=== PATIENT | female | born 1935 | race Caucasian/White ===

== ENCOUNTER 2019-05-23 21:56 | Emergency (ER) | payer MEDICARE ==
--- NOTE | 2019-05-23 22:16 | ERPHSYRPT ---
- History of Present Illness Time Seen by Provider: 05/23/19 22:07 Source: patient Exam Limitations: no limitations Patient Subjective Stated Complaint: pt is alert and oriented. pt brought in via ambulance but ambulates to the bed with assist of 1. pt comes in with c/o fall on to her wooden porch. pt denies neck or back pain. pt states she has right rib pain, left knee pain. pt breathing easily. pt takes pradaxa. pt no bruising noted. pt has raised area to the right posterior side of her head. pt PERRLA. Triage Nursing Assessment: see above Physician History: Pt states, she fell at home, on her porch, hit the back of her head, and left knee. She denies LOC, severe headaches, nausea, vomiting, other injury or complaints, except she mentioned that, she fell one week ago at home and hit her right ribs. She denies cough, SOB, abdominal pain, vomiting, other complaints. She states, she takes Pradaxa daily. Occurred: just prior to arrival Reason for Fall: tripped Injuries/Pain Location: head, lower (left extremity) Loss of Consciousness: no loss of consciousness Quality: sharpness Severity of Pain-Max: mild Severity of Pain-Current: mild Modifying Factors: Improves With: immobilization, movement Associated Symptoms (Fall): denies symptoms Allergies/Adverse Reactions: cortisone [Cortisone] Allergy (Verified 11/21/14 12:06) "affected breathing and heart" latex Allergy (Verified 11/21/14 12:06) polyethylene glycol [From Golytely] Allergy (Verified 11/21/14 12:06) vomiting and nasuea polyethylene glycol 3350 [From Golytely] Allergy (Verified 11/21/14 12:06) vomiting and nasuea potassium chloride* [From Golytely] Allergy (Verified 11/21/14 12:06) vomiting and nasuea sodium [From Golytely] Allergy (Verified 11/21/14 12:06) vomiting and nasuea sodium bicarbonate [From Golytely] Allergy (Verified 11/21/14 12:06) vomiting and nasuea sodium chloride [From Golytely] Allergy (Verified 11/21/14 12:06) vomiting and nasuea sodium sulfate [From Golytely] Allergy (Verified 11/21/14 12:06) vomiting and nasuea sodium sulfate anhydrous [From Golytely] Allergy (Verified 11/21/14 12:06) vomiting and nasuea acetaminophen [From Vicodin] Adverse Reaction (Verified 11/21/14 12:06) hydrocodone bitartrate [From Vicodin] Adverse Reaction (Verified 11/21/14 12:06) Home Medications: Alprazolam [Xanax] 0.25 mg PO BID 09/24/12 [History] Atorvastatin Calcium [Lipitor] 10 mg PO DAILY 09/24/12 [History] Beta-Carotene(A) W-C & E/Min [Ocuvite Tablet] 1 each PO BID 09/24/12 [History] Calcium Carbonate [Calcium] 600 mg PO DAILY 09/24/12 [History] Dabigatran Etexilate Mesylate [Pradaxa] 150 mg PO BID 09/24/12 [History] Famotidine [Pepcid] 20 mg PO BID 09/24/12 [History] Ferrous Sulfate 325 mg PO BID 09/24/12 [History] Levothyroxine Sodium 75 Mcg [Synthroid 75 Mcg] 75 mcg PO DAILY 09/24/12 [ History] Loratadine [Claritin] 10 mg PO DAILY 09/24/12 [History] Magnesium Oxide [Magox 400] 400 mg PO TID 09/24/12 [History] Mu-Vits-Min Th/Lycopene/Lutein [Centrum Silver Tablet] 1 each PO DAILY 09/24/12 [History] [place]-3 Fatty Acids/Fish Oil [Fish Oil 1,000 mg Capsule] 1 each PO TID 09/24/12 [History] Potassium Chloride 10 Meq Tab* [Klor Con 10MEQ] 20 meq PO TID 09/24/12 [History] Sildenafil Citrate [Revatio] 20 mg PO TID 09/24/12 [History] Spironolactone 25 mg [Aldactone 25 MG] 25 mg PO BID 09/24/12 [History] Hx Tetanus, Diphtheria Vaccination/Date Given: No Hx Influenza Vaccination/Date Given: No Hx Pneumococcal Vaccination/Date Given: No Immunizations Up to Date: Yes - Review of Systems Constitutional: No Symptoms Eyes: No Symptoms Ears, Nose, & Throat: No Symptoms Respiratory: No Symptoms Cardiac: No Symptoms Abdominal/Gastrointestinal: No Symptoms Genitourinary Symptoms: No Symptoms Musculoskeletal: Other (left knee pain) Skin: No Symptoms Neurological: No Symptoms All Other Systems: Reviewed and Negative - Past Medical History Pertinent Past Medical History: Yes Neurological History: Migraines ENT History: Cataracts Cardiac History: Coronary Artery Disease, Deep Vein Thrombosis, High Cholesterol Respiratory History: Asthma, COPD, Pulmonary Embolism, Sleep Apnea, Other Endocrine Medical History: Hypothyroidism Musculoskeletal History: Arthritis GI Medical History: GERD History: Renal Disease, Other Psycho-Social History: Depression Female Reproductive Disorders: No Pertinent History Other Medical History: 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 - Past Surgical History Past Surgical History: Yes Neuro Surgical History: No Pertinent History Cardiac: CABG Respiratory: No Pertinent History Gastrointestinal: Cholecystectomy Genitourinary: No Pertinent History Musculoskeletal: Orthopedic Surgery Female Surgical History: Hysterectomy Other Surgical History: HAND AND WRIST - Social History Smoking Status: Never smoker Exposure to second hand smoke: Yes Drug Use: none Patient Lives Alone: Yes - Nursing Vital Signs Nursing Vital Signs: Initial Vital Signs Temperature 98.1 F 05/23/19 21:56 Pain Scale Pain Intensity 7 - Tamra Coma Score Best Eye Response (Tamra): (4) open spontaneously Best Verbal Response (Tamra): (5) oriented Best Motor Response (Tamra): (6) obeys commands Tamra Total: 15 - Physical Exam General Appearance: no apparent distress Head Injury: tenderness (soft tissue tenderness of the scalp on the right parieto-occipital area, no large hematoma, other injury.) Neck Exam: supple, trachea midline, full range of motion, normal alignment, normal inspection, No focal neuro deficit, No muscle spasm, No mid-line tenderness Respiratory/Chest Exam: chest tenderness (right upper anterior axillary ribs, no swleling, ecchymosis, no crepitations or subcutaneous emphysema.), normal breath sounds, No respiratory distress, No ecchymosis, No crepitus, No rhonchi, No wheezing, No accessory muscle use Cardiovascular Exam: murmur (2/6 systolic, left sternal border) Gastrointestinal Exam: soft, normal bowel sounds, No tenderness, No distention, No mass, No guarding, No ecchymosis, No rebound Back Exam: other (kyphotic), No CVA tenderness, No vertebral tenderness Extremity Exam: normal inspection, pelvis stable, other (left anterior knee: soft tissue tenderness, good ROM, with mild pain, no deformity, no effusion, or severe laxity, good distal pulses and sensation.) Peripheral Pulses: carotid (R): 3+, carotid (L): 3+, dorsalis-pedis (R): 2+, dorsalis-pedis (L): 2+ Neurologic Exam: alert, oriented x 3, cooperative, normal mood/affect, nml cerebellar function Skin Exam: normal color, warm, dry, No rash, No petechiae, No cyanosis, No diaphoresis SpO2 Interpretation: normal O2 Delivery: Room Air - Course Nursing assessment & vital signs reviewed: Yes - Radiology Exams Left Knee X-ray Interpretation: Interpreted by me, Negative Right Ribs X-ray Interpretation: Interpreted by me, Negative, Other (old fractures ( 10-11) ) Chest X-ray Interpretation: Interpreted by me, Negative - CT Exams Head CT Interpretation: Negative, Tele-radiologist Report Ordered Tests: Active Orders 24 hr Category Date Time Status CHEST 2 VIEWS (PA AND LAT) Stat Exams 05/23/19 22:07 Taken HEAD WITHOUT CONTRAST [CT] Stat Exams 05/23/19 22:07 Taken KNEE (3 VIEWS) Stat Exams 05/23/19 22:08 Taken RIBS UNILATERAL Stat Exams 05/23/19 22:08 Taken - Progress Progress: unchanged Progress Note: 05/23/19 23:44 Pt has been stable, not lethargic or confused, denies severe pain, not nauseated , explained our findings, she is being discharged home to rest x 2-3 days, apply ice r cold compresses to sore areas, and follow up with her physician next week. Counseled pt/family regarding: diagnosis, need for follow-up, rad results - Departure Departure Disposition: Home Clinical Impression: Knee contusion Qualifiers: Encounter type: initial encounter Laterality: left Qualified Code(s): S80.02XA - Contusion of left knee, initial encounter Head injury Qualifiers: Encounter type: initial encounter Qualified Code(s): S09.90XA - Unspecified injury of head, initial encounter Condition: Stable Critical Care Time: No Referrals: MOE PRINCE [Primary Care Provider] - Instructions: Contusion (DC), Concussion, Adult (DC) Additional Instructions: Rest x 2-3 days, apply ice or cold compresses to painful areas, and follow up with your physician in 2-3 days, return if severe headaches, vomiting, lethargy !
[2019-05-23 23:58] VITALS: BP 139/75; PULSE 60; O2SAT 94
--- NOTE | 2019-05-24 07:04 | XRAY ---
Indication: Pain following fall. Multiple contiguous axial images obtained through the head without contrast. Comparison: November 05, 2013 Again age-appropriate global atrophy and minimal periventricular degenerative micro-ischemia. No acute intracranial hemorrhage, abnormal extra-axial fluid collection, or mass effect. Fourth ventricle is midline without hydrocephalus. Joe-white matter differentiation preserved. Bony calvarium intact. Visualized paranasal sinuses and mastoid air cells are clear. Impression: Nonacute senile brain. Comment: Preliminary interpretation was made by [facility]. No discrepancy. CTDI 51.47
--- NOTE | 2019-05-24 07:08 | XRAY ---
Indication: Pain following fall. Comparison: None 2 views of the right demonstrates osteopenia, old anterior lateral 8-10 rib fractures, multilevel thoracolumbar kyphoplasty, partially visualized lower lumbar fusion hardware, left pacemaker, and tortuous descending aorta. No other bony, articular, or soft tissue abnormalities.
--- NOTE | 2019-05-24 07:10 | XRAY ---
Indication: Pain following fall. Comparison: March 09, 2013. PA/lateral chest remains clear. Heart is not enlarged with left pacemaker and cardiac valvular replacement surgery. Descending aorta remains tortuous. Bony thorax intact with osteopenia, mild degenerative changes, and old bilateral rib fractures. Interval multilevel thoracolumbar kyphoplasty. Impression: Nonacute chest with chronic features.
--- NOTE | 2019-05-24 07:12 | XRAY ---
Indication: Pain following fall. Comparison: None 3 views of the left knee demonstrates osteopenia, mild medial joint space narrowing, tiny proximal tibial bone island, mild vascular calcifications, and lower leg vascular clips. No other bony, articular, or soft tissue abnormalities.
== END 2019-05-24 00:30 | disposition home or self-care (01) ==
LOC: ED 21:56
DX: S80.02XA Contusion of left knee, initial encounter (principal); S09.90XA Unspecified injury of head, initial encounter; S20.211A Contusion of right front wall of thorax, initial encounter; W18.39XA Other fall on same level, initial encounter; Z79.899 Other long term (current) drug therapy; I25.10 Atherosclerotic heart disease of native coronary artery without angina pectoris; E78.00 Pure hypercholesterolemia, unspecified; J44.9 Chronic obstructive pulmonary disease, unspecified; E03.9 Hypothyroidism, unspecified; Z86.711 Personal history of pulmonary embolism; Z95.1 Presence of aortocoronary bypass graft
CPT/HCPCS: 70450; 71046; 71100; 73562; 99284

== ENCOUNTER 2020-01-28 19:36 | Emergency (ER) | payer MEDICARE ==
[2020-01-28] MEDS ORDERED: PERCOCET TABLET 5/325MG PO STA (19:54)
[2020-01-28] MEDS ORDERED: PERCOCET TABLET 5/325MG ONE (19:57)
[2020-01-28 19:59] VITALS: PULSE 60
--- NOTE | 2020-01-28 20:12 | ERPHSYRPT ---
- History of Present Illness Time Seen by Provider: 01/28/20 20:00 Source: patient Exam Limitations: no limitations Patient Subjective Stated Complaint: Left wrist pain Triage Nursing Assessment: pt to ED c/o L wrist pain onset 1900 today after fall at home. pt states she did not hit head, no LOC. reports is on blood thinners. rates 8/10 pain that radiates up towards elbow. pain increases with movement, tender to palp. cap refil <3 sec, pulses normal. pt states freq falls at home, waiting on scooter. back to room via WC, assist x1 to bed and into gown. pt A&Ox3, lung sounds clear and equal bilat, heart sounds clear. no other complaints at this time Physician History: 84 years old female with a history of coronary artery disease, pulmonary embolism/DVT on Pradaxa, issues with balance with frequent falls presented in the ER after she fell and tried to stop her with left outstretched hand and is complaining of moderate to severe sharp throbbing pain in the left wrist with some deformity. Excruciating pain with movements at the wrist and also painful to move fingers. Denies any numbness or tingling in the fingers. Did not hit her head. No loss of consciousness. No injury anywhere else. Occurred: just prior to arrival Method of Injury: fell Quality: sharpness, throbbing Severity of Pain-Max: moderate Severity of Pain-Current: moderate Extremities Pain Location: wrist: left Modifying Factors: Improves With: cold therapy, immobilization, movement Associated Symptoms: none Allergies/Adverse Reactions: cortisone [Cortisone] Allergy (Verified 01/28/20 20:03) "affected breathing and heart" latex Allergy (Verified 01/28/20 20:03) polyethylene glycol [From Golytely] Allergy (Verified 01/28/20 20:03) vomiting and nasuea polyethylene glycol 3350 [From Golytely] Allergy (Verified 01/28/20 20:03) vomiting and nasuea potassium chloride* [From Golytely] Allergy (Verified 01/28/20 20:03) vomiting and nasuea sodium [From Golytely] Allergy (Verified 01/28/20 20:03) vomiting and nasuea sodium bicarbonate [From Golytely] Allergy (Verified 01/28/20 20:03) vomiting and nasuea sodium chloride [From Golytely] Allergy (Verified 01/28/20 20:03) vomiting and nasuea sodium sulfate [From Golytely] Allergy (Verified 01/28/20 20:03) vomiting and nasuea sodium sulfate anhydrous [From Golytely] Allergy (Verified 01/28/20 20:03) vomiting and nasuea acetaminophen [From Vicodin] Adverse Reaction (Verified 11/21/14 12:06) hydrocodone bitartrate [From Vicodin] Adverse Reaction (Verified 11/21/14 12:06) Home Medications: Alprazolam [Xanax] 0.25 mg PO BID 09/24/12 [History] Atorvastatin Calcium [Lipitor] 10 mg PO DAILY 09/24/12 [History] Beta-Carotene(A) W-C & E/Min [Ocuvite Tablet] 1 each PO BID 09/24/12 [History] Calcium Carbonate [Calcium] 600 mg PO DAILY 09/24/12 [History] Dabigatran Etexilate Mesylate [Pradaxa] 150 mg PO BID 09/24/12 [History] Famotidine [Pepcid] 20 mg PO BID 09/24/12 [History] Ferrous Sulfate 325 mg PO BID 09/24/12 [History] Levothyroxine Sodium 75 Mcg [Synthroid 75 Mcg] 75 mcg PO DAILY 09/24/12 [ History] Loratadine [Claritin] 10 mg PO DAILY 09/24/12 [History] Magnesium Oxide [Magox 400] 400 mg PO TID 09/24/12 [History] Mu-Vits-Min Th/Lycopene/Lutein [Centrum Silver Tablet] 1 each PO DAILY 09/24/12 [History] [place]-3 Fatty Acids/Fish Oil [Fish Oil 1,000 mg Capsule] 1 each PO TID 09/24/12 [History] Potassium Chloride 10 Meq Tab* [Klor Con 10MEQ] 20 meq PO TID 09/24/12 [History] Sildenafil Citrate [Revatio] 20 mg PO TID 09/24/12 [History] Spironolactone 25 mg [Aldactone 25 MG] 25 mg PO BID 09/24/12 [History] Hx Tetanus, Diphtheria Vaccination/Date Given: No Hx Influenza Vaccination/Date Given: No Hx Pneumococcal Vaccination/Date Given: No Immunizations Up to Date: No - Past Medical History Pertinent Past Medical History: Yes Neurological History: Migraines ENT History: Cataracts Cardiac History: Coronary Artery Disease, Deep Vein Thrombosis, High Cholesterol Respiratory History: Asthma, COPD, Pulmonary Embolism, Sleep Apnea, Other Endocrine Medical History: Hypothyroidism Musculoskeletal History: Arthritis GI Medical History: GERD History: Renal Disease, Other Psycho-Social History: Depression Female Reproductive Disorders: No Pertinent History Other Medical History: 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 - Past Surgical History Past Surgical History: Yes Neuro Surgical History: No Pertinent History Cardiac: CABG Respiratory: No Pertinent History Gastrointestinal: Cholecystectomy Genitourinary: No Pertinent History Musculoskeletal: Orthopedic Surgery Female Surgical History: Hysterectomy Other Surgical History: HAND AND WRIST - Social History Smoking Status: Never smoker Exposure to second hand smoke: Yes Drug Use: none Patient Lives Alone: Yes - Female History Hx Now: No (post menopausal) - Nursing Vital Signs Nursing Vital Signs: Initial Vital Signs Temperature 97.8 F 01/28/20 19:46 Pulse Rate 60 01/28/20 19:46 Respiratory Rate 20 01/28/20 19:46 Blood Pressure 137/72 01/28/20 19:46 O2 Sat by Pulse Oximetry 98 01/28/20 19:46 Pain Scale Pain Intensity 7 - Physical Exam General Appearance: no apparent distress Eyes, Ears, Nose, Throat Exam: normal ENT inspection Neck Exam: normal inspection, non-tender, supple, full range of motion Cardiovascular/Respiratory Exam: chest non-tender, normal breath sounds, regular rate/rhythm Abdominal Exam: non-tender, soft, no organomegaly, no hernia Back Exam: normal inspection, normal range of motion Shoulder Exam: normal inspection, non-tender, no evidence of injury Elbow/Forearm Exam: normal inspection, non-tender, no evidence of injury Wrist Exam: bone tenderness, deformity, limited ROM, swelling (Swollen distal forearm radial aspect with dorsal angulation. Radial pulse well palpable. Distal neurovascular intact.) Neuro/Tendon Exam: normal sensation, normal motor functions Mental Status Exam: alert, oriented x 3, cooperative Skin Exam: normal color SpO2 Interpretation: normal SpO2: 98 O2 Delivery: Room Air - Course Nursing assessment & vital signs reviewed: Yes Ordered Tests: Active Orders 24 hr Category Date Time Status Cold Application STAT Care 01/28/20 19:49 Active Sling Application STAT Care 01/28/20 21:14 Active Splint STAT Care 01/28/20 21:13 Active HAND (MINIMUM 3 VIEWS) Stat Exams 01/28/20 20:32 Taken WRIST (MIN 3 VIEWS) Stat Exams 01/28/20 19:53 Taken Medication Summary Discontinued Medications Generic Name Dose Route Start Last Admin Trade Name Doroteo PRN Reason Stop Dose Admin Morphine Sulfate 4 mg 01/28/20 20:13 01/28/20 20:16 Morphine Sulfate 4 Mg Inj IM 01/28/20 20:14 4 mg STAT ONE Administration Morphine Sulfate Confirm 01/28/20 20:13 Morphine Sulfate 4 Mg Inj Administered 01/28/20 20:14 Dose 4 mg .ROUTE .STK-MED ONE Oxycodone/Acetaminophen 1 tab 01/28/20 19:54 01/28/20 19:59 Percocet Tablet 5/325mg PO 01/28/20 19:55 1 tab STAT STA Administration Oxycodone/Acetaminophen Confirm 01/28/20 19:57 Percocet Tablet 5/325mg Administered 01/28/20 19:58 Dose 1 tab .ROUTE .STK-MED ONE - Progress Progress: improved, re-examined Progress Note: 01/28/20 21:33 She has fracture distal radius with dorsal angulation but no obvious dislocation. Sugar tong splint is applied by RN. Distal neurovascular intact after that. Recommended outpatient follow-up with orthopedic clinic in [place] as patient needs surgical intervention. She is advised to stay with a responsible person to avoid another fall. I would give her a few pain pills only and strictly advised to take only as needed as she has a history of falls and is on Pradaxa. Patient reported that her granddaughter with stay with her. Counseled pt/family regarding: diagnosis, need for follow-up, rad results - Departure Departure Disposition: Home Clinical Impression: Wrist fracture, left Qualifiers: Encounter type: initial encounter Fracture type: closed Qualified Code(s): S62.102A - Fracture of unspecified carpal bone, left wrist, initial encounter for closed fracture Condition: Stable Critical Care Time: No Referrals: MOE PRINCE [Primary Care Provider] - Additional Instructions: Take pain medication only as needed. Keep it elevated, apply ice. Ambulate with assistance. Follow-up with orthopedic clinic in [place] tomorrow morning further evaluation and fracture fixation. Return to ED ER for any worsening.
[2020-01-28] MEDS ORDERED: MORPHINE SULFATE 4 MG INJ ONE (20:13)
[2020-01-28] MEDS ORDERED: MORPHINE SULFATE 4 MG INJ IM ONE (20:13)
[2020-01-28 20:48] VITALS: BP 146/63
[2020-01-28] MEDS ORDERED: NORCO 5/325 MG PO ONE (21:38)
[2020-01-28] MEDS ORDERED: NORCO 5/325 MG ONE (21:45)
[2020-01-28 21:49] VITALS: O2SAT 100
--- NOTE | 2020-01-29 21:57 | XRAY ---
Exam: 3 views left hand from 01/28/2020. Comparison: Left hand films from 09/23/2017. Indication: Patient fell last night. Findings: AP, oblique, and lateral radiographs of the left hand reveal bone demineralization. No acute fracture or dislocation of the left hand is seen. I note moderate to marked osteoarthritis affecting the carpal-first metacarpal joint space representing no significant change from 09/23/2017. I again see an impacted, comminuted fracture of the distal left radius which extends into the articular margin of the radiocarpal joint. Mild displacement of the comminuted radial fracture elements is seen. There is also a mildly displaced avulsion fracture injury of the distal left ulnar styloid process. Impression: 1. No additional acute fracture or dislocation of the left hand is seen. I again note an impacted Colles' fracture of the distal left radius and ulna which is new from 09/23/2017. 2. 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
--- NOTE | 2020-01-29 22:03 | XRAY ---
Exam: 3 views of the left wrist from 01/28/2020. Comparison: 3 views of the left wrist from 09/23/2017. Indication: Patient fell. Findings: AP, oblique, and lateral radiographs of the left wrist were obtained. There is marked soft tissue swelling and deformity about the posterior aspect of the left wrist. I note a new acute, impacted, comminuted fracture of the distal left radius. The fracture extends into the articular margin of the radiocarpal joint space. There is slight cortical offset. Mild dorsal angulation of the distal radial fracture elements is seen. I note some prominence of the joint space between the carpal scaphoid bone and lunate bone measuring 3.4 mm across. The carpal scaphoid bone appears intact. I also note a mildly displaced acute avulsion fracture injury of the distal left ulnar styloid process which is new. The bones are demineralized. Advanced osteoarthritis of the carpal-first metacarpal joint space is seen. Impression: 1. New acute Colles' fracture of the distal left radius and ulnar styloid process, as discussed above.
== END 2020-01-28 22:00 | disposition home or self-care (01) ==
LOC: ED 19:36
DX: S62.102A Fracture of unspecified carpal bone, left wrist, initial encounter for closed fracture (principal); R29.6 Repeated falls; J44.9 Chronic obstructive pulmonary disease, unspecified; I25.810 Atherosclerosis of coronary artery bypass graft(s) without angina pectoris; E03.9 Hypothyroidism, unspecified; E78.00 Pure hypercholesterolemia, unspecified; G47.30 Sleep apnea, unspecified; Z86.711 Personal history of pulmonary embolism; Z79.01 Long term (current) use of anticoagulants; Z79.899 Other long term (current) drug therapy; M25.532 Pain in left wrist; Z86.718 Personal history of other venous thrombosis and embolism
CPT/HCPCS: 29105; 73110; 73130; 96372; 99284; J2270; A9270-GY

== ENCOUNTER 2021-07-07 10:00 | Emergency (ER) | payer MEDICARE ==
[2021-07-07 10:20] VITALS: PULSE 60
[2021-07-07] MEDS ORDERED: Lasix 40 MG/4 ML ONE (10:41)
[2021-07-07] MEDS: Lasix 40 MG/4 ML IV ONE (10:52)
[2021-07-07 10:58] LABS: Absolute Neutrophil Ct (ANC) 3.21 (1.4-6.9); BASOPHIL % 0.2 % (0.0-0.4); Basophil (Absolute #) 0.01 (0-0.4); Eosinophil % 5.3 % (0.00-5.0); Eosinophil (Absolute #) 0.26 (0-0.5); Hematocrit 34.7 % (35-47); Hemoglobin 10.5 gm/dl (12.0-16.0); Lymphocyte (Absolute #) 0.55 (1.0-4.6); Lymphocytes % 11.2 % (24.0-44.0); Mean Cell Volume 95.1 fl (78-100); Mean Corpuscular Hemoglobin 28.8 pg (26-32); Mean Corpuscular Hgb Concent. 30.3 g/dl (32-36); Mean Platelet Volume 10.3 fl (7.5-11.0); Monocytes % 18.3 % (0.0-12.0); Platelet Count 186 K/mm3 (150-450); Red Blood Count 3.65 M/mm3 (4.1-5.4); Red Cell Distribution Width 15.8 % (11.5-14.0); White Blood Count 4.9 K/mm3 (4.0-10.5)
--- NOTE | 2021-07-07 11:07 | ERPHSYRPT ---
- History of Present Illness Time Seen by Provider: 07/07/21 10:15 Source: patient Exam Limitations: no limitations Patient Subjective Stated Complaint: Pt c/o of urinating all the time and having blisters down by her feet Triage Nursing Assessment: Pt c/o of constant urination and blisters down by right foot, malik LE edema, denies pain, vitals wnl, skin n/wd, reports that constipation is normal for her, doesn't appear to be in any distress Physician History: This is an 85-year-old white female who is a patient of Dr. Lola Prince materials scheduler Dr. Greer, who also has coronary artery disease, history of pulmonary embolism/DVT on anticoagulant therapy, hypothyroidism, elevated cholesterol, COPD and chronic renal disease who presents with a complaint of urinating frequently over the last month as well as increasing swelling in her bilateral lower extremities with associated blistering. Patient had an appointment this morning to see Dr. Greer her materials scheduler, however, she could not get transportation to the appointment. Patient denies chest pain. Patient denies shortness of breath. Patient denies abdominal pain. She has no nausea vomiting or diarrhea symptoms. She denies fevers Method of Injury: other (No specific injury) Occurred: days ago (Several days ago she noticed increasing swelling in her lower extremities), other (She has had increasing frequency of urination over the last month) Severity of Pain-Max: mild Severity of Pain-Current: mild Lower Extremities Pain: leg: bilateral, thigh: bilateral, foot: bilateral Modifying Factors: Improves With: nothing Associated Symptoms: other (Blistering of her bilateral lower extremities) Allergies/Adverse Reactions: cortisone [Cortisone] Allergy (Verified 07/07/21 10:20) "affected breathing and heart" latex Allergy (Verified 07/07/21 10:20) polyethylene glycol [From Golytely] Allergy (Verified 07/07/21 10:20) vomiting and nasuea polyethylene glycol 3350 [From Golytely] Allergy (Verified 07/07/21 10:20) vomiting and nasuea potassium chloride* [From Golytely] Allergy (Verified 07/07/21 10:20) vomiting and nasuea sodium [From Golytely] Allergy (Verified 07/07/21 10:20) vomiting and nasuea sodium bicarbonate [From Golytely] Allergy (Verified 07/07/21 10:20) vomiting and nasuea sodium chloride [From Golytely] Allergy (Verified 07/07/21 10:20) vomiting and nasuea sodium sulfate [From Golytely] Allergy (Verified 07/07/21 10:20) vomiting and nasuea sodium sulfate anhydrous [From Golytely] Allergy (Verified 07/07/21 10:20) vomiting and nasuea acetaminophen [From Vicodin] Adverse Reaction (Verified 07/07/21 10:20) hydrocodone bitartrate [From Vicodin] Adverse Reaction (Verified 07/07/21 10:20) Home Medications: Alprazolam [Xanax] 0.25 mg PO BID 09/24/12 [History] Atorvastatin Calcium [Lipitor] 10 mg PO DAILY 09/24/12 [History] Beta-Carotene(A) W-C & E/Min [Ocuvite Tablet] 1 each PO BID 09/24/12 [History] Calcium Carbonate [Calcium] 600 mg PO DAILY 09/24/12 [History] Dabigatran Etexilate Mesylate [Pradaxa] 150 mg PO BID 09/24/12 [History] Famotidine [Pepcid] 20 mg PO BID 09/24/12 [History] Ferrous Sulfate 325 mg PO BID 09/24/12 [History] Levothyroxine Sodium 75 Mcg [Synthroid 75 Mcg] 75 mcg PO DAILY 09/24/12 [History] Loratadine [Claritin] 10 mg PO DAILY 09/24/12 [History] Magnesium Oxide [Magox 400] 400 mg PO TID 09/24/12 [History] Mu-Vits-Min Th/Lycopene/Lutein [Centrum Silver Tablet] 1 each PO DAILY 09/24/12 [History] [place]-3 Fatty Acids/Fish Oil [Fish Oil 1,000 mg Capsule] 1 each PO TID 09/24/12 [History] Potassium Chloride 10 Meq Tab* [Klor Con 10MEQ] 20 meq PO TID 09/24/12 [History] Sildenafil Citrate [Revatio] 20 mg PO TID 09/24/12 [History] Spironolactone 25 mg [Aldactone 25 MG] 25 mg PO BID 09/24/12 [History] Hx Tetanus, Diphtheria Vaccination/Date Given: No Hx Influenza Vaccination/Date Given: No Hx Pneumococcal Vaccination/Date Given: No Travel Risk - International Travel Have you traveled outside of the country in past 3 weeks: No - Coronavirus Screening Are you exhibiting any of the following symptoms?: No Close contact with a COVID-19 positive Pt in past 14-21 Days: No - Vaccine Status Have you recieved a Covid-19 vaccination: No - Review of Systems Constitutional: No Symptoms Eyes: No Symptoms Ears, Nose, & Throat: No Symptoms Respiratory: No Symptoms Cardiac: No Symptoms Abdominal/Gastrointestinal: No Symptoms Genitourinary Symptoms: Frequency Musculoskeletal: No Symptoms Skin: Other (Blistering of her bilateral lower extremities over the last several days) Psychological: No Symptoms Endocrine: No Symptoms Hematologic/Lymphatic: No Symptoms Immunological/Allergic: No Symptoms All Other Systems: Reviewed and Negative - Past Medical History Pertinent Past Medical History: Yes Neurological History: Migraines ENT History: Cataracts Cardiac History: Coronary Artery Disease, Deep Vein Thrombosis, High Cholesterol Respiratory History: Asthma, COPD, Pulmonary Embolism, Sleep Apnea, Other Endocrine Medical History: Hypothyroidism Musculoskeletal History: Arthritis GI Medical History: GERD History: Renal Disease, Other Psycho-Social History: Depression Female Reproductive Disorders: No Pertinent History Other Medical History: 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 - Past Surgical History Past Surgical History: Yes Neuro Surgical History: No Pertinent History Cardiac: CABG Respiratory: No Pertinent History Gastrointestinal: Cholecystectomy Genitourinary: No Pertinent History Musculoskeletal: Orthopedic Surgery Female Surgical History: Hysterectomy Other Surgical History: HAND AND WRIST - Social History Smoking Status: Never smoker Exposure to second hand smoke: Yes Drug Use: none Patient Lives Alone: No - Female History Hx Now: No - Nursing Vital Signs Nursing Vital Signs: Initial Vital Signs Temperature 98.4 F 07/07/21 10:02 Pulse Rate 60 07/07/21 10:02 Blood Pressure 123/55 07/07/21 10:02 O2 Sat by Pulse Oximetry 97 07/07/21 10:02 Pain Scale Pain Intensity 0 - Physical Exam General Appearance: no apparent distress, alert, anxiety, thin Eyes, Ears, Nose, Throat Exam: normal ENT inspection, moist mucous membranes Neck Exam: normal inspection, non-tender, supple, full range of motion Cardiovascular/Respiratory Exam: chest non-tender, no respiratory distress Gastrointestinal/Abdominal Exam: non-tender Back Exam: normal inspection, normal range of motion, No CVA tenderness, No vertebral tenderness Hips Exam: bilateral: non-tender, normal inspection, normal range of motion, no evidence of injury Legs Exam: bilateral leg: non-tender, normal range of motion, no evidence of injury, swelling (Patient has bilateral below the knee edema without evidence of active blistering or cellulitis.), other (The skin is dry from below the knee down to her toes bilaterally) Knees Exam: bilateral knee: non-tender, normal inspection, normal range of motion, no evidence of injury Ankle Exam: bilateral ankle: non-tender, normal range of motion, no evidence of injury, swelling (Mild to moderate bilateral. No evidence of blisters. No evidence of cellulitis) Foot Exam: bilateral foot: non-tender, normal range of motion, no evidence of injury, swelling (Bilateral swelling without evidence of blistering. There is no cellulitis present patient has palpable pedal pulses) Neuro/Tendon Exam: normal sensation, normal motor functions, normal tendon functions Mental Status Exam: alert, oriented x 3, cooperative Skin Exam: other (No evidence of bilateral lower extremity cellulitis or blistering at this time) SpO2 Interpretation: normal SpO2: 97 O2 Delivery: Room Air - Course Nursing assessment & vital signs reviewed: Yes Ordered Tests: Active Orders 24 hr Category Date Time Status BMP Stat Lab 07/07/21 10:50 Completed CBC W DIFF Stat Lab 07/07/21 10:50 Completed MAGNESIUM Stat Lab 07/07/21 10:50 Completed NT PRO BNP Stat Lab 07/07/21 10:50 Completed Medication Summary Discontinued Medications Generic Name Dose Route Start Last Admin Trade Name Doroteo PRN Reason Stop Dose Admin Furosemide 40 mg 07/07/21 10:39 07/07/21 10:52 Lasix 40 Mg/4 Ml IV 07/07/21 10:40 40 mg STAT ONE Administration Furosemide Confirm 07/07/21 10:41 Lasix 40 Mg/4 Ml Administered 07/07/21 10:42 Dose 40 mg .ROUTE .STK-MED ONE Lab/Rad Data: Laboratory Result Diagrams 07/07/21 10:50 07/07/21 10:50 Laboratory Results 07/07/21 07/07/21 Range/Units 10:50 10:50 WBC 4.9 (4.0-10.5) K/mm3 RBC 3.65 L (4.1-5.4) M/mm3 Hgb 10.5 L (12.0-16.0) gm/dl Hct 34.7 L (35-47) % MCV 95.1 (78-100) fl MCH 28.8 (26-32) pg MCHC 30.3 L (32-36) g/dl RDW 15.8 H (11.5-14.0) % Plt Count 186 (150-450) K/mm3 MPV 10.3 (7.5-11.0) fl Gran % 65.0 (36.0-66.0) % Eos # (Auto) 0.26 (0-0.5) Absolute Lymphs (auto) 0.55 L (1.0-4.6) Absolute Monos (auto) 0.90 (0.0-1.3) Lymphocytes % 11.2 L (24.0-44.0) % Monocytes % 18.3 H (0.0-12.0) % Eosinophils % 5.3 H (0.00-5.0) % Basophils % 0.2 (0.0-0.4) % Absolute Granulocytes 3.21 (1.4-6.9) Basophils # 0.01 (0-0.4) Sodium 138 (137-145) mmol/L Potassium 3.7 (3.5-5.1) mmol/L Chloride 97 L (98-107) mmol/L Carbon Dioxide 34 H (22-30) mmol/L Anion Gap 11.1 (5-15) MEQ/L BUN 15 (7-17) mg/dL Creatinine 1.07 H (0.52-1.04) mg/dL Estimated GFR 51.6 ML/MIN Glucose 105 (74-106) mg/dL Calcium 9.6 (8.4-10.2) mg/dL Magnesium 2.0 (1.6-2.3) mg/dL NT-Pro-B Natriuret Pep 1070 (0-1800) pg/mL - Progress Progress: unchanged Progress Note: 07/07/21 11:33 Medical decision making: This patient has worsening bilateral lower extremity edema. She has no blistering or evidence of cellulitis today. We will wrap her legs with Marlon wraps from her toes to below the knee. She will call her primary care physician and materials scheduler. They can make prescriptions for her to receive pressurized stockings. Counseled pt/family regarding: lab results, diagnosis, need for follow-up - Departure Departure Disposition: Home Clinical Impression: Bilateral lower extremity edema, Dry skin Condition: Stable Critical Care Time: No Referrals: MOE PRINCE [Primary Care Provider] - Additional Instructions: Keep your legs elevated above the level of your heart as much as possible. Call your materials scheduler as well as your primary care physician today to make arrangements for follow-up appointment next week. Apply unscented lotion on the skin of your lower extremities twice a day to help avoid cracking of the dry skin. Wear the Marlon wrap's during the day until you are able to see your primary prescribing physician or materials scheduler to prescribe you pressurize stocking/hose.
[2021-07-07 11:17] LABS: ANION GAP 11.1 MEQ/L (5-15); Calcium 9.6 mg/dL (8.4-10.2); Creatinine 1 1.07 mg/dL (0.52-1.04); EST GLOMERULAR FILTRATION RATE 51.6 ML/MIN; Potassium 3.7 mmol/L (3.5-5.1)
[2021-07-07 11:36] VITALS: O2SAT 97
[2021-07-07 12:06] VITALS: BP 140/58
== END 2021-07-07 12:06 | disposition home or self-care (01) ==
LOC: ED 10:00
DX: R60.0 Localized edema (principal); L85.3 Xerosis cutis
CPT/HCPCS: 36000; 36415; 80048; 83735; 83880; 85025; 96374; 99284; J1940

== ENCOUNTER 2022-01-31 16:59 | Emergency (ER) | payer MEDICARE ==
--- NOTE | 2022-01-31 17:06 | ERPHSYRPT ---
- History of Present Illness Time Seen by Provider: 01/31/22 17:06 Source: patient Exam Limitations: no limitations Physician History: This is an 86-year-old white female patient of Dr. Lola Prince who is asymptomatic and was notified by her physicians to come to the emergency department because of a low potassium of 2.7. The patient was n.p.o. for her lab test that were drawn at 11 AM. Patient has not taken any potassium today. Patient usually takes 10 mEq of potassium 3 times a day. She used to take 20 mEq 3 times a day but that has since been changed. Patient arrives to the emergency department without any complaints. Patient does have a degree of renal insufficiency. Patient also is taking spironolactone. Timing/Duration: today Severity: mild Associated Symptoms: denies symptoms Allergies/Adverse Reactions: cortisone [Cortisone] Allergy (Verified 07/07/21 10:20) "affected breathing and heart" latex Allergy (Verified 07/07/21 10:20) polyethylene glycol [From Golytely] Allergy (Verified 07/07/21 10:20) vomiting and nasuea polyethylene glycol 3350 [From Golytely] Allergy (Verified 07/07/21 10:20) vomiting and nasuea potassium chloride* [From Golytely] Allergy (Verified 07/07/21 10:20) vomiting and nasuea sodium [From Golytely] Allergy (Verified 07/07/21 10:20) vomiting and nasuea sodium bicarbonate [From Golytely] Allergy (Verified 07/07/21 10:20) vomiting and nasuea sodium chloride [From Golytely] Allergy (Verified 07/07/21 10:20) vomiting and nasuea sodium sulfate [From Golytely] Allergy (Verified 07/07/21 10:20) vomiting and nasuea sodium sulfate anhydrous [From Golytely] Allergy (Verified 07/07/21 10:20) vomiting and nasuea acetaminophen [From Vicodin] Adverse Reaction (Verified 07/07/21 10:20) hydrocodone bitartrate [From Vicodin] Adverse Reaction (Verified 07/07/21 10:20) Home Medications: ALPRAZolam [Xanax] 0.25 mg PO BID 09/24/12 [History] Atorvastatin Calcium [Lipitor] 10 mg PO DAILY 09/24/12 [History] Beta-Carotene(A) W-C & E/Min [Ocuvite Tablet] 1 each PO BID 09/24/12 [History] Calcium Carbonate [Calcium] 600 mg PO DAILY 09/24/12 [History] Dabigatran Etexilate Mesylate [Pradaxa] 150 mg PO BID 09/24/12 [History] Famotidine [Pepcid] 20 mg PO BID 09/24/12 [History] Ferrous Sulfate 325 mg PO BID 09/24/12 [History] Levothyroxine Sodium 75 Mcg [Synthroid 75 Mcg] 75 mcg PO DAILY 09/24/12 [History] Loratadine [Claritin] 10 mg PO DAILY 09/24/12 [History] Magnesium Oxide [Magox 400] 400 mg PO TID 09/24/12 [History] Mu-Vits-Min Th/Lycopene/Lutein [Centrum Silver Tablet] 1 each PO DAILY 09/24/12 [History] [place]-3 Fatty Acids/Fish Oil [Fish Oil 1,000 mg Capsule] 1 each PO TID 09/24/12 [History] Potassium Chloride 10 Meq Tab* [Klor Con 10MEQ] 20 meq PO TID 09/24/12 [History] Sildenafil Citrate [Revatio] 20 mg PO TID 09/24/12 [History] Spironolactone 25 mg [Aldactone 25 MG] 25 mg PO BID 09/24/12 [History] Hx Tetanus, Diphtheria Vaccination/Date Given: No Hx Influenza Vaccination/Date Given: No Hx Pneumococcal Vaccination/Date Given: No Travel Risk - International Travel Have you traveled outside of the country in past 3 weeks: No - Coronavirus Screening Are you exhibiting any of the following symptoms?: No Close contact with a COVID-19 positive Pt in past 14-21 Days: No - Vaccine Status Have you recieved a Covid-19 vaccination: No - Review of Systems Constitutional: No Symptoms Eyes: No Symptoms Ears, Nose, & Throat: No Symptoms Respiratory: No Symptoms Cardiac: No Symptoms Abdominal/Gastrointestinal: No Symptoms Genitourinary Symptoms: No Symptoms Musculoskeletal: No Symptoms Skin: No Symptoms Neurological: No Symptoms Psychological: No Symptoms - Past Medical History Pertinent Past Medical History: Yes Neurological History: Migraines ENT History: Cataracts Cardiac History: Coronary Artery Disease, Deep Vein Thrombosis, High Cholesterol Respiratory History: Asthma, COPD, Pulmonary Embolism, Sleep Apnea, Other Endocrine Medical History: Hypothyroidism Musculoskeletal History: Arthritis GI Medical History: GERD History: Renal Disease, Other Psycho-Social History: Depression Female Reproductive Disorders: No Pertinent History Other Medical History: 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 - Past Surgical History Past Surgical History: Yes Neuro Surgical History: No Pertinent History Cardiac: CABG Respiratory: No Pertinent History Gastrointestinal: Cholecystectomy Genitourinary: No Pertinent History Musculoskeletal: Orthopedic Surgery Female Surgical History: Hysterectomy Other Surgical History: HAND AND WRIST - Social History Smoking Status: Never smoker Exposure to second hand smoke: Yes Drug Use: none Patient Lives Alone: No - Nursing Vital Signs Nursing Vital Signs: Initial Vital Signs Temperature 99.2 F 01/31/22 17:21 Pulse Rate 76 01/31/22 17:21 Respiratory Rate 16 01/31/22 17:21 Blood Pressure 168/61 01/31/22 17:21 O2 Sat by Pulse Oximetry 97 01/31/22 17:21 Pain Scale Pain Intensity 0 - Physical Exam General Appearance: no apparent distress, alert Eye Exam: PERRL/EOMI, eyes nml inspection Ears, Nose, Throat Exam: normal ENT inspection, moist mucous membranes Neck Exam: normal inspection, non-tender, supple, full range of motion Respiratory Exam: normal breath sounds, lungs clear, airway intact, No chest tenderness, No respiratory distress Cardiovascular Exam: regular rate/rhythm, normal heart sounds, normal peripheral pulses Gastrointestinal/Abdomen Exam: soft, normal bowel sounds, No tenderness Pelvic Exam: not done Rectal Exam: not done Back Exam: normal inspection, normal range of motion, No CVA tenderness, No vert ebral tenderness Extremity Exam: normal inspection, normal range of motion, pelvis stable Neurologic Exam: alert, oriented x 3, cooperative, portfolio specialist II-XII nml as tested, normal mood/affect, nml cerebellar function, nml station & gait, sensation nml Skin Exam: normal color, warm, dry Lymphatic Exam: No adenopathy SpO2 Interpretation: normal O2 Delivery: Room Air - Course Nursing assessment & vital signs reviewed: Yes EKG Interpreted by Me: RATE (76), Sinus Rhythm (Or ectopic atrial rhythm), NORMAL AXIS, NORMAL QRS, NORMAL ST-T, Other (Shortened NM interval. No acute ischemic changes.) Ordered Tests: Active Orders 24 hr Category Date Time Status EKG-ER Only STAT Care 01/31/22 17:11 Active IV Insertion STAT Care 01/31/22 17:11 Active BMP Stat Lab 01/31/22 17:16 Completed Medication Summary Discontinued Medications Generic Name Dose Route Start Last Admin Trade Name Doroteo PRN Reason Stop Dose Admin Potassium Chloride 20 meq in 100 mls @ 50 mls/hr 01/31/22 17:12 01/31/22 17:39 Potassium Chloride 20 Meq In Water 100ml IV 01/31/22 19:11 50 mls/hr STAT ONE Administration Potassium Chloride Confirm 01/31/22 17:36 Potassium Chloride 20 Meq In Water 100ml Administered 01/31/22 17:37 Dose 100 mls @ ud IV .STK-MED ONE Sodium Chloride Confirm 01/31/22 17:50 Sodium Chloride 0.9% 1000 Ml Administered 01/31/22 17:51 Dose 1,000 mls @ ud .ROUTE .STK-MED ONE Sodium Chloride 1,000 mls @ 999 mls/hr 01/31/22 17:50 01/31/22 19:15 Sodium Chloride 0.9% 1000 Ml IV 01/31/22 18:50 Infused .Q1H1M STA Infusion Potassium Chloride 20 meq 01/31/22 17:12 01/31/22 17:40 Potassium Chloride 10 Meq Tablet PO 01/31/22 17:13 20 meq STAT ONE Administration Potassium Chloride Confirm 01/31/22 17:35 Potassium Chloride 10 Meq Tablet Administered 01/31/22 17:36 Dose 20 meq PO .STK-MED ONE Potassium Chloride 10 meq 01/31/22 19:00 01/31/22 19:25 Potassium Chloride 10 Meq Tablet PO 01/31/22 19:01 10 meq STAT ONE Administration Potassium Chloride Confirm 01/31/22 19:24 Potassium Chloride 10 Meq Tablet Administered 01/31/22 19:25 Dose 10 meq PO .STK-MED ONE Lab/Rad Data: Laboratory Result Diagrams 01/31/22 17:16 Laboratory Results 01/31/22 Range/Units 17:16 Sodium 140 (137-145) mmol/L Potassium 2.7 L* (3.5-5.1) mmol/L Chloride 96 L (98-107) mmol/L Carbon Dioxide 33 H (22-30) mmol/L Anion Gap 13.8 (5-15) MEQ/L BUN 23 H (7-17) mg/dL Creatinine 1.28 H (0.52-1.04) mg/dL Estimated GFR 41.8 ML/MIN Glucose 125 H (74-106) mg/dL Calcium 9.2 (8.4-10.2) mg/dL - Progress Progress: improved Counseled pt/family regarding: lab results, diagnosis, need for follow-up - Departure Departure Disposition: Home Clinical Impression: Hypokalemia Condition: Stable Critical Care Time: No Referrals: MOE PRINCE [Primary Care Provider] - Follow up/PCP as directed Additional Instructions: Tomorrow morning, 02/01/2022, take 20 mEq of your potassium. At noon tomorrow, follow-up at the [facility] lab to have a repeat potassium level drawn. Call your primary care provider and the emergency department approximately 2 hours after the lab is drawn to obtain the results of your potassium. Either your primary care provider or emergency department will discuss further management of your potassium medication.
[2022-01-31] MEDS ORDERED: Klor Con 10 MEQ PO ONE ×4 (17:12→19:24)
[2022-01-31] MEDS ORDERED: POTASSIUM CHLORIDE 20 mEq IN WATER 100ML 20 MEQ/100 ML BAG IV ONE (17:12)
[2022-01-31] MEDS ORDERED: POTASSIUM CHLORIDE 20 mEq IN WATER 100ML 100 ML IV ONE (17:36)
[2022-01-31] MEDS ORDERED: Sodium Chloride 0.9% 1000 ML 1,000 ML IV STA (17:50)
[2022-01-31] MEDS ORDERED: Sodium Chloride 0.9% 1000 ML 1,000 ML ONE (17:50)
[2022-01-31 17:54] LABS: ANION GAP 13.8 MEQ/L (5-15); Calcium 9.2 mg/dL (8.4-10.2); Creatinine 1 1.28 mg/dL (0.52-1.04); EST GLOMERULAR FILTRATION RATE 41.8 ML/MIN
[2022-01-31 18:44] LABS: Potassium 2.7 mmol/L (3.5-5.1)
[2022-01-31 19:24] VITALS: PULSE 72; O2SAT 97
[2022-01-31 20:16] VITALS: BP 150/65
== END 2022-01-31 20:15 | disposition home or self-care (01) ==
LOC: ED 16:59
DX: E87.6 Hypokalemia (principal); N28.9 Disorder of kidney and ureter, unspecified; I25.10 Atherosclerotic heart disease of native coronary artery without angina pectoris; E78.5 Hyperlipidemia, unspecified; J44.9 Chronic obstructive pulmonary disease, unspecified; K21.9 Gastro-esophageal reflux disease without esophagitis; Z86.718 Personal history of other venous thrombosis and embolism; Z79.01 Long term (current) use of anticoagulants; Z86.711 Personal history of pulmonary embolism; Z79.899 Other long term (current) drug therapy
CPT/HCPCS: 36000; 36415; 80048; 80061; 83721; 93005; 99284; J3480; A9270-GY

== ENCOUNTER 2022-09-14 15:04 | Observation (INO) | payer MEDICARE ==
--- NOTE | 2022-09-14 15:35 | XRAY ---
Indication: Lethargy. Comparison: May 23, 2019 Portable chest demonstrates new borderline cardiomegaly, vascular congestion, pulmonary edema, and tiny right effusion concerning for cardiac decompensation/CHF. Superimposed pneumonia not completely excluded. Again prior cardiac valve replacement surgery, left pacemaker, osteopenia, degenerative changes, old right rib fractures, and multilevel thoracolumbar kyphoplasty.
[2022-09-14 15:50] LABS: Absolute Neutrophil Ct (ANC) 2.94 x10^3/uL (1.4-6.9); Basophil (Absolute #) 0.02 x10^3/uL (0-0.4); Eosinophil % 4.1 % (0.00-5.0); Eosinophil (Absolute #) 0.19 x10^3/uL (0-0.5); Hemoglobin 11.4 g/dL (12.0-16.0); Lymphocyte (Absolute #) 0.81 x10^3/uL (1.0-4.6); Lymphocytes % 17.4 % (24.0-44.0); Mean Cell Volume 98.2 fL (78-100); Mean Corpuscular Hemoglobin 29.5 pg (26-32); Mean Platelet Volume 9.9 fL (7.5-11.0); Monocyte (Absolute #) 0.69 x10^3/uL (0.0-1.3); Monocytes % 14.8 % (0.0-12.0); Neutrophil % 63.1 % (36.0-66.0); Platelet Count 155 x10^3/uL (150-450); Red Blood Count 3.87 x10^6/uL (4.1-5.4); White Blood Count 4.7 x10^3/uL (4.0-10.5)
[2022-09-14 16:11] LABS: INR 1.15 (0.8-3.0); PTT 28.3 SECONDS (25.1-36.5)
[2022-09-14 16:17] LABS: ALBUMIN 4.1 g/dL (3.5-5.0); ALKALINE PHOSPHATASE 167 U/L (38-126); ANION GAP 11.2 MEQ/L (5-15); BLOOD UREA NITROGEN 6 mg/dL (7-17); CHLORIDE 104 mmol/L (98-107); Calcium 9.2 mg/dL (8.4-10.2); Carbon Dioxide 29 mmol/L (22-30); Creatinine 1 0.63 mg/dL (0.52-1.04); EST GLOMERULAR FILTRATION RATE > 60.0 ML/MIN; Glucose 98 mg/dL (74-106); NT PRO BNP 2770 pg/mL (0-1800); SGOT/AST 28 U/L (14-36); SGPT/ALT 17 U/L (0-35); SODIUM 140 mmol/L (137-145); Total Protein 8.1 g/dL (6.3-8.2)
--- NOTE | 2022-09-14 16:20 | ERPHSYRPT ---
- History of Present Illness Source: patient, EMS Exam Limitations: other (Very poor historian) Patient Subjective Stated Complaint: Patient c/o weakness. Denies any falls since returning home from [facility] approx 10 days ago. Patient states that she was sent home from the rehab place because her insurance quit paying but she states she is still too weak to get around at home with her walker. Triage Nursing Assessment: Patient brought into ED by ambulance. No SOB. She is alert and oriented. SKin tone normal, warm, loose, dry. Patient with several small scabs just below bottom lip on chin. Lips are dry. Physician History: 86 yo WF w decreased po intake, weight loss, generalized weakness, and chronic R hip pain. Pt denies fever/cough/coryza/N/V/D/chest pain/dyspnea/melena/hematochezia/dysuria/hematuria/focal weakness. Timing/Duration: other (Chronic symptoms) Severity: moderate Modifying Factors: Improves With: nothing Associated Symptoms: denies symptoms Allergies/Adverse Reactions: cortisone [Cortisone] Allergy (Verified 09/14/22 15:06) "affected breathing and heart" latex Allergy (Verified 09/14/22 15:06) polyethylene glycol [From Golytely] Allergy (Verified 09/14/22 15:06) vomiting and nasuea polyethylene glycol 3350 [From Golytely] Allergy (Verified 09/14/22 15:06) vomiting and nasuea potassium chloride* [From Golytely] Allergy (Verified 09/14/22 15:06) vomiting and nasuea sodium [From Golytely] Allergy (Verified 09/14/22 15:06) vomiting and nasuea sodium bicarbonate [From Golytely] Allergy (Verified 09/14/22 15:06) vomiting and nasuea sodium chloride [From Golytely] Allergy (Verified 09/14/22 15:06) vomiting and nasuea sodium sulfate [From Golytely] Allergy (Verified 09/14/22 15:06) vomiting and nasuea sodium sulfate anhydrous [From Golytely] Allergy (Verified 09/14/22 15:06) vomiting and nasuea acetaminophen [From Vicodin] Adverse Reaction (Verified 09/14/22 15:06) hydrocodone bitartrate [From Vicodin] Adverse Reaction (Verified 09/14/22 15:06) Home Medications: ALPRAZolam [Xanax] 0.25 mg PO BID 09/24/12 [History] Atorvastatin Calcium [Lipitor] 10 mg PO DAILY 09/24/12 [History] Beta-Carotene(A) W-C & E/Min [Ocuvite Tablet] 1 each PO BID 09/24/12 [History] Calcium Carbonate [Calcium] 600 mg PO DAILY 09/24/12 [History] Dabigatran Etexilate Mesylate [Pradaxa] 150 mg PO BID 09/24/12 [History] Famotidine [Pepcid] 20 mg PO BID 09/24/12 [History] Ferrous Sulfate 325 mg PO BID 09/24/12 [History] Levothyroxine Sodium 75 Mcg [Synthroid 75 Mcg] 75 mcg PO DAILY 09/24/12 [History] Loratadine [Claritin] 10 mg PO DAILY 09/24/12 [History] Magnesium Oxide [Magox 400] 400 mg PO TID 09/24/12 [History] Mu-Vits-Min Th/Lycopene/Lutein [Centrum Silver Tablet] 1 each PO DAILY 09/24/12 [History] [place]-3 Fatty Acids/Fish Oil [Fish Oil 1,000 mg Capsule] 1 each PO TID 09/24/12 [History] Potassium Chloride Tab* [Klor Con 10MEQ] 20 meq PO TID 09/24/12 [History] Sildenafil Citrate [Revatio] 20 mg PO TID 09/24/12 [History] Spironolactone 25 mg [Aldactone 25 MG] 25 mg PO BID 09/24/12 [History] Hx Tetanus, Diphtheria Vaccination/Date Given: Yes Hx Influenza Vaccination/Date Given: No Hx Pneumococcal Vaccination/Date Given: No Immunizations Up to Date: Yes Travel Risk - International Travel Have you traveled outside of the country in past 3 weeks: No - Coronavirus Screening Are you exhibiting any of the following symptoms?: No Close contact with a COVID-19 positive Pt in past 14-21 Days: No - Vaccine Status Have you recieved a Covid-19 vaccination: No - Review of Systems Constitutional: No Symptoms, Malaise, Weakness Eyes: No Symptoms Ears, Nose, & Throat: No Symptoms Respiratory: No Symptoms Cardiac: No Symptoms Abdominal/Gastrointestinal: No Symptoms Genitourinary Symptoms: No Symptoms Musculoskeletal: No Symptoms, Arthralgias (Chronic R hip) Skin: No Symptoms Neurological: No Symptoms Psychological: No Symptoms Endocrine: No Symptoms Hematologic/Lymphatic: No Symptoms Immunological/Allergic: No Symptoms - Past Medical History Pertinent Past Medical History: Yes Neurological History: Migraines ENT History: Cataracts Cardiac History: Coronary Artery Disease, Deep Vein Thrombosis, High Cholesterol Respiratory History: Asthma, COPD, Pulmonary Embolism, Sleep Apnea, Other Endocrine Medical History: Hypothyroidism Musculoskeletal History: Arthritis GI Medical History: GERD History: Renal Disease, Other Psycho-Social History: Depression Female Reproductive Disorders: No Pertinent History Other Medical History: 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 - Past Surgical History Past Surgical History: Yes Neuro Surgical History: No Pertinent History Cardiac: CABG Respiratory: No Pertinent History Gastrointestinal: Cholecystectomy Genitourinary: No Pertinent History Musculoskeletal: Orthopedic Surgery Female Surgical History: Hysterectomy Other Surgical History: HAND AND WRIST - Social History Smoking Status: Never smoker Exposure to second hand smoke: Yes Drug Use: none Patient Lives Alone: No - Nursing Vital Signs Nursing Vital Signs: Initial Vital Signs Temperature 98.5 F 09/14/22 15:07 Pulse Rate 63 09/14/22 15:07 Respiratory Rate 17 09/14/22 15:07 Blood Pressure 170/80 09/14/22 15:07 O2 Sat by Pulse Oximetry 98 09/14/22 15:07 Pain Scale Pain Intensity 4 Hypertensive - Physical Exam General Appearance: no apparent distress Eye Exam: PERRL/EOMI, eyes nml inspection Ears, Nose, Throat Exam: normal ENT inspection, TMs normal, pharynx normal, moist mucous membranes Neck Exam: normal inspection, non-tender, supple, full range of motion, No meningismus, No mass, No Brudzinski, No Kernig's, No carotid bruit Respiratory Exam: crackles/rales (Rales bases L>R) Cardiovascular Exam: regular rate/rhythm, murmur (3/6 BINDU) Gastrointestinal/Abdomen Exam: soft, normal bowel sounds, No tenderness Back Exam: normal inspection, normal range of motion, No CVA tenderness, No vertebral tenderness Extremity Exam: pelvis stable (R inguinal area TTP) Neurologic Exam: alert, oriented x 3, cooperative, 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 II-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 nml as tested, normal mood/affect, sensation nml Skin Exam: normal color, warm, dry, No rash Lymphatic Exam: No adenopathy SpO2 Interpretation: normal SpO2: 98 O2 Delivery: Room Air - Course Nursing assessment & vital signs reviewed: Yes EKG Interpreted by Me: RATE (NSR/Normal QT-QTc/LVH w strain/Nonspecific T wave abnormality) - Radiology Exams Chest X-ray Interpretation: Discussed w/ radiologist (Cardiomegaly/vascular congestion/pacer/Tiny R effusion/Valve replacement/Old rib fractures) - CT Exams Chest CT Interpretation: Tele-radiologist Report (Bronchial wall thickening/Small B pleural effusions) Pelvis CT Interpretation: Tele-radiologist Report (Acute-subacute complex, intra- articular fractures/Subacute and chronic fractures of R inferior-superior pubic rami) Ordered Tests: Active Orders 24 hr Category Date Time Status Bedrest ROUTINE Activity 09/14/22 20:20 Active Code Status Order ROUTINE Care 09/14/22 20:18 Active EKG-ER Only STAT Care 09/14/22 16:03 Active IV Care Q6H Care 09/14/22 20:18 Active IV Insertion STAT Care 09/14/22 15:21 Active Oxygen-ED Only Nasal Cannula 2 lpm Care 09/14/22 19:[address] in Observation ROUTINE Care 09/14/22 20:19 Active Vital Signs Q4H Care 09/14/22 20:18 Active cath [Cath for Specimen-Straight] STAT Care 09/14/22 17:41 Active House Regular Diet Diet 09/15/22 Breakfast Active CHEST 1 VIEW (PORTABLE) Stat Exams 09/14/22 15:09 Completed CHEST WITHOUT CONTRAST [CT] Stat Exams 09/14/22 17:04 Taken PELVIS WITHOUT CONTRAST [CT] Stat Exams 09/14/22 17:05 Taken CBC W DIFF AM.LAB Lab 09/15/22 04:00 Ordered CBC W DIFF Stat Lab 09/14/22 15:45 Completed CMP AM.LAB Lab 09/15/22 04:00 Ordered CMP Stat Lab 09/14/22 15:45 Completed CULTURE,URINE Stat Lab 09/14/22 17:41 Received Lactic Acid Stat Lab 09/14/22 15:58 Completed NT PRO BNP Stat Lab 09/14/22 15:45 Completed PROTIME WITH INR Stat Lab 09/14/22 15:45 Completed PTT Stat Lab 09/14/22 15:45 Completed TROPONIN Q4H Lab 09/14/22 15:45 Completed TROPONIN Q4H Lab 09/14/22 19:40 Completed TROPONIN Q4H Lab 09/14/22 23:15 Ordered UA W/RFX CULTURE Stat Lab 09/14/22 17:41 Completed Transfer Order Routine Transfer 09/14/22 Ordered Medication Summary Generic Name Dose Route Start Last Admin Trade Name Doroteo PRN Reason Stop Dose Admin Fentanyl Citrate 25 mcg 09/14/22 20:21 Fentanyl Citrate 100 Mcg/2 Ml* Vial IV 09/19/22 20:20 Q4H PRN PRN SEVERE PAIN Sodium Chloride 1,000 mls @ 100 mls/hr 09/14/22 20:30 09/14/22 20:25 Sodium Chloride 0.9% 1000 Ml IV 10/14/22 20:29 100 mls/hr .Q10H JOYCE Administration Ceftriaxone Sodium/Dextrose 1 g in 50 mls @ 100 mls/hr 09/15/22 10:00 Rocephin 1 Gm-D5w 50 Ml Bag IV 09/18/22 09:59 Q24H10 JOYCE Ondansetron HCl 4 mg 09/14/22 20:18 Ondansetron Hcl 4 Mg/2 Ml Vial IV 10/14/22 20:17 Q6H PRN PRN NAUSEA/VOMITING Pantoprazole Sodium 40 mg 09/15/22 10:00 Pantoprazole 40 Mg Vial IV 10/15/22 09:59 Q24H10 JOYCE Discontinued Medications Generic Name Dose Route Start Last Admin Trade Name Doroteo PRN Reason Stop Dose Admin Fentanyl Citrate 25 mcg 09/14/22 19:32 09/14/22 19:36 Fentanyl Citrate 100 Mcg/2 Ml* Vial IV 09/14/22 19:33 25 mcg STAT ONE Administration Fentanyl Citrate Confirm 09/14/22 19:33 Fentanyl Citrate 100 Mcg/2 Ml* Vial Administered 09/14/22 19:34 Dose 100 mcg .ROUTE .STK-MED ONE Ceftriaxone Sodium/Dextrose 1 g in 50 mls @ 100 mls/hr 09/14/22 19:31 09/14/22 20:07 Rocephin 1 Gm-D5w 50 Ml Bag IV 09/14/22 20:00 Infused STAT STA Infusion Ceftriaxone Sodium/Dextrose Confirm 09/14/22 19:34 Rocephin 1 Gm-D5w 50 Ml Bag Administered 09/14/22 19:35 Dose 1 g in 50 mls @ ud IV .STK-MED ONE Ondansetron HCl 4 mg 09/14/22 19:32 09/14/22 19:36 Ondansetron Hcl 4 Mg/2 Ml Vial IV 09/14/22 19:33 4 mg STAT ONE Administration Ondansetron HCl Confirm 09/14/22 19:33 Ondansetron Hcl 4 Mg/2 Ml Vial Administered 09/14/22 19:34 Dose 4 mg .ROUTE .STK-MED ONE Potassium Chloride 40 meq 09/14/22 17:33 09/14/22 17:43 Potassium Chloride Tab 10 Meq Tab PO 09/14/22 17:34 40 meq STAT ONE Administration Potassium Chloride Confirm 09/14/22 17:43 Potassium Chloride Tab 10 Meq Tab Administered 09/14/22 17:44 Dose 40 meq PO .STK-MED ONE Lab/Rad Data: Laboratory Result Diagrams 09/14/22 15:45 09/14/22 15:45 Laboratory Results 09/14/22 09/14/22 09/14/22 Range/Units 19:40 17:41 15:58 WBC (4.0-10.5) x10^3/uL RBC (4.1-5.4) x10^6/uL Hgb (12.0-16.0) g/dL Hct (35-47) % MCV (78-100) fL MCH (26-32) pg MCHC (32-36) g/dL RDW (11.5-14.0) % Plt Count (150-450) x10^3/uL MPV (7.5-11.0) fL Gran % (36.0-66.0) % Immature Gran % (Auto) (0.00-0.4) % Nucleat RBC Rel Count (0.00-0.1) % Eos # (Auto) (0-0.5) x10^3/uL Immature Gran # (Auto) (0.00-0.03) x10^3u/L Absolute Lymphs (auto) (1.0-4.6) x10^3/uL Absolute Monos (auto) (0.0-1.3) x10^3/uL Absolute Nucleated RBC (0.00-0.01) x10^3u/L Lymphocytes % (24.0-44.0) % Monocytes % (0.0-12.0) % Eosinophils % (0.00-5.0) % Basophils % (0.0-0.4) % Absolute Granulocytes (1.4-6.9) x10^3/uL Basophils # (0-0.4) x10^3/uL PT (9.4-12.5) SECONDS INR (0.8-3.0) APTT (25.1-36.5) SECONDS Sodium (137-145) mmol/L Potassium (3.5-5.1) mmol/L Chloride (98-107) mmol/L Carbon Dioxide (22-30) mmol/L Anion Gap (5-15) MEQ/L BUN (7-17) mg/dL Creatinine (0.52-1.04) mg/dL Estimated GFR ML/MIN Glucose (74-106) mg/dL Lactic Acid 1.1 (0.4-2.0) Calcium (8.4-10.2) mg/dL Total Bilirubin (0.2-1.3) mg/dL AST (14-36) U/L ALT (0-35) U/L Alkaline Phosphatase (38-126) U/L Troponin I 0.020 (0.000-0.034) ng/mL NT-Pro-B Natriuret Pep (0-1800) pg/mL Serum Total Protein (6.3-8.2) g/dL Albumin (3.5-5.0) g/dL Urinalys Dipstick Clnc MAIN LAB Urine Color YELLOW (YELLOW) Urine Appearance SLIGHTLY CLOUDY (CLEAR) Urine pH 7.0 (5-6) Ur Specific C[place] 1.020 (1.005-1.025) POC Urine Protein Conf 30 (Negative) Urine Ketones NEGATIVE (NEGATIVE) Urine Nitrite POSITIVE (NEGATIVE) Urine Bilirubin NEGATIVE (NEGATIVE) Urine Urobilinogen 1 (0-1) mg/dL Urine Leukocytes SMALL (NEGATIVE) Urine WBC (Auto) 16-25 (0-5) /HPF Urine RBC (Auto) 3-5 (0-2) /HPF U Epithel Cells (Auto) RARE (FEW) /HPF Urine Bacteria (Auto) MODERATE (NEGATIVE) /HPF Urine RBC TRACE-INTACT (0-5) Tank/ul Urine Mucus (Auto) SLIGHT (NEGATIVE) /HPF Ur Culture Indicated? YES Urine Glucose NEGATIVE (NEGATIVE) mg/dL Influenza Type A Ag (NEGATIVE) Influenza Type B Ag (NEGATIVE) RSV (PCR) (Negative) SARS-CoV-2 (PCR) (NEGATIVE) 09/14/22 09/14/22 09/14/22 Range/Units 15:45 15:45 15:45 WBC (4.0-10.5) x10^3/uL RBC (4.1-5.4) x10^6/uL Hgb (12.0-16.0) g/dL Hct (35-47) % MCV (78-100) fL MCH (26-32) pg MCHC (32-36) g/dL RDW (11.5-14.0) % Plt Count (150-450) x10^3/uL MPV (7.5-11.0) fL Gran % (36.0-66.0) % Immature Gran % (Auto) (0.00-0.4) % Nucleat RBC Rel Count (0.00-0.1) % Eos # (Auto) (0-0.5) x10^3/uL Immature Gran # (Auto) (0.00-0.03) x10^3u/L Absolute Lymphs (auto) (1.0-4.6) x10^3/uL Absolute Monos (auto) (0.0-1.3) x10^3/uL Absolute Nucleated RBC (0.00-0.01) x10^3u/L Lymphocytes % (24.0-44.0) % Monocytes % (0.0-12.0) % Eosinophils % (0.00-5.0) % Basophils % (0.0-0.4) % Absolute Granulocytes (1.4-6.9) x10^3/uL Basophils # (0-0.4) x10^3/uL PT 12.0 (9.4-12.5) SECONDS INR 1.15 (0.8-3.0) APTT 28.3 (25.1-36.5) SECONDS Sodium (137-145) mmol/L Potassium (3.5-5.1) mmol/L Chloride (98-107) mmol/L Carbon Dioxide (22-30) mmol/L Anion Gap (5-15) MEQ/L BUN (7-17) mg/dL Creatinine (0.52-1.04) mg/dL Estimated GFR ML/MIN Glucose (74-106) mg/dL Lactic Acid (0.4-2.0) Calcium (8.4-10.2) mg/dL Total Bilirubin (0.2-1.3) mg/dL AST (14-36) U/L ALT (0-35) U/L Alkaline Phosphatase (38-126) U/L Troponin I 0.025 (0.000-0.034) ng/mL NT-Pro-B Natriuret Pep (0-1800) pg/mL Serum Total Protein (6.3-8.2) g/dL Albumin (3.5-5.0) g/dL Urinalys Dipstick Clnc Urine Color (YELLOW) Urine Appearance (CLEAR) Urine pH (5-6) Ur Specific C[place] (1.005-1.025) POC Urine Protein Conf (Negative) Urine Ketones (NEGATIVE) Urine Nitrite (NEGATIVE) Urine Bilirubin (NEGATIVE) Urine Urobilinogen (0-1) mg/dL Urine Leukocytes (NEGATIVE) Urine WBC (Auto) (0-5) /HPF Urine RBC (Auto) (0-2) /HPF U Epithel Cells (Auto) (FEW) /HPF Urine Bacteria (Auto) (NEGATIVE) /HPF Urine RBC (0-5) Tank/ul Urine Mucus (Auto) (NEGATIVE) /HPF Ur Culture Indicated? Urine Glucose (NEGATIVE) mg/dL Influenza Type A Ag NEGATIVE (NEGATIVE) Influenza Type B Ag NEGATIVE (NEGATIVE) RSV (PCR) NEGATIVE (Negative) SARS-CoV-2 (PCR) NEGATIVE (NEGATIVE) 09/14/22 09/14/22 Range/Units 15:45 15:45 WBC 4.7 (4.0-10.5) x10^3/uL RBC 3.87 L (4.1-5.4) x10^6/uL Hgb 11.4 L (12.0-16.0) g/dL Hct 38.0 (35-47) % MCV 98.2 (78-100) fL MCH 29.5 (26-32) pg MCHC 30.0 L (32-36) g/dL RDW 15.0 H (11.5-14.0) % Plt Count 155 (150-450) x10^3/uL MPV 9.9 (7.5-11.0) fL Gran % 63.1 (36.0-66.0) % Immature Gran % (Auto) 0.2 (0.00-0.4) % Nucleat RBC Rel Count 0.0 (0.00-0.1) % Eos # (Auto) 0.19 (0-0.5) x10^3/uL Immature Gran # (Auto) 0.01 (0.00-0.03) x10^3u/L Absolute Lymphs (auto) 0.81 L (1.0-4.6) x10^3/uL Absolute Monos (auto) 0.69 (0.0-1.3) x10^3/uL Absolute Nucleated RBC 0.00 (0.00-0.01) x10^3u/L Lymphocytes % 17.4 L (24.0-44.0) % Monocytes % 14.8 H (0.0-12.0) % Eosinophils % 4.1 (0.00-5.0) % Basophils % 0.4 (0.0-0.4) % Absolute Granulocytes 2.94 (1.4-6.9) x10^3/uL Basophils # 0.02 (0-0.4) x10^3/uL PT (9.4-12.5) SECONDS INR (0.8-3.0) APTT (25.1-36.5) SECONDS Sodium 140 (137-145) mmol/L Potassium 3.0 L* (3.5-5.1) mmol/L Chloride 104 (98-107) mmol/L Carbon Dioxide 29 (22-30) mmol/L Anion Gap 11.2 (5-15) MEQ/L BUN 6 L (7-17) mg/dL Creatinine 0.63 (0.52-1.04) mg/dL Estimated GFR > 60.0 ML/MIN Glucose 98 (74-106) mg/dL Lactic Acid (0.4-2.0) Calcium 9.2 (8.4-10.2) mg/dL Total Bilirubin 1.20 (0.2-1.3) mg/dL AST 28 (14-36) U/L ALT 17 (0-35) U/L Alkaline Phosphatase 167 H (38-126) U/L Troponin I (0.000-0.034) ng/mL NT-Pro-B Natriuret Pep 2770 H (0-1800) pg/mL Serum Total Protein 8.1 (6.3-8.2) g/dL Albumin 4.1 (3.5-5.0) g/dL Urinalys Dipstick Clnc Urine Color (YELLOW) Urine Appearance (CLEAR) Urine pH (5-6) Ur Specific Cooter (1.005-1.025) POC Urine Protein Conf (Negative) Urine Ketones (NEGATIVE) Urine Nitrite (NEGATIVE) Urine Bilirubin (NEGATIVE) Urine Urobilinogen (0-1) mg/dL Urine Leukocytes (NEGATIVE) Urine WBC (Auto) (0-5) /HPF Urine RBC (Auto) (0-2) /HPF U Epithel Cells (Auto) (FEW) /HPF Urine Bacteria (Auto) (NEGATIVE) /HPF Urine RBC (0-5) Tank/ul Urine Mucus (Auto) (NEGATIVE) /HPF Ur Culture Indicated? Urine Glucose (NEGATIVE) mg/dL Influenza Type A Ag (NEGATIVE) Influenza Type B Ag (NEGATIVE) RSV (PCR) (Negative) SARS-CoV-2 (PCR) (NEGATIVE) - Progress Progress: improved Progress Note: 09/14/22 20:[address] Paul 25mcg IV Fentanyl/4mg IV Zofran 1gm IV Rocephin 09/14/22 20:40 Spoke w pt's adopted daughter, Haylee, who is paralyzed below the waist. She sta sajan that pt broke her R hip in July and was admitted at [facility]. Hip was treated conservatively w rehab x1wk wo improvement. Pt sent to [facility] for further rehab and was subsequently discharged on 09/08/22. Adopted daughter, who is not POA, states that pt is bed ridden with decreased po intake and lethargy. She has a wheel chair which she does not use. Obtained CT of Ab-pelvis from [facility] after pt was admitted from 07/18/22-R acetabular fx appears to be old Discussed with : Joie Counseled pt/family regarding: lab results, diagnosis, need for follow-up, rad results - Departure Departure Disposition: Observation Clinical Impression: UTI (urinary tract infection), Acetabular fracture Condition: Stable Critical Care Time: No
[2022-09-14 17:22] LABS: INFLUENZA A NEGATIVE (NEGATIVE); INFLUENZA B NEGATIVE (NEGATIVE); RESPIRATORY SYNCTIAL VIRUS NEGATIVE (Negative); SARS-CoV-2 Xpert Express NEGATIVE (NEGATIVE)
[2022-09-14] MEDS ORDERED: Klor Con PO ONE ×2 (17:33→17:43)
[2022-09-14 17:56] LABS: Appearance SLIGHTLY CLOUDY (CLEAR); Bilirubin NEGATIVE (NEGATIVE); Glucose NEGATIVE (NEGATIVE); Ketones NEGATIVE (NEGATIVE)
[2022-09-14 17:57] LABS: Dipstick done @ ? MAIN LAB; Nitrite POSITIVE (NEGATIVE); Protein,Urine Dip 30 (Negative); RBC TRACE-INTACT Ery/ul (0-5); Urobilinogen 1 mg/dL (0-1)
[2022-09-14 18:01] LABS: Bacteria MODERATE /HPF (NEGATIVE); Epithelial Cells RARE /HPF (FEW); Mucus SLIGHT /HPF (NEGATIVE)
[2022-09-14 18:02] LABS: Urine Cultured Indicated? YES
[2022-09-14] MEDS ORDERED: ROCEPHIN 1 Gm-D5w 50 ml Bag** 1 G/50 ML IVPB IV STA (19:31)
[2022-09-14] MEDS ORDERED: Zofran 4 MG/2 ML VIAL IV ONE (19:32)
[2022-09-14] MEDS ORDERED: SUBLIMAZE 100 MCG/2 ML IV ONE (19:32)
[2022-09-14] MEDS ORDERED: SUBLIMAZE 100 MCG/2 ML ONE (19:33)
[2022-09-14] MEDS ORDERED: Zofran 4 MG/2 ML VIAL ONE (19:33)
[2022-09-14] MEDS ORDERED: ROCEPHIN 1 Gm-D5w 50 ml Bag** 1 G/50 ML IVPB IV ONE (19:34)
[2022-09-14] MEDS ORDERED: Zofran 4 MG/2 ML VIAL IV PRN (20:18)
[2022-09-14] MEDS ORDERED: SUBLIMAZE 100 MCG/2 ML IV PRN (20:21)
[2022-09-14] MEDS: Sodium Chloride 0.9% 1000 ML 1,000 ML IV SCH (20:25)
--- NOTE | 2022-09-14 23:21 | XRAY ---
Indication: Lethargy. Abnormal chest radiograph. Multiple contiguous axial images obtained through the chest without contrast. Comparison: None Study is degraded by respiration artifact. Heart is enlarged with left dual-lead pacemaker and previous aortic valve replacement surgery. Aorta mildly arteriosclerotic without aneurysm. Small right hilar calcified nodes. Small fluid in mid to distal esophagus presumed from GERD. Lungs demonstrates demonstrates interstitial edema and tiny bilateral effusions right greater than left. Mild bilateral mid to lower lung subsegmental atelectasis/scarring and tiny right upper lobe calcified granuloma. Bony thorax demonstrates osteopenia, multilevel thoracolumbar vertebroplasty, and sternotomy wires. Limited upper abdomen demonstrates gastric intraluminal radiopacities other ingested medication, bismuth, or barium. Incidental tiny splenic calcification granulomas, 2.8 cm left renal cyst, and cholecystectomy clips. Impression: 1. Respiration artifact. 2. Cardiomegaly, interstitial edema, and tiny bilateral effusions favoring cardiac decompensation/CHF. 3. Incidental GERD, left renal cyst, chronic bony findings, and old granulomatous disease. Comment: Preliminary interpretation made by [facility]. No critical discrepancy.
[2022-09-15 06:03] LABS: Absolute Neutrophil Ct (ANC) 3.43 x10^3/uL (1.4-6.9); Basophil (Absolute #) 0.02 x10^3/uL (0-0.4); Eosinophil (Absolute #) 0.32 x10^3/uL (0-0.5); Hematocrit 28.7 % (35-47); Hemoglobin 8.7 g/dL (12.0-16.0); Lymphocyte (Absolute #) 0.71 x10^3/uL (1.0-4.6); Lymphocytes % 13.2 % (24.0-44.0); Mean Cell Volume 97.6 fL (78-100); Mean Corpuscular Hemoglobin 29.6 pg (26-32); Mean Corpuscular Hgb Concent. 30.3 g/dL (32-36); Monocyte (Absolute #) 0.86 x10^3/uL (0.0-1.3); Platelet Count 119 x10^3/uL (150-450); Red Blood Count 2.94 x10^6/uL (4.1-5.4); White Blood Count 5.4 x10^3/uL (4.0-10.5)
[2022-09-15] MEDS: Sodium Chloride 0.9% 1000 ML 1,000 ML IV SCH ×2 (06:07→15:36)
[2022-09-15 06:41] LABS: ALBUMIN 2.8 g/dL (3.5-5.0); ALKALINE PHOSPHATASE 110 U/L (38-126); ANION GAP 6.8 MEQ/L (5-15); BLOOD UREA NITROGEN 5 mg/dL (7-17); CHLORIDE 109 mmol/L (98-107); Calcium 7.9 mg/dL (8.4-10.2); Carbon Dioxide 28 mmol/L (22-30); Creatinine 1 0.62 mg/dL (0.52-1.04); EST GLOMERULAR FILTRATION RATE > 60.0 ML/MIN; Glucose 92 mg/dL (74-106); PREALBUMIN 8.57 mg/dL (17.6-36.0); Potassium 3.7 mmol/L (3.5-5.1); SGOT/AST 29 U/L (14-36); SGPT/ALT 14 U/L (0-35); SODIUM 140 mmol/L (137-145); Total Protein 6.1 g/dL (6.3-8.2)
--- NOTE | 2022-09-15 07:01 | XRAY ---
Indication: Right hip pain. Multiple contiguous axial images obtained through the pelvis with special attention to the osseous structures. Sagittal and coronal reformatted images obtained. Comparison: None Osseous structures demineralized. Right acetabulum demonstrates diffuse comminuted fracture appearing partially sclerotic favoring acute to subacute fracture. Roof of the acetabular fracture is slightly displaced. Elsewhere old right superior/inferior pubic ramus fractures, partially visualized old proximal left femur fracture with intact orthopedic hardware, L5-S1 spinous process fusion hardware, L3/L4 kyphoplasty, and L5-S1 degenerative vacuum disc phenomena. Visualized noncontrasted soft tissues demonstrates sigmoid diverticulosis and mild scattered vascular calcifications. Impression: 1. Acute to subacute appearing comminuted right acetabulum fracture as detailed. 2. Chronic findings including osteopenia, old right pubic bone fractures, old proximal left femur fracture, lower lumbar kyphoplasty/fusion, sigmoid diverticulosis, and arteriosclerotic disease. Comment: Preliminary interpretation made by [facility]. No critical discrepancy.
[2022-09-15] MEDS: PROTONIX 40 MG IV IV SCH (09:27)
[2022-09-15] MEDS ORDERED: PERCOCET TABLET 5/325MG PO PRN (11:54)
--- NOTE | 2022-09-15 12:11 | PCM.HP ---
History of Present Illness - Chief Complaint Chief Complaint: weakness, UTI History of Present Illness: is a 86 year old female patient of Dr Lola Serna who presented to ER by ambulance c/o weakness and chronic right hip pain. Patient has a Hx of recurrent falls with remote pelvic fracture and was discharged from [facility] 10 days ago. ER eval shows UTI, anemia and right acetabular roof fracture ,subacute. Patient lives with her daughter who is disabled and in a wheelchair from spina bifida. - Review of Systems Constitutional: Weakness Eyes: No Symptoms Respiratory: No Symptoms Cardiac: No Symptoms Abdominal/Gastrointestinal: No Symptoms Genitourinary Symptoms: Incontinence Musculoskeletal: Fall Skin: No Symptoms Neurological: Other (no focal weakness but generalized weakness affecting gait,uses ) Endocrine: Cold Intolerance Hematologic/Lymphatic: Anemia Medications & Allergies Home Medications: Home Medication List Acetaminophen 325 mg [Tylenol 325 mg] 650 mg PO Q6H PRN PRN 09/15/22 [History Confirmed 09/15/22] Albuterol 2.5 mg/3 ml Neb [Proventil 2.5 mg/3 ml Neb] 2.5 mg IH Q6H PRN PRN 09/15/22 [History Confirmed 09/15/22] Dabigatran Etexilate Mesylate [Pradaxa] 75 mg PO BID 09/15/22 [History Confirmed 09/15/22] Docusate Sodium 100 mg [Docusate Sodium 100 MG] 100 mg PO BID PRN PRN 09/15/22 [History Confirmed 09/15/22] Ferrous Sulfate 325 mg PO BID 09/15/22 [History Confirmed 09/15/22] Guaifenesin [Mucinex] 600 mg PO BID PRN PRN 09/15/22 [History Confirmed 09/15/22] Levothyroxine Sodium 75 Mcg [Synthroid 75 Mcg] 75 mcg PO DAILY 09/15/22 [History Confirmed 09/15/22] Linaclotide [Linzess] 145 mcg PO DAILY 09/15/22 [History Confirmed 09/15/22] Magnesium Oxide 250 mg PO DAILY 09/15/22 [History Confirmed 09/15/22] Multivitamin/Iron/Folic Acid [Centrum Complete Multivit Tab] 1 each PO DAILY 09/15/22 [History Confirmed 09/15/22] Oxybutynin Chloride 10 mg Xl [Ditropan Xl 10 MG] 10 mg PO DAILY 09/15/22 [History Confirmed 09/15/22] Pramipexole Di-HCl [Pramipexole Dihydrochloride] 0.125 mg PO HS 09/15/22 [History Confirmed 09/15/22] Pregabalin [Lyrica 100Mg] 100 mg PO DAILY 09/15/22 [History Confirmed 09/15/22] Sertraline HCl 50 mg [Zoloft 50 mg Tablet] 50 mg PO DAILY 09/15/22 [History Confirmed 09/15/22] Simvastatin 10 mg [Zocor 10MG] 10 mg PO HS 09/15/22 [History Confirmed 1 ] Allergies/Adverse Reactions: Allergies Allergy/AdvReac Type Severity Reaction Status Date / Time cortisone [Cortisone] Allergy "affected Verified 09/14/22 15:06 breathing and heart" latex Allergy Verified 09/14/22 15:06 polyethylene glycol Allergy vomiting Verified 09/14/22 15:06 [From Golytely] and nasuea polyethylene glycol 3350 Allergy vomiting Verified 09/14/22 15:06 [From Golytely] and nasuea potassium chloride* Allergy vomiting Verified 09/14/22 15:06 [From Golytely] and nasuea sodium [From Golytely] Allergy vomiting Verified 09/14/22 15:06 and nasuea sodium bicarbonate Allergy vomiting Verified 09/14/22 15:06 [From Golytely] and nasuea sodium chloride Allergy vomiting Verified 09/14/22 15:06 [From Golytely] and nasuea sodium sulfate Allergy vomiting Verified 09/14/22 15:06 [From Golytely] and nasuea sodium sulfate anhydrous Allergy vomiting Verified 09/14/22 15:06 [From Golytely] and nasuea acetaminophen [From Vicodin] AdvReac Verified 09/14/22 15:06 hydrocodone bitartrate AdvReac Verified 09/14/22 15:06 [From Vicodin] - Past Medical History Past Medical History: Yes Neurological History: Migraines ENT History: Cataracts Cardiac History: Coronary Artery Disease, Deep Vein Thrombosis, High Cholesterol Respiratory History: Asthma, COPD, Pulmonary Embolism, Sleep Apnea, Other Endocrine Medical History: Hypothyroidism Musculoskelatal History: Arthritis GI Medical History: GERD History: Renal Disease, Other Pyscho-Social History: Depression Reproductive Disorders: No Pertinent History Comment: 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 broke rt hip jul 2022 - Female History Are you now?: No - Past Surgical History Past Surgical History: Yes Neuro Surgical History: No Pertinent History Cardiac History: CABG Respiratory Surgery: No Pertinent History GI Surgical History: Cholecystectomy Genitourinary Surgical Hx: No Pertinent History Musculskeletal Surgical Hx: Orthopedic Surgery Female Surgical History: Hysterectomy Other Surgical History: HAND AND WRIST - Social History Smoking Status: Never smoker Exposure to second hand smoke: Yes Alcohol: None Drug Use: none - Physical Exam Vital Signs: Vital Signs - 24 hr Temp Pulse Resp BP Pulse Ox 09/15/22 11:53 98.9 F 60 18 147/65 93 L 09/15/22 07:58 97.7 F 60 18 153/67 98 09/15/22 04:00 98.2 F 60 17 146/67 96 09/14/22 23:42 153/67 09/14/22 21:32 97.8 F 62 17 182/74 99 09/14/22 20:48 98 09/14/22 20:14 61 16 148/85 100 09/14/22 19:00 64 16 184/63 96 09/14/22 18:00 60 16 175/87 96 09/14/22 17:00 60 16 185/79 98 09/14/22 16:00 60 16 206/78 97 09/14/22 15:07 98.5 F 63 17 170/80 98 General Appearance: no apparent distress, other (anxiety over wanting to go home but teary and fretting about the weakness and falls) Neurologic Exam: alert Eye Exam: eyes nml inspection Ears, Nose, Throat Exam: normal ENT inspection Neck Exam: normal inspection Results - Labs Lab/Micro Results: Lab Results-Last 24 Hours 09/14/22 09/14/22 09/14/22 Range/Units 15:45 15:45 15:45 WBC 4.7 (4.0-10.5) x10^3/uL RBC 3.87 L (4.1-5.4) x10^6/uL Hgb 11.4 L (12.0-16.0) g/dL Hct 38.0 (35-47) % MCV 98.2 (78-100) fL MCH 29.5 (26-32) pg MCHC 30.0 L (32-36) g/dL RDW 15.0 H (11.5-14.0) % Plt Count 155 (150-450) x10^3/uL MPV 9.9 (7.5-11.0) fL Gran % 63.1 (36.0-66.0) % Immature Gran % (Auto) 0.2 (0.00-0.4) % Nucleat RBC Rel Count 0.0 (0.00-0.1) % Eos # (Auto) 0.19 (0-0.5) x10^3/uL Immature Gran # (Auto) 0.01 (0.00-0.03) x10^3u/L Absolute Lymphs (auto) 0.81 L (1.0-4.6) x10^3/uL Absolute Monos (auto) 0.69 (0.0-1.3) x10^3/uL Absolute Nucleated RBC 0.00 (0.00-0.01) x10^3u/L Lymphocytes % 17.4 L (24.0-44.0) % Monocytes % 14.8 H (0.0-12.0) % Eosinophils % 4.1 (0.00-5.0) % Basophils % 0.4 (0.0-0.4) % Absolute Granulocytes 2.94 (1.4-6.9) x10^3/uL Basophils # 0.02 (0-0.4) x10^3/uL PT 12.0 (9.4-12.5) SECONDS INR 1.15 (0.8-3.0) APTT 28.3 (25.1-36.5) SECONDS Sodium 140 (137-145) mmol/L Potassium 3.0 L* (3.5-5.1) mmol/L Chloride 104 (98-107) mmol/L Carbon Dioxide 29 (22-30) mmol/L Anion Gap 11.2 (5-15) MEQ/L BUN 6 L (7-17) mg/dL Creatinine 0.63 (0.52-1.04) mg/dL Estimated GFR > 60.0 ML/MIN Glucose 98 (74-106) mg/dL Lactic Acid (0.4-2.0) Calcium 9.2 (8.4-10.2) mg/dL Total Bilirubin 1.20 (0.2-1.3) mg/dL AST 28 (14-36) U/L ALT 17 (0-35) U/L Alkaline Phosphatase 167 H (38-126) U/L Troponin I (0.000-0.034) ng/mL NT-Pro-B Natriuret Pep 2770 H (0-1800) pg/mL Serum Total Protein 8.1 (6.3-8.2) g/dL Albumin 4.1 (3.5-5.0) g/dL Prealbumin (17.6-36.0) mg/dL Urinalys Dipstick Clnc Urine Color (YELLOW) Urine Appearance (CLEAR) Urine pH (5-6) Ur Specific [place] (1.005-1.025) POC Urine Protein Conf (Negative) Urine Ketones (NEGATIVE) Urine Nitrite (NEGATIVE) Urine Bilirubin (NEGATIVE) Urine Urobilinogen (0-1) mg/dL Urine Leukocytes (NEGATIVE) Urine WBC (Auto) (0-5) /HPF Urine RBC (Auto) (0-2) /HPF U Epithel Cells (Auto) (FEW) /HPF Urine Bacteria (Auto) (NEGATIVE) /HPF Urine RBC (0-5) Tank/ul Urine Mucus (Auto) (NEGATIVE) /HPF Ur Culture Indicated? Urine Glucose (NEGATIVE) mg/dL Influenza Type A Ag (NEGATIVE) Influenza Type B Ag (NEGATIVE) RSV (PCR) (Negative) SARS-CoV-2 (PCR) (NEGATIVE) 09/14/22 09/14/22 09/14/22 Range/Units 15:45 15:45 15:58 WBC (4.0-10.5) x10^3/uL RBC (4.1-5.4) x10^6/uL Hgb (12.0-16.0) g/dL Hct (35-47) % MCV (78-100) fL MCH (26-32) pg MCHC (32-36) g/dL RDW (11.5-14.0) % Plt Count (150-450) x10^3/uL MPV (7.5-11.0) fL Gran % (36.0-66.0) % Immature Gran % (Auto) (0.00-0.4) % Nucleat RBC Rel Count (0.00-0.1) % Eos # (Auto) (0-0.5) x10^3/uL Immature Gran # (Auto) (0.00-0.03) x10^3u/L Absolute Lymphs (auto) (1.0-4.6) x10^3/uL Absolute Monos (auto) (0.0-1.3) x10^3/uL Absolute Nucleated RBC (0.00-0.01) x10^3u/L Lymphocytes % (24.0-44.0) % Monocytes % (0.0-12.0) % Eosinophils % (0.00-5.0) % Basophils % (0.0-0.4) % Absolute Granulocytes (1.4-6.9) x10^3/uL Basophils # (0-0.4) x10^3/uL PT (9.4-12.5) SECONDS INR (0.8-3.0) APTT (25.1-36.5) SECONDS Sodium (137-145) mmol/L Potassium (3.5-5.1) mmol/L Chloride (98-107) mmol/L Carbon Dioxide (22-30) mmol/L Anion Gap (5-15) MEQ/L BUN (7-17) mg/dL Creatinine (0.52-1.04) mg/dL Estimated GFR ML/MIN Glucose (74-106) mg/dL Lactic Acid 1.1 (0.4-2.0) Calcium (8.4-10.2) mg/dL Total Bilirubin (0.2-1.3) mg/dL AST (14-36) U/L ALT (0-35) U/L Alkaline Phosphatase (38-126) U/L Troponin I 0.025 (0.000-0.034) ng/mL NT-Pro-B Natriuret Pep (0-1800) pg/mL Serum Total Protein (6.3-8.2) g/dL Albumin (3.5-5.0) g/dL Prealbumin (17.6-36.0) mg/dL Urinalys Dipstick Clnc Urine Color (YELLOW) Urine Appearance (CLEAR) Urine pH (5-6) Ur Specific [place] (1.005-1.025) POC Urine Protein Conf (Negative) Urine Ketones (NEGATIVE) Urine Nitrite (NEGATIVE) Urine Bilirubin (NEGATIVE) Urine Urobilinogen (0-1) mg/dL Urine Leukocytes (NEGATIVE) Urine WBC (Auto) (0-5) /HPF Urine RBC (Auto) (0-2) /HPF U Epithel Cells (Auto) (FEW) /HPF Urine Bacteria (Auto) (NEGATIVE) /HPF Urine RBC (0-5) Tank/ul Urine Mucus (Auto) (NEGATIVE) /HPF Ur Culture Indicated? Urine Glucose (NEGATIVE) mg/dL Influenza Type A Ag NEGATIVE (NEGATIVE) Influenza Type B Ag NEGATIVE (NEGATIVE) RSV (PCR) NEGATIVE (Negative) SARS-CoV-2 (PCR) NEGATIVE (NEGATIVE) 09/14/22 09/14/22 09/14/22 Range/Units 17:41 19:40 23:32 WBC (4.0-10.5) x10^3/uL RBC (4.1-5.4) x10^6/uL Hgb (12.0-16.0) g/dL Hct (35-47) % MCV (78-100) fL MCH (26-32) pg MCHC (32-36) g/dL RDW (11.5-14.0) % Plt Count (150-450) x10^3/uL MPV (7.5-11.0) fL Gran % (36.0-66.0) % Immature Gran % (Auto) (0.00-0.4) % Nucleat RBC Rel Count (0.00-0.1) % Eos # (Auto) (0-0.5) x10^3/uL Immature Gran # (Auto) (0.00-0.03) x10^3u/L Absolute Lymphs (auto) (1.0-4.6) x10^3/uL Absolute Monos (auto) (0.0-1.3) x10^3/uL Absolute Nucleated RBC (0.00-0.01) x10^3u/L Lymphocytes % (24.0-44.0) % Monocytes % (0.0-12.0) % Eosinophils % (0.00-5.0) % Basophils % (0.0-0.4) % Absolute Granulocytes (1.4-6.9) x10^3/uL Basophils # (0-0.4) x10^3/uL PT (9.4-12.5) SECONDS INR (0.8-3.0) APTT (25.1-36.5) SECONDS Sodium (137-145) mmol/L Potassium (3.5-5.1) mmol/L Chloride (98-107) mmol/L Carbon Dioxide (22-30) mmol/L Anion Gap (5-15) MEQ/L BUN (7-17) mg/dL Creatinine (0.52-1.04) mg/dL Estimated GFR ML/MIN Glucose (74-106) mg/dL Lactic Acid (0.4-2.0) Calcium (8.4-10.2) mg/dL Total Bilirubin (0.2-1.3) mg/dL AST (14-36) U/L ALT (0-35) U/L Alkaline Phosphatase (38-126) U/L Troponin I 0.020 0.018 (0.000-0.034) ng/mL NT-Pro-B Natriuret Pep (0-1800) pg/mL Serum Total Protein (6.3-8.2) g/dL Albumin (3.5-5.0) g/dL Prealbumin (17.6-36.0) mg/dL Urinalys Dipstick Clnc MAIN LAB Urine Color YELLOW (YELLOW) Urine Appearance SLIGHTLY CLOUDY (CLEAR) Urine pH 7.0 (5-6) Ur Specific [place] 1.020 (1.005-1.025) POC Urine Protein Conf 30 (Negative) Urine Ketones NEGATIVE (NEGATIVE) Urine Nitrite POSITIVE (NEGATIVE) Urine Bilirubin NEGATIVE (NEGATIVE) Urine Urobilinogen 1 (0-1) mg/dL Urine Leukocytes SMALL (NEGATIVE) Urine WBC (Auto) 16-25 (0-5) /HPF Urine RBC (Auto) 3-5 (0-2) /HPF U Epithel Cells (Auto) RARE (FEW) /HPF Urine Bacteria (Auto) MODERATE (NEGATIVE) /HPF Urine RBC TRACE-INTACT (0-5) Tank/ul Urine Mucus (Auto) SLIGHT (NEGATIVE) /HPF Ur Culture Indicated? YES Urine Glucose NEGATIVE (NEGATIVE) mg/dL Influenza Type A Ag (NEGATIVE) Influenza Type B Ag (NEGATIVE) RSV (PCR) (Negative) SARS-CoV-2 (PCR) (NEGATIVE) 09/15/22 09/15/22 Range/Units 05:30 05:30 WBC 5.4 (4.0-10.5) x10^3/uL RBC 2.94 L (4.1-5.4) x10^6/uL Hgb 8.7 L D (12.0-16.0) g/dL Hct 28.7 L (35-47) % MCV 97.6 (78-100) fL MCH 29.6 (26-32) pg MCHC 30.3 L (32-36) g/dL RDW 15.0 H (11.5-14.0) % Plt Count 119 L (150-450) x10^3/uL MPV 10.0 (7.5-11.0) fL Gran % 64.0 (36.0-66.0) % Immature Gran % (Auto) 0.4 (0.00-0.4) % Nucleat RBC Rel Count 0.0 (0.00-0.1) % Eos # (Auto) 0.32 (0-0.5) x10^3/uL Immature Gran # (Auto) 0.02 (0.00-0.03) x10^3u/L Absolute Lymphs (auto) 0.71 L (1.0-4.6) x10^3/uL Absolute Monos (auto) 0.86 (0.0-1.3) x10^3/uL Absolute Nucleated RBC 0.00 (0.00-0.01) x10^3u/L Lymphocytes % 13.2 L (24.0-44.0) % Monocytes % 16.0 H (0.0-12.0) % Eosinophils % 6.0 H (0.00-5.0) % Basophils % 0.4 (0.0-0.4) % Absolute Granulocytes 3.43 (1.4-6.9) x10^3/uL Basophils # 0.02 (0-0.4) x10^3/uL PT (9.4-12.5) SECONDS INR (0.8-3.0) APTT (25.1-36.5) SECONDS Sodium 140 (137-145) mmol/L Potassium 3.7 D (3.5-5.1) mmol/L Chloride 109 H (98-107) mmol/L Carbon Dioxide 28 (22-30) mmol/L Anion Gap 6.8 (5-15) MEQ/L BUN 5 L (7-17) mg/dL Creatinine 0.62 (0.52-1.04) mg/dL Estimated GFR > 60.0 ML/MIN Glucose 92 (74-106) mg/dL Lactic Acid (0.4-2.0) Calcium 7.9 L (8.4-10.2) mg/dL Total Bilirubin 0.70 (0.2-1.3) mg/dL AST 29 (14-36) U/L ALT 14 (0-35) U/L Alkaline Phosphatase 110 (38-126) U/L Troponin I (0.000-0.034) ng/mL NT-Pro-B Natriuret Pep (0-1800) pg/mL Serum Total Protein 6.1 L (6.3-8.2) g/dL Albumin 2.8 L (3.5-5.0) g/dL Prealbumin 8.57 L (17.6-36.0) mg/dL Urinalys Dipstick Clnc Urine Color (YELLOW) Urine Appearance (CLEAR) Urine pH (5-6) Ur Specific [place] (1.005-1.025) POC Urine Protein Conf (Negative) Urine Ketones (NEGATIVE) Urine Nitrite (NEGATIVE) Urine Bilirubin (NEGATIVE) Urine Urobilinogen (0-1) mg/dL Urine Leukocytes (NEGATIVE) Urine WBC (Auto) (0-5) /HPF Urine RBC (Auto) (0-2) /HPF U Epithel Cells (Auto) (FEW) /HPF Urine Bacteria (Auto) (NEGATIVE) /HPF Urine RBC (0-5) Tank/ul Urine Mucus (Auto) (NEGATIVE) /HPF Ur Culture Indicated? Urine Glucose (NEGATIVE) mg/dL Influenza Type A Ag (NEGATIVE) Influenza Type B Ag (NEGATIVE) RSV (PCR) (Negative) SARS-CoV-2 (PCR) (NEGATIVE) - Radiology Impressions Radiology Exams & Impressions: Radiology Procedures Category Date Time Status CHEST 1 VIEW (PORTABLE) Stat Exams 09/14/22 15:09 Completed CHEST WITHOUT CONTRAST [CT] Stat Exams 09/14/22 17:04 Completed PELVIS WITHOUT CONTRAST [CT] Stat Exams 09/14/22 17:05 Completed Assessment/Plan (1) Acetabular fracture Current Visit: Yes Status: Acute Qualifiers: Encounter type: initial encounter Sublocation of acetabulum: dome Fracture type: closed Laterality: right Assessment & Plan: read as acute/subacute. Spoke to Ortho Dr Srinivasancovering Dr Arias who will eval as outptn since ptn not havig pain with weight bearing Code(s): S32.409A - UNSP FRACTURE OF UNSP ACETABULUM, INIT FOR CLOS FX (2) UTI (urinary tract infection) Current Visit: Yes Status: Acute Assessment & Plan: culture pending Code(s): N39.0 - URINARY TRACT INFECTION, SITE NOT SPECIFIED (3) Anemia Current Visit: Yes Status: Chronic Assessment & Plan: Hgb 11.4 on admission after IV fluids overnight is 8.7 . Will hemetest stool and recheck CBC in AM Code(s): D64.9 - ANEMIA, UNSPECIFIED (4) [facility]FP (current) use of anticoagulants Current Visit: Yes Status: Chronic Code(s): Z79.01 - ALMOND BLANCHER HAND (CURRENT) USE OF ANTICOAGULANTS (5) Hx pulmonary embolism Current Visit: Yes Status: Chronic Code(s): Z86.711 - PERSONAL HISTORY OF PULMONARY EMBOLISM
[2022-09-15] MEDS ORDERED: PROZAC 10 MG PO SCH (12:30)
[2022-09-15] MEDS ORDERED: Mucinex 600MG ER Tabs PO PRN (14:46)
[2022-09-15] MEDS ORDERED: Docusate Sodium 100 MG PO PRN (14:46)
[2022-09-15] MEDS ORDERED: TYLENOL 325 MG PO PRN (14:46)
[2022-09-15] MEDS ORDERED: PROVENTIL 2.5 MG/3 ML NEB IH PRN (14:58)
[2022-09-15] MEDS: ZOLOFT 50 MG TABLET PO SCH (15:36)
[2022-09-15] MEDS: SYNTHROID 75 MCG PO SCH (15:37)
[2022-09-15] MEDS: THERAGRAN MULTIVITAMIN PO SCH (15:37)
[2022-09-15] MEDS: Ditropan XL 5 MG PO SCH (15:37)
[2022-09-15] MEDS ORDERED: K-LYTE PO ONE (17:55)
[2022-09-15] MEDS ORDERED: Lasix 20 MG/2 ML IV ONE (17:55)
[2022-09-15] MEDS ORDERED: Mirapex 0.5 MG Tablet PO SCH (22:00)
[2022-09-15] MEDS ORDERED: NON-FORMULARY ITEM (Pramipexole Di-Hcl [Pramipexole Dihydrochloride] 0.125 MG Tablet) PO SCH (22:00)
[2022-09-15] MEDS ORDERED: ROCEPHIN 1 Gm-D5w 50 ml Bag** 1 G/50 ML IVPB IV SCH (22:00)
[2022-09-15] MEDS ORDERED: Zocor 10MG PO SCH (22:00)
[2022-09-15] MEDS: PRADAXA 75 MG PO SCH (22:01)
[2022-09-15] MEDS: FEOSOL 325 MG PO SCH (22:01)
[2022-09-16 07:05] LABS: Hematocrit 31.4 % (35-47); Hemoglobin 9.4 g/dL (12.0-16.0); Mean Cell Volume 98.4 fL (78-100); Mean Corpuscular Hemoglobin 29.5 pg (26-32); Mean Corpuscular Hgb Concent. 29.9 g/dL (32-36); Mean Platelet Volume 11.2 fL (7.5-11.0); Platelet Count 147 x10^3/uL (150-450); Red Blood Count 3.19 x10^6/uL (4.1-5.4); White Blood Count 6.2 x10^3/uL (4.0-10.5)
[2022-09-16] MEDS: SYNTHROID 75 MCG PO SCH (09:12)
[2022-09-16] MEDS: THERAGRAN MULTIVITAMIN PO SCH (09:12)
[2022-09-16] MEDS: PRADAXA 75 MG PO SCH (09:13)
[2022-09-16] MEDS: Ditropan XL 5 MG PO SCH (09:13)
[2022-09-16] MEDS: ZOLOFT 50 MG TABLET PO SCH (09:13)
[2022-09-16] MEDS: FEOSOL 325 MG PO SCH (09:13)
[2022-09-16] MEDS: PROTONIX 40 MG IV IV SCH (09:14)
[2022-09-16] MEDS ORDERED: LASIX 20 MG PO SCH (10:00)
[2022-09-16] MEDS ORDERED: [UNRECOGNIZED DRUG - OTHER] PO SCH (10:00)
[2022-09-16] MEDS ORDERED: K-LYTE PO SCH (10:00)
[2022-09-16] MEDS ORDERED: NON-FORMULARY ITEM (Oxybutynin Chloride 10 Mg Xl [Ditropan Xl 10 Mg] 10 MG Tab) PO SCH (10:00)
[2022-09-16] MEDS ORDERED: IRON PO SCH (10:00)
[2022-09-16] MEDS ORDERED: MAG-OX 400 PO SCH (10:00)
[2022-09-16] MEDS ORDERED: NON-FORMULARY ITEM (Magnesium Oxide [Magnesium Oxide] 400 MG Tablet) PO SCH (10:00)
[2022-09-16] MEDS ORDERED: FOLIC ACID PO SCH (10:00)
[2022-09-16] MEDS ORDERED: MULTIVITAMIN PO SCH (10:00)
[2022-09-16 12:07] VITALS: BP 132/61; PULSE 62; O2SAT 92
--- NOTE | 2022-09-16 13:38 | PCM.DCORD ---
- Discharge Disposition: HOME HEALTH SERVICE Condition: Stable Prescriptions: New Cefuroxime Axetil 500 mg [Ceftin 500 mg] 0 mg PO BID #6 tablet Continue Dabigatran Etexilate Mesylate [Pradaxa] 75 mg PO BID Pramipexole Di-HCl [Pramipexole Dihydrochloride] 0.125 mg PO HS Docusate Sodium 100 mg [Docusate Sodium 100 MG] 100 mg PO BID PRN PRN PRN Reason: Constipation Magnesium Oxide 250 mg PO DAILY Pregabalin [Lyrica 100Mg] 100 mg PO DAILY Linaclotide [Linzess] 145 mcg PO DAILY Guaifenesin [Mucinex] 600 mg PO BID PRN PRN PRN Reason: Cough Ferrous Sulfate 325 mg PO BID Oxybutynin Chloride 10 mg Xl [Ditropan Xl 10 MG] 10 mg PO DAILY Multivitamin/Iron/Folic Acid [Centrum Complete Multivit Tab] 1 each PO DAILY Albuterol 2.5 mg/3 ml Neb [Proventil 2.5 mg/3 ml Neb] 2.5 mg IH Q6H PRN PRN PRN Reason: Shortness Of Breath Acetaminophen 325 mg [Tylenol 325 mg] 650 mg PO Q6H PRN PRN PRN Reason: Pain Simvastatin 10 mg [Zocor 10MG] 10 mg PO HS Sertraline HCl 50 mg [Zoloft 50 mg Tablet] 50 mg PO DAILY Levothyroxine Sodium 75 Mcg [Synthroid 75 Mcg] 75 mcg PO DAILY Additional Instructions: Will need hemocult stool test after holding iron tabs for 3 days or per PCP instruction. Follow up with: MOE PRINCE [Primary Care Provider] -
--- NOTE | 2022-09-16 13:45 | PCM.NOTE ---
Date and Time: 09/16/22 2362 Subjective Assessment: Patient had heme positive stool yesterday but no abdominal pain or tenderness Patient is asking to go home. Hgb 8.7 yesterday and is 9.4 this AM chacorta refuses scope for now. Patient has been up to the bathroom without assistance and denies any hip pain with ambulation. Patient has been on IV fluids and had fluid overload yesterday and is not having any shortness of breath. Received lasix and potassium yesterday and today. Patient will follow either her PCP Dr Lola Serna or return to ER if any set backs. Objective Exam General Appearance: no apparent distress, other (just finished and fri.) Neurologic Exam: alert, oriented x 3, cooperative Skin Exam: normal color, warm, dry Respiratory Exam: normal breath sounds Cardiovascular Exam: regular rate/rhythm Gastrointestinal/Abdomen Exam: soft (nontender) OBJECTIVE DATA Vital Signs: Vital Signs - 24 hr Temp Pulse Resp BP Pulse Ox 09/16/22 12:00 98.9 F 62 16 132/61 92 L 09/16/22 08:00 98.9 F 69 18 149/65 94 L 09/16/22 07:13 94 L 09/16/22 04:00 99.1 F 68 19 142/65 94 L 09/15/22 23:51 98.9 F 60 18 174/72 98 09/15/22 19:28 98.6 F 74 18 165/65 95 09/15/22 16:00 98.7 F 59 L 16 166/72 93 L Pain Assessment - Last Documented Pain Intensity 0 Pain Scale Used 0-10 Pain Scale Intake and Output: Intake & Output 09/14/22 09/15/22 09/16/22 09/17/22 11:59 11:59 11:59 11:59 Intake Total 1531 3446 550 Output Total 350 400 Balance 1181 3046 550 Weight 53.5 kg Lab Results: Lab Results-Last 24 Hours 09/15/22 09/15/22 09/15/22 Range/Units 05:00 05:00 05:30 WBC (4.0-10.5) x10^3/uL RBC (4.1-5.4) x10^6/uL Hgb (12.0-16.0) g/dL Hct (35-47) % MCV (78-100) fL MCH (26-32) pg MCHC (32-36) g/dL RDW (11.5-14.0) % Plt Count (150-450) x10^3/uL MPV (7.5-11.0) fL Magnesium 1.8 (1.6-2.3) mg/dL Iron (37-170) ug/dL NT-Pro-B Natriuret Pep (0-1800) pg/mL Vitamin B12 650 (239-931) pg/mL TSH 3rd Generation 1.550 (0.47-4.68) mIU/L Stool Occult Blood (NEGATIVE) 09/15/22 09/15/22 09/16/22 Range/Units 05:30 21:04 05:30 WBC 6.2 (4.0-10.5) x10^3/uL RBC 3.19 L (4.1-5.4) x10^6/uL Hgb 9.4 L (12.0-16.0) g/dL Hct 31.4 L (35-47) % MCV 98.4 (78-100) fL MCH 29.5 (26-32) pg MCHC 29.9 L (32-36) g/dL RDW 15.0 H (11.5-14.0) % Plt Count 147 L (150-450) x10^3/uL MPV 11.2 H (7.5-11.0) fL Magnesium (1.6-2.3) mg/dL Iron 41 (37-170) ug/dL NT-Pro-B Natriuret Pep (0-1800) pg/mL Vitamin B12 (239-931) pg/mL TSH 3rd Generation (0.47-4.68) mIU/L Stool Occult Blood POSITIVE A (NEGATIVE) 09/16/22 Range/Units 06:05 WBC (4.0-10.5) x10^3/uL RBC (4.1-5.4) x10^6/uL Hgb (12.0-16.0) g/dL Hct (35-47) % MCV (78-100) fL MCH (26-32) pg MCHC (32-36) g/dL RDW (11.5-14.0) % Plt Count (150-450) x10^3/uL MPV (7.5-11.0) fL Magnesium (1.6-2.3) mg/dL Iron (37-170) ug/dL NT-Pro-B Natriuret Pep 3940 H (0-1800) pg/mL Vitamin B12 (239-931) pg/mL TSH 3rd Generation (0.47-4.68) mIU/L Stool Occult Blood (NEGATIVE) Radiology Exams: Radiology Procedures Category Date Time Status CHEST 1 VIEW (PORTABLE) Stat Exams 09/14/22 15:09 Completed CHEST WITHOUT CONTRAST [CT] Stat Exams 09/14/22 17:04 Completed PELVIS WITHOUT CONTRAST [CT] Stat Exams 09/14/22 17:05 Completed Multi-Disciplinary Progress Notes: Multi-Disciplinary Progress Notes 09/16/22 07:29 Respiratory Note by Bri Vergara This RT called to check pt sats. RECEIVING ASSOCIATE reports sats 82-88% awake sitting in the chair. Sats 87-89% non room air while sitting in chair. Pt reports she wears oxygen at home as needed. Mostly when she is up moving around. Pt reports she wears 3L. Place pt on 2L NC sats up to 94%. Initialized on 09/16/22 07:29 - END OF NOTE Assessment/Plan (1) Acetabular fracture Current Visit: Yes Status: Chronic Qualifiers: Encounter type: initial encounter Sublocation of acetabulum: dome Fracture type: closed Laterality: right Assessment & Plan: subacute or chronic(no pain with ambulation Code(s): S32.409A - UNSP FRACTURE OF UNSP ACETABULUM, INIT FOR CLOS FX (2) UTI (urinary tract infection) Current Visit: Yes Status: Acute Assessment & Plan: culture is pending will discharge of Ceftin Code(s): N39.0 - URINARY TRACT INFECTION, SITE NOT SPECIFIED (3) Anemia Current Visit: Yes Status: Chronic Code(s): D64.9 - ANEMIA, UNSPECIFIED (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 (7) CHF (congestive heart failure) Current Visit: Yes Status: Chronic Code(s): I50.9 - HEART FAILURE, UNSPECIFIED
== END 2022-09-16 14:47 | disposition home health service (06) ==
LOC: ED 15:04 → MED SURG 20:29
PROVIDERS: ADMIT Family Medicine; ATTEND Family Medicine
DX: S32.401D Unspecified fracture of right acetabulum, subsequent encounter for fracture with routine healing (principal); N39.0 Urinary tract infection, site not specified; D64.9 Anemia, unspecified; I50.9 Heart failure, unspecified; M25.551 Pain in right hip; I25.10 Atherosclerotic heart disease of native coronary artery without angina pectoris; Z79.01 Long term (current) use of anticoagulants; Z86.711 Personal history of pulmonary embolism; Z79.899 Other long term (current) drug therapy
CPT/HCPCS: 0241U; 36000; 36415; 71045; 71250; 72192; 80053; 81015; 82607; 83540; 83605; 83735; 83880; 84134; 84443; 84484; 85025; 85027; 85610; 85730; 87077; 87086; 87186; 93005; 94760; 96365; 96374; 96375; 99285; G0328; G0378; P9612; 82274; J0696; J1940; J2405; J3010; A9270-GY

== ENCOUNTER 2022-10-23 21:57 | Observation (INO) | payer MEDICARE ==
--- NOTE | 2022-10-23 22:42 | ERPHSYRPT ---
- History of Present Illness Time Seen by Provider: 10/23/22 22:15 Source: patient, EMS Exam Limitations: no limitations Patient Subjective Stated Complaint: per ems patient fell earlier today in the afternoon on her right hip and the pain just started 4 hrs ago Triage Nursing Assessment: Pt presents to ED via medic 1, pt c/o L hip pain d/t fall earlier today, pt has hx of bilateral hip replacements, pt is on blood thinner for a fib, alert and oriented x3, skin pwd, pedal pulses +2 bilaterally, no shortening or rotation noted in L hip Physician History: This is an 86-year-old white female who has chronic hip pain. Primarily the pain is in the left hip. Earlier today, the patient states that she fell because she lost her footing and she fell onto her left hip. Patient was moving around her home like she normally does and it did not feel too bad. However approximately 4 to 5 hours later she noticed pain in the left hip. She was concerned because she has had fractured hips in the past. Patient denies any hip replacement surgery. Patient does have a history of atrial fibrillation and is on anticoagulation therapy. Patient denies shortness of breath. She denies chest pain. Patient called the ambulance service and EMS brought her into the emergency department for further evaluation management. There was no external rotation or shortening of the left lower extremity. I asked the patient what IV pain medicine can she use. She has had morphine in the past. Patient also states that she can use Percocet for pain control. Method of Injury: fell Occurred: this afternoon Quality: aching Severity of Pain-Max: mild (To moderate) Severity of Pain-Current: moderate Lower Extremities Pain: hip: left Modifying Factors: Improves With: movement (Hurts in her left groin to move) Associated Symptoms: other Allergies/Adverse Reactions: cortisone [Cortisone] Allergy (Verified 10/23/22 22:00) "affected breathing and heart" latex Allergy (Verified 10/23/22 22:00) polyethylene glycol [From Golytely] Allergy (Verified 10/23/22 22:00) vomiting and nasuea polyethylene glycol 3350 [From Golytely] Allergy (Verified 10/23/22 22:00) vomiting and nasuea potassium chloride* [From Golytely] Allergy (Verified 10/23/22 22:00) vomiting and nasuea sodium [From Golytely] Allergy (Verified 10/23/22 22:00) vomiting and nasuea sodium bicarbonate [From Golytely] Allergy (Verified 10/23/22 22:00) vomiting and nasuea sodium chloride [From Golytely] Allergy (Verified 10/23/22 22:00) vomiting and nasuea sodium sulfate [From Golytely] Allergy (Verified 10/23/22 22:00) vomiting and nasuea sodium sulfate anhydrous [From Golytely] Allergy (Verified 10/23/22 22:00) vomiting and nasuea acetaminophen [From Vicodin] Adverse Reaction (Verified 10/23/22 22:00) hydrocodone bitartrate [From Vicodin] Adverse Reaction (Verified 10/23/22 22:00) Home Medications: Acetaminophen 325 mg [Tylenol 325 mg] 650 mg PO Q6H PRN PRN 09/15/22 [History] Albuterol 2.5 mg/3 ml Neb [Proventil 2.5 mg/3 ml Neb] 2.5 mg IH Q6H PRN PRN 09/15/22 [History] Dabigatran Etexilate Mesylate [Pradaxa] 75 mg PO BID 09/15/22 [History] Docusate Sodium 100 mg [Docusate Sodium 100 MG] 100 mg PO BID PRN PRN 09/15/22 [History] Ferrous Sulfate 325 mg PO BID 09/15/22 [History] Guaifenesin [Mucinex] 600 mg PO BID PRN PRN 09/15/22 [History] Levothyroxine Sodium 75 Mcg [Synthroid 75 Mcg] 75 mcg PO DAILY 09/15/22 [History] Linaclotide [Linzess] 145 mcg PO DAILY 09/15/22 [History] Magnesium Oxide 250 mg PO DAILY 09/15/22 [History] Multivitamin/Iron/Folic Acid [Centrum Complete Multivit Tab] 1 each PO DAILY 09/15/22 [History] Oxybutynin Chloride 10 mg Xl [Ditropan Xl 10 MG] 10 mg PO DAILY 09/15/22 [History] Pramipexole Di-HCl [Pramipexole Dihydrochloride] 0.125 mg PO HS 09/15/22 [History] Pregabalin [Lyrica 100Mg] 100 mg PO DAILY 09/15/22 [History] Sertraline HCl 50 mg [Zoloft 50 mg Tablet] 50 mg PO DAILY 09/15/22 [History] Simvastatin 10 mg [Zocor 10MG] 10 mg PO HS 09/15/22 [History] Hx Tetanus, Diphtheria Vaccination/Date Given: Yes Hx Influenza Vaccination/Date Given: No Hx Pneumococcal Vaccination/Date Given: No Travel Risk - International Travel Have you traveled outside of the country in past 3 weeks: No - Coronavirus Screening Are you exhibiting any of the following symptoms?: No Close contact with a COVID-19 positive Pt in past 14-21 Days: No - Vaccine Status Have you recieved a Covid-19 vaccination: No - Review of Systems Constitutional: No Symptoms Eyes: No Symptoms Ears, Nose, & Throat: No Symptoms Respiratory: No Symptoms Cardiac: No Symptoms Abdominal/Gastrointestinal: No Symptoms Genitourinary Symptoms: No Symptoms Musculoskeletal: Fall, Injury (Left hip), No Deformity Skin: No Symptoms Neurological: No Symptoms Psychological: No Symptoms Endocrine: No Symptoms Hematologic/Lymphatic: No Symptoms Immunological/Allergic: No Symptoms All Other Systems: Reviewed and Negative - Past Medical History Pertinent Past Medical History: Yes Neurological History: Migraines ENT History: Cataracts Cardiac History: Arrhythmia, Coronary Artery Disease, Deep Vein Thrombosis, High Cholesterol Respiratory History: Asthma, COPD, Pulmonary Embolism, Sleep Apnea, Other Endocrine Medical History: Hypothyroidism Musculoskeletal History: Arthritis GI Medical History: GERD History: Renal Disease, Other Psycho-Social History: Depression Female Reproductive Disorders: No Pertinent History Other Medical History: 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 broke rt hip jul 2022 - Past Surgical History Past Surgical History: Yes Neuro Surgical History: No Pertinent History Cardiac: CABG Respiratory: No Pertinent History Gastrointestinal: Cholecystectomy Genitourinary: No Pertinent History Musculoskeletal: Orthopedic Surgery Female Surgical History: Hysterectomy Other Surgical History: HAND AND WRIST, bilateral hip replacements - Social History Smoking Status: Never smoker Exposure to second hand smoke: Yes Drug Use: none Patient Lives Alone: No - Nursing Vital Signs Nursing Vital Signs: Initial Vital Signs Temperature 97.8 F 10/23/22 22:01 Pulse Rate 61 10/23/22 22:01 Respiratory Rate 18 11/22/22 22:01 Blood Pressure 115/53 10/23/22 22:01 O2 Sat by Pulse Oximetry 95 10/23/22 22:01 Pain Scale Pain Intensity 2 - Physical Exam General Appearance: no apparent distress, alert, anxiety Eyes, Ears, Nose, Throat Exam: normal ENT inspection, moist mucous membranes Neck Exam: normal inspection, non-tender, supple, full range of motion Cardiovascular/Respiratory Exam: chest non-tender, no respiratory distress Gastrointestinal/Abdominal Exam: non-tender, No tenderness Back Exam: normal inspection, normal range of motion, No CVA tenderness, No vertebral tenderness Hips Exam: right: non-tender, normal range of motion, left: limited range of motion, pain (With movement), bilateral: normal inspection, no evidence of injury Legs Exam: bilateral leg: non-tender, normal inspection, normal range of motion, no evidence of injury Knees Exam: bilateral knee: non-tender, normal inspection, normal range of motion, no evidence of injury Ankle Exam: bilateral ankle: non-tender, normal inspection, normal range of motion, no evidence of injury Foot Exam: bilateral foot: non-tender, normal inspection, normal range of motion, no evidence of injury Neuro/Tendon Exam: normal sensation, normal motor functions, normal tendon functions, responds to pain, no evidence tendon injury Mental Status Exam: alert, oriented x 3, cooperative Skin Exam: normal color, warm, dry SpO2 Interpretation: normal SpO2: 95 O2 Delivery: Room Air - Course Nursing assessment & vital signs reviewed: Yes Ordered Tests: Active Orders 24 hr Category Date Time Status Pricing Coordinator STAT Care 10/23/22 23:03 Active Catheter-Tatums Henry STAT Care 10/23/22 23:22 Ordered IV Insertion STAT Care 10/23/22 23:03 Active Oxygen-ED Only Nasal Cannula 4 lpm Care 10/23/22 23:03 Active HIP UNI (2V) INCL PEL IF DONE Stat Exams 10/23/22 22:11 Taken CBC W DIFF Stat Lab 10/23/22 23:22 Ordered CMP Stat Lab 10/23/22 23:22 Ordered UA W/RFX CULTURE Stat Lab 10/23/22 Ordered Medication Summary Generic Name Dose Route Start Last Admin Trade Name Freq PRN Reason Stop Dose Admin Sodium Chloride 1,000 mls @ 50 mls/hr 10/23/22 23:30 Sodium Chloride 0.9% 1000 Ml IV 11/22/22 23:29 .Q20H JOYCE Discontinued Medications Generic Name Dose Route Start Last Admin Trade Name Doroteo PRN Reason Stop Dose Admin Fentanyl Citrate 25 mcg 10/23/22 22:47 10/23/22 22:53 Fentanyl Citrate 100 Mcg/2 Ml* Vial IV 10/23/22 22:48 25 mcg STAT ONE Administration Fentanyl Citrate Confirm 10/23/22 22:52 Fentanyl Citrate 100 Mcg/2 Ml* Vial Administered 10/23/22 22:53 Dose 100 mcg .ROUTE .STK-MED ONE Morphine Sulfate 2 mg 10/23/22 22:43 10/23/22 22:50 Morphine Sulfate 2 Mg/Ml Inj IV 10/23/22 22:44 Not Given STAT ONE Ondansetron HCl 4 mg 10/23/22 22:43 10/23/22 22:53 Ondansetron Hcl 4 Mg/2 Ml Vial IV 10/23/22 22:44 4 mg STAT ONE Administration Ondansetron HCl Confirm 10/23/22 22:51 Ondansetron Hcl 4 Mg/2 Ml Vial Administered 10/23/22 22:52 Dose 4 mg .ROUTE .STK-MED ONE - Progress Progress: improved, pain not gone completely Progress Note: 10/23/22 23:24 X-ray of pelvis and left hip reveals new mildly displaced superior and inferior pubic rami fractures. The left hip surgical hardware is in place. Chronic right superior and inferior pubic rami fractures present. These are persistent when compared to CT scan of the pelvis in the past. Medical decision making: This finding of fractures of the superior and inferior pubic rami will not require surgery. Patient will require pain control and physical therapy. I spoke with Dr. Singh Dent. We will place the patient in observation and provide her with intravenous pain medication. We will place a Henry catheter and check UA for infection. We will order physical therapy consultation for tomorrow morning. Discussed with : Krishna Counseled pt/family regarding: lab results, diagnosis, rad results - Departure Departure Disposition: Observation Clinical Impression: Fracture of left inferior pubic ramus, Fracture of left superior pubic ramus Condition: Stable Critical Care Time: No Referrals: MOE PRINCE [Primary Care Provider] - Follow up/PCP as directed
[2022-10-23] MEDS ORDERED: Zofran 4 MG/2 ML VIAL IV ONE (22:43)
[2022-10-23] MEDS ORDERED: MORPHINE SULFATE 2 MG INJ IV ONE (22:43)
[2022-10-23] MEDS ORDERED: SUBLIMAZE 100 MCG/2 ML IV ONE (22:47)
[2022-10-23] MEDS ORDERED: Zofran 4 MG/2 ML VIAL ONE (22:51)
[2022-10-23] MEDS ORDERED: SUBLIMAZE 100 MCG/2 ML ONE (22:52)
[2022-10-23] MEDS ORDERED: Sodium Chloride 0.9% 1000 ML 1,000 ML ONE (23:25)
[2022-10-23] MEDS ORDERED: Sodium Chloride 0.9% 1000 ML 1,000 ML IV SCH (23:30)
[2022-10-23 23:52] LABS: Absolute Neutrophil Ct (ANC) 5.19 x10^3/uL (1.4-6.9); Basophil (Absolute #) 0.01 x10^3/uL (0-0.4); Eosinophil (Absolute #) 0 x10^3/uL (0-0.5); Hematocrit 34.8 % (35-47); Hemoglobin 10.7 g/dL (12.0-16.0); Lymphocyte (Absolute #) 0.43 x10^3/uL (1.0-4.6); Lymphocytes % 6.7 % (24.0-44.0); Mean Cell Volume 94.6 fL (78-100); Mean Corpuscular Hemoglobin 29.1 pg (26-32); Mean Corpuscular Hgb Concent. 30.7 g/dL (32-36); Mean Platelet Volume 9.9 fL (7.5-11.0); Monocyte (Absolute #) 0.77 x10^3/uL (0.0-1.3); Neutrophil % 80.8 % (36.0-66.0); Platelet Count 154 x10^3/uL (150-450); Red Blood Count 3.68 x10^6/uL (4.1-5.4); Red Cell Distribution Width 15.7 % (11.5-14.0); White Blood Count 6.4 x10^3/uL (4.0-10.5)
[2022-10-24 00:12] LABS: ALBUMIN 3.8 g/dL (3.5-5.0); ANION GAP 10.3 MEQ/L (5-15); BILIRUBIN,TOTAL 1.2 mg/dL (0.2-1.3); Calcium 8.8 mg/dL (8.4-10.2); Creatinine 1 1.17 mg/dL (0.52-1.04); EST GLOMERULAR FILTRATION RATE 46.4 ML/MIN; Potassium 3.8 mmol/L (3.5-5.1); Total Protein 7.5 g/dL (6.3-8.2)
[2022-10-24 00:28] LABS: INFLUENZA A NEGATIVE (NEGATIVE); INFLUENZA B NEGATIVE (NEGATIVE); RESPIRATORY SYNCTIAL VIRUS NEGATIVE (Negative); SARS-CoV-2 Xpert Express NEGATIVE (NEGATIVE)
[2022-10-24 00:43] LABS: Bacteria RARE /HPF (NEGATIVE); RBC 0-2 /HPF (0-2)
[2022-10-24 00:47] LABS: Appearance CLEAR (CLEAR); Bilirubin NEGATIVE (NEGATIVE); Dipstick done @ ? MAIN LAB; Glucose NEGATIVE (NEGATIVE); Ketones NEGATIVE (NEGATIVE); Nitrite NEGATIVE (NEGATIVE); Protein,Urine Dip NEGATIVE (Negative); RBC NEGATIVE Ery/ul (0-5); Specific Gravity 1.015 (1.005-1.025); Urobilinogen 0.2 mg/dL (0-1)
[2022-10-24 00:51] LABS: Urine Cultured Indicated? YES
[2022-10-24 01:42] LABS: Slide Review 1 YES
[2022-10-24] MEDS ORDERED: SUBLIMAZE 100 MCG/2 ML IV PRN ×2 (02:13→10:37)
[2022-10-24] MEDS ORDERED: TYLENOL 325 MG PO PRN (02:13)
[2022-10-24] MEDS ORDERED: Zofran 4 MG/2 ML VIAL IV PRN (02:13)
[2022-10-24] MEDS ORDERED: PROVENTIL 2.5 MG/3 ML NEB IH PRN ×2 (02:24→16:46)
[2022-10-24 07:51] LABS: Absolute Neutrophil Ct (ANC) 4.02 x10^3/uL (1.4-6.9); Basophil (Absolute #) 0.01 x10^3/uL (0-0.4); Eosinophil % 0.8 % (0.00-5.0); Eosinophil (Absolute #) 0.04 x10^3/uL (0-0.5); Hematocrit 32.9 % (35-47); Lymphocyte (Absolute #) 0.58 x10^3/uL (1.0-4.6); Lymphocytes % 10.9 % (24.0-44.0); Mean Cell Volume 96.2 fL (78-100); Mean Corpuscular Hemoglobin 29.2 pg (26-32); Mean Corpuscular Hgb Concent. 30.4 g/dL (32-36); Mean Platelet Volume 10.2 fL (7.5-11.0); Monocyte (Absolute #) 0.66 x10^3/uL (0.0-1.3); Monocytes % 12.4 % (0.0-12.0); Neutrophil % 75.3 % (36.0-66.0); Platelet Count 137 x10^3/uL (150-450); Red Blood Count 3.42 x10^6/uL (4.1-5.4); Red Cell Distribution Width 15.9 % (11.5-14.0); White Blood Count 5.3 x10^3/uL (4.0-10.5)
[2022-10-24 08:04] LABS: ANION GAP 10.9 MEQ/L (5-15); Calcium 8.3 mg/dL (8.4-10.2); Creatinine 1 1.1 mg/dL (0.52-1.04); EST GLOMERULAR FILTRATION RATE 49.8 ML/MIN; Potassium 3.9 mmol/L (3.5-5.1)
--- NOTE | 2022-10-24 09:19 | XRAY ---
Indication: Pain following fall. CT proven right acetabulum fracture on September 14, 2022. Comparison: June 22, [address] pelvis September 14, 2022. AP pelvis and 2 view left hip demonstrates new mildly displaced left superior/inferior pubic bone fractures. Stable osteopenia, old left proximal femur fracture with intact hardware, old right inferior pubic ramus fracture, lower lumbar spinous process fusion hardware, and incompletely visualized lower lumbar kyphoplasty. Interval healing right acetabulum fracture with new acetabulum protrusio. There remains scattered vascular calcifications. Comment: Preliminary interpretation made by [facility]. No critical discrepancy.
[2022-10-24 09:41] LABS: Slide Review 1 YES
--- NOTE | 2022-10-24 12:25 | PCM.HP ---
History of Present Illness - Chief Complaint Chief Complaint: Left superior and inferior pubic rami fractures History of Present Illness: is a 86 year old female pt of Dr. Lola Serna with afib, chronic renal insufficiency, hypothyroidism, CAD, DVT, hyperlipidemia, OA, GERD, depress ion, asthma, and allergies who was admitted through ER with pelvic fx after a fall. She said she has episodes where she seems perfectly normal then she's just down, like her balance is completely gone. No LOC. XR in ER showed new mildly displaced superior and inferior pubic rami fxs (with chronic R superior and inferior pubic rami fx persistent compared to CT scan in past). UA with WBC 16-25. Pain was 8/10 this morning, down to 6/10 with fentanyl. With moving the pt, her pain was 10/10. - Review of Systems Constitutional: Fever (to 101 one week ago with sinus conges, and cough prod white/yellow sputum) Ears, Nose, & Throat: Sinus Drainage Respiratory: Cough, Short Of Breath (chronic) Cardiac: Edema (chronic, LE) Abdominal/Gastrointestinal: Vomiting (occasionally vomits, then is ok to eat immediately after), Constipation (chronic) Genitourinary Symptoms: Dysuria (had UTI over 1 mo ago) Skin: Pruritis, Rash (chronic itchy rash) All Other Systems: Reviewed and Negative Medications & Allergies Home Medications: Home Medication List Albuterol 2.5 mg/3 ml Neb [Proventil 2.5 mg/3 ml Neb] 2.5 mg IH Q6H PRN PRN 09/15/22 [History Confirmed 10/24/22] Dabigatran Etexilate Mesylate [Pradaxa] 75 mg PO BID 09/15/22 [History Confirmed 10/24/22] Docusate Sodium 100 mg [Docusate Sodium 100 MG] 100 mg PO BID PRN PRN 09/15/22 [History Confirmed 10/24/22] Ferrous Sulfate 325 mg PO BID 09/15/22 [History Confirmed 10/24/22] Levothyroxine Sodium 75 Mcg [Synthroid 75 Mcg] 75 mcg PO DAILY 09/15/22 [History Confirmed 10/24/22] Linaclotide [Linzess] 145 mcg PO DAILY 09/15/22 [History Confirmed 10/24/22] Magnesium Oxide 400 mg PO DAILY 09/15/22 [History Confirmed 10/24/22] Multivitamin/Iron/Folic Acid [Centrum Complete Multivit Tab] 1 each PO DAILY 09/15/22 [History Confirmed 10/24/22] Pramipexole Di-HCl [Pramipexole Dihydrochloride] 0.5 mg PO HS 09/15/22 [History Confirmed 10/24/22] Pregabalin [Lyrica 100Mg] 100 mg PO DAILY 09/15/22 [History Confirmed 10/24/22] Sertraline HCl 50 mg [Zoloft 50 mg Tablet] 50 mg PO DAILY 09/15/22 [History Confirmed 10/24/22] Simvastatin 10 mg [Zocor 10MG] 10 mg PO HS 09/15/22 [History Confirmed 10/24/22] Alendronate Sodium 70 mg PO DAILY 10/24/22 [History Confirmed 10/24/22] Metoprolol Succinate 25 mg PO DAILY 10/24/22 [History Confirmed 10/24/22] Mirabegron [Myrbetriq] 50 mg PO DAILY 10/24/22 [History Confirmed 10/24/22] Potassium Chloride 20 meq PO DAILY 10/24/22 [History Confirmed 10/24/22] Sildenafil Citrate 20 mg PO TID 10/24/22 [History Confirmed 10/24/22] Solifenacin Succinate 5 mg PO DAILY 10/24/22 [History Confirmed 10/24/22] Spironolactone 25 mg [Aldactone 25 MG] 25 mg PO BID 10/24/22 [History Confirmed 10/24/22] Torsemide [Soaanz] 20 mg PO BID 10/24/22 [History Confirmed 10/24/22] Allergies/Adverse Reactions: Allergies Allergy/AdvReac Type Severity Reaction Status Date / Time cortisone [Cortisone] Allergy "affected Verified 10/23/22 22:00 breathing and heart" latex Allergy Verified 10/23/22 22:00 polyethylene glycol Allergy vomiting Verified 10/23/22 22:00 [From Golytely] and nasuea polyethylene glycol 3350 Allergy vomiting Verified 10/23/22 22:00 [From Golytely] and nasuea potassium chloride* Allergy vomiting Verified 10/23/22 22:00 [From Golytely] and nasuea sodium [From Golytely] Allergy vomiting Verified 10/23/22 22:00 and nasuea sodium bicarbonate Allergy vomiting Verified 10/23/22 22:00 [From Golytely] and nasuea sodium chloride Allergy vomiting Verified 10/23/22 22:00 [From Golytely] and nasuea sodium sulfate Allergy vomiting Verified 10/23/22 22:00 [From Golytely] and nasuea sodium sulfate anhydrous Allergy vomiting Verified 10/23/22 22:00 [From Golytely] and nasuea acetaminophen [From Vicodin] AdvReac Verified 10/23/22 22:00 hydrocodone bitartrate AdvReac Verified 10/23/22 22:00 [From Vicodin] - Past Medical History Past Medical History: Yes Neurological History: Migraines ENT History: Cataracts Cardiac History: Arrhythmia, Coronary Artery Disease, Deep Vein Thrombosis, High Cholesterol Respiratory History: Asthma, COPD, Pulmonary Embolism, Sleep Apnea, Other Endocrine Medical History: Hypothyroidism Musculoskelatal History: Arthritis GI Medical History: GERD History: Renal Disease, Other Pyscho-Social History: Depression Reproductive Disorders: No Pertinent History Comment: 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 broke rt hip jul 2022 - Past Surgical History Past Surgical History: Yes Neuro Surgical History: No Pertinent History Cardiac History: CABG Respiratory Surgery: No Pertinent History GI Surgical History: Cholecystectomy Genitourinary Surgical Hx: No Pertinent History Musculskeletal Surgical Hx: Orthopedic Surgery Female Surgical History: Hysterectomy Other Surgical History: HAND AND WRIST, bilateral hip replacements - Social History Smoking Status: Never smoker Exposure to second hand smoke: No Alcohol: None Drug Use: none - Physical Exam Vital Signs: Vital Signs - 24 hr Temp Pulse Resp BP Pulse Ox 10/24/22 12:00 97.7 F 60 16 111/51 95 10/24/22 08:04 60 18 98 10/24/22 08:00 96.8 F 60 16 128/59 97 10/24/22 04:00 97.3 F 60 18 110/52 97 10/24/22 02:16 97.4 F 60 20 151/65 97 10/24/22 02:13 97 10/24/22 02:07 61 16 97 10/24/22 01:00 60 24 117/55 97 10/24/22 00:02 60 24 125/56 97 10/23/22 23:28 95 10/23/22 23:00 60 14 116/57 97 10/23/22 22:01 97.8 F 61 18 115/53 95 General Appearance: no apparent distress, thin Neurologic Exam: alert, oriented x 3, cooperative Eye Exam: eyes nml inspection Ears, Nose, Throat Exam: moist mucous membranes Neck Exam: normal inspection Respiratory Exam: normal breath sounds, lungs clear, No crackles/rales, No rhonchi, No wheezing Cardiovascular Exam: regular rate/rhythm, normal heart sounds, No murmur Gastrointestinal/Abdomen Exam: soft, normal bowel sounds, No tenderness, No distention, No mass, No guarding, No rebound Extremity Exam: normal inspection, No pedal edema, No swelling Skin Exam: normal color, warm, dry, No rash Results - Labs Lab/Micro Results: Lab Results-Last 24 Hours 10/23/22 10/23/22 10/23/22 Range/Units 23:38 23:38 23:49 WBC 6.4 (4.0-10.5) x10^3/uL RBC 3.68 L (4.1-5.4) x10^6/uL Hgb 10.7 L (12.0-16.0) g/dL Hct 34.8 L (35-47) % MCV 94.6 (78-100) fL MCH 29.1 (26-32) pg MCHC 30.7 L (32-36) g/dL RDW 15.7 H (11.5-14.0) % Plt Count 154 (150-450) x10^3/uL MPV 9.9 (7.5-11.0) fL Gran % 80.8 H (36.0-66.0) % Immature Gran % (Auto) 0.3 (0.00-0.4) % Nucleat RBC Rel Count 0.0 (0.00-0.1) % Eos # (Auto) 0 (0-0.5) x10^3/uL Immature Gran # (Auto) 0.02 (0.00-0.03) x10^3u/L Absolute Lymphs (auto) 0.43 L (1.0-4.6) x10^3/uL Absolute Monos (auto) 0.77 (0.0-1.3) x10^3/uL Absolute Nucleated RBC 0.00 (0.00-0.01) x10^3u/L Lymphocytes % 6.7 L (24.0-44.0) % Monocytes % 12.0 (0.0-12.0) % Eosinophils % 0.0 (0.00-5.0) % Basophils % 0.2 (0.0-0.4) % Absolute Granulocytes 5.19 (1.4-6.9) x10^3/uL Basophils # 0.01 (0-0.4) x10^3/uL Sodium (137-145) mmol/L Potassium (3.5-5.1) mmol/L Chloride (98-107) mmol/L Carbon Dioxide (22-30) mmol/L Anion Gap (5-15) MEQ/L BUN (7-17) mg/dL Creatinine (0.52-1.04) mg/dL Estimated GFR ML/MIN Glucose (74-106) mg/dL Calcium (8.4-10.2) mg/dL Total Bilirubin (0.2-1.3) mg/dL AST (14-36) U/L ALT (0-35) U/L Alkaline Phosphatase (38-126) U/L Serum Total Protein (6.3-8.2) g/dL Albumin (3.5-5.0) g/dL Urinalys Dipstick Clnc MAIN LAB Urine Color YELLOW (YELLOW) Urine Appearance CLEAR (CLEAR) Urine pH 7.0 (5-6) Ur Specific Gilbert 1.015 (1.005-1.025) POC Urine Protein Conf NEGATIVE (Negative) Urine Ketones NEGATIVE (NEGATIVE) Urine Nitrite NEGATIVE (NEGATIVE) Urine Bilirubin NEGATIVE (NEGATIVE) Urine Urobilinogen 0.2 (0-1) mg/dL Urine Leukocytes TRACE A (NEGATIVE) Urine WBC (Auto) 16-25 A (0-5) /HPF Urine RBC (Auto) 0-2 (0-2) /HPF U Epithel Cells (Auto) NONE (FEW) /HPF Urine Bacteria (Auto) RARE (NEGATIVE) /HPF Urine RBC NEGATIVE (0-5) Tank/ul Ur Culture Indicated? YES Urine Glucose NEGATIVE (NEGATIVE) mg/dL Influenza Type A Ag NEGATIVE (NEGATIVE) Influenza Type B Ag NEGATIVE (NEGATIVE) RSV (PCR) NEGATIVE (Negative) SARS-CoV-2 (PCR) NEGATIVE (NEGATIVE) Slides for Path Review YES 10/23/22 10/24/22 10/24/22 Range/Units 23:49 07:39 07:39 WBC 5.3 (4.0-10.5) x10^3/uL RBC 3.42 L (4.1-5.4) x10^6/uL Hgb 10.0 L (12.0-16.0) g/dL Hct 32.9 L (35-47) % MCV 96.2 (78-100) fL MCH 29.2 (26-32) pg MCHC 30.4 L (32-36) g/dL RDW 15.9 H (11.5-14.0) % Plt Count 137 L (150-450) x10^3/uL MPV 10.2 (7.5-11.0) fL Gran % 75.3 H (36.0-66.0) % Immature Gran % (Auto) 0.4 (0.00-0.4) % Nucleat RBC Rel Count 0.0 (0.00-0.1) % Eos # (Auto) 0.04 (0-0.5) x10^3/uL Immature Gran # (Auto) 0.02 (0.00-0.03) x10^3u/L Absolute Lymphs (auto) 0.58 L (1.0-4.6) x10^3/uL Absolute Monos (auto) 0.66 (0.0-1.3) x10^3/uL Absolute Nucleated RBC 0.00 (0.00-0.01) x10^3u/L Lymphocytes % 10.9 L (24.0-44.0) % Monocytes % 12.4 H (0.0-12.0) % Eosinophils % 0.8 (0.00-5.0) % Basophils % 0.2 (0.0-0.4) % Absolute Granulocytes 4.02 (1.4-6.9) x10^3/uL Basophils # 0.01 (0-0.4) x10^3/uL Sodium 135 L 135 L (137-145) mmol/L Potassium 3.8 3.9 (3.5-5.1) mmol/L Chloride 97 L 97 L (98-107) mmol/L Carbon Dioxide 31 H 31 H (22-30) mmol/L Anion Gap 10.3 10.9 (5-15) MEQ/L BUN 21 H 20 H (7-17) mg/dL Creatinine 1.17 H 1.10 H (0.52-1.04) mg/dL Estimated GFR 46.4 49.8 ML/MIN Glucose 110 H 98 (74-106) mg/dL Calcium 8.8 8.3 L (8.4-10.2) mg/dL Total Bilirubin 1.20 (0.2-1.3) mg/dL AST 28 (14-36) U/L ALT 17 (0-35) U/L Alkaline Phosphatase 122 (38-126) U/L Serum Total Protein 7.5 (6.3-8.2) g/dL Albumin 3.8 (3.5-5.0) g/dL Urinalys Dipstick Clnc Urine Color (YELLOW) Urine Appearance (CLEAR) Urine pH (5-6) Ur Specific Gilbert (1.005-1.025) POC Urine Protein Conf (Negative) Urine Ketones (NEGATIVE) Urine Nitrite (NEGATIVE) Urine Bilirubin (NEGATIVE) Urine Urobilinogen (0-1) mg/dL Urine Leukocytes (NEGATIVE) Urine WBC (Auto) (0-5) /HPF Urine RBC (Auto) (0-2) /HPF U Epithel Cells (Auto) (FEW) /HPF Urine Bacteria (Auto) (NEGATIVE) /HPF Urine RBC (0-5) Tank/ul Ur Culture Indicated? Urine Glucose (NEGATIVE) mg/dL Influenza Type A Ag (NEGATIVE) Influenza Type B Ag (NEGATIVE) RSV (PCR) (Negative) SARS-CoV-2 (PCR) (NEGATIVE) Slides for Path Review YES - Radiology Impressions Radiology Exams & Impressions: Radiology Procedures Category Date Time Status HIP UNI (2V) INCL PEL IF DONE Stat Exams 10/23/22 22:11 Completed - Other Procedures and Tests Respiratory Therapy 10/24/22 02:23 Respiratory Therapy Assessment DAILY 10/24/22 02:24 Oxygen Nasal Cannula 2 lpm Assessment/Plan (1) Fracture of left inferior pubic ramus Current Visit: Yes Status: Acute Qualifiers: Encounter type: initial encounter Fracture type: closed Qualified Code(s): S32.592A - Other specified fracture of left pubis, initial encounter for closed fracture Assessment & Plan: Stable. She is not interested in any rehab. Would be agreeable to going home with hospice. She just wants to get back to her daughter, who is in a wheelchair with spina bifida. Pt says she can work a small wheel chair and has one on order. Discharge plannign is working with the patient. Increased the frequency of fentanyl and added percocet in hopes of finding a better pain control regimen. Code(s): S32.592A - OTH FRACTURE OF LEFT PUBIS, INIT ENCNTR FOR CLOSED FRACTURE (2) Fracture of left superior pubic ramus Current Visit: Yes Status: Acute Qualifiers: Encounter type: initial encounter Fracture type: closed Qualified Code(s): S32.512A - Fracture of superior rim of left pubis, initial encounter for closed fracture Code(s): S32.512A - FRACTURE OF SUPERIOR RIM OF LEFT PUBIS, INIT FOR CLOS FX (3) UTI (urinary tract infection) Current Visit: No Status: Suspected Qualifiers: Urinary tract infection type: acute cystitis Hematuria presence: without hematuria Qualified Code(s): N30.00 - Acute cystitis without hematuria Assessment & Plan: 16-25 WBC on UA - will check procalcitonin. No tx as yet. Cx pending. Pt did have fever last week, but afebrile here (could have been URI or sinus infection). Code(s): N39.0 - URINARY TRACT INFECTION, SITE NOT SPECIFIED (4) DVT prophylaxis Current Visit: Yes Status: Acute Assessment & Plan: Her pelvic fx seems stable, but will wait until she's been in hospital 24h befo re starting blood thinner. Her chart says she has a hx of afib, but it's not apparent on exam. Not on blood thinner. EKG ordered. Code(s): Z29.9 - ENCOUNTER FOR PROPHYLACTIC MEASURES, UNSPECIFIED
[2022-10-24] MEDS: SENOKOT 8.6 MG PO SCH (13:05)
[2022-10-24] MEDS: OXYCODONE-ACETAMINOPHEN 10-325 PO PRN ×2 (13:10→18:01)
[2022-10-24] MEDS ORDERED: Toprol-Xl 25MG Tablets PO SCH (16:00)
[2022-10-24] MEDS ORDERED: Docusate Sodium 100 MG PO PRN (16:46)
[2022-10-24] MEDS ORDERED: MEDICATION INTERVENTION MC SCH ×3 (17:30)
[2022-10-24] MEDS: MYRBETRIQ PO SCH (18:00)
[2022-10-24] MEDS: Toprol-Xl 25MG Tablets PO SCH (18:00)
[2022-10-24] MEDS: LYRICA 100MG PO SCH (18:00)
[2022-10-24] MEDS: Klor Con PO SCH (18:00)
[2022-10-24] MEDS: THERAGRAN MULTIVITAMIN PO SCH (18:00)
[2022-10-24] MEDS: MAG-OX 400 PO SCH (18:00)
[2022-10-24] MEDS: SYNTHROID 75 MCG PO SCH (18:01)
[2022-10-24] MEDS: ZOLOFT 50 MG TABLET PO SCH (18:01)
[2022-10-24] MEDS: Sodium Chloride 0.9% 1000 ML 1,000 ML IV SCH (18:18)
[2022-10-24] MEDS: Zocor 10MG PO SCH (21:08)
[2022-10-24] MEDS: FEOSOL 325 MG PO SCH (21:08)
[2022-10-24] MEDS: Mirapex 0.5 MG Tablet PO SCH (21:08)
[2022-10-24] MEDS: Aldactone 25 MG PO SCH (21:08)
[2022-10-24] MEDS: DEMADEX 20 MG PO SCH (21:08)
[2022-10-24] MEDS: PRADAXA 75 MG PO SCH (21:08)
[2022-10-24] MEDS ORDERED: NON-FORMULARY ITEM (Sildenafil Citrate [Sildenafil Citrate] 20 MG Tablet) PO SCH (22:00)
[2022-10-24] MEDS ORDERED: NON-FORMULARY ITEM (Pramipexole Di-Hcl [Pramipexole Dihydrochloride] 0.125 MG Tablet) PO SCH (22:00)
--- NOTE | 2022-10-25 09:25 | PCM.NOTE ---
Date and Time: 10/25/22923 Subjective Assessment: pain is controlled, she is taking po well. she is pleasant Objective Exam General Appearance: no apparent distress Neurologic Exam: alert, oriented x 3, cooperative Respiratory Exam: crackles/rales (minimal in bases), No respiratory distress, No accessory muscle use Gastrointestinal/Abdomen Exam: soft, No tenderness, No mass Extremity Exam: normal inspection, normal range of motion OBJECTIVE DATA Vital Signs: Vital Signs - 24 hr Temp Pulse Resp BP Pulse Ox 10/25/22 07:14 97.7 F 60 17 122/59 94 L 10/25/22 06:41 60 18 96 10/25/22 04:00 97.5 F 61 16 118/55 93 L 10/24/22 23:46 97.8 F 60 20 109/58 92 L 10/24/22 20:00 98.6 F 60 18 130/63 93 L 10/24/22 18:02 60 16 93 L 10/24/22 16:00 98.0 F 61 18 121/60 96 10/24/22 12:00 97.7 F 60 16 111/51 95 Pain Assessment - Last Documented Pain Intensity 0 Pain Scale Used 0-10 Pain Scale Intake and Output: Intake & Output 10/22/22 10/23/22 10/24/22 10/25/22 11:59 11:59 11:59 11:59 Intake Total 845 2500 Output Total 350 850 Balance 495 1650 Weight 49.5 kg 49.5 kg Lab Results: Lab Results-Last 24 Hours 10/24/22 10/24/22 Range/Units 07:39 07:39 Procalcitonin 0.417 H (0.030-0.080) ng/mL Slides for Path Review YES Radiology Exams: Radiology Procedures Category Date Time Status HIP UNI (2V) INCL PEL IF DONE Stat Exams 10/23/22 22:11 Completed Multi-Disciplinary Progress Notes: Multi-Disciplinary Progress Notes 10/24/22 13:57 Case Management Note by Barbra Mahmood [facility] AND MET WITH PATIENT AND S/W HER ABOUT SERVICES. PATIENT WOULD LIKE TO CONTINUE WITH THEIR SERVICES AT TIME OF DC. THEY REPORT THEY NEED A 4 HR ADVANCE NOTICE OF DC SO THEY CAN GET EQUIPMENT ALL DELIVERED. WHEN DC ORDER RECEIVED CALL [facility] AT [phone] OR [phone] TO NOTIFY THEM SO THEY CAN START PROCESS AND ARRANGE A DC TIME/PLAN . PATIENT WILL THEN DC HOME BY AMBULANCE. [employer] FAX NUMBER- [phone] Initialized on 10/24/22 13:57 - END OF NOTE 10/24/22 10:53 Case Management Note by Barbra Mahmood [facility] AND REFERRAL FAXED TO THEIR OFFICE. Initialized on 10/24/22 10:53 - END OF NOTE 10/24/22 10:00 (created 10/24/22 11:04) Case Management Note by Barbra Mahmood S/W PATIENT THIS AM AFTER PT EVAL. PATIENT NEEDS REHAB IN ORDER TO SAFELY CARE FOR HERSELF AT HOME. HOWEVER, PATIENT A&O AND IS REFUSING NH PLACEMENT AT THIS TIME. PATIENT STATED " I DON'T HAVE MUCH TIME LEFT AND WHAT I DO HAVE LEFT I WANT TO SPEND AT HOME WITH MY DAUGHTER". PATIENT STATES SHE WILL NOT GO TO REHAB AND NO MATTER WHAT SHE WILL BE RETURNING TO HOME AT TIME OF DC. PATIENT VOICED SHE HAS TROUBLE GETTING GROCERIES AND TRANSPORTATION. WITH PATIENT WANTING TO BE KEPT COMFORTABLE AND SPEND TIME WITH HER DAUGHTER AT HOME COMPOUNDED WITH SOCIAL ISSUES/NEEDS- HOSPICE SERVICES WOULD BE ABLE TO PROVIDE PATIENT WITH THE MAXIMUM SUPPORT AVAILABLE. THIS WAS EXPLAINED TO PATIENT. SHE IS INTERESTED IN TALKING TO A HOSPICE REP TO SEE IF THIS WOULD BE A GOOD FIT FOR HER. PATIENT NOTIFIED SHE CAN CHOOSE ANY COMPANY BUT WOULD LIKE TO GO TO WITH [facility] DR. SALAZAR WHO IS SEEING HER HERE WOULD SEE HER WITH THEM WELL. Initialized on 10/24/22 11:04 - END OF NOTE Assessment/Plan (1) Fracture of left inferior pubic ramus Current Visit: Yes Status: Acute Qualifiers: Encounter type: initial encounter Fracture type: closed Qualified Code(s): S32.592A - Other specified fracture of left pubis, initial encounter for closed fracture Assessment & Plan: dispo pending discharge planning and possible hospice eval. pain is controlled, her safety is a concern, she lives with a physically disabled daughter in a wheelchair Code(s): S32.592A - OTH FRACTURE OF LEFT PUBIS, INIT ENCNTR FOR CLOSED FRACTURE (2) Fracture of left superior pubic ramus Current Visit: Yes Status: Acute Qualifiers: Encounter type: initial encounter Fracture type: closed Qualified Code(s): S32.512A - Fracture of superior rim of left pubis, initial encounter for closed fracture Code(s): S32.512A - FRACTURE OF SUPERIOR RIM OF LEFT PUBIS, INIT FOR CLOS FX (3) UTI (urinary tract infection) Current Visit: No Status: Suspected Qualifiers: Urinary tract infection type: acute cystitis Hematuria presence: without h ematuria Qualified Code(s): N30.00 - Acute cystitis without hematuria Assessment & Plan: gram + ID pending, add rocephin Code(s): N39.0 - URINARY TRACT INFECTION, SITE NOT SPECIFIED
[2022-10-25] MEDS ORDERED: IRON PO SCH (10:00)
[2022-10-25] MEDS ORDERED: NON-FORMULARY ITEM (Magnesium Oxide [Magnesium Oxide] 400 MG Tablet) PO SCH (10:00)
[2022-10-25] MEDS ORDERED: NON-FORMULARY ITEM (Solifenacin Succinate [Solifenacin Succinate] 5 MG Tablet) PO SCH (10:00)
[2022-10-25] MEDS ORDERED: NON-FORMULARY ITEM (Potassium Chloride [Potassium Chloride] 20 MEQ Tab.Er.Prt) PO SCH (10:00)
[2022-10-25] MEDS ORDERED: NON-FORMULARY ITEM (Linaclotide [Linzess] 72 MCG Capsule) PO SCH (10:00)
[2022-10-25] MEDS ORDERED: [UNRECOGNIZED DRUG - OTHER] PO SCH (10:00)
[2022-10-25] MEDS ORDERED: MULTIVITAMIN PO SCH (10:00)
[2022-10-25] MEDS ORDERED: FOLIC ACID PO SCH (10:00)
[2022-10-25] MEDS ORDERED: NON-FORMULARY ITEM (Mirabegron [Myrbetriq] 50 MG Tab.Er.24h) PO SCH (10:00)
[2022-10-25] MEDS ORDERED: NON-FORMULARY ITEM (Metoprolol Succinate 25 MG Tab.Er.24h) PO SCH (10:00)
[2022-10-25] MEDS ORDERED: ROCEPHIN 1 Gm-D5w 50 ml Bag** 1 G/50 ML IVPB IV SCH (11:00)
[2022-10-25] MEDS: Aldactone 25 MG PO SCH ×2 (15:20→22:44)
[2022-10-25] MEDS: DEMADEX 20 MG PO SCH ×2 (15:20→22:44)
[2022-10-25] MEDS: FEOSOL 325 MG PO SCH ×2 (15:20→22:44)
[2022-10-25] MEDS: PRADAXA 75 MG PO SCH ×2 (15:21→22:43)
[2022-10-25] MEDS: OXYCODONE-ACETAMINOPHEN 10-325 PO PRN ×2 (16:05→22:44)
[2022-10-25] MEDS: SYNTHROID 75 MCG PO SCH (16:06)
[2022-10-25] MEDS: Klor Con PO SCH (16:06)
[2022-10-25] MEDS: THERAGRAN MULTIVITAMIN PO SCH (16:06)
[2022-10-25] MEDS: MAG-OX 400 PO SCH (16:06)
[2022-10-25] MEDS: ZOLOFT 50 MG TABLET PO SCH (16:06)
[2022-10-25] MEDS: LYRICA 100MG PO SCH (16:07)
[2022-10-25] MEDS: SENOKOT 8.6 MG PO SCH (16:07)
[2022-10-25] MEDS: MYRBETRIQ PO SCH (16:20)
[2022-10-25] MEDS: Toprol-Xl 25MG Tablets PO SCH (16:24)
[2022-10-25] MEDS: Zocor 10MG PO SCH (22:43)
[2022-10-25] MEDS: Mirapex 0.5 MG Tablet PO SCH (22:43)
[2022-10-26 05:05] LABS: ANION GAP 8.5 MEQ/L (5-15); Calcium 8.3 mg/dL (8.4-10.2); Creatinine 1 1.08 mg/dL (0.52-1.04); EST GLOMERULAR FILTRATION RATE 50.9 ML/MIN; Potassium 3.8 mmol/L (3.5-5.1)
[2022-10-26 05:08] LABS: Absolute Neutrophil Ct (ANC) 3.53 x10^3/uL (1.4-6.9); Basophil (Absolute #) 0.02 x10^3/uL (0-0.4); Eosinophil % 6.3 % (0.00-5.0); Eosinophil (Absolute #) 0.32 x10^3/uL (0-0.5); Hematocrit 31.6 % (35-47); Hemoglobin 9.3 g/dL (12.0-16.0); Lymphocytes % 9.8 % (24.0-44.0); Mean Cell Volume 98.8 fL (78-100); Mean Corpuscular Hemoglobin 29.1 pg (26-32); Mean Corpuscular Hgb Concent. 29.4 g/dL (32-36); Mean Platelet Volume 10.7 fL (7.5-11.0); Monocyte (Absolute #) 0.73 x10^3/uL (0.0-1.3); Monocytes % 14.3 % (0.0-12.0); Platelet Count 126 x10^3/uL (150-450); Red Cell Distribution Width 15.4 % (11.5-14.0); White Blood Count 5.1 x10^3/uL (4.0-10.5)
[2022-10-26] MEDS: Sodium Chloride 0.9% 1000 ML 1,000 ML IV SCH (07:29)
[2022-10-26] MEDS ORDERED: HYDROCODONE-ACETAMIN 10-325 MG PO PRN (08:36)
--- NOTE | 2022-10-26 08:40 | PCM.NOTE ---
Date and Time: 10/26/22 0838 Subjective Assessment: patient has no new complaints, she is eating algerian toast and her pain seems controlled. she has been very confused and having visual hallucinations thinks she is eating turkey this morning. she is pleasant and in no distress Objective Exam General Appearance: no apparent distress Neurologic Exam: alert, cooperative Respiratory Exam: normal breath sounds, lungs clear, No respiratory distress Cardiovascular Exam: regular rate/rhythm, normal heart sounds OBJECTIVE DATA Vital Signs: Vital Signs - 24 hr Temp Pulse Resp BP Pulse Ox 10/26/22 08:01 60 18 95 10/26/22 07:15 97.1 F 60 17 129/61 90 L 10/26/22 04:00 97.4 F 61 18 119/56 95 10/25/22 23:53 98.3 F 60 20 105/59 95 10/25/22 19:46 97.9 F 68 20 112/56 95 10/25/22 17:51 63 16 96 10/25/22 16:00 97.7 F 60 17 127/60 97 10/25/22 12:00 97.3 F 60 18 132/63 96 Pain Assessment - Last Documented Pain Intensity 0 Pain Scale Used [facility] Intake and Output: Intake & Output 10/23/22 10/24/22 10/25/22 10/26/22 11:59 11:59 11:59 11:59 Intake Total 845 2750 1350 Output Total 785 653 3558 Balance 495 1900 350 Weight 49.5 kg 49.5 kg Lab Results: Lab Results-Last 24 Hours 10/26/22 10/26/22 Range/Units 04:30 04:30 WBC 5.1 (4.0-10.5) x10^3/uL RBC 3.20 L (4.1-5.4) x10^6/uL Hgb 9.3 L (12.0-16.0) g/dL Hct 31.6 L (35-47) % MCV 98.8 (78-100) fL MCH 29.1 (26-32) pg MCHC 29.4 L (32-36) g/dL RDW 15.4 H (11.5-14.0) % Plt Count 126 L (150-450) x10^3/uL MPV 10.7 (7.5-11.0) fL Gran % 69.0 H (36.0-66.0) % Immature Gran % (Auto) 0.2 (0.00-0.4) % Nucleat RBC Rel Count 0.0 (0.00-0.1) % Eos # (Auto) 0.32 (0-0.5) x10^3/uL Immature Gran # (Auto) 0.01 (0.00-0.03) x10^3u/L Absolute Lymphs (auto) 0.50 L (1.0-4.6) x10^3/uL Absolute Monos (auto) 0.73 (0.0-1.3) x10^3/uL Absolute Nucleated RBC 0.00 (0.00-0.01) x10^3u/L Lymphocytes % 9.8 L (24.0-44.0) % Monocytes % 14.3 H (0.0-12.0) % Eosinophils % 6.3 H (0.00-5.0) % Basophils % 0.4 (0.0-0.4) % Absolute Granulocytes 3.53 (1.4-6.9) x10^3/uL Basophils # 0.02 (0-0.4) x10^3/uL Sodium 133 L (137-145) mmol/L Potassium 3.8 (3.5-5.1) mmol/L Chloride 97 L (98-107) mmol/L Carbon Dioxide 31 H (22-30) mmol/L Anion Gap 8.5 (5-15) MEQ/L BUN 19 H (7-17) mg/dL Creatinine 1.08 H (0.52-1.04) mg/dL Estimated GFR 50.9 ML/MIN Glucose 110 H (74-106) mg/dL Calcium 8.3 L (8.4-10.2) mg/dL Assessment/Plan (1) Fracture of left inferior pubic ramus Current Visit: Yes Status: Acute Qualifiers: Encounter type: initial encounter Fracture type: closed Qualified Code(s): S32.592A - Other specified fracture of left pubis, initial encounter for closed fracture Code(s): S32.592A - OTH FRACTURE OF LEFT PUBIS, INIT ENCNTR FOR CLOSED FRACTURE (2) Fracture of left superior pubic ramus Current Visit: Yes Status: Acute Qualifiers: Encounter type: initial encounter Fracture type: closed Qualified Code(s): S32.512A - Fracture of superior rim of left pubis, initial encounter for closed fracture Code(s): S32.512A - FRACTURE OF SUPERIOR RIM OF LEFT PUBIS, INIT FOR CLOS FX (3) UTI (urinary tract infection) Current Visit: No Status: Suspected Qualifiers: Urinary tract infection type: acute cystitis Hematuria presence: without hematuria Qualified Code(s): N30.00 - Acute cystitis without hematuria Assessment & Plan: VRE in urine culture, add po linezolid to cover Code(s): N39.0 - URINARY TRACT INFECTION, SITE NOT SPECIFIED (4) Delirium Current Visit: Yes Status: Acute Assessment & Plan: likely due to pain meds and UTI, added zyvox. will decrease from percocet to hydrocodone in hopes to clear her thought process some. her labs are reviewed and reassuring. Code(s): R41.0 - DISORIENTATION, UNSPECIFIED
[2022-10-26 09:09] LABS: Slide Review 1 YES
[2022-10-26] MEDS: PRADAXA 75 MG PO SCH ×2 (09:22→22:45)
[2022-10-26] MEDS: MAG-OX 400 PO SCH (09:22)
[2022-10-26] MEDS: MYRBETRIQ PO SCH (09:22)
[2022-10-26] MEDS: FEOSOL 325 MG PO SCH ×2 (09:22→22:45)
[2022-10-26] MEDS: Aldactone 25 MG PO SCH ×2 (09:22→22:45)
[2022-10-26] MEDS: ZOLOFT 50 MG TABLET PO SCH (09:22)
[2022-10-26] MEDS: SYNTHROID 75 MCG PO SCH (09:23)
[2022-10-26] MEDS: Toprol-Xl 25MG Tablets PO SCH (09:23)
[2022-10-26] MEDS: DEMADEX 20 MG PO SCH ×2 (09:23→22:45)
[2022-10-26] MEDS: SENOKOT 8.6 MG PO SCH (09:23)
[2022-10-26] MEDS: Klor Con PO SCH (09:23)
[2022-10-26] MEDS: THERAGRAN MULTIVITAMIN PO SCH (09:23)
[2022-10-26] MEDS: LYRICA 100MG PO SCH (09:23)
[2022-10-26] MEDS: ZYVOX PO SCH ×2 (09:36→22:46)
[2022-10-26] MEDS: Zocor 10MG PO SCH (22:45)
[2022-10-26] MEDS: Mirapex 0.5 MG Tablet PO SCH (22:45)
[2022-10-27 06:23] LABS: Absolute Neutrophil Ct (ANC) 3.56 x10^3/uL (1.4-6.9); Basophil (Absolute #) 0.02 x10^3/uL (0-0.4); Eosinophil % 4.9 % (0.00-5.0); Eosinophil (Absolute #) 0.25 x10^3/uL (0-0.5); Hematocrit 29.4 % (35-47); Lymphocyte (Absolute #) 0.58 x10^3/uL (1.0-4.6); Lymphocytes % 11.4 % (24.0-44.0); Mean Cell Volume 96.4 fL (78-100); Mean Corpuscular Hemoglobin 29.5 pg (26-32); Mean Corpuscular Hgb Concent. 30.6 g/dL (32-36); Mean Platelet Volume 10.3 fL (7.5-11.0); Monocyte (Absolute #) 0.68 x10^3/uL (0.0-1.3); Monocytes % 13.3 % (0.0-12.0); Neutrophil % 69.6 % (36.0-66.0); Platelet Count 133 x10^3/uL (150-450); Red Blood Count 3.05 x10^6/uL (4.1-5.4); Red Cell Distribution Width 15.1 % (11.5-14.0); White Blood Count 5.1 x10^3/uL (4.0-10.5)
[2022-10-27 06:41] LABS: ANION GAP 6.5 MEQ/L (5-15); BLOOD UREA NITROGEN 17 mg/dL (7-17); CHLORIDE 95 mmol/L (98-107); Carbon Dioxide 34 mmol/L (22-30); Creatinine 1 0.91 mg/dL (0.52-1.04); EST GLOMERULAR FILTRATION RATE > 60.0 ML/MIN; Glucose 109 mg/dL (74-106); Potassium 3.1 mmol/L (3.5-5.1); SODIUM 132 mmol/L (137-145)
[2022-10-27] MEDS ORDERED: Klor Con PO ONE (09:30)
[2022-10-27] MEDS: Klor Con PO SCH (10:03)
[2022-10-27] MEDS: PRADAXA 75 MG PO SCH (10:03)
[2022-10-27] MEDS: MYRBETRIQ PO SCH (10:03)
[2022-10-27] MEDS: Aldactone 25 MG PO SCH (10:04)
[2022-10-27] MEDS: THERAGRAN MULTIVITAMIN PO SCH (10:04)
[2022-10-27] MEDS: FEOSOL 325 MG PO SCH (10:04)
[2022-10-27] MEDS: SYNTHROID 75 MCG PO SCH (10:05)
[2022-10-27] MEDS: MAG-OX 400 PO SCH (10:05)
[2022-10-27] MEDS: LYRICA 100MG PO SCH (10:05)
[2022-10-27] MEDS: Toprol-Xl 25MG Tablets PO SCH (10:05)
[2022-10-27] MEDS: SENOKOT 8.6 MG PO SCH (10:06)
[2022-10-27] MEDS: DEMADEX 20 MG PO SCH (10:06)
[2022-10-27] MEDS: ZOLOFT 50 MG TABLET PO SCH (10:06)
[2022-10-27] MEDS: ZYVOX PO SCH (10:07)
[2022-10-27 10:21] LABS: Slide Review 1 YES
[2022-10-27 16:06] VITALS: BP 127/60; PULSE 62; O2SAT 95
== END 2022-10-27 17:27 | disposition hospice, home (50) ==
LOC: ED 21:57 → MED SURG 10-24 01:40 → ED 10-24 01:46 → MED SURG 10-26 17:21
PROVIDERS: ADMIT Family Medicine; ATTEND Family Medicine
DX: S32.592A Other specified fracture of left pubis, initial encounter for closed fracture (principal); S32.512A Fracture of superior rim of left pubis, initial encounter for closed fracture; N39.0 Urinary tract infection, site not specified; I12.9 Hypertensive chronic kidney disease with stage 1 through stage 4 chronic kidney disease, or unspecified chronic kidney disease; N18.9 Chronic kidney disease, unspecified; I48.91 Unspecified atrial fibrillation; E03.9 Hypothyroidism, unspecified; I25.10 Atherosclerotic heart disease of native coronary artery without angina pectoris; E78.5 Hyperlipidemia, unspecified; R41.0 Disorientation, unspecified; Z29.9 Encounter for prophylactic measures, unspecified; Z79.01 Long term (current) use of anticoagulants; Z79.899 Other long term (current) drug therapy; Z20.828 Contact with and (suspected) exposure to other viral communicable diseases
CPT/HCPCS: 0241U; 36000; 36415; 51702; 73502; 80048; 80053; 81015; 84145; 85025; 87077; 87086; 87186; 93005; 93041; 94760; 96374; 96375; 97161; 99285; G0378; J0696; J2405; J3010; A9270-GY

== ENCOUNTER 2023-09-11 12:02 | Observation (INO) | payer MEDICARE ==
[2023-09-11] MEDS ORDERED: Zofran 4 MG/2 ML VIAL IV ONE (12:09)
[2023-09-11] MEDS ORDERED: Sodium Chloride 0.9% 1000 ML 1,000 ML IV SCH ×2 (12:15→15:39)
[2023-09-11] MEDS ORDERED: Sodium Chloride 0.9% 1000 ML 1,000 ML ONE (12:20)
[2023-09-11] MEDS ORDERED: PROTONIX 40 MG IV IV ONE ×2 (12:23→12:33)
--- NOTE | 2023-09-11 12:23 | ERPHSYRPT ---
- History of Present Illness Time Seen by Provider: 09/11/23 12:15 Historian: patient, EMS, old records Exam Limitations: no limitations Physician History: This is an 87-year-old white female patient of Dr. 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 She has been unable to hold liquids down. She has been unable to take her medication. Patient has multiple medical issues including hyperlipidemia, hypothyroidism, coronary artery disease/CABG, asthma, COPD, gastroesophageal reflux disease, and renal disease. She is not on dialysis. Patient denies abdominal pain. Patient denies chest pain. She has no shortness of breath. She has not had any fevers per her report. Timing/Duration: day(s) (2), worse Activities at Onset: none (No abdominal pain) Abdominal Pain Onset Location: other Pain Radiation: no radiation Severity of Pain-Max: none Severity of Pain-Current: none Modifying Factors: Improves With: vomiting Associated Symptoms: nausea, vomiting, weakness Previous symptoms: no prior history, no recent treatment Allergies/Adverse Reactions: cortisone [Cortisone] Allergy (Verified 09/11/23 12:20) "affected breathing and heart" latex Allergy (Verified 09/11/23 12:20) polyethylene glycol [From Golytely] Allergy (Verified 09/11/23 12:20) vomiting and nasuea polyethylene glycol 3350 [From Golytely] Allergy (Verified 09/11/23 12:20) vomiting and nasuea potassium chloride* [From Golytely] Allergy (Verified 09/11/23 12:20) vomiting and nasuea sodium [From Golytely] Allergy (Verified 09/11/23 12:20) vomiting and nasuea sodium bicarbonate [From Golytely] Allergy (Verified 09/11/23 12:20) vomiting and nasuea sodium chloride [From Golytely] Allergy (Verified 09/11/23 12:20) vomiting and nasuea sodium sulfate [From Golytely] Allergy (Verified 09/11/23 12:20) vomiting and nasuea sodium sulfate anhydrous [From Golytely] Allergy (Verified 09/11/23 12:20) vomiting and nasuea acetaminophen [From Vicodin] Adverse Reaction (Verified 09/11/23 12:20) hydrocodone bitartrate [From Vicodin] Adverse Reaction (Verified 09/11/23 12:20) Home Medications: Albuterol 2.5 mg/3 ml Neb [Proventil 2.5 mg/3 ml Neb] 2.5 mg IH Q6H PRN PRN 09/15/22 [History] Dabigatran Etexilate Mesylate [Pradaxa] 75 mg PO BID 09/15/22 [History] Docusate Sodium 100 mg [Docusate Sodium 100 MG] 100 mg PO BID PRN PRN 09/15/22 [History] Ferrous Sulfate 325 mg PO BID 09/15/22 [History] Levothyroxine Sodium 75 Mcg [Synthroid 75 Mcg] 75 mcg PO DAILY 09/15/22 [History] Linaclotide [Linzess] 145 mcg PO DAILY 09/15/22 [History] Magnesium Oxide 400 mg PO DAILY 09/15/22 [History] Multivitamin/Iron/Folic Acid [Centrum Complete Multivit Tab] 1 each PO DAILY 09/15/22 [History] Pramipexole Di-HCl [Pramipexole Dihydrochloride] 0.5 mg PO HS 09/15/22 [History] Pregabalin [Lyrica 100Mg] 100 mg PO DAILY 09/15/22 [History] Sertraline HCl 50 mg [Zoloft 50 mg Tablet] 50 mg PO DAILY 09/15/22 [History] Simvastatin 10 mg [Zocor 10MG] 10 mg PO HS 09/15/22 [History] Alendronate Sodium 70 mg PO DAILY 10/24/22 [History] Metoprolol Succinate 25 mg PO DAILY 10/24/22 [History] Mirabegron [Myrbetriq] 50 mg PO DAILY 10/24/22 [History] Potassium Chloride 20 meq PO DAILY 10/24/22 [History] Sildenafil Citrate 20 mg PO TID 10/24/22 [History] Solifenacin Succinate 5 mg PO DAILY 10/24/22 [History] Spironolactone 25 mg [Aldactone 25 MG] 25 mg PO BID 10/24/22 [History] Torsemide [Soaanz] 20 mg PO BID 10/24/22 [History] Hx Tetanus, Diphtheria Vaccination/Date Given: Yes Hx Influenza Vaccination/Date Given: No Hx Pneumococcal Vaccination/Date Given: No Travel Risk - International Travel Have you traveled outside of the country in past 3 weeks: No - Coronavirus Screening Are you exhibiting any of the following symptoms?: Yes Symptoms: Vomiting/Diarrhea Close contact with a COVID-19 positive Pt in past 14-21 Days: No - Vaccine Status Have you recieved a Covid-19 vaccination: No - Review of Systems Constitutional: Weakness Eyes: No Symptoms Ears, Nose, & Throat: No Symptoms Respiratory: No Symptoms Cardiac: No Symptoms Abdominal/Gastrointestinal: Nausea, Vomiting, Appetite Changes, No Abdominal Pain, No Diarrhea, No Constipation Genitourinary Symptoms: No Symptoms Musculoskeletal: No Symptoms Skin: No Symptoms Neurological: No Symptoms Psychological: No Symptoms Endocrine: No Symptoms Hematologic/Lymphatic: No Symptoms Immunological/Allergic: No Symptoms All Other Systems: Reviewed and Negative - Past Medical History Pertinent Past Medical History: Yes Neurological History: Migraines ENT History: Cataracts Cardiac History: Arrhythmia, Coronary Artery Disease, Deep Vein Thrombosis, High Cholesterol Respiratory History: Asthma, COPD, Pulmonary Embolism, Sleep Apnea, Other Endocrine Medical History: Hypothyroidism Musculoskeletal History: Arthritis GI Medical History: GERD History: Renal Disease, Other Psycho-Social History: Depression Female Reproductive Disorders: No Pertinent History Other Medical History: 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 broke rt hip jul 2022 - Past Surgical History Past Surgical History: Yes Neuro Surgical History: No Pertinent History Cardiac: CABG Respiratory: No Pertinent History Gastrointestinal: Cholecystectomy Genitourinary: No Pertinent History Musculoskeletal: Orthopedic Surgery Female Surgical History: Hysterectomy Other Surgical History: HAND AND WRIST, bilateral hip replacements - Social History Smoking Status: Never smoker Exposure to second hand smoke: No Drug Use: none Patient Lives Alone: No - Nursing Vital Signs Nursing Vital Signs: Initial Vital Signs Temperature 97.5 F 09/11/23 12:05 Pulse Rate 69 09/11/23 12:05 Blood Pressure 150/74 09/11/23 12:05 O2 Sat by Pulse Oximetry 98 09/11/23 12:05 Pain Scale Pain Intensity 0 - Physical Exam General Appearance: no apparent distress, alert, anxiety, thin Eye Exam: PERRL/EOMI, eyes nml inspection Ears, Nose, Throat Exam: normal ENT inspection, moist mucous membranes Neck Exam: normal inspection, non-tender, supple, full range of motion Respiratory Exam: normal breath sounds, lungs clear, No chest tenderness, No respiratory distress Cardiovascular Exam: regular rate/rhythm, normal heart sounds, normal peripheral pulses Gastrointestinal/Abdomen Exam: soft, normal bowel sounds, No tenderness Pelvic Exam: not done Rectal Exam: not done Back Exam: normal inspection, normal range of motion, No CVA tenderness, No vertebral tenderness Extremity Exam: normal inspection, normal range of motion, pelvis stable Neurologic Exam: alert, oriented x 3, cooperative, steward/stewardess lounge II-XII nml as tested, normal mood/affect Skin Exam: normal color, warm, dry Lymphatic Exam: No adenopathy SpO2 Interpretation: normal O2 Delivery: Room Air - Course Nursing assessment & vital signs reviewed: Yes EKG Interpreted by Me: RATE (69), NORMAL AXIS, prolonged QT interval, Left Bundle Branch Block, NORMAL ST-T, Other (There are no acute ischemic changes on today's twelve-lead EKG. The computer-generated report of the rhythm says ventricular paced complexes.) Ordered Tests: Active Orders 24 hr Category Date Time Status EKG-ER Only STAT Care 09/11/23 12:09 Active IV Insertion STAT Care 09/11/23 12:09 Active Telemetry q4h Care 09/11/23 13:06 Active AMYLASE Stat Lab 09/11/23 12:09 Completed CBC W DIFF Stat Lab 09/11/23 12:09 Completed CMP Stat Lab 09/11/23 12:09 Completed CULTURE,URINE Stat Lab 09/11/23 12:20 Received LIPASE Stat Lab 09/11/23 12:09 Completed MAGNESIUM Stat Lab 09/11/23 12:09 Completed MONO SCREEN Stat Lab 09/11/23 Completed TROPONIN Q4H Lab 09/11/23 12:15 Completed TROPONIN Q4H Lab 09/11/23 16:15 Ordered TROPONIN Q4H Lab 09/11/23 20:15 Ordered UA W/RFX UR CULTURE Stat Lab 09/11/23 12:20 Completed Transfer Order Routine Transfer 09/11/23 Ordered Medication Summary Generic Name Dose Route Start Last Admin Trade Name Freq PRN Reason Stop Dose Admin Sodium Chloride 1,000 mls @ 100 mls/hr 09/11/23 12:15 09/11/23 12:22 Sodium Chloride 0.9% 1000 Ml IV 10/11/23 12:14 100 mls/hr .Q10H JOYCE Administration Potassium Chloride 20 meq in 100 mls @ 50 mls/hr 09/11/23 13:15 09/11/23 13:19 Potassium Chloride 20 Meq In Water 100ml IV 09/11/23 17:14 50 mls/hr Q2H JOYCE Administration Discontinued Medications Generic Name Dose Route Start Last Admin Trade Name Freq PRN Reason Stop Dose Admin Ceftriaxone Sodium/Dextrose 1 g in 50 mls @ 100 mls/hr 09/11/23 13:59 Rocephin 1 Gm-D5w 50 Ml Bag IV 09/11/23 14:28 STAT STA Ondansetron HCl 4 mg 09/11/23 12:09 09/11/23 13:26 Ondansetron Hcl 4 Mg/2 Ml Vial IV 09/11/23 12:10 Not Given STAT ONE Pantoprazole Sodium 40 mg 09/11/23 12:23 09/11/23 12:34 Pantoprazole 40 Mg Vial IV 09/11/23 12:24 40 mg STAT ONE Administration Pantoprazole Sodium Confirm 09/11/23 12:33 Pantoprazole 40 Mg Vial Administered 09/11/23 12:34 Dose 40 mg IV .[facility] Lab/Rad Data: Laboratory Result Diagrams 09/11/23 12:09 09/11/23 12:09 Laboratory Results 09/11/23 09/11/23 09/11/23 Range/Units Unknown Unknown 12:20 WBC (4.0-10.5) x10^3/uL RBC (4.1-5.4) x10^6/uL Hgb (12.0-16.0) g/dL Hct (35-47) % MCV (78-100) fL MCH (26-32) pg MCHC (32-36) g/dL RDW (11.5-14.0) % Plt Count (150-450) x10^3/uL MPV (7.5-11.0) fL Gran % (36.0-66.0) % Immature Gran % (Auto) (0.00-0.4) % Nucleat RBC Rel Count (0.00-0.1) % Eos # (Auto) (0-0.5) x10^3/uL Immature Gran # (Auto) (0.00-0.03) x10^3u/L Absolute Lymphs (auto) (1.0-4.6) x10^3/uL Absolute Monos (auto) (0.0-1.3) x10^3/uL Absolute Nucleated RBC (0.00-0.01) x10^3u/L Lymphocytes % (24.0-44.0) % Monocytes % (0.0-12.0) % Eosinophils % (0.00-5.0) % Basophils % (0.0-0.4) % Absolute Granulocytes (1.4-6.9) x10^3/uL Basophils # (0-0.4) x10^3/uL Sodium (137-145) mmol/L Potassium (3.5-5.1) mmol/L Chloride (98-107) mmol/L Carbon Dioxide (22-30) mmol/L Anion Gap (5-15) MEQ/L BUN (7-17) mg/dL Creatinine (0.52-1.04) mg/dL Estimated GFR ML/MIN Glucose (74-106) mg/dL Calcium (8.4-10.2) mg/dL Magnesium (1.6-2.3) mg/dL Total Bilirubin (0.2-1.3) mg/dL AST (14-36) U/L ALT (0-35) U/L Alkaline Phosphatase (38-126) U/L Troponin I (0.000-0.034) ng/mL Serum Total Protein (6.3-8.2) g/dL Albumin (3.5-5.0) g/dL Amylase (30-110) U/L Lipase (23-300) U/L Urine Color Yellow (Yellow) Urine Appearance Cloudy A (Clear) Urine pH 7.0 (4.6-8.0) Ur Specific [place] 1.010 (1.005-1.030) Urine Protein Negative (Negative) Urine Glucose (UA) Negative (Negative) mg/dL Urine Ketones Negative (Negative) Urine Blood Trace (Negative) Urine Nitrite Positive A (Negative) Urine Bilirubin Negative (Negative) Urine Urobilinogen 0.2 (0.2) mg/dL Ur Leukocyte Esterase Large A (Negative) U Hyaline Cast (Auto) 3-5 A (0-2) /LPF Urine Microscopic RBC 0-2 (0-5) /HPF Urine Microscopic WBC >100 A (0-5) /HPF Ur Epithelial Cells None Seen (None Seen) /HPF Urine Bacteria Many A (None Seen) /HPF Urine Culture Reflexed YES (NO) Monoscreen POSITIVE A (NEGATIVE) Influenza Type A Ag NEGATIVE (NEGATIVE) Influenza Type B Ag NEGATIVE (NEGATIVE) RSV (PCR) NEGATIVE (NEGATIVE) SARS-CoV-2 (PCR) NEGATIVE (NEGATIVE) 09/11/23 09/11/23 09/11/23 Range/Units 12:15 12:09 12:09 WBC 8.6 (4.0-10.5) x10^3/uL RBC 5.32 (4.1-5.4) x10^6/uL Hgb 15.9 (12.0-16.0) g/dL Hct 46.2 (35-47) % MCV 86.8 (78-100) fL MCH 29.9 (26-32) pg MCHC 34.4 (32-36) g/dL RDW 13.5 (11.5-14.0) % Plt Count 207 (150-450) x10^3/uL MPV 10.2 (7.5-11.0) fL Gran % 80.8 H (36.0-66.0) % Immature Gran % (Auto) 1.0 H (0.00-0.4) % Nucleat RBC Rel Count 0.0 (0.00-0.1) % Eos # (Auto) 0.07 (0-0.5) x10^3/uL Immature Gran # (Auto) 0.09 H (0.00-0.03) x10^3u/L Absolute Lymphs (auto) 0.64 L (1.0-4.6) x10^3/uL Absolute Monos (auto) 0.85 (0.0-1.3) x10^3/uL Absolute Nucleated RBC 0.00 (0.00-0.01) x10^3u/L Lymphocytes % 7.4 L (24.0-44.0) % Monocytes % 9.8 (0.0-12.0) % Eosinophils % 0.8 (0.00-5.0) % Basophils % 0.2 (0.0-0.4) % Absolute Granulocytes 6.97 H (1.4-6.9) x10^3/uL Basophils # 0.02 (0-0.4) x10^3/uL Sodium 130 L (137-145) mmol/L Potassium 2.0 L* (3.5-5.1) mmol/L Chloride 77 L (98-107) mmol/L Carbon Dioxide 37 H (22-30) mmol/L Anion Gap 18.0 H (5-15) MEQ/L BUN 75 H (7-17) mg/dL Creatinine 1.14 H (0.52-1.04) mg/dL Estimated GFR 47.7 ML/MIN Glucose 131 H (74-106) mg/dL Calcium 9.5 (8.4-10.2) mg/dL Magnesium 2.6 H (1.6-2.3) mg/dL Total Bilirubin 1.10 (0.2-1.3) mg/dL AST 37 H (14-36) U/L ALT 22 (0-35) U/L Alkaline Phosphatase 132 H (38-126) U/L Troponin I 0.024 (0.000-0.034) ng/mL Serum Total Protein 9.0 H (6.3-8.2) g/dL Albumin 4.7 (3.5-5.0) g/dL Amylase 112 H (30-110) U/L Lipase 324 H (23-300) U/L Urine Color (Yellow) Urine Appearance (Clear) Urine pH (4.6-8.0) Ur Specific [place] (1.005-1.030) Urine Protein (Negative) Urine Glucose (UA) (Negative) mg/dL Urine Ketones (Negative) Urine Blood (Negative) Urine Nitrite (Negative) Urine Bilirubin (Negative) Urine Urobilinogen (0.2) mg/dL Ur Leukocyte Esterase (Negative) U Hyaline Cast (Auto) (0-2) /LPF Urine Microscopic RBC (0-5) /HPF Urine Microscopic WBC (0-5) /HPF Ur Epithelial Cells (None Seen) /HPF Urine Bacteria (None Seen) /HPF Urine Culture Reflexed (NO) Monoscreen (NEGATIVE) Influenza Type A Ag (NEGATIVE) Influenza Type B Ag (NEGATIVE) RSV (PCR) (NEGATIVE) SARS-CoV-2 (PCR) (NEGATIVE) - Progress Progress: improved, re-examined Progress Note: 09/11/23 12:22 This patient's medical history is 1 of moderate complexity the level of complexity in the work-up performed is based on review of the patient's past medical history, review of the patient's medication list, review the patient drug allergy list, history present illness and physical findings on examination. The work-up in this patient includes placement of intravenous line, infusion of normal saline solution, infusion of 4 mg of intravenous Zofran. Infusion of Protonix 40 mg intravenously, CBC, CMP, amylase, lipase, urinalysis, twelve-lead EKG, troponin level and magnesium level. We also performed viral studies and Monospot test. 09/11/23 12:24 09/11/23 14:26 I reviewed and interpreted the patient's laboratory data results. Patient has UTI, and hypokalemia. Her pancreas enzymes are very mildly elevated and she has no abdominal pain. She is afebrile. I held off on the CAT scan of the abdomen pelvis but I will order follow-up amylase and lipase on her inpatient labs. I spoke with Dr. Talley the telehospitalist on today and I reviewed the patient history, presenting complaint, and results of the work-up. Patient will be placed on a monitored bed and inpatient with potassium protocol and IV hydration as well as intravenous antibiotics of Rocephin. We will repeat the CBC, CMP, magnesium, amylase and lipase in the morning. Discussed with DrSusan: Other (Dr. Talley) Counseled pt/family regarding: lab results, diagnosis, need for follow-up Medical Desision Making - Independent Historian Additional History obtained from: [employer] Specialist/EMT - Discussion of managment Care discussed with:: hospitalist Reviewed:: Test results, Need for additional workup Agreed on:: Treatment plan, decision to admit Will see patient: in hospital - Diagnostic Testing Diagnostic test were ordered, analyzed, and reviewed by me: Yes - Risk of complications The pt has a high risk of morbidity or mortality based on: Decision regarding hospitilization or escalation of hosp level of care - Departure Clinical Impression: Pancreatitis, Hypokalemia, UTI (urinary tract infection) Condition: Stable Critical Care Time: Yes Critical Care Time(excluding separately billable procedures): Critical 30-74 mins (25 minutes) Referrals: MOE PRINCE [Primary Care Provider] - Follow up/PCP as directed
[2023-09-11 12:34] LABS: Absolute Neutrophil Ct (ANC) 6.97 x10^3/uL (1.4-6.9); BASOPHIL % 0.2 % (0.0-0.4); Basophil (Absolute #) 0.02 x10^3/uL (0-0.4); Eosinophil % 0.8 % (0.00-5.0); Eosinophil (Absolute #) 0.07 x10^3/uL (0-0.5); Hematocrit 46.2 % (35-47); Hemoglobin 15.9 g/dL (12.0-16.0); IMMATURE GRAN # 0.09 x10^3u/L (0.00-0.03); Lymphocyte (Absolute #) 0.64 x10^3/uL (1.0-4.6); Lymphocytes % 7.4 % (24.0-44.0); Mean Cell Volume 86.8 fL (78-100); Mean Corpuscular Hemoglobin 29.9 pg (26-32); Mean Corpuscular Hgb Concent. 34.4 g/dL (32-36); Mean Platelet Volume 10.2 fL (7.5-11.0); Monocyte (Absolute #) 0.85 x10^3/uL (0.0-1.3); Monocytes % 9.8 % (0.0-12.0); Neutrophil % 80.8 % (36.0-66.0); Platelet Count 207 x10^3/uL (150-450); Red Blood Count 5.32 x10^6/uL (4.1-5.4); Red Cell Distribution Width 13.5 % (11.5-14.0); White Blood Count 8.6 x10^3/uL (4.0-10.5)
[2023-09-11 12:43] LABS: Appearance Cloudy (Clear); Bacteria Many /HPF (None Seen); Bilirubin Negative (Negative); Blood Trace (Negative); Epithelial Cells None Seen /HPF (None Seen); Glucose, Urine Negative (Negative); Ketones Negative (Negative); Leukocyte Esterase Large (Negative); Nitrite Positive (Negative); Protein,Urine Dip Negative (Negative); RBC 0-2 /HPF (0-5); Urobilinogen 0.2 mg/dL (0.2); WBC >100 /HPF (0-5)
[2023-09-11 12:46] LABS: ADD URINE CULTURE? YES (NO)
[2023-09-11 12:52] LABS: ALBUMIN 4.7 g/dL (3.5-5.0); BILIRUBIN,TOTAL 1.1 mg/dL (0.2-1.3); Calcium 9.5 mg/dL (8.4-10.2); Creatinine 1 1.14 mg/dL (0.52-1.04); EST GLOMERULAR FILTRATION RATE 47.7 ML/MIN; MAGNESIUM 2.6 mg/dL (1.6-2.3)
[2023-09-11 13:16] LABS: INFLUENZA A NEGATIVE (NEGATIVE); INFLUENZA B NEGATIVE (NEGATIVE); RESPIRATORY SYNCTIAL VIRUS NEGATIVE (NEGATIVE); SARS-CoV-2 Xpert Express NEGATIVE (NEGATIVE)
[2023-09-11] MEDS: POTASSIUM CHLORIDE 20 mEq IN WATER 100ML 20 MEQ/100 ML BAG IV SCH ×2 (13:19→18:10)
[2023-09-11] MEDS ORDERED: ROCEPHIN 1 Gm-D5w 50 ml Bag** 1 G/50 ML IVPB IV STA (13:59)
[2023-09-11] MEDS ORDERED: ROCEPHIN 1 Gm-D5w 50 ml Bag** 1 G/50 ML IVPB IV ONE (14:53)
--- NOTE | 2023-09-11 15:25 | PCM.HP ---
History of Present Illness - Chief Complaint Chief Complaint: n/v Date: 09/11/23 History of Present Illness: is a 87 year old female with PMHX of Patient hyperlipidemia, hypothyroidism, coronary artery disease/CABG, asthma, COPD, gastroesophageal reflux disease, and renal disease. She is not on dialysis. She is a pt of Dr. Lola Sue and brand marketing coordinator Dr. Greer. She presented to the emergency department by ambulance with Nausea, vomiting, and weakness over the last 2 days. She has been unable to hold liquids down. She has been unable to take her medication. Patient denies abdominal pain. She denies CP, SOB, or diarrhea. - Review of Systems Constitutional: No Fever, No Chills Eyes: No Symptoms Ears, Nose, & Throat: No Symptoms Respiratory: No Cough, No Short Of Breath Cardiac: No Chest Pain, No Edema, No Syncope Abdominal/Gastrointestinal: Nausea, Vomiting, No Abdominal Pain, No Diarrhea Genitourinary Symptoms: No Dysuria Musculoskeletal: No Back Pain, No Neck Pain Skin: No Rash Neurological: No Dizziness, No Focal Weakness, No Sensory Changes Psychological: No Symptoms Endocrine: No Symptoms Hematologic/Lymphatic: No Symptoms Immunological/Allergic: No Symptoms Medications & Allergies Home Medications: Home Medication List Dabigatran Etexilate Mesylate [Pradaxa] 75 mg PO BID 09/15/22 [History Confirmed 09/11/23] Ferrous Sulfate 325 mg PO BID 09/15/22 [History Confirmed 09/11/23] Levothyroxine Sodium 75 Mcg [Synthroid 75 Mcg] 75 mcg PO DAILY 09/15/22 [History Confirmed 09/11/23] Magnesium Oxide 400 mg PO DAILY 09/15/22 [History Confirmed 09/11/23] Multivitamin/Iron/Folic Acid [Centrum Complete Multivit Tab] 1 each PO DAILY 09/15/22 [History Confirmed 09/11/23] Pramipexole Di-HCl [Pramipexole Dihydrochloride] 0.25 mg PO HS 09/15/22 [History Confirmed 09/11/23] Sertraline HCl 50 mg [Zoloft 50 mg Tablet] 50 mg PO DAILY 09/15/22 [History Confirmed 09/11/23] Simvastatin 10 mg [Zocor 10MG] 10 mg PO HS 09/15/22 [History Confirmed 09/11/23] Alendronate Sodium 70 mg PO DAILY 10/24/22 [History Confirmed 09/11/23] Metoprolol Succinate 25 mg PO DAILY 10/24/22 [History Confirmed 09/11/23] Mirabegron [Myrbetriq] 50 mg PO DAILY 10/24/22 [History Confirmed 09/11/23] Potassium Chloride 20 meq PO DAILY 10/24/22 [History Confirmed 09/11/23] Sildenafil Citrate 20 mg PO TID 10/24/22 [History Confirmed 09/11/23] Spironolactone 25 mg [Aldactone 25 MG] 25 mg PO BID 10/24/22 [History Confirmed 09/11/23] Torsemide [Soaanz] 20 mg PO BID 10/24/22 [History Confirmed 09/11/23] Allergies/Adverse Reactions: Allergies Allergy/AdvReac Type Severity Reaction Status Date / Time cortisone [Cortisone] Allergy "affected Verified 09/11/23 12:20 breathing and heart" latex Allergy Verified 09/11/23 12:20 polyethylene glycol Allergy vomiting Verified 09/11/23 12:20 [From Golytely] and nasuea polyethylene glycol 3350 Allergy vomiting Verified 09/11/23 12:20 [From Golytely] and nasuea potassium chloride* Allergy vomiting Verified 09/11/23 12:20 [From Golytely] and nasuea sodium [From Golytely] Allergy vomiting Verified 09/11/23 12:20 and nasuea sodium bicarbonate Allergy vomiting Verified 09/11/23 12:20 [From Golytely] and nasuea sodium chloride Allergy vomiting Verified 09/11/23 12:20 [From Golytely] and nasuea sodium sulfate Allergy vomiting Verified 09/11/23 12:20 [From Golytely] and nasuea sodium sulfate anhydrous Allergy vomiting Verified 09/11/23 12:20 [From Golytely] and nasuea acetaminophen [From Vicodin] AdvReac Verified 09/11/23 12:20 hydrocodone bitartrate AdvReac Verified 09/11/23 12:20 [From Vicodin] - Past Medical History Past Medical History: Yes Neurological History: Migraines ENT History: Cataracts Cardiac History: Arrhythmia, Coronary Artery Disease, Deep Vein Thrombosis, High Cholesterol Respiratory History: Asthma, COPD, Pulmonary Embolism, Sleep Apnea, Other Endocrine Medical History: Hypothyroidism Musculoskelatal History: Arthritis GI Medical History: GERD History: Renal Disease, Other Pyscho-Social History: Depression Reproductive Disorders: No Pertinent History Comment: 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 broke rt hip jul 2022 - Past Surgical History Past Surgical History: Yes Neuro Surgical History: No Pertinent History Cardiac History: CABG Respiratory Surgery: No Pertinent History GI Surgical History: Cholecystectomy Genitourinary Surgical Hx: No Pertinent History Musculskeletal Surgical Hx: Orthopedic Surgery Female Surgical History: Hysterectomy Other Surgical History: HAND AND WRIST, bilateral hip replacements - Social History Smoking Status: Never smoker Exposure to second hand smoke: No Alcohol: None Drug Use: none - Physical Exam Vital Signs: Vital Signs - 24 hr Temp Pulse Resp BP BP Pulse Ox 09/11/23 14:30 66 23 129/67 93 L 09/11/23 14:00 69 22 133/67 94 L 09/11/23 13:30 63 7 L 137/76 97 09/11/23 13:00 67 16 141/59 137/76 09/11/23 12:05 97.5 F 69 150/74 98 General Appearance: no apparent distress, alert Neurologic Exam: alert, oriented x 3, cooperative, normal mood/affect, nml cerebellar function, nml station & gait, sensation nml, No motor deficits Eye Exam: PERRL/EOMI, eyes nml inspection Ears, Nose, Throat Exam: normal ENT inspection, TMs normal, pharynx normal, moist mucous membranes Neck Exam: normal inspection, non-tender, supple, full range of motion Respiratory Exam: normal breath sounds, lungs clear, No respiratory distress Cardiovascular Exam: regular rate/rhythm, normal heart sounds, normal peripheral pulses Gastrointestinal/Abdomen Exam: soft, normal bowel sounds, No tenderness, No mass Back Exam: normal inspection, normal range of motion, No CVA tenderness, No vertebral tenderness Extremity Exam: normal inspection, normal range of motion, pelvis stable Skin Exam: normal color, warm, dry, No rash Lymphatic Exam: No adenopathy Results - Labs Lab/Micro Results: Lab Results-Last 24 Hours 09/11/23 09/11/23 09/11/23 Range/Units 12:09 12:09 12:15 WBC 8.6 (4.0-10.5) x10^3/uL RBC 5.32 (4.1-5.4) x10^6/uL Hgb 15.9 (12.0-16.0) g/dL Hct 46.2 (35-47) % MCV 86.8 (78-100) fL MCH 29.9 (26-32) pg MCHC 34.4 (32-36) g/dL RDW 13.5 (11.5-14.0) % Plt Count 207 (150-450) x10^3/uL MPV 10.2 (7.5-11.0) fL Gran % 80.8 H (36.0-66.0) % Immature Gran % (Auto) 1.0 H (0.00-0.4) % Nucleat RBC Rel Count 0.0 (0.00-0.1) % Eos # (Auto) 0.07 (0-0.5) x10^3/uL Immature Gran # (Auto) 0.09 H (0.00-0.03) x10^3u/L Absolute Lymphs (auto) 0.64 L (1.0-4.6) x10^3/uL Absolute Monos (auto) 0.85 (0.0-1.3) x10^3/uL Absolute Nucleated RBC 0.00 (0.00-0.01) x10^3u/L Lymphocytes % 7.4 L (24.0-44.0) % Monocytes % 9.8 (0.0-12.0) % Eosinophils % 0.8 (0.00-5.0) % Basophils % 0.2 (0.0-0.4) % Absolute Granulocytes 6.97 H (1.4-6.9) x10^3/uL Basophils # 0.02 (0-0.4) x10^3/uL Sodium 130 L (137-145) mmol/L Potassium 2.0 L* (3.5-5.1) mmol/L Chloride 77 L (98-107) mmol/L Carbon Dioxide 37 H (22-30) mmol/L Anion Gap 18.0 H (5-15) MEQ/L BUN 75 H (7-17) mg/dL Creatinine 1.14 H (0.52-1.04) mg/dL Estimated GFR 47.7 ML/MIN Glucose 131 H (74-106) mg/dL Calcium 9.5 (8.4-10.2) mg/dL Magnesium 2.6 H (1.6-2.3) mg/dL Total Bilirubin 1.10 (0.2-1.3) mg/dL AST 37 H (14-36) U/L ALT 22 (0-35) U/L Alkaline Phosphatase 132 H (38-126) U/L Troponin I 0.024 (0.000-0.034) ng/mL Serum Total Protein 9.0 H (6.3-8.2) g/dL Albumin 4.7 (3.5-5.0) g/dL Amylase 112 H (30-110) U/L Lipase 324 H (23-300) U/L Urine Color (Yellow) Urine Appearance (Clear) Urine pH (4.6-8.0) Ur Specific [facility] (1.005-1.030) Urine Protein (Negative) Urine Glucose (UA) (Negative) mg/dL Urine Ketones (Negative) Urine Blood (Negative) Urine Nitrite (Negative) Urine Bilirubin (Negative) Urine Urobilinogen (0.2) mg/dL Ur Leukocyte Esterase (Negative) U Hyaline Cast (Auto) (0-2) /LPF Urine Microscopic RBC (0-5) /HPF Urine Microscopic WBC (0-5) /HPF Ur Epithelial Cells (None Seen) /HPF Urine Bacteria (None Seen) /HPF Urine Culture Reflexed (NO) Monoscreen (NEGATIVE) Influenza Type A Ag (NEGATIVE) Influenza Type B Ag (NEGATIVE) RSV (PCR) (NEGATIVE) SARS-CoV-2 (PCR) (NEGATIVE) 09/11/23 09/11/23 09/11/23 Range/Units 12:20 Unknown Unknown WBC (4.0-10.5) x10^3/uL RBC (4.1-5.4) x10^6/uL Hgb (12.0-16.0) g/dL Hct (35-47) % MCV (78-100) fL MCH (26-32) pg MCHC (32-36) g/dL RDW (11.5-14.0) % Plt Count (150-450) x10^3/uL MPV (7.5-11.0) fL Gran % (36.0-66.0) % Immature Gran % (Auto) (0.00-0.4) % Nucleat RBC Rel Count (0.00-0.1) % Eos # (Auto) (0-0.5) x10^3/uL Immature Gran # (Auto) (0.00-0.03) x10^3u/L Absolute Lymphs (auto) (1.0-4.6) x10^3/uL Absolute Monos (auto) (0.0-1.3) x10^3/uL Absolute Nucleated RBC (0.00-0.01) x10^3u/L Lymphocytes % (24.0-44.0) % Monocytes % (0.0-12.0) % Eosinophils % (0.00-5.0) % Basophils % (0.0-0.4) % Absolute Granulocytes (1.4-6.9) x10^3/uL Basophils # (0-0.4) x10^3/uL Sodium (137-145) mmol/L Potassium (3.5-5.1) mmol/L Chloride (98-107) mmol/L Carbon Dioxide (22-30) mmol/L Anion Gap (5-15) MEQ/L BUN (7-17) mg/dL Creatinine (0.52-1.04) mg/dL Estimated GFR ML/MIN Glucose (74-106) mg/dL Calcium (8.4-10.2) mg/dL Magnesium (1.6-2.3) mg/dL Total Bilirubin (0.2-1.3) mg/dL AST (14-36) U/L ALT (0-35) U/L Alkaline Phosphatase (38-126) U/L Troponin I (0.000-0.034) ng/mL Serum Total Protein (6.3-8.2) g/dL Albumin (3.5-5.0) g/dL Amylase (30-110) U/L Lipase (23-300) U/L Urine Color Yellow (Yellow) Urine Appearance Cloudy A (Clear) Urine pH 7.0 (4.6-8.0) Ur Specific [facility] 1.010 (1.005-1.030) Urine Protein Negative (Negative) Urine Glucose (UA) Negative (Negative) mg/dL Urine Ketones Negative (Negative) Urine Blood Trace (Negative) Urine Nitrite Positive A (Negative) Urine Bilirubin Negative (Negative) Urine Urobilinogen 0.2 (0.2) mg/dL Ur Leukocyte Esterase Large A (Negative) U Hyaline Cast (Auto) 3-5 A (0-2) /LPF Urine Microscopic RBC 0-2 (0-5) /HPF Urine Microscopic WBC >100 A (0-5) /HPF Ur Epithelial Cells None Seen (None Seen) /HPF Urine Bacteria Many A (None Seen) /HPF Urine Culture Reflexed YES (NO) Monoscreen POSITIVE A (NEGATIVE) Influenza Type A Ag NEGATIVE (NEGATIVE) Influenza Type B Ag NEGATIVE (NEGATIVE) RSV (PCR) NEGATIVE (NEGATIVE) SARS-CoV-2 (PCR) NEGATIVE (NEGATIVE) Assessment/Plan (1) Nausea and vomiting Current Visit: Yes Status: Acute Assessment & Plan: - Zofran or compazine PRN - IV fluids -Pantoprazole Code(s): R11.2 - NAUSEA WITH VOMITING, UNSPECIFIED (2) Dehydration Current Visit: Yes Status: Acute Assessment & Plan: - 2:2 N/V, mono sxs - IV fluids - trend labs - anion gap 18 Code(s): E86.0 - DEHYDRATION (3) Acute on chronic renal failure Current Visit: Yes Status: Acute Assessment & Plan: - 2:2 Vomiting/ dehydration - IV fluids - trend labs - Creat 1.14, baseline 0.91 - BUN 75, GRF 47.7 - Follows Dr. Greer- nephrology - hold torsemide and spironlactone tonight- if labs improve continue in AM Code(s): N17.9 - ACUTE KIDNEY FAILURE, UNSPECIFIED; N18.9 - CHRONIC KIDNEY DISEASE, UNSPECIFIED (4) Hyponatremia Current Visit: Yes Status: Acute Assessment & Plan: - Mild - Na+ 130 - Start D5 NS @ 130 ml/hr - repeat sodium Q6 Code(s): E87.1 - HYPO-OSMOLALITY AND HYPONATREMIA (5) Mononucleosis Current Visit: Yes Status: Acute Assessment & Plan: + lab test in ER - supportive care Code(s): B27.90 - INFECTIOUS MONONUCLEOSIS, UNSPECIFIED WITHOUT COMPLICATION (6) Hypokalemia Current Visit: Yes Status: Acute Assessment & Plan: - K+ 2.0 on admission - Replaced in ER - recheck Q 4 hours - 2:2 dehydration - Tele Code(s): E87.6 - HYPOKALEMIA (7) UTI (urinary tract infection) Current Visit: No Status: Suspected Qualifiers: Assessment & Plan: - Rocephin started in ER- continue - UC pending Code(s): N39.0 - URINARY TRACT INFECTION, SITE NOT SPECIFIED (8) Weakness Current Visit: Yes Status: Acute Assessment & Plan: - r/t sxs - new onset - PT eval Code(s): R53.1 - WEAKNESS (9) Hypermagnesemia Current Visit: Yes Status: Acute Assessment & Plan: - Mg+ 2.6 - hold home magnesium Code status: DNR PPI: pantoprazole VTE:Pradaxa Next of kin: Mara Gagnon [phone] Code(s): E83.41 - HYPERMAGNESEMIA Telemedicine Encounter - Telemedicine Encounter Telemedicine Encounter: The entirety of this encounter was performed via Telemedicine"
[2023-09-11] MEDS ORDERED: POTASSIUM CHLORIDE 20 mEq IN WATER 100ML 100 ML IV SCH (15:39)
[2023-09-11] MEDS ORDERED: TYLENOL 325 MG PO PRN (15:39)
[2023-09-11] MEDS ORDERED: Dextrose 5%-NS IV Solution 1000 ML 1,000 ML IV SCH (16:00)
[2023-09-11] MEDS ORDERED: Compazine 10 MG/2 ML IV PRN (16:24)
[2023-09-11] MEDS: Klor Con PO SCH ×4 (17:25→23:23)
[2023-09-11] MEDS ORDERED: MEDICATION INTERVENTION MC SCH (17:30)
[2023-09-11] MEDS: Dextrose 5%-NS IV Solution 1000 ML 1,000 ML IV SCH (18:09)
[2023-09-11] MEDS ORDERED: Xylocaine-Mpf 2% 5 Ml Vial ONE (18:57)
[2023-09-11 20:26] LABS: BILIRUBIN,TOTAL 0.7 mg/dL (0.2-1.3); Calcium 8.4 mg/dL (8.4-10.2); EST GLOMERULAR FILTRATION RATE 55.5 ML/MIN; Total Protein 7.5 g/dL (6.3-8.2)
[2023-09-11] MEDS: PRADAXA 75 MG PO SCH (21:26)
[2023-09-11] MEDS: Zocor 10MG PO SCH (21:26)
[2023-09-11] MEDS: FEOSOL 325 MG PO SCH (21:26)
[2023-09-11] MEDS: Mirapex 0.5 MG Tablet PO SCH (21:26)
[2023-09-11] MEDS ORDERED: NON-FORMULARY ITEM (Pramipexole Di-Hcl [Pramipexole Dihydrochloride] 0.125 MG Tablet) PO SCH (22:00)
[2023-09-11] MEDS ORDERED: NON-FORMULARY ITEM (Sildenafil Citrate [Sildenafil Citrate] 20 MG Tablet) PO SCH (22:00)
[2023-09-12 02:07] LABS: Hematocrit 39.9 % (35-47); Hemoglobin 13.3 g/dL (12.0-16.0); Mean Cell Volume 88.3 fL (78-100); Mean Corpuscular Hemoglobin 29.4 pg (26-32); Mean Corpuscular Hgb Concent. 33.3 g/dL (32-36); Mean Platelet Volume 10.2 fL (7.5-11.0); Platelet Count 175 x10^3/uL (150-450); Red Blood Count 4.52 x10^6/uL (4.1-5.4); Red Cell Distribution Width 13.6 % (11.5-14.0); White Blood Count 7.1 x10^3/uL (4.0-10.5)
[2023-09-12 02:28] LABS: ALBUMIN 3.8 g/dL (3.5-5.0); ANION GAP 10.6 MEQ/L (5-15); BILIRUBIN,TOTAL 0.7 mg/dL (0.2-1.3); Calcium 8.1 mg/dL (8.4-10.2); Creatinine 1 1.01 mg/dL (0.52-1.04); EST GLOMERULAR FILTRATION RATE 54.9 ML/MIN; MAGNESIUM 2.1 mg/dL (1.6-2.3); Total Protein 7.1 g/dL (6.3-8.2)
[2023-09-12 02:41] LABS: Potassium 2.6 mmol/L (3.5-5.1)
[2023-09-12] MEDS: Dextrose 5%-NS IV Solution 1000 ML 1,000 ML IV SCH ×2 (02:54→15:11)
[2023-09-12] MEDS: POTASSIUM CHLORIDE 20 mEq IN WATER 100ML 20 MEQ/100 ML BAG IV SCH ×2 (03:25→05:56)
[2023-09-12] MEDS: Klor Con PO SCH ×8 (08:20→20:38)
--- NOTE | 2023-09-12 08:34 | XRAY ---
Indication: Vomiting and weakness. Comparison: September 19, 2010 KUB nonacute and nonobstructed with now mild diffuse fecal stasis. Worsening aortoiliac calcifications. Solid organs unremarkable. New T10-L4 vertebroplasty, L4-L5 fusion, old left proximal femur fracture with incompletely visualized orthopedic hardware, old left pubic bone fractures, advanced right hip degenerative changes and old bilateral rib fractures.
[2023-09-12] MEDS ORDERED: IRON PO SCH (10:00)
[2023-09-12] MEDS ORDERED: NON-FORMULARY ITEM (Metoprolol Succinate 25 MG Tab.Er.24h) PO SCH (10:00)
[2023-09-12] MEDS ORDERED: [UNRECOGNIZED DRUG - OTHER] PO SCH (10:00)
[2023-09-12] MEDS ORDERED: NON-FORMULARY ITEM (Potassium Chloride [Potassium Chloride] 20 MEQ Tab.Er.Prt) PO SCH (10:00)
[2023-09-12] MEDS ORDERED: FOLIC ACID PO SCH (10:00)
[2023-09-12] MEDS ORDERED: NON-FORMULARY ITEM (Mirabegron [Myrbetriq] 50 MG Tab.Er.24h) PO SCH (10:00)
[2023-09-12] MEDS ORDERED: MULTIVITAMIN PO SCH (10:00)
[2023-09-12] MEDS ORDERED: Klor Con PO SCH (10:00)
[2023-09-12] MEDS: Toprol-Xl 25MG Tablets PO SCH (10:15)
[2023-09-12] MEDS: THERAGRAN MULTIVITAMIN PO SCH (10:15)
[2023-09-12] MEDS: ROCEPHIN 1 Gm-D5w 50 ml Bag** 1 G/50 ML IVPB IV SCH (10:15)
[2023-09-12] MEDS: PRADAXA 75 MG PO SCH ×2 (10:15→21:36)
[2023-09-12] MEDS: SYNTHROID 75 MCG PO SCH (10:16)
[2023-09-12] MEDS: MYRBETRIQ PO SCH (10:16)
[2023-09-12] MEDS: FEOSOL 325 MG PO SCH ×2 (10:16→21:36)
[2023-09-12] MEDS: ZOLOFT 50 MG TABLET PO SCH (10:16)
[2023-09-12] MEDS: Docusate Sodium 100 MG PO SCH ×2 (10:17→21:36)
--- NOTE | 2023-09-12 12:28 | XRAY ---
Indication: long-term placement. Comparison: September 14, 2022 Portable chest again hyperinflated with minimal left midlung subsegmental atelectasis/scarring. No focal infiltrate, consolidation, or large effusion. Heart not enlarged again with cardiac valve replacement and left pacemaker. Bony thorax intact again with osteopenia, mild degenerative changes, old right rib fractures, and multilevel thoracolumbar kyphoplasty. Impression: Nonacute chest with chronic features.
--- NOTE | 2023-09-12 14:33 | PCM.NOTE ---
Date and Time: 09/12/231426 Subjective Assessment: 09/11/23 is a 87 year old female with PMHX of Patient hyperlipidemia, hypothyroidism, coronary artery disease/CABG, asthma, COPD, gastroesophageal reflux disease, and renal disease. She is not on dialysis. She is a pt of Dr. 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 Greer. She presented to the emergency department by ambulance with Nausea, vomiting, and weakness over the last 2 days. She has been unable to hold liquids down. She has been unable to take her medication. Patient denies abdominal pain. She denies CP, SOB, or diarrhea. 09/12/23 Pt resting in bed. She explains she is feeling much better. No overnight N/V. She continues to be weak. She is agreeable to rehab stay OP at [place]. KUB shows constipation. Stool softener started. KHUSHBOO improving. Continue Rocephin for UTI. She has advanced her diet and eating and drinking well. She continues to have hypokalemia and potassium replaced. She denies any related sxs. Denies CP, SOB, abd. pain, N/V/D today. - Review of Systems Constitutional: Weakness, No Fever, No Chills Eyes: No Symptoms Ears, Nose, & Throat: No Symptoms Respiratory: No Cough, No Short Of Breath Cardiac: No Chest Pain, No Edema, No Syncope Abdominal/Gastrointestinal: No Abdominal Pain, No Nausea, No Vomiting, No Diarrhea Genitourinary Symptoms: No Dysuria Musculoskeletal: No Back Pain, No Neck Pain Skin: No Rash Neurological: No Dizziness, No Focal Weakness, No Sensory Changes Psychological: No Symptoms Endocrine: No Symptoms Hematologic/Lymphatic: No Symptoms Immunological/Allergic: No Symptoms Objective Exam General Appearance: no apparent distress, alert Neurologic Exam: alert, oriented x 3, cooperative, normal mood/affect, nml cerebellar function, sensation nml, No motor deficits Skin Exam: normal color, warm, dry Eye Exam: PERRL, EOMI, eyes nml inspection Ears, Nose, Throat Exam: normal ENT inspection, pharynx normal, moist mucous membranes Neck Exam: normal inspection, non-tender, supple, full range of motion Respiratory Exam: normal breath sounds, lungs clear, No respiratory distress Cardiovascular Exam: regular rate/rhythm, normal heart sounds Gastrointestinal/Abdomen Exam: soft, No tenderness, No mass Extremity Exam: normal inspection, normal range of motion Back Exam: normal inspection, normal range of motion, No CVA tenderness, No vertebral tenderness Pelvic Exam: deferred Rectal Exam: deferred OBJECTIVE DATA Vital Signs: Vital Signs - 24 hr Temp Pulse Resp BP BP Pulse Ox 09/12/23 12:00 96.3 F 60 16 160/64 98 09/12/23 06:38 96.8 F 60 16 118/56 92 L 09/12/23 04:00 98.2 F 60 16 120/59 92 L 09/12/23 03:51 18 09/11/23 23:32 17 09/11/23 23:31 98.4 F 63 17 118/57 93 L 09/11/23 20:00 97.8 F 92 H 18 120/57 96 09/11/23 15:52 97.8 F 62 16 132/69 92 L 09/11/23 14:30 66 23 129/67 93 L Pain Assessment - Last Documented Pain Intensity 0 Intake and Output: Intake & Output 09/10/23 09/11/23 09/12/23 09/13/23 11:59 11:59 11:59 11:59 Intake Total 300 240 Output Total 2650 Balance -2350 240 Weight 48.5 kg 48.5 kg Lab Results: Lab Results-Last 24 Hours 09/11/23 09/11/23 09/11/23 Range/Units 15:50 15:50 16:26 WBC (4.0-10.5) x10^3/uL RBC (4.1-5.4) x10^6/uL Hgb (12.0-16.0) g/dL Hct (35-47) % MCV (78-100) fL MCH (26-32) pg MCHC (32-36) g/dL RDW (11.5-14.0) % Plt Count (150-450) x10^3/uL MPV (7.5-11.0) fL Sodium (137-145) mmol/L Potassium 2.5 L* D (3.5-5.1) mmol/L Chloride (98-107) mmol/L Carbon Dioxide (22-30) mmol/L Anion Gap (5-15) MEQ/L BUN (7-17) mg/dL Creatinine (0.52-1.04) mg/dL Estimated GFR ML/MIN Glucose (74-106) mg/dL Calcium (8.4-10.2) mg/dL Magnesium 2.5 H (1.6-2.3) mg/dL Total Bilirubin (0.2-1.3) mg/dL AST (14-36) U/L ALT (0-35) U/L Alkaline Phosphatase (38-126) U/L Troponin I 0.022 (0.000-0.034) ng/mL NT-Pro-B Natriuret Pep (<300) pg/mL Serum Total Protein (6.3-8.2) g/dL Albumin (3.5-5.0) g/dL Amylase (30-110) U/L Lipase (23-300) U/L 09/11/23 09/11/23 09/12/23 Range/Units 19:40 20:15 02:00 WBC 7.1 (4.0-10.5) x10^3/uL RBC 4.52 (4.1-5.4) x10^6/uL Hgb 13.3 (12.0-16.0) g/dL Hct 39.9 (35-47) % MCV 88.3 (78-100) fL MCH 29.4 (26-32) pg MCHC 33.3 (32-36) g/dL RDW 13.6 (11.5-14.0) % Plt Count 175 (150-450) x10^3/uL MPV 10.2 (7.5-11.0) fL Sodium 129 L (137-145) mmol/L Potassium 3.0 L* (3.5-5.1) mmol/L Chloride 80 L (98-107) mmol/L Carbon Dioxide 35 H (22-30) mmol/L Anion Gap 17.0 H (5-15) MEQ/L BUN 63 H (7-17) mg/dL Creatinine 1.00 (0.52-1.04) mg/dL Estimated GFR 55.5 ML/MIN Glucose 151 H (74-106) mg/dL Calcium 8.4 (8.4-10.2) mg/dL Magnesium (1.6-2.3) mg/dL Total Bilirubin 0.70 (0.2-1.3) mg/dL AST 32 (14-36) U/L ALT 20 (0-35) U/L Alkaline Phosphatase 100 (38-126) U/L Troponin I 0.021 (0.000-0.034) ng/mL NT-Pro-B Natriuret Pep (<300) pg/mL Serum Total Protein 7.5 (6.3-8.2) g/dL Albumin 4.0 (3.5-5.0) g/dL Amylase (30-110) U/L Lipase (23-300) U/L 09/12/23 09/12/23 Range/Units 02:00 10:10 WBC (4.0-10.5) x10^3/uL RBC (4.1-5.4) x10^6/uL Hgb (12.0-16.0) g/dL Hct (35-47) % MCV (78-100) fL MCH (26-32) pg MCHC (32-36) g/dL RDW (11.5-14.0) % Plt Count (150-450) x10^3/uL MPV (7.5-11.0) fL Sodium 134 L (137-145) mmol/L Potassium 2.6 L* 2.8 L* (3.5-5.1) mmol/L Chloride 87 L (98-107) mmol/L Carbon Dioxide 39 H (22-30) mmol/L Anion Gap 10.6 (5-15) MEQ/L BUN 57 H (7-17) mg/dL Creatinine 1.01 (0.52-1.04) mg/dL Estimated GFR 54.9 ML/MIN Glucose 136 H (74-106) mg/dL Calcium 8.1 L (8.4-10.2) mg/dL Magnesium 2.1 (1.6-2.3) mg/dL Total Bilirubin 0.70 (0.2-1.3) mg/dL AST 31 (14-36) U/L ALT 19 (0-35) U/L Alkaline Phosphatase 92 (38-126) U/L Troponin I (0.000-0.034) ng/mL NT-Pro-B Natriuret Pep 927 (<300) pg/mL Serum Total Protein 7.1 (6.3-8.2) g/dL Albumin 3.8 (3.5-5.0) g/dL Amylase 90 (30-110) U/L Lipase 251 (23-300) U/L Radiology Exams: Radiology Procedures Category Date Time Status CHEST 1 VIEW (PORTABLE) Urgent Exams 09/12/23 11:57 Completed KUB Stat Exams 09/11/23 17:30 Completed Multi-Disciplinary Progress Notes: Multi-Disciplinary Progress Notes 09/12/23 13:45 Case Management Note by Barbra Mahmood PAPERWORK DONE AT THIS TIME- NO LEVEL II REQUIRED. COPIES PLACED ON CHART. CHEST XRAY AND PASRR PAPERWORK FAXED TO [facility]. S/W ANEESH AT [facility]- THEY ARE REVIEWING REFERRAL AND WILL GET BACK WITH US Initialized on 09/12/23 13:45 - END OF NOTE 09/12/23 12:06 Case Management Note by Barbra Mahmood REFERRAL FAXED TO [facility] PER PATIENT REQUEST Initialized on 09/12/23 12:06 - END OF NOTE Assessment/Plan (1) Nausea and vomiting Current Visit: Yes Status: Acute Assessment & Plan: - Zofran or compazine PRN - IV fluids -Pantoprazole 09/12 - resolved - advanced diet and now eating regular diet. Code(s): R11.2 - NAUSEA WITH VOMITING, UNSPECIFIED (2) Dehydration Current Visit: Yes Status: Acute Assessment & Plan: - 2:2 N/V, mono sxs - IV fluids - trend labs - anion gap 18 09/12 - gap WNL - stop IV fluids Code(s): E86.0 - DEHYDRATION (3) Acute on chronic renal failure Current Visit: Yes Status: Acute Assessment & Plan: - 2:2 Vomiting/ dehydration - IV fluids - trend labs - Creat 1.14, baseline 0.91 - BUN 75, GRF 47.7 - Follows Dr. Greer- nephrology - hold torsemide and spironlactone tonight- if labs improve continue in AM 09/12 - restart spironlactone - Cont to hold torsemide due to hypokalemia Code(s): N17.9 - ACUTE KIDNEY FAILURE, UNSPECIFIED; N18.9 - CHRONIC KIDNEY DISEASE, UNSPECIFIED (4) Hyponatremia Current Visit: Yes Status: Acute Assessment & Plan: - Mild - Na+ 130 - Start D5 NS @ 130 ml/hr - repeat sodium Q6 09/12 - Na+ improved 134 Code(s): E87.1 - HYPO-OSMOLALITY AND HYPONATREMIA (5) Mononucleosis Current Visit: Yes Status: Acute Assessment & Plan: + lab test in ER - supportive care Code(s): B27.90 - INFECTIOUS MONONUCLEOSIS, UNSPECIFIED WITHOUT COMPLICATION (6) Hypokalemia Current Visit: Yes Status: Acute Assessment & Plan: - K+ 2.0 on admission - Replaced in ER - recheck Q 4 hours - 2:2 dehydration - Tele 09/12 - Continued - Potassium replacement protocol Code(s): E87.6 - HYPOKALEMIA (7) UTI (urinary tract infection) Current Visit: No Status: Suspected Qualifiers: Assessment & Plan: - Rocephin started in ER- continue - UC pending 09/12 - 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 Code status: DNR PPI: pantoprazole VTE:Pradaxa Next of kin: Mara Gagnon [phone] Code(s): E83.41 - HYPERMAGNESEMIA
[2023-09-12] MEDS: Aldactone 25 MG PO SCH (21:36)
[2023-09-12] MEDS: Zocor 10MG PO SCH (21:36)
[2023-09-12] MEDS: Mirapex 0.5 MG Tablet PO SCH (21:37)
[2023-09-13 04:45] LABS: Hematocrit 37.9 % (35-47); Hemoglobin 12.3 g/dL (12.0-16.0); Mean Cell Volume 90.2 fL (78-100); Mean Corpuscular Hemoglobin 29.3 pg (26-32); Mean Corpuscular Hgb Concent. 32.5 g/dL (32-36); Mean Platelet Volume 9.8 fL (7.5-11.0); Platelet Count 155 x10^3/uL (150-450); Red Cell Distribution Width 14.3 % (11.5-14.0); White Blood Count 7.7 x10^3/uL (4.0-10.5)
[2023-09-13 05:24] LABS: ALBUMIN 3.4 g/dL (3.5-5.0); ALKALINE PHOSPHATASE 97 U/L (38-126); ANION GAP 9.6 MEQ/L (5-15); BLOOD UREA NITROGEN 31 mg/dL (7-17); CHLORIDE 95 mmol/L (98-107); Calcium 8.3 mg/dL (8.4-10.2); Carbon Dioxide 32 mmol/L (22-30); Creatinine 1 0.86 mg/dL (0.52-1.04); EST GLOMERULAR FILTRATION RATE > 60.0 ML/MIN; Glucose 128 mg/dL (74-106); Potassium 3.4 mmol/L (3.5-5.1); SGOT/AST 31 U/L (14-36); SGPT/ALT 20 U/L (0-35); SODIUM 133 mmol/L (137-145); Total Protein 6.5 g/dL (6.3-8.2)
[2023-09-13] MEDS ORDERED: Klor Con PO ONE ×2 (08:11→17:33)
[2023-09-13] MEDS: DEMADEX 20 MG PO SCH ×2 (10:54→17:14)
[2023-09-13] MEDS: MYRBETRIQ PO SCH (10:54)
[2023-09-13] MEDS: Toprol-Xl 25MG Tablets PO SCH (10:54)
[2023-09-13] MEDS: PRADAXA 75 MG PO SCH ×2 (10:54→21:23)
[2023-09-13] MEDS: Aldactone 25 MG PO SCH ×2 (10:55→21:23)
[2023-09-13] MEDS: ROCEPHIN 1 Gm-D5w 50 ml Bag** 1 G/50 ML IVPB IV SCH (10:55)
[2023-09-13] MEDS: ZOLOFT 50 MG TABLET PO SCH (10:55)
[2023-09-13] MEDS: FEOSOL 325 MG PO SCH ×2 (10:55→21:23)
[2023-09-13] MEDS: THERAGRAN MULTIVITAMIN PO SCH (10:55)
[2023-09-13] MEDS: SYNTHROID 75 MCG PO SCH (10:55)
[2023-09-13] MEDS: MAG-OX 400 PO SCH (10:55)
[2023-09-13] MEDS: Docusate Sodium 100 MG PO SCH ×2 (10:55→21:23)
[2023-09-13] MEDS ORDERED: MILK OF MAGNESIA 30 ML PO ONE (10:56)
--- NOTE | 2023-09-13 12:46 | PCM.NOTE ---
Date and Time: 09/13/23 1239 Subjective Assessment: 09/11/23 is a 87 year old female with PMHX of Patient hyperlipidemia, hypothyroidism, coronary artery disease/CABG, asthma, COPD, gastroesophageal reflux disease, and renal disease. She is not on dialysis. She is a pt of Dr. Lola Sue and cosmetics demonstrator Dr. Greer. She presented to the emergency department by ambulance with Nausea, vomiting, and weakness over the last 2 days. She has been unable to hold liquids down. She has been unable to take her medication. Patient denies abdominal pain. She denies CP, SOB, or diarrhea. 09/12/23 Pt resting in bed. She explains she is feeling much better. No overnight N/V. She continues to be weak. She is agreeable to rehab stay OP at [facility]. KUB shows constipation. Stool softener started. KHUSHBOO improving. Continue Rocephin for UTI. She has advanced her diet and eating and drinking well. She continues to have hypokalemia and potassium replaced. She denies any related sxs. Denies CP, SOB, abd. pain, N/V/D today. 09/13/13 Pt is resting in bed. She is awaiting a bed at [facility] for rehab. She continues to have weakness. She is c/o some constipation today. Medication ordered. Will have PT evaluate pt today. KHUSHBOO has resolved. Liver function is normal. Continue Rocehin for UTI. She denies CP, SOB, abd. pain, N/V/D. - Review of Systems Constitutional: Weakness, No Fever, No Chills Eyes: No Symptoms Ears, Nose, & Throat: No Symptoms Respiratory: No Cough, No Short Of Breath Cardiac: No Chest Pain, No Edema, No Syncope Abdominal/Gastrointestinal: Constipation, No Abdominal Pain, No Nausea, No Vomiting, No Diarrhea Genitourinary Symptoms: No Dysuria Musculoskeletal: No Back Pain, No Neck Pain Skin: No Rash Neurological: No Dizziness, No Focal Weakness, No Sensory Changes Psychological: No Symptoms Endocrine: No Symptoms Hematologic/Lymphatic: No Symptoms Immunological/Allergic: No Symptoms Objective Exam General Appearance: no apparent distress, alert, thin Neurologic Exam: alert, oriented x 3, cooperative, normal mood/affect, nml cerebellar function, sensation nml, No motor deficits Skin Exam: normal color, warm, dry Eye Exam: PERRL, EOMI, eyes nml inspection Ears, Nose, Throat Exam: normal ENT inspection, pharynx normal, moist mucous membranes Neck Exam: normal inspection, non-tender, supple, full range of motion Respiratory Exam: normal breath sounds, lungs clear, No respiratory distress Cardiovascular Exam: regular rate/rhythm, normal heart sounds Gastrointestinal/Abdomen Exam: soft, No tenderness, No mass Extremity Exam: normal inspection, normal range of motion Back Exam: normal inspection, normal range of motion, No CVA tenderness, No vertebral tenderness Pelvic Exam: deferred Rectal Exam: deferred OBJECTIVE DATA Vital Signs: Vital Signs - 24 hr Temp Pulse Resp BP Pulse Ox 09/13/23 11:37 98.3 F 62 16 141/60 94 L 09/13/23 08:00 16 09/13/23 07:03 98.0 F 60 16 112/60 96 09/13/23 04:00 98.0 F 60 17 115/62 96 09/12/23 23:47 16 09/12/23 23:42 98.5 F 59 L 18 133/72 95 09/12/23 20:00 98.6 F 60 18 134/61 95 09/12/23 16:00 96.6 F 60 16 157/71 96 Pain Assessment - Last Documented Pain Intensity 0 Intake and Output: Intake & Output 09/11/23 09/12/23 09/13/23 09/14/23 11:59 11:59 11:59 11:59 Intake Total 300 2175 Output Total 2650 1200 Balance -2350 975 Weight 48.5 kg 48.5 kg Lab Results: Lab Results-Last 24 Hours 09/12/23 09/12/23 09/13/23 Range/Units 14:15 18:35 04:40 WBC (4.0-10.5) x10^3/uL RBC (4.1-5.4) x10^6/uL Hgb (12.0-16.0) g/dL Hct (35-47) % MCV (78-100) fL MCH (26-32) pg MCHC (32-36) g/dL RDW (11.5-14.0) % Plt Count (150-450) x10^3/uL MPV (7.5-11.0) fL Sodium (137-145) mmol/L Potassium 2.9 L* 3.5 D (3.5-5.1) mmol/L Chloride (98-107) mmol/L Carbon Dioxide (22-30) mmol/L Anion Gap (5-15) MEQ/L BUN (7-17) mg/dL Creatinine (0.52-1.04) mg/dL Estimated GFR ML/MIN Glucose (74-106) mg/dL Calcium (8.4-10.2) mg/dL Magnesium 1.9 (1.6-2.3) mg/dL Total Bilirubin (0.2-1.3) mg/dL AST (14-36) U/L ALT (0-35) U/L Alkaline Phosphatase (38-126) U/L Serum Total Protein (6.3-8.2) g/dL Albumin (3.5-5.0) g/dL 09/13/23 09/13/23 Range/Units 04:40 04:40 WBC 7.7 (4.0-10.5) x10^3/uL RBC 4.20 (4.1-5.4) x10^6/uL Hgb 12.3 (12.0-16.0) g/dL Hct 37.9 (35-47) % MCV 90.2 (78-100) fL MCH 29.3 (26-32) pg MCHC 32.5 (32-36) g/dL RDW 14.3 H (11.5-14.0) % Plt Count 155 (150-450) x10^3/uL MPV 9.8 (7.5-11.0) fL Sodium 133 L (137-145) mmol/L Potassium 3.4 L (3.5-5.1) mmol/L Chloride 95 L (98-107) mmol/L Carbon Dioxide 32 H (22-30) mmol/L Anion Gap 9.6 (5-15) MEQ/L BUN 31 H (7-17) mg/dL Creatinine 0.86 (0.52-1.04) mg/dL Estimated GFR > 60.0 ML/MIN Glucose 128 H (74-106) mg/dL Calcium 8.3 L (8.4-10.2) mg/dL Magnesium (1.6-2.3) mg/dL Total Bilirubin 0.40 (0.2-1.3) mg/dL AST 31 (14-36) U/L ALT 20 (0-35) U/L Alkaline Phosphatase 97 (38-126) U/L Serum Total Protein 6.5 (6.3-8.2) g/dL Albumin 3.4 L (3.5-5.0) g/dL Radiology Exams: Radiology Procedures Category Date Time Status CHEST 1 VIEW (PORTABLE) Urgent Exams 09/12/23 11:57 Completed KUB Stat Exams 09/11/23 17:30 Completed Multi-Disciplinary Progress Notes: Multi-Disciplinary Progress Notes 09/13/23 10:54 Physical Therapy Note by Leticia(L#[id number])Fabiola PT. WAS SEEN BY P.T. THIS A.M. REPORTS SHE IS FEELING MUCH BETTER. REPORTS SLIGHT FATIGUES SHE DID NOT SLEEP WELL. ENJOYED HER BREAKFAST. PT. AGREEABLE TO P.T. IN BED UPON P.T. ARRIVAL TO ROOM. PT. PERFORMED LE EX'S IN SUPINE OF ANKLE PUMPS, QUAD SETS, SLRS, AND HEEL SLIDES. PERFORMED SUPINE TO SIT W/ MIN ASSIST W/ HOB ELEVATED. NOTED DIZZINESS W/ POSITION CHANGE THAT SUBSIDED QUICKLY. PT. PERFORMED SIT TO STAND W/ CGA-MIN. AMBULATED ~ 25' W/ RW AND CGA. CONT. W/ VERY SLOW PACE. ABLE TO NEGOTIATE TURN W/ CGA-MIN ASSIST. O2 SATS 95% ON RA. PT. TRANSFERRED TO BEDSIDE RECLINER W/ CHAIR ALARM AND CALL LIGHT IN REACH. WILL CONT. P.T. 5X/WK TO ADDRESS WEAKNESS AND FUNCTIONAL DEFICITS UNTIL D/C TO PREP FOR REHAB STAY. AWAITING PA FOR SNF STAY. Initialized on 09/13/23 10:54 - END OF NOTE 09/13/23 10:13 Case Management Note by Barbra Mahmood S/W RADHA AT [facility]- THEY HAVE A VAN THAT CAN BE ARRANGED TO COME GET THE PATIENT AT [place]. IF THEY GET AUTH OVER THE WEEKEND RADHA WILL ARRANGE THE VAN AND CALL NIKOLAY (CM INTERNAL COMMUNICATIONS WRITER) WITH THE INFORMATION. FAMILY FRIEND DEANGELO MOREL UPDATED. SHE WOULD BE A BACKUP IF THE [facility] VAN ABSOLUTELY DOES NOT WORK OUT. HE PHONE NUMBER AGAIN IS [phone] Initialized on 09/13/23 10:13 - END OF NOTE 09/13/23 09:28 Case Management Note by Barbra Mahmood S/W FAMILY FRIEND KWAN MOREL- ([phone]) SHE REPORTS IF [facility] UNABLE TO PROVIDE TRANSPORT SHE CAN TAKE PATIENT TO [place] AT TIME OF DC BUT SHE WOULD HAVE TO WORK IT AROUND HER SCHEDULE. Initialized on 09/13/23 09:28 - END OF NOTE 09/13/23 08:51 Case Management Note by Barbra Mahmood [facility] HAS ACCEPTED AND HAS STARTED PRECERT- THIS WILL NEED TO BE APPROVED BEFORE PATIENT CAN TRANSFER TO FACILITY. THEY ARE ALSO CHECKING TO SEE IF THEY CAN PROVIDE TRANSPORT TO FACILITY AT TIME OF DC Initialized on 09/13/23 08:51 - END OF NOTE 09/12/23 13:45 Case Management Note by Barbra Mahmood PAPERWORK DONE AT THIS TIME- NO LEVEL II REQUIRED. COPIES PLACED ON CHART. CHEST XRAY AND PASRR PAPERWORK FAXED TO [facility]. S/W ANEESH AT [facility]- THEY ARE REVIEWING REFERRAL AND WILL GET BACK WITH US Initialized on 09/12/23 13:45 - END OF NOTE Assessment/Plan (1) Nausea and vomiting Current Visit: Yes Status: Acute Assessment & Plan: - Zofran or compazine PRN - IV fluids -Pantoprazole 09/12 - resolved - advanced diet and now eating regular diet. Code(s): R11.2 - NAUSEA WITH VOMITING, UNSPECIFIED (2) Dehydration Current Visit: Yes Status: Acute Assessment & Plan: - 2:2 N/V, mono sxs - IV fluids - trend labs - anion gap 18 09/12 - gap WNL - stop IV fluids - resolved Code(s): E86.0 - DEHYDRATION (3) Acute on chronic renal failure Current Visit: Yes Status: Acute Assessment & Plan: - 2:2 Vomiting/ dehydration - IV fluids - trend labs - Creat 1.14, baseline 0.91 - BUN 75, GRF 47.7 - Follows Dr. Greer- nephrology - hold torsemide and spironlactone tonight- if labs improve continue in AM 09/12 - restart spironlactone - Cont to hold torsemide due to hypokalemia 09/13 - at baseline - continue to hold torsemide Code(s): N17.9 - ACUTE KIDNEY FAILURE, UNSPECIFIED; N18.9 - CHRONIC KIDNEY DISEASE, UNSPECIFIED (4) Hyponatremia Current Visit: Yes Status: Acute Assessment & Plan: Assessment & Plan: - Mild - Na+ 130 - Start D5 NS @ 130 ml/hr - repeat sodium Q6 09/12 - Na+ improved 134 09/13 - Na+ 133 Code(s): E87.1 - HYPO-OSMOLALITY AND HYPONATREMIA (5) Mononucleosis Current Visit: Yes Status: Acute Assessment & Plan: + lab test in ER - supportive care Code(s): B27.90 - INFECTIOUS MONONUCLEOSIS, UNSPECIFIED WITHOUT COMPLICATION (6) Hypokalemia Current Visit: Yes Status: Acute Assessment & Plan: - K+ 2.0 on admission - Replaced in ER - recheck Q 4 hours - 2:2 dehydration - Tele 09/12 - Continued - Potassium replacement protocol 09/13 - K+3.4- replaced Code(s): E87.6 - HYPOKALEMIA (7) UTI (urinary tract infection) Current Visit: No Status: Suspected Qualifiers: Assessment & Plan: - Rocephin started in ER- continue - UC pending 09/12 - 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 09/13 - restarted home Mg+ Code status: DNR PPI: pantoprazole VTE:Pradaxa Next of kin: Mara Aquinoalex [phone] D/C plan: tomorrow Code(s): E83.41 - HYPERMAGNESEMIA Code(s): E83.41 - HYPERMAGNESEMIA
[2023-09-13] MEDS: Mirapex 0.5 MG Tablet PO SCH (21:23)
[2023-09-13] MEDS: Zocor 10MG PO SCH (21:23)
[2023-09-14 08:20] LABS: Hemoglobin 13.5 g/dL (12.0-16.0); Mean Cell Volume 90.5 fL (78-100); Mean Corpuscular Hemoglobin 29.8 pg (26-32); Mean Corpuscular Hgb Concent. 32.9 g/dL (32-36); Mean Platelet Volume 9.6 fL (7.5-11.0); Platelet Count 165 x10^3/uL (150-450); Red Blood Count 4.53 x10^6/uL (4.1-5.4); Red Cell Distribution Width 13.7 % (11.5-14.0)
[2023-09-14 09:16] LABS: ALBUMIN 3.8 g/dL (3.5-5.0); ALKALINE PHOSPHATASE 113 U/L (38-126); ANION GAP 7.1 MEQ/L (5-15); BLOOD UREA NITROGEN 30 mg/dL (7-17); CHLORIDE 85 mmol/L (98-107); Calcium 8.7 mg/dL (8.4-10.2); Carbon Dioxide 40 mmol/L (22-30); EST GLOMERULAR FILTRATION RATE > 60.0 ML/MIN; Glucose 99 mg/dL (74-106); SGOT/AST 31 U/L (14-36); SGPT/ALT 19 U/L (0-35); SODIUM 129 mmol/L (137-145); Total Protein 7.1 g/dL (6.3-8.2)
[2023-09-14 09:48] LABS: Potassium 2.7 mmol/L (3.5-5.1)
[2023-09-14] MEDS: Toprol-Xl 25MG Tablets PO SCH (09:54)
[2023-09-14] MEDS: THERAGRAN MULTIVITAMIN PO SCH (09:54)
[2023-09-14] MEDS: MYRBETRIQ PO SCH (09:54)
[2023-09-14] MEDS: DEMADEX 20 MG PO SCH ×2 (09:56→16:01)
[2023-09-14] MEDS: FEOSOL 325 MG PO SCH ×2 (09:56→21:42)
[2023-09-14] MEDS: Aldactone 25 MG PO SCH ×2 (09:57→21:42)
[2023-09-14] MEDS: ZOLOFT 50 MG TABLET PO SCH (09:57)
[2023-09-14] MEDS: Docusate Sodium 100 MG PO SCH ×2 (09:57→21:42)
[2023-09-14] MEDS: SYNTHROID 75 MCG PO SCH (09:57)
[2023-09-14] MEDS: PRADAXA 75 MG PO SCH ×2 (09:57→21:42)
[2023-09-14] MEDS: MAG-OX 400 PO SCH (09:57)
[2023-09-14] MEDS: ROCEPHIN 1 Gm-D5w 50 ml Bag** 1 G/50 ML IVPB IV SCH (09:57)
--- NOTE | 2023-09-14 10:03 | PCM.NOTE ---
Date and Time: 09/14/23 0955 Subjective Assessment: 09/11/23 is a 87 year old female with PMHX of Patient hyperlipidemia, hypothyroidism, coronary artery disease/CABG, asthma, COPD, gastroesophageal reflux disease, and renal disease. She is not on dialysis. She is a pt of Dr. Lola Sue and automatic spinning lathe setter Dr. Greer. She presented to the emergency department by ambulance with Nausea, vomiting, and weakness over the last 2 days. She has been unable to hold liquids down. She has been unable to take her medication. Patient denies abdominal pain. She denies CP, SOB, or diarrhea. 09/12/23 Pt resting in bed. She explains she is feeling much better. No overnight N/V. She continues to be weak. She is agreeable to rehab stay OP at [place]. KUB shows constipation. Stool softener started. KHUSHBOO improving. Continue Rocephin for UTI. She has advanced her diet and eating and drinking well. She continues to have hypokalemia and potassium replaced. She denies any related sxs. Denies CP, SOB, abd. pain, N/V/D today. 09/13/23 Pt is resting in bed. She is awaiting a bed at [facility] for rehab. She continues to have weakness. She is c/o some constipation today. Medication ordered. Will have PT evaluate pt today. KHUSHBOO has resolved. Liver function is normal. Continue Rocehin for UTI. She denies CP, SOB, abd. pain, N/V/D. 09/14/23 Pt sitting up in bed. She reports she has not had a BM yet with Colace and MOM that has been given. She explained Miralax does not work for her and she does not want any rectal medications. Will try warm appple and prune juice mix. She is eating and drinking well. She denies any stomach pain. She is still awaiting placement today for rehab. She denies any further concerns at [facility] time. - Review of Systems Constitutional: No Fever, No Chills Eyes: No Symptoms Ears, Nose, & Throat: No Symptoms Respiratory: No Cough, No Short Of Breath Cardiac: No Chest Pain, No Edema, No Syncope Abdominal/Gastrointestinal: Constipation, No Abdominal Pain, No Nausea, No Vomiting, No Diarrhea Genitourinary Symptoms: No Dysuria Musculoskeletal: No Back Pain, No Neck Pain Skin: No Rash Neurological: No Dizziness, No Focal Weakness, No Sensory Changes Psychological: No Symptoms Endocrine: No Symptoms Hematologic/Lymphatic: No Symptoms Immunological/Allergic: No Symptoms Objective Exam General Appearance: no apparent distress, alert, thin Neurologic Exam: alert, oriented x 3, cooperative, normal mood/affect, nml cerebellar function, sensation nml, No motor deficits Skin Exam: normal color, warm, dry Eye Exam: PERRL, EOMI, eyes nml inspection Ears, Nose, Throat Exam: normal ENT inspection, pharynx normal, moist mucous membranes Neck Exam: normal inspection, non-tender, supple, full range of motion Respiratory Exam: normal breath sounds, lungs clear, No respiratory distress Cardiovascular Exam: regular rate/rhythm, normal heart sounds Gastrointestinal/Abdomen Exam: soft, No tenderness, No mass Extremity Exam: normal inspection, normal range of motion Back Exam: normal inspection, normal range of motion, No CVA tenderness, No vertebral tenderness Pelvic Exam: deferred Rectal Exam: deferred OBJECTIVE DATA Vital Signs: Vital Signs - 24 hr Temp Pulse Resp BP Pulse Ox 09/14/23 07:52 18 09/14/23 07:06 98.0 F 66 18 142/80 95 09/14/23 04:00 15 09/14/23 03:39 97.9 F 63 17 117/63 95 09/14/23 00:00 98.1 F 59 L 14 135/74 09/13/23 20:00 98.1 F 59 L 16 135/74 96 09/13/23 19:59 14 09/13/23 16:00 15 09/13/23 15:43 98.3 F 62 15 140/60 95 09/13/23 12:00 16 09/13/23 11:37 98.3 F 62 16 141/60 94 L Pain Assessment - Last Documented Pain Intensity 0 Intake and Output: Intake & Output 09/11/23 09/12/23 09/13/23 09/14/23 11:59 11:59 11:59 11:59 Intake Total 300 2175 980 Output Total 2650 1200 Balance -2350 975 980 Weight 48.5 kg 48.5 kg 47.9 kg Lab Results: Lab Results-Last 24 Hours 09/13/23 09/14/23 09/14/23 Range/Units 12:25 08:12 08:12 WBC 9.0 (4.0-10.5) x10^3/uL RBC 4.53 (4.1-5.4) x10^6/uL Hgb 13.5 (12.0-16.0) g/dL Hct 41.0 (35-47) % MCV 90.5 (78-100) fL MCH 29.8 (26-32) pg MCHC 32.9 (32-36) g/dL RDW 13.7 (11.5-14.0) % Plt Count 165 (150-450) x10^3/uL MPV 9.6 (7.5-11.0) fL Sodium 129 L (137-145) mmol/L Potassium 3.1 L 2.7 L* (3.5-5.1) mmol/L Chloride 85 L (98-107) mmol/L Carbon Dioxide 40 H (22-30) mmol/L Anion Gap 7.1 (5-15) MEQ/L BUN 30 H (7-17) mg/dL Creatinine 0.70 (0.52-1.04) mg/dL Estimated GFR > 60.0 ML/MIN Glucose 99 (74-106) mg/dL Calcium 8.7 (8.4-10.2) mg/dL Magnesium (1.6-2.3) mg/dL Total Bilirubin 0.80 (0.2-1.3) mg/dL AST 31 (14-36) U/L ALT 19 (0-35) U/L Alkaline Phosphatase 113 (38-126) U/L Serum Total Protein 7.1 (6.3-8.2) g/dL Albumin 3.8 (3.5-5.0) g/dL 09/14/23 Range/Units 08:12 WBC (4.0-10.5) x10^3/uL RBC (4.1-5.4) x10^6/uL Hgb (12.0-16.0) g/dL Hct (35-47) % MCV (78-100) fL MCH (26-32) pg MCHC (32-36) g/dL RDW (11.5-14.0) % Plt Count (150-450) x10^3/uL MPV (7.5-11.0) fL Sodium (137-145) mmol/L Potassium (3.5-5.1) mmol/L Chloride (98-107) mmol/L Carbon Dioxide (22-30) mmol/L Anion Gap (5-15) MEQ/L BUN (7-17) mg/dL Creatinine (0.52-1.04) mg/dL Estimated GFR ML/MIN Glucose (74-106) mg/dL Calcium (8.4-10.2) mg/dL Magnesium 1.7 (1.6-2.3) mg/dL Total Bilirubin (0.2-1.3) mg/dL AST (14-36) U/L ALT (0-35) U/L Alkaline Phosphatase (38-126) U/L Serum Total Protein (6.3-8.2) g/dL Albumin (3.5-5.0) g/dL Radiology Exams: Radiology Procedures Category Date Time Status CHEST 1 VIEW (PORTABLE) Urgent Exams 09/12/23 11:57 Completed Multi-Disciplinary Progress Notes: Multi-Disciplinary Progress Notes 09/13/23 10:54 Physical Therapy Note by Leticia(Barak#[id number])Fabiola PT. WAS SEEN BY P.T. THIS A.M. REPORTS SHE IS FEELING MUCH BETTER. REPORTS SLIGHT FATIGUES SHE DID NOT SLEEP WELL. ENJOYED HER BREAKFAST. PT. AGREEABLE TO P.T. IN BED UPON P.T. ARRIVAL TO ROOM. PT. PERFORMED LE EX'S IN SUPINE OF ANKLE PUMPS, QUAD SETS, SLRS, AND HEEL SLIDES. PERFORMED SUPINE TO SIT W/ MIN ASSIST W/ HOB ELEVATED. NOTED DIZZINESS W/ POSITION CHANGE THAT SUBSIDED QUICKL Y. PT. PERFORMED SIT TO STAND W/ CGA-MIN. AMBULATED ~ 25' W/ RW AND CGA. CONT. W/ VERY SLOW PACE. ABLE TO NEGOTIATE TURN W/ CGA-MIN ASSIST. O2 SATS 95% ON RA. PT. TRANSFERRED TO BEDSIDE RECLINER W/ CHAIR ALARM AND CALL LIGHT IN REACH. WILL CONT. P.T. 5X/WK TO ADDRESS WEAKNESS AND FUNCTIONAL DEFICITS UNTIL D/C TO PREP FOR REHAB STAY. AWAITING PA FOR SNF STAY. Initialized on 09/13/23 10:54 - END OF NOTE 09/13/23 10:13 Case Management Note by Barbra Mahmood S/W RADHA AT [facility]- THEY HAVE A VAN THAT CAN BE ARRANGED TO [place]E GET THE [place]IENT [place]. IF THEY GET AUTH OVER THE WEEKEND RADHA WILL ARRANGE THE VAN AND CALL NIKOLAY (SWAPNA FLIGHT KITCHEN MANAGER) WITH THE INFORMATION. FAMILY FRIEND DEANGELO MOREL UPDATED. SHE WOULD BE A BACKUP IF THE [place] VAN ABSOLUTELY DOES NOT WORK OUT. HE PHONE NUMBER AGAIN IS [phone] Initialized on 09/13/23 10:13 - END OF NOTE Assessment/Plan (1) Dehydration Current Visit: Yes Status: Acute Assessment & Plan: - 2:2 N/V, mono sxs - IV fluids - trend labs - anion gap 18 09/12 - gap WNL - stop IV fluids - resolved Code(s): E86.0 - DEHYDRATION (2) Nausea and vomiting Current Visit: Yes Status: Acute Assessment & Plan: - Zofran or compazine PRN - IV fluids -Pantoprazole 09/12 - resolved - advanced diet and now eating regular diet. Code(s): R11.2 - NAUSEA WITH VOMITING, UNSPECIFIED (3) Acute on chronic renal failure Current Visit: Yes Status: Acute Assessment & Plan: - 2:2 Vomiting/ dehydration - IV fluids - trend labs - Creat 1.14, baseline 0.91 - BUN 75, GRF 47.7 - Follows Dr. Greer- nephrology - hold torsemide and spironlactone tonight- if labs improve continue in AM 09/12 - restart spironlactone - Cont to hold torsemide due to hypokalemia 09/13 - at baseline - continue to hold torsemide Code(s): N17.9 - ACUTE KIDNEY FAILURE, UNSPECIFIED; N18.9 - CHRONIC KIDNEY DISEASE, UNSPECIFIED (4) Hyponatremia Current Visit: Yes Status: Acute Assessment & Plan: - Mild - Na+ 130 - Start D5 NS @ 130 ml/hr - repeat sodium Q6 09/12 - Na+ improved 134 09/13 - Na+ 133 09/14/23 - Na+ 129- mild - will restart IV fluids Code(s): E87.1 - HYPO-OSMOLALITY AND HYPONATREMIA (5) Mononucleosis Current Visit: Yes Status: Acute Assessment & Plan: + lab test in ER - supportive care Code(s): B27.90 - INFECTIOUS MONONUCLEOSIS, UNSPECIFIED WITHOUT COMPLICATION (6) Hypokalemia Current Visit: Yes Status: Acute Assessment & Plan: - K+ 2.0 on admission - Replaced in ER - recheck Q 4 hours - 2:2 dehydration - Tele 09/12 - Continued - Potassium replacement protocol 09/13 - K+3.4- replaced 09/14 - K+ 2.7 -potassium replacement protocol started - IV fluids with potassium started Code(s): E87.6 - HYPOKALEMIA (7) UTI (urinary tract infection) Current Visit: No Status: Suspected Qualifiers: Assessment & Plan: - Rocephin started in ER- continue - UC pending 09/12 - 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 09/13 - restarted home Mg+ - trend labs Code(s): E83.41 - HYPERMAGNESEMIA (10) Constipation Current Visit: Yes Status: Acute Assessment & Plan: - Docusate BID - MOM added 09/14 - Pt refuses Miralax and suppositories Code status: DNR PPI: pantoprazole VTE:Pradaxa Next of kin: Mara Stevothea [phone] D/C plan: tomorrow Code(s): K59.00 - CONSTIPATION, UNSPECIFIED
[2023-09-14] MEDS ORDERED: MILK OF MAGNESIA 30 ML PO PRN (10:07)
[2023-09-14] MEDS: DEXTROSE 5% -NACL 0.9% 1000 ML + KCl 20 MEQ 1,000 ML IV SCH (10:20)
[2023-09-14] MEDS: Klor Con PO SCH ×4 (10:20→15:56)
[2023-09-14] MEDS: POTASSIUM CHLORIDE 20 mEq IN WATER 100ML 100 ML IV SCH ×2 (10:21→12:09)
[2023-09-14] MEDS: Zofran 4 MG/2 ML VIAL IV PRN (11:58)
[2023-09-14 16:01] VITALS: PULSE 60
[2023-09-14] MEDS ORDERED: Klor Con PO ONE (16:48)
[2023-09-14] MEDS: Zocor 10MG PO SCH (21:42)
[2023-09-14] MEDS: Mirapex 0.5 MG Tablet PO SCH (21:42)
[2023-09-15] MEDS: Zofran 4 MG/2 ML VIAL IV PRN (00:05)
[2023-09-15] MEDS: DEXTROSE 5% -NACL 0.9% 1000 ML + KCl 20 MEQ 1,000 ML IV SCH (03:13)
[2023-09-15 05:39] LABS: Hematocrit 41.3 % (35-47); Hemoglobin 13.3 g/dL (12.0-16.0); Mean Corpuscular Hemoglobin 29.6 pg (26-32); Mean Corpuscular Hgb Concent. 32.2 g/dL (32-36); Platelet Count 184 x10^3/uL (150-450); Red Blood Count 4.49 x10^6/uL (4.1-5.4); White Blood Count 9.3 x10^3/uL (4.0-10.5)
[2023-09-15 06:18] LABS: ALBUMIN 3.5 g/dL (3.5-5.0); ALKALINE PHOSPHATASE 109 U/L (38-126); ANION GAP 8.7 MEQ/L (5-15); BLOOD UREA NITROGEN 29 mg/dL (7-17); CHLORIDE 94 mmol/L (98-107); Calcium 8.6 mg/dL (8.4-10.2); Carbon Dioxide 35 mmol/L (22-30); Creatinine 1 0.91 mg/dL (0.52-1.04); EST GLOMERULAR FILTRATION RATE > 60.0 ML/MIN; Glucose 119 mg/dL (74-106); Potassium 3.1 mmol/L (3.5-5.1); SGOT/AST 28 U/L (14-36); SGPT/ALT 19 U/L (0-35); SODIUM 135 mmol/L (137-145); Total Protein 6.7 g/dL (6.3-8.2)
[2023-09-15] MEDS ORDERED: Klor Con PO ONE (08:00)
[2023-09-15] MEDS: FEOSOL 325 MG PO SCH (09:51)
[2023-09-15] MEDS: Toprol-Xl 25MG Tablets PO SCH (09:51)
[2023-09-15] MEDS: MYRBETRIQ PO SCH (09:51)
[2023-09-15] MEDS: PRADAXA 75 MG PO SCH (09:52)
[2023-09-15] MEDS: Aldactone 25 MG PO SCH (09:52)
[2023-09-15] MEDS: ZOLOFT 50 MG TABLET PO SCH (09:52)
[2023-09-15] MEDS: ROCEPHIN 1 Gm-D5w 50 ml Bag** 1 G/50 ML IVPB IV SCH (09:52)
[2023-09-15] MEDS: SYNTHROID 75 MCG PO SCH (09:52)
[2023-09-15] MEDS: DEMADEX 20 MG PO SCH (09:52)
[2023-09-15] MEDS: MAG-OX 400 PO SCH (09:52)
[2023-09-15] MEDS: Docusate Sodium 100 MG PO SCH (09:52)
[2023-09-15] MEDS: THERAGRAN MULTIVITAMIN PO SCH (09:52)
--- NOTE | 2023-09-15 10:16 | PCM.DS ---
Discharge Summary Date of Admission: 09/11/23 15:30 Date of Discharge: 09/15/23 Admitting Physician: ANGEL OROZCO MD Primary Care Provider: MOE PRINCE Allergies Allergies cortisone [Cortisone] Allergy (Verified 09/11/23 12:20) "affected breathing and heart" latex Allergy (Verified 09/11/23 12:20) polyethylene glycol [From Golytely] Allergy (Verified 09/11/23 12:20) vomiting and nasuea polyethylene glycol 3350 [From Golytely] Allergy (Verified 09/11/23 12:20) vomiting and nasuea sodium [From Golytely] Allergy (Verified 09/11/23 12:20) vomiting and nasuea sodium bicarbonate [From Golytely] Allergy (Verified 09/11/23 12:20) vomiting and nasuea sodium chloride [From Golytely] Allergy (Verified 09/11/23 12:20) vomiting and nasuea sodium sulfate [From Golytely] Allergy (Verified 09/11/23 12:20) vomiting and nasuea sodium sulfate anhydrous [From Golytely] Allergy (Verified 09/11/23 12:20) vomiting and nasuea acetaminophen [From Vicodin] Adverse Reaction (Verified 09/11/23 12:20) hydrocodone bitartrate [From Vicodin] Adverse Reaction (Verified 09/11/23 12:20) Hospital Summary - Hospital Course Hospital Course: 09/11/23 is a 87 year old female with PMHX of Patient hyperlipidemia, hypothyroidism, coronary artery disease/CABG, asthma, COPD, gastroesophageal reflux disease, and renal disease. She is not on dialysis. She is a pt of Dr. 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 She presented to the emergency department by ambulance with Nausea, vomiting, and weakness over the last 2 days. She has been unable to hold liquids down. She has been unable to take her medication. Patient denies abdominal pain. She denies CP, SOB, or diarrhea. 09/12/23 Pt resting in bed. She explains she is feeling much better. No overnight N/V. She continues to be weak. She is agreeable to rehab stay OP at [facility]. KUB shows constipation. Stool softener started. KHUSHBOO improving. Continue Rocephin for UTI. She has advanced her diet and eating and drinking well. She continues to have hypokalemia and potassium replaced. She denies any related sxs. Denies CP, SOB, abd. pain, N/V/D today. 09/13/23 Pt is resting in bed. She is awaiting a bed at [facility] for rehab. She continues to have weakness. She is c/o some constipation today. Medication ordered. Will have PT evaluate pt today. KHUSHBOO has resolved. Liver function is normal. Continue Rocehin for UTI. She denies CP, SOB, abd. pain, N/V/D. 09/14/23 Pt sitting up in bed. She reports she has not had a BM yet with Colace and MOM that has been given. She explained Miralax does not work for her and she does not want any rectal medications. Will try warm appple and prune juice mix. She is eating and drinking well. She denies any stomach pain. She is still awaiting placement today for rehab. She denies any further concerns at [facility] time. 09/15 Pt sitting up in a chair. She reports she was able to have a BM and per nursing staff it was a hard stool. Potassium continues to be low and replaced. Pt is scheduled to be picked up for rehab by [facility]. Will D/C with daily potassium replacement for 4 days and it will need to be rechecked at the facility. She denies any further concerns at this time. - Vitals & Intake/Output Vital Signs: Vital Signs Temperature 97.5 F 09/15/23 06:44 Pulse Rate 60 09/15/23 06:44 Respiratory Rate 18 09/15/23 07:27 Blood Pressure 111/58 09/15/23 06:44 O2 Sat by Pulse Oximetry 95 09/15/23 06:44 Intake & Output: Intake & Output 09/12/23 09/13/23 09/14/23 09/15/23 11:59 11:59 11:59 11:59 Intake Total 300 2175 980 2495 Output Total 2650 1200 1100 Balance -2350 817 421 7759 Weight 48.5 kg 48.5 kg 47.9 kg - Lab Result Diagrams: 09/15/23 05:26 09/15/23 05:26 Lab Results-Last 24 Hrs: Lab Results-Last 24 Hours 09/14/23 09/14/23 09/15/23 Range/Units 09:49 16:19 05:26 WBC (4.0-10.5) x10^3/uL RBC (4.1-5.4) x10^6/uL Hgb (12.0-16.0) g/dL Hct (35-47) % MCV (78-100) fL MCH (26-32) pg MCHC (32-36) g/dL RDW (11.5-14.0) % Plt Count (150-450) x10^3/uL MPV (7.5-11.0) fL Sodium (137-145) mmol/L Potassium 3.4 L D (3.5-5.1) mmol/L Chloride (98-107) mmol/L Carbon Dioxide (22-30) mmol/L Anion Gap (5-15) MEQ/L BUN (7-17) mg/dL Creatinine (0.52-1.04) mg/dL Estimated GFR ML/MIN Glucose (74-106) mg/dL Calcium (8.4-10.2) mg/dL Magnesium 1.5 L 1.7 (1.6-2.3) mg/dL Total Bilirubin (0.2-1.3) mg/dL AST (14-36) U/L ALT (0-35) U/L Alkaline Phosphatase (38-126) U/L Serum Total Protein (6.3-8.2) g/dL Albumin (3.5-5.0) g/dL 09/15/23 09/15/23 Range/Units 05:26 05:26 WBC 9.3 (4.0-10.5) x10^3/uL RBC 4.49 (4.1-5.4) x10^6/uL Hgb 13.3 (12.0-16.0) g/dL Hct 41.3 (35-47) % MCV 92.0 (78-100) fL MCH 29.6 (26-32) pg MCHC 32.2 (32-36) g/dL RDW 14.0 (11.5-14.0) % Plt Count 184 (150-450) x10^3/uL MPV 10.0 (7.5-11.0) fL Sodium 135 L (137-145) mmol/L Potassium 3.1 L (3.5-5.1) mmol/L Chloride 94 L (98-107) mmol/L Carbon Dioxide 35 H (22-30) mmol/L Anion Gap 8.7 (5-15) MEQ/L BUN 29 H (7-17) mg/dL Creatinine 0.91 (0.52-1.04) mg/dL Estimated GFR > 60.0 ML/MIN Glucose 119 H (74-106) mg/dL Calcium 8.6 (8.4-10.2) mg/dL Magnesium (1.6-2.3) mg/dL Total Bilirubin 0.50 (0.2-1.3) mg/dL AST 28 (14-36) U/L ALT 19 (0-35) U/L Alkaline Phosphatase 109 (38-126) U/L Serum Total Protein 6.7 (6.3-8.2) g/dL Albumin 3.5 (3.5-5.0) g/dL Micro Results-Entire Visit: Microbiology 09/11/23 12:20 Urine Culture - Final Clean Catch Midstream Escherichia Coli - Procedures and Test Procedures and Tests throughout Hospitalization: Therapy Orders & Screens 09/11/23 16:25 PT Eval & Treat (MD Order) ONCE Reason for Eval:: weakness r/t N/V Diagnosis: n/v 09/13/23 10:57 PT Eval & Treat (MD Order) ONCE Reason for Eval:: eval and treat weakness Diagnosis: N/V, HYPOKALEMIA, HYPONATREMIA, HYPOVOLEMIA R/T N/V Discharge Exam General Appearance: no apparent distress, alert Neurologic Exam: alert, oriented x 3, cooperative, normal mood/affect, nml cerebellar function, sensation nml, No motor deficits Eye Exam: PERRL, EOMI, eyes nml inspection Ears, Nose, Throat Exam: normal ENT inspection, pharynx normal, moist mucous membranes Neck Exam: normal inspection, non-tender, supple, full range of motion Respiratory Exam: normal breath sounds, lungs clear, No respiratory distress Cardiovascular Exam: regular rate/rhythm, normal heart sounds Gastrointestinal/Abdomen Exam: soft, No tenderness, No mass Pelvic Exam: deferred Rectal Exam: deferred Back Exam: normal inspection, normal range of motion, No CVA tenderness, No vertebral tenderness Extremity Exam: normal inspection, normal range of motion Skin Exam: normal color, warm, dry Final Diagnosis/Problem List - Final Discharge Diagnosis/Problem (1) Dehydration Current Visit: Yes Status: Acute Code(s): E86.0 - DEHYDRATION (2) Nausea and vomiting Current Visit: Yes Status: Acute Code(s): R11.2 - NAUSEA WITH VOMITING, UNSPECIFIED (3) Acute on chronic renal failure Current Visit: Yes Status: Acute Code(s): N17.9 - ACUTE KIDNEY FAILURE, UNSPECIFIED; N18.9 - CHRONIC KIDNEY DISEASE, UNSPECIFIED (4) Hyponatremia Current Visit: Yes Status: Acute Code(s): E87.1 - HYPO-OSMOLALITY AND HYPONATREMIA (5) Mononucleosis Current Visit: Yes Status: Acute Code(s): B27.90 - INFECTIOUS MONONUCLEOSIS, UNSPECIFIED WITHOUT COMPLICATION (6) Hypokalemia Current Visit: Yes Status: Acute Code(s): E87.6 - HYPOKALEMIA (7) UTI (urinary tract infection) Current Visit: No Status: Suspected Code(s): N39.0 - URINARY TRACT INFECTION, SITE NOT SPECIFIED (8) Weakness Current Visit: Yes Status: Acute Code(s): R53.1 - WEAKNESS (9) Hypermagnesemia Current Visit: Yes Status: Acute Code(s): E83.41 - HYPERMAGNESEMIA (10) Constipation Current Visit: Yes Status: Acute Assessment & Plan: (1) Dehydration Current Visit: Yes Status: Acute Assessment & Plan: - 2:2 N/V, mono sxs - IV fluids - trend labs - anion gap 18 09/12 - gap WNL - stop IV fluids - resolved Code(s): E86.0 - DEHYDRATION (2) Nausea and vomiting Current Visit: Yes Status: Acute Assessment & Plan: - Zofran or compazine PRN - IV fluids -Pantoprazole 09/12 - resolved - advanced diet and now eating regular diet. Code(s): R11.2 - NAUSEA WITH VOMITING, UNSPECIFIED (3) Acute on chronic renal failure Current Visit: Yes Status: Acute Assessment & Plan: - 2:2 Vomiting/ dehydration - IV fluids - trend labs - Creat 1.14, baseline 0.91 - BUN 75, GRF 47.7 - Follows Dr. Greer- nephrology - hold torsemide and spironlactone tonight- if labs improve continue in AM 09/12 - restart spironlactone - Cont to hold torsemide due to hypokalemia 09/13 - at baseline - continue to hold torsemide 09/15 - Continue home meds Code(s): N17.9 - ACUTE KIDNEY FAILURE, UNSPECIFIED; N18.9 - CHRONIC KIDNEY DISEASE, UNSPECIFIED (4) Hyponatremia Current Visit: Yes Status: Acute Assessment & Plan: - Mild - Na+ 130 - Start D5 NS @ 130 ml/hr - repeat sodium Q6 09/12 - Na+ improved 134 09/13 - Na+ 133 09/14/23 - Na+ 129- mild - will restart IV fluids 09/15 - improved with IVF Na+ 135 Code(s): E87.1 - HYPO-OSMOLALITY AND HYPONATREMIA (5) Mononucleosis Current Visit: Yes Status: Acute Assessment & Plan: + lab test in ER - supportive care Code(s): B27.90 - INFECTIOUS MONONUCLEOSIS, UNSPECIFIED WITHOUT COMPLICATION (6) Hypokalemia Current Visit: Yes Status: Acute Assessment & Plan: - K+ 2.0 on admission - Replaced in ER - recheck Q 4 hours - 2:2 dehydration - Tele 09/12 - Continued - Potassium replacement protocol 09/13 - K+3.4- replaced 09/14 - K+ 2.7 -potassium replacement protocol started - IV fluids with potassium started 09/15 - Continue PO K+ OP and will need f/u labs done at [facility] Code(s): E87.6 - HYPOKALEMIA (7) UTI (urinary tract infection) Current Visit: No Status: Suspected Qualifiers: Assessment & Plan: - Rocephin started in ER- continue - UC pending 09/12 - 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 09/13 - restarted home Mg+ - trend labs Code(s): E83.41 - HYPERMAGNESEMIA (10) Constipation Current Visit: Yes Status: Acute Assessment & Plan: - Docusate BID - MOM added 09/14 - Pt refuses Miralax and suppositories 09/15 - resolved Code(s): K59.00 - CONSTIPATION, UNSPECIFIED - Discharge Discharge Date: 09/15/23 ([facility]) Disposition: XFER OTHER Condition: Stable Prescriptions: New Docusate Sodium 100 mg [Docusate Sodium 100 MG] 100 mg PO BID 30 Days #60 cap Potassium Chloride Tab* [Klor Con] 20 meq PO BID 4 Days #8 tablet Continue Dabigatran Etexilate Mesylate [Pradaxa] 75 mg PO BID Pramipexole Di-HCl [Pramipexole Dihydrochloride] 0.25 mg PO HS Magnesium Oxide 400 mg PO DAILY Ferrous Sulfate 325 mg PO BID Multivitamin/Iron/Folic Acid [Centrum Complete Multivit Tab] 1 each PO DAILY Simvastatin 10 mg [Zocor 10MG] 10 mg PO HS Sertraline HCl 50 mg [Zoloft 50 mg Tablet] 50 mg PO DAILY Levothyroxine Sodium 75 Mcg [Synthroid 75 Mcg] 75 mcg PO DAILY Metoprolol Succinate 25 mg PO DAILY Mirabegron [Myrbetriq] 50 mg PO DAILY Potassium Chloride 20 meq PO DAILY Torsemide [Soaanz] 20 mg PO BID Spironolactone 25 mg [Aldactone 25 MG] 25 mg PO BID Sildenafil Citrate 20 mg PO TID Additional Instructions: [facility] ORDERS: REGULAR DIET SEE ATTACHED MED LIST FOR CURRENT MED ORDERS PT/OT EVAL AND TREAT Follow up with: MOE PRINCE [Primary Care Provider] -
--- NOTE | 2023-09-15 10:51 | PCM.DCORD ---
- Discharge Disposition: XFER OTHER Condition: Stable Prescriptions: New Docusate Sodium 100 mg [Docusate Sodium 100 MG] 100 mg PO BID 30 Days #60 cap Potassium Chloride Tab* [Klor Con] 20 meq PO BID 4 Days #8 tablet Ondansetron ODT 4 MG [Zofran Odt 4 mg] 4 mg PO Q6H PRN PRN #10 tablet PRN Reason: Nausea Continue Dabigatran Etexilate Mesylate [Pradaxa] 75 mg PO BID Pramipexole Di-HCl [Pramipexole Dihydrochloride] 0.25 mg PO HS Magnesium Oxide 400 mg PO DAILY Ferrous Sulfate 325 mg PO BID Multivitamin/Iron/Folic Acid [Centrum Complete Multivit Tab] 1 each PO DAILY Simvastatin 10 mg [Zocor 10MG] 10 mg PO HS Sertraline HCl 50 mg [Zoloft 50 mg Tablet] 50 mg PO DAILY Levothyroxine Sodium 75 Mcg [Synthroid 75 Mcg] 75 mcg PO DAILY Metoprolol Succinate 25 mg PO DAILY Mirabegron [Myrbetriq] 50 mg PO DAILY Potassium Chloride 20 meq PO DAILY Torsemide [Soaanz] 20 mg PO BID Spironolactone 25 mg [Aldactone 25 MG] 25 mg PO BID Sildenafil Citrate 20 mg PO TID Additional Instructions: [facility] ORDERS: REGULAR DIET SEE ATTACHED MED LIST FOR CURRENT MED ORDERS PT/OT EVAL AND TREAT Follow up with: MOE PRINCE [Primary Care Provider] - Call for Appointment
[2023-09-15 11:45] VITALS: BP 136/66; TEMP 98; O2SAT 96
[2023-09-15 12:01] VITALS: RESP 16
[2023-09-15] MEDS ORDERED: Klor Con PO SCH (22:00)
[2023-09-18] MEDS ORDERED: Fosamax 70 MG PO SCH (10:00)
== END 2023-09-15 13:55 ==
LOC: ED 12:02 → INTOOBSV 15:30 → MED SURG 15:30
PROVIDERS: ADMIT Internal Medicine; ATTEND Internal Medicine
DX: E86.0 Dehydration (principal); R11.2 Nausea with vomiting, unspecified; N17.9 Acute kidney failure, unspecified; I12.9 Hypertensive chronic kidney disease with stage 1 through stage 4 chronic kidney disease, or unspecified chronic kidney disease; N18.9 Chronic kidney disease, unspecified; E87.1 Hypo-osmolality and hyponatremia; B27.90 Infectious mononucleosis, unspecified without complication; E87.6 Hypokalemia; N39.0 Urinary tract infection, site not specified; R53.1 Weakness; I25.10 Atherosclerotic heart disease of native coronary artery without angina pectoris; E78.5 Hyperlipidemia, unspecified; E83.41 Hypermagnesemia; E03.9 Hypothyroidism, unspecified; K59.00 Constipation, unspecified; Z79.899 Other long term (current) drug therapy; Z20.828 Contact with and (suspected) exposure to other viral communicable diseases; Z95.1 Presence of aortocoronary bypass graft
CPT/HCPCS: 0241U; 36000; 36415; 71045; 74018; 80053; 81001; 82150; 83690; 83735; 83880; 84132; 84484; 85025; 85027; 86308; 87077; 87086; 87186; 93005; 93268; 96360; 96365; 96367; 96374; 97110; 97161; 99285; 99291; G0378; Q3014; J0696; J2405; J3480; A9270-GY

== ENCOUNTER 2023-10-17 16:13 | Observation (INO) | payer MEDICARE ==
--- NOTE | 2023-10-17 16:22 | ERPHSYRPT ---
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 Patient takes supplemental magnesium and potassium. The potassium she takes is 20 mEq daily. Patient has multiple medical problems including CHF, hyperlipidemia, hypertension, hypothyroidism, chronic anemia, atrial fibrillation, COPD, coronary artery disease (CABG in the past) gastroesophageal reflux disease and chronic renal disease. She had a pulmonary embolus in the past and DVT in the past. She is on Pradaxa. Other than feeling tired, patient has no pain complaints. Timing/Duration: today Severity: mild Associated Symptoms: denies symptoms, other (Mild fatigue) Allergies/Adverse Reactions: cortisone [Cortisone] Allergy (Verified 10/17/23 16:22) "affected breathing and heart" latex Allergy (Verified 10/17/23 16:22) polyethylene glycol [From Golytely] Allergy (Verified 10/17/23 16:22) vomiting and nasuea polyethylene glycol 3350 [From Golytely] Allergy (Verified 10/17/23 16:22) vomiting and nasuea sodium [From Golytely] Allergy (Verified 10/17/23 16:22) vomiting and nasuea sodium bicarbonate [From Golytely] Allergy (Verified 10/17/23 16:22) vomiting and nasuea sodium chloride [From Golytely] Allergy (Verified 10/17/23 16:22) vomiting and nasuea sodium sulfate [From Golytely] Allergy (Verified 10/17/23 16:22) vomiting and nasuea sodium sulfate anhydrous [From Golytely] Allergy (Verified 10/17/23 16:22) vomiting and nasuea acetaminophen [From Vicodin] Adverse Reaction (Verified 10/17/23 16:22) hydrocodone bitartrate [From Vicodin] Adverse Reaction (Verified 10/17/23 16:22) Home Medications: Dabigatran Etexilate Mesylate [Pradaxa] 75 mg PO BID 09/15/22 [History] Ferrous Sulfate 325 mg PO BID 09/15/22 [History] Levothyroxine Sodium 75 Mcg [Synthroid 75 Mcg] 75 mcg PO DAILY 09/15/22 [History] Magnesium Oxide 400 mg PO DAILY 09/15/22 [History] Multivitamin/Iron/Folic Acid [Centrum Complete Multivit Tab] 1 each PO DAILY 09/15/22 [History] Pramipexole Di-HCl [Pramipexole Dihydrochloride] 0.25 mg PO HS 09/15/22 [History] Sertraline HCl 50 mg [Zoloft 50 mg Tablet] 50 mg PO DAILY 09/15/22 [History] Simvastatin 10 mg [Zocor 10MG] 10 mg PO HS 09/15/22 [History] Metoprolol Succinate 25 mg PO DAILY 10/24/22 [History] Mirabegron [Myrbetriq] 50 mg PO DAILY 10/24/22 [History] Potassium Chloride 20 meq PO DAILY 10/24/22 [History] Sildenafil Citrate 20 mg PO TID 10/24/22 [History] Spironolactone 25 mg [Aldactone 25 MG] 25 mg PO BID 10/24/22 [History] Torsemide [Soaanz] 20 mg PO BID 10/24/22 [History] Hx Tetanus, Diphtheria Vaccination/Date Given: Yes Hx Influenza Vaccination/Date Given: No Hx Pneumococcal Vaccination/Date Given: No Immunizations Up to Date: Yes Travel Risk - International Travel Have you traveled outside of the country in past 3 weeks: No - Coronavirus Screening Are you exhibiting any of the following symptoms?: No Close contact with a COVID-19 positive Pt in past 14-21 Days: No - Vaccine Status Have you recieved a Covid-19 vaccination: No - Review of Systems Constitutional: No Symptoms Eyes: No Symptoms Ears, Nose, & Throat: No Symptoms Respiratory: No Symptoms Cardiac: No Symptoms Abdominal/Gastrointestinal: No Symptoms Genitourinary Symptoms: No Symptoms Musculoskeletal: No Symptoms Skin: No Symptoms Neurological: No Symptoms Psychological: No Symptoms Endocrine: No Symptoms Hematologic/Lymphatic: No Symptoms Immunological/Allergic: No Symptoms All Other Systems: Reviewed and Negative - Past Medical History Pertinent Past Medical History: Yes Neurological History: Migraines ENT History: Cataracts Cardiac History: Arrhythmia, Coronary Artery Disease, Deep Vein Thrombosis, High Cholesterol Respiratory History: Asthma, COPD, Pulmonary Embolism, Sleep Apnea, Other Endocrine Medical History: Hypothyroidism Musculoskeletal History: Arthritis GI Medical History: GERD History: Renal Disease, Other Psycho-Social History: Depression Female Reproductive Disorders: No Pertinent History Other Medical History: 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 broke rt hip jul 2022 - Past Surgical History Past Surgical History: Yes Neuro Surgical History: No Pertinent History Cardiac: CABG Respiratory: No Pertinent History Gastrointestinal: Cholecystectomy Genitourinary: No Pertinent History Musculoskeletal: Orthopedic Surgery Female Surgical History: Hysterectomy Other Surgical History: HAND AND WRIST, bilateral hip replacements - Social History Smoking Status: Never smoker Exposure to second hand smoke: No Drug Use: none Patient Lives Alone: No - Nursing Vital Signs Nursing Vital Signs: Initial Vital Signs Temperature 97.4 F 10/17/23 16:19 Pulse Rate 99 H 10/17/23 16:19 Respiratory Rate 18 10/17/23 16:19 Blood Pressure 136/59 10/17/23 16:19 O2 Sat by Pulse Oximetry 98 10/17/23 16:19 Pain Scale Pain Intensity 0 - Physical Exam General Appearance: no apparent distress, alert, anxiety, cachetic, thin Eye Exam: PERRL/EOMI, eyes nml inspection Ears, Nose, Throat Exam: normal ENT inspection, moist mucous membranes Neck Exam: normal inspection, non-tender Respiratory Exam: normal breath sounds, lungs clear, airway intact, No chest tenderness, No respiratory distress Cardiovascular Exam: regular rate/rhythm, normal heart sounds, normal peripheral pulses Gastrointestinal/Abdomen Exam: soft, normal bowel sounds, No tenderness Pelvic Exam: not done Rectal Exam: not done Back Exam: normal inspection, normal range of motion, No CVA tenderness, No vertebral tenderness Extremity Exam: normal inspection, normal range of motion, pelvis stable Neurologic Exam: alert, oriented x 3, cooperative, 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 Short NE interval. No acute ischemic changes on today's twelve-lead EKG) Ordered Tests: Active Orders 24 hr Category Date Time Status EKG-ER Only STAT Care 10/17/23 17:18 Active IV Insertion STAT Care 10/17/23 17:18 Active Pulse Oximetry (ED) STAT Care 10/17/23 17:18 Active Telemetry q4h Care 10/17/23 17:43 Active CBC W DIFF Stat Lab 10/17/23 17:00 Completed CMP Stat Lab 10/17/23 17:00 Completed MAGNESIUM Stat Lab 10/17/23 17:00 Completed Transfer Order Routine Transfer 10/17/23 Ordered Medication Summary Generic Name Dose Route Start Last Admin Trade Name Freq PRN Reason Stop Dose Admin Potassium Chloride 20 meq in 100 mls @ 50 mls/hr 10/17/23 17:43 10/17/23 18:02 Potassium Chloride 20 Meq In Water 100ml IV 10/17/23 19:42 50 mls/hr STAT ONE Administration Sodium Chloride 500 mls @ 50 mls/hr 10/17/23 18:00 10/17/23 18:17 Sodium Chloride 0.9% 500 Ml IV 11/16/23 17:59 Not Given .Q10H JOYCE Sodium Chloride 1,000 mls @ 100 mls/hr 10/17/23 18:15 10/17/23 18:17 Sodium Chloride 0.9% 1000 Ml IV 11/16/23 18:14 100 mls/hr .Q10H JOYCE Administration Discontinued Medications Generic Name Dose Route Start Last Admin Trade Name Freq PRN Reason Stop Dose Admin Sodium Chloride Confirm 10/17/23 17:55 Sodium Chloride 0.9% 1000 Ml Administered 10/17/23 17:56 Dose 1,000 mls @ ud .ROUTE .STK-MED ONE Potassium Chloride Confirm 10/17/23 17:55 Potassium Chloride 20 Meq In Water 100ml Administered 10/17/23 17:56 Dose 100 mls @ ud IV .STK-MED ONE Potassium Chloride 20 meq 10/17/23 17:42 10/17/23 17:58 Potassium Chloride Tab 10 Meq Tab PO 10/17/23 17:43 20 meq STAT ONE Administration Potassium Chloride Confirm 10/17/23 17:55 Potassium Chloride Tab 10 Meq Tab Administered 10/17/23 17:56 Dose 20 meq PO .STK-MED ONE Lab/Rad Data: Laboratory Result Diagrams 10/17/23 17:00 10/17/23 17:00 Laboratory Results 10/17/23 10/17/23 Range/Units 17:00 17:00 WBC 5.4 (4.0-10.5) x10^3/uL RBC 4.19 (4.1-5.4) x10^6/uL Hgb 12.5 (12.0-16.0) g/dL Hct 38.7 (35-47) % MCV 92.4 (78-100) fL MCH 29.8 (26-32) pg MCHC 32.3 (32-36) g/dL RDW 14.1 H (11.5-14.0) % Plt Count 201 (150-450) x10^3/uL MPV 11.0 (7.5-11.0) fL Gran % 65.4 (36.0-66.0) % Immature Gran % (Auto) 0.6 H (0.00-0.4) % Nucleat RBC Rel Count 0.0 (0.00-0.1) % Eos # (Auto) 0.08 (0-0.5) x10^3/uL Immature Gran # (Auto) 0.03 (0.00-0.03) x10^3u/L Absolute Lymphs (auto) 0.89 L (1.0-4.6) x10^3/uL Absolute Monos (auto) 0.84 (0.0-1.3) x10^3/uL Absolute Nucleated RBC 0.00 (0.00-0.01) x10^3u/L Lymphocytes % 16.4 L (24.0-44.0) % Monocytes % 15.4 H (0.0-12.0) % Eosinophils % 1.5 (0.00-5.0) % Basophils % 0.7 (0.0-0.4) % Absolute Granulocytes 3.56 (1.4-6.9) x10^3/uL Basophils # 0.04 (0-0.4) x10^3/uL Sodium 137 (137-145) mmol/L Potassium 2.1 L* (3.5-5.1) mmol/L Chloride 86 L (98-107) mmol/L Carbon Dioxide 38 H (22-30) mmol/L Anion Gap 14.3 (5-15) MEQ/L BUN 41 H (7-17) mg/dL Creatinine 0.95 (0.52-1.04) mg/dL Estimated GFR 57.3 ML/MIN Glucose 121 H (74-106) mg/dL Calcium 9.6 (8.4-10.2) mg/dL Magnesium 2.3 (1.6-2.3) mg/dL Total Bilirubin 0.90 (0.2-1.3) mg/dL AST 38 H (14-36) U/L ALT 23 (0-35) U/L Alkaline Phosphatase 96 (38-126) U/L Serum Total Protein 7.8 (6.3-8.2) g/dL Albumin 4.1 (3.5-5.0) g/dL - Progress Progress: unchanged Progress Note: 10/17/23 18:11 This patient's medical issue is 1 of high complexity. Level of complexity in the work-up performed is based on review of the patient's past medical history, review the patient's medication list, review of the patient's drug allergy list, history present as and physical finds on examination. The work-up in this patient includes twelve-lead EKG, intravenous line placement, CBC, CMP, magnesium level. I reviewed the work-up results and interpreted them. Patient has hypokalemia. The level was 2.1. Patient is 87 years old and lives alone. I spoke communicated with Dr. Kee regarding this patient and the above history, physical findings, laboratory results. He accepts the patient to be placed in observation. Discussed with : Shelton Counseled pt/family regarding: lab results, diagnosis Medical Desision Making - Independent Historian Additional History obtained from: Right Of Way Agent/EMT - Discussion of managment Care discussed with:: hospitalist Reviewed:: Test results, Need for additional workup Agreed on:: Treatment plan, place in obs Will see patient: in hospital - Social Determinants of Health Limited access to: transportation - Diagnostic Testing Diagnostic test were ordered, analyzed, and reviewed by me: Yes - Risk of complications The pt has a high risk of morbidity or mortality based on: Decision regarding hospitilization or escalation of hosp level of care - Departure Departure Disposition: Observation Clinical Impression: Hypokalemia Condition: Stable Critical Care Time: No Referrals: MOE PRINCE [Primary Care Provider] - Follow up/PCP as directed
[2023-10-17 17:26] LABS: Absolute Neutrophil Ct (ANC) 3.56 x10^3/uL (1.4-6.9); BASOPHIL % 0.7 % (0.0-0.4); Basophil (Absolute #) 0.04 x10^3/uL (0-0.4); Eosinophil % 1.5 % (0.00-5.0); Eosinophil (Absolute #) 0.08 x10^3/uL (0-0.5); Hematocrit 38.7 % (35-47); Hemoglobin 12.5 g/dL (12.0-16.0); IMMATURE GRAN # 0.03 x10^3u/L (0.00-0.03); IMMATURE GRAN % 0.6 % (0.00-0.4); Lymphocyte (Absolute #) 0.89 x10^3/uL (1.0-4.6); Lymphocytes % 16.4 % (24.0-44.0); Mean Cell Volume 92.4 fL (78-100); Mean Corpuscular Hemoglobin 29.8 pg (26-32); Mean Corpuscular Hgb Concent. 32.3 g/dL (32-36); Monocyte (Absolute #) 0.84 x10^3/uL (0.0-1.3); Monocytes % 15.4 % (0.0-12.0); Neutrophil % 65.4 % (36.0-66.0); Platelet Count 201 x10^3/uL (150-450); Red Blood Count 4.19 x10^6/uL (4.1-5.4); Red Cell Distribution Width 14.1 % (11.5-14.0); White Blood Count 5.4 x10^3/uL (4.0-10.5)
[2023-10-17 17:31] LABS: ALBUMIN 4.1 g/dL (3.5-5.0); ANION GAP 14.3 MEQ/L (5-15); BILIRUBIN,TOTAL 0.9 mg/dL (0.2-1.3); Calcium 9.6 mg/dL (8.4-10.2); Creatinine 1 0.95 mg/dL (0.52-1.04); EST GLOMERULAR FILTRATION RATE 57.3 ML/MIN; MAGNESIUM 2.3 mg/dL (1.6-2.3); Total Protein 7.8 g/dL (6.3-8.2)
[2023-10-17 17:37] LABS: Potassium 2.1 mmol/L (3.5-5.1)
[2023-10-17] MEDS ORDERED: Klor Con PO ONE ×3 (17:42→20:03)
[2023-10-17] MEDS ORDERED: POTASSIUM CHLORIDE 20 mEq IN WATER 100ML 20 MEQ/100 ML BAG IV ONE ×2 (17:43→20:04)
[2023-10-17] MEDS ORDERED: POTASSIUM CHLORIDE 20 mEq IN WATER 100ML 100 ML IV ONE (17:55)
[2023-10-17] MEDS ORDERED: Sodium Chloride 0.9% 1000 ML 1,000 ML ONE (17:55)
[2023-10-17] MEDS: Sodium Chloride 0.9% 500 ML 500 ML IV SCH ×2 (18:01→18:17)
[2023-10-17] MEDS: Sodium Chloride 0.9% 1000 ML 1,000 ML IV SCH (18:17)
[2023-10-17] MEDS ORDERED: POTASSIUM CHLORIDE 20 mEq IN WATER 100ML 100 ML IV SCH (18:40)
[2023-10-17] MEDS ORDERED: Sodium Chloride 0.9% 1000 ML 1,000 ML IV SCH (18:40)
[2023-10-17] MEDS ORDERED: TYLENOL 325 MG PO PRN (18:40)
[2023-10-17] MEDS ORDERED: Zofran 4 MG/2 ML VIAL IV PRN (18:40)
[2023-10-17] MEDS: POTASSIUM CHLORIDE 20 mEq IN WATER 100ML 100 ML IV SCH ×2 (22:08→23:54)
[2023-10-17] MEDS ORDERED: ZOFRAN ODT 4 MG PO PRN (22:34)
--- NOTE | 2023-10-17 22:49 | PCM.HP ---
History of Present Illness - Chief Complaint Chief Complaint: Hypokalemia Date: 10/17/23 History of Present Illness: Ms. Brody is an 87 year-old female with COPD, HTN, HLD, CAD s/p CABG, CHF (unknown EF; unknown diastolic and/or systolic), hypothyroid, and a prior PE + DVT on dabigatran who presents with fatigue. She admits to ongoing fatigue for several days prompting labs to be drawn by her anatomic pathologist on 10/16 - her potassium resulted at 2.0 which then prompted her to be sent to the [place] ED. Upon arrival here, her laboratory data was remarkable for a K of 2.1. On my examination, she is resting comfortably denying any fevers, chills, nausea, vomiting, diarrhea, syncope, presyncope, visual changes, orthopnea, PND, odynophagia, dysphagia, chest pain, shortness of breath, belly pain, dysuria, hematuria, melena, hematochezia, or neurological changes. All other systems were reviewed and were negative. - Review of Systems Constitutional: No Fever, No Chills Eyes: No Symptoms Ears, Nose, & Throat: No Symptoms Respiratory: No Cough, No Short Of Breath Cardiac: No Chest Pain, No Edema, No Syncope Abdominal/Gastrointestinal: No Abdominal Pain, No Nausea, No Vomiting, No Diarrhea Genitourinary Symptoms: No Dysuria Musculoskeletal: No Back Pain, No Neck Pain Skin: No Rash Neurological: No Dizziness, No Focal Weakness, No Sensory Changes Psychological: No Symptoms Endocrine: No Symptoms Hematologic/Lymphatic: No Symptoms Immunological/Allergic: No Symptoms Medications & Allergies Home Medications: Home Medication List Dabigatran Etexilate Mesylate [Pradaxa] 75 mg PO BID 09/15/22 [History Confirmed 10/17/23] Ferrous Sulfate 325 mg PO BID 09/15/22 [History Confirmed 10/17/23] Levothyroxine Sodium 75 Mcg [Synthroid 75 Mcg] 75 mcg PO DAILY 09/15/22 [History Confirmed 10/17/23] Magnesium Oxide 400 mg PO DAILY 09/15/22 [History Confirmed 10/17/23] Multivitamin/Iron/Folic Acid [Centrum Complete Multivit Tab] 1 each PO DAILY 09/15/22 [History Confirmed 10/17/23] Pramipexole Di-HCl [Pramipexole Dihydrochloride] 0.25 mg PO HS 09/15/22 [History Confirmed 10/17/23] Sertraline HCl 50 mg [Zoloft 50 mg Tablet] 50 mg PO DAILY 09/15/22 [History Confirmed 10/17/23] Simvastatin 10 mg [Zocor 10MG] 10 mg PO HS 09/15/22 [History Confirmed 10/17/23] Metoprolol Succinate 25 mg PO DAILY 10/24/22 [History Confirmed 10/17/23] Mirabegron [Myrbetriq] 50 mg PO DAILY 10/24/22 [History Confirmed 10/17/23] Potassium Chloride 20 meq PO DAILY 10/24/22 [History Confirmed 10/17/23] Sildenafil Citrate 20 mg PO TID 10/24/22 [History Confirmed 10/17/23] Spironolactone 25 mg [Aldactone 25 MG] 25 mg PO BID 10/24/22 [History Confirmed 10/17/23] Torsemide [Soaanz] 20 mg PO BID 10/24/22 [History Confirmed 10/17/23] Docusate Sodium 100 mg [Docusate Sodium 100 MG] 100 mg PO BID 30 Days #60 cap 09/15/23 [Rx Confirmed 10/17/23] Ondansetron ODT 4 MG [Zofran Odt 4 mg] 4 mg PO Q6H PRN PRN #10 tablet 09/15/23 [Rx Confirmed 10/17/23] Omeprazole 20 mg PO DAILY 10/17/23 [History Confirmed 10/17/23] Vibegron [Gemtesa] 75 mg PO DAILY 10/17/23 [History Confirmed 10/17/23] Allergies/Adverse Reactions: Allergies Allergy/AdvReac Type Severity Reaction Status Date / Time cortisone [Cortisone] Allergy "affected Verified 10/17/23 16:22 breathing and heart" latex Allergy Verified 10/17/23 16:22 polyethylene glycol Allergy vomiting Verified 10/17/23 16:22 [From Golytely] and nasuea polyethylene glycol 3350 Allergy vomiting Verified 10/17/23 16:22 [From Golytely] and nasuea sodium [From Golytely] Allergy vomiting Verified 10/17/23 16:22 and nasuea sodium bicarbonate Allergy vomiting Verified 10/17/23 16:22 [From Golytely] and nasuea sodium chloride Allergy vomiting Verified 10/17/23 16:22 [From Golytely] and nasuea sodium sulfate Allergy vomiting Verified 10/17/23 16:22 [From Golytely] and nasuea sodium sulfate anhydrous Allergy vomiting Verified 10/17/23 16:22 [From Golytely] and nasuea acetaminophen [From Vicodin] AdvReac Verified 10/17/23 16:22 hydrocodone bitartrate AdvReac Verified 10/17/23 16:22 [From Vicodin] - Past Medical History Past Medical History: Yes Neurological History: Migraines ENT History: Cataracts Cardiac History: Arrhythmia, Coronary Artery Disease, Deep Vein Thrombosis, High Cholesterol, Hypertension Respiratory History: Asthma, COPD, Pulmonary Embolism, Other Endocrine Medical History: Hypothyroidism Musculoskelatal History: Arthritis GI Medical History: GERD History: Renal Disease, Other Pyscho-Social History: Depression Reproductive Disorders: No Pertinent History Comment: 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 broke rt hip jul 2022 - Female History Are you now?: No - Past Surgical History Past Surgical History: Yes Neuro Surgical History: No Pertinent History Cardiac History: CABG Respiratory Surgery: No Pertinent History GI Surgical History: Cholecystectomy Genitourinary Surgical Hx: No Pertinent History Musculskeletal Surgical Hx: Orthopedic Surgery Female Surgical History: Hysterectomy Other Surgical History: HAND AND WRIST, bilateral hip replacements, tumor in aorta (2008) - Social History Smoking Status: Never smoker Exposure to second hand smoke: No Alcohol: None Drug Use: none - Physical Exam Vital Signs: Vital Signs - 24 hr Temp Pulse Resp BP Pulse Ox 10/17/23 21:43 63 16 96 10/17/23 20:21 97.4 F 66 16 127/58 98 10/17/23 20:00 16 10/17/23 19:53 97.4 F 66 127/58 98 10/17/23 18:21 98 10/17/23 18:14 66 18 127/58 97 10/17/23 16:19 97.4 F 99 H 18 136/59 98 General Appearance: no apparent distress, alert Neurologic Exam: alert, oriented x 3, cooperative, normal mood/affect, nml cerebellar function, nml station & gait, sensation nml, No motor deficits Eye Exam: PERRL/EOMI, eyes nml inspection Ears, Nose, Throat Exam: normal ENT inspection, TMs normal, pharynx normal, moist mucous membranes Neck Exam: normal inspection, non-tender, supple, full range of motion Respiratory Exam: normal breath sounds, lungs clear, No respiratory distress Cardiovascular Exam: regular rate/rhythm, normal heart sounds, normal peripheral pulses Gastrointestinal/Abdomen Exam: soft, normal bowel sounds, No tenderness, No mass Back Exam: normal inspection, normal range of motion, No CVA tenderness, No vertebral tenderness Extremity Exam: normal inspection, normal range of motion, pelvis stable Skin Exam: normal color, warm, dry, No rash Lymphatic Exam: No adenopathy Results - Labs Lab/Micro Results: Lab Results-Last 24 Hours 10/17/23 10/17/23 10/17/23 Range/Units 17:00 17:00 19:09 WBC 5.4 (4.0-10.5) x10^3/uL RBC 4.19 (4.1-5.4) x10^6/uL Hgb 12.5 (12.0-16.0) g/dL Hct 38.7 (35-47) % MCV 92.4 (78-100) fL MCH 29.8 (26-32) pg MCHC 32.3 (32-36) g/dL RDW 14.1 H (11.5-14.0) % Plt Count 201 (150-450) x10^3/uL MPV 11.0 (7.5-11.0) fL Gran % 65.4 (36.0-66.0) % Immature Gran % (Auto) 0.6 H (0.00-0.4) % Nucleat RBC Rel Count 0.0 (0.00-0.1) % Eos # (Auto) 0.08 (0-0.5) x10^3/uL Immature Gran # (Auto) 0.03 (0.00-0.03) x10^3u/L Absolute Lymphs (auto) 0.89 L (1.0-4.6) x10^3/uL Absolute Monos (auto) 0.84 (0.0-1.3) x10^3/uL Absolute Nucleated RBC 0.00 (0.00-0.01) x10^3u/L Lymphocytes % 16.4 L (24.0-44.0) % Monocytes % 15.4 H (0.0-12.0) % Eosinophils % 1.5 (0.00-5.0) % Basophils % 0.7 (0.0-0.4) % Absolute Granulocytes 3.56 (1.4-6.9) x10^3/uL Basophils # 0.04 (0-0.4) x10^3/uL Sodium 137 (137-145) mmol/L Potassium 2.1 L* 2.1 L* (3.5-5.1) mmol/L Chloride 86 L (98-107) mmol/L Carbon Dioxide 38 H (22-30) mmol/L Anion Gap 14.3 (5-15) MEQ/L BUN 41 H (7-17) mg/dL Creatinine 0.95 (0.52-1.04) mg/dL Estimated GFR 57.3 ML/MIN Glucose 121 H (74-106) mg/dL Calcium 9.6 (8.4-10.2) mg/dL Magnesium 2.3 (1.6-2.3) mg/dL Total Bilirubin 0.90 (0.2-1.3) mg/dL AST 38 H (14-36) U/L ALT 23 (0-35) U/L Alkaline Phosphatase 96 (38-126) U/L Serum Total Protein 7.8 (6.3-8.2) g/dL Albumin 4.1 (3.5-5.0) g/dL 10/17/23 Range/Units 19:26 WBC (4.0-10.5) x10^3/uL RBC (4.1-5.4) x10^6/uL Hgb (12.0-16.0) g/dL Hct (35-47) % MCV (78-100) fL MCH (26-32) pg MCHC (32-36) g/dL RDW (11.5-14.0) % Plt Count (150-450) x10^3/uL MPV (7.5-11.0) fL Gran % (36.0-66.0) % Immature Gran % (Auto) (0.00-0.4) % Nucleat RBC Rel Count (0.00-0.1) % Eos # (Auto) (0-0.5) x10^3/uL Immature Gran # (Auto) (0.00-0.03) x10^3u/L Absolute Lymphs (auto) (1.0-4.6) x10^3/uL Absolute Monos (auto) (0.0-1.3) x10^3/uL Absolute Nucleated RBC (0.00-0.01) x10^3u/L Lymphocytes % (24.0-44.0) % Monocytes % (0.0-12.0) % Eosinophils % (0.00-5.0) % Basophils % (0.0-0.4) % Absolute Granulocytes (1.4-6.9) x10^3/uL Basophils # (0-0.4) x10^3/uL Sodium (137-145) mmol/L Potassium (3.5-5.1) mmol/L Chloride (98-107) mmol/L Carbon Dioxide (22-30) mmol/L Anion Gap (5-15) MEQ/L BUN (7-17) mg/dL Creatinine (0.52-1.04) mg/dL Estimated GFR ML/MIN Glucose (74-106) mg/dL Calcium (8.4-10.2) mg/dL Magnesium 2.2 (1.6-2.3) mg/dL Total Bilirubin (0.2-1.3) mg/dL AST (14-36) U/L ALT (0-35) U/L Alkaline Phosphatase (38-126) U/L Serum Total Protein (6.3-8.2) g/dL Albumin (3.5-5.0) g/dL - Other Procedures and Tests Respiratory Therapy 10/17/23 18:40 EKG REPEAT IN AM 10/17/23 21:42 Oxygen Nasal Cannula 3 lpm Assessment/Plan (1) Hypokalemia Current Visit: Yes Status: Acute Assessment & Plan: ASSESSMENT 1. Fatigue 2. Hypokalemia 3. Coronary Artery Disease s/p CABG 4. Unspecified Congestive Heart Failure 5. Chronic Obstructive Pulmonary Disease 6. Atrial Fibrillation 7. Hypertension 8. Hyperlipidemia 9. Hypothyroidism 10. Overactive Bladder 11. Irritable Bowel Syndrome PLAN 1. Received 20 PO + 20 IV in ED; ordered 60/40 on the floor; repeat K pending 2. Hold torsemide; currently euvolemic 3. Continue antihypertensives except for aldactone - want to see what repeat K is first 4. Needs Linzess refilled upon discharge 5. Med Rec has both Gemtesa and Myrbetreq - holding both until we get clarity on which one she needs to be on 6. Will need higher dose of supplmental K upon discharge or a more staggered dosing of diuretic Dabigatran/PPI The entirety of this encounter was done via telemedicine Livan Gutierrez MD Pulmonary and Critical Care Medicine Code(s): E87.6 - HYPOKALEMIA Telemedicine Encounter - Telemedicine Encounter Telemedicine Encounter: The entirety of this encounter was performed via Telemedicine"
[2023-10-18 03:28] LABS: Absolute Neutrophil Ct (ANC) 3.16 x10^3/uL (1.4-6.9); BASOPHIL % 0.5 % (0.0-0.4); Basophil (Absolute #) 0.03 x10^3/uL (0-0.4); Eosinophil % 5.5 % (0.00-5.0); Hematocrit 32.7 % (35-47); Hemoglobin 10.6 g/dL (12.0-16.0); IMMATURE GRAN # 0.03 x10^3u/L (0.00-0.03); IMMATURE GRAN % 0.5 % (0.00-0.4); Lymphocytes % 21.8 % (24.0-44.0); Mean Cell Volume 92.9 fL (78-100); Mean Corpuscular Hemoglobin 30.1 pg (26-32); Mean Corpuscular Hgb Concent. 32.4 g/dL (32-36); Mean Platelet Volume 10.3 fL (7.5-11.0); Monocyte (Absolute #) 0.78 x10^3/uL (0.0-1.3); Monocytes % 14.2 % (0.0-12.0); Neutrophil % 57.5 % (36.0-66.0); Platelet Count 159 x10^3/uL (150-450); Red Blood Count 3.52 x10^6/uL (4.1-5.4); Red Cell Distribution Width 14.6 % (11.5-14.0); White Blood Count 5.5 x10^3/uL (4.0-10.5)
[2023-10-18 03:43] LABS: ALBUMIN 3.2 g/dL (3.5-5.0); ANION GAP 7.8 MEQ/L (5-15); BILIRUBIN,TOTAL 0.5 mg/dL (0.2-1.3); Calcium 8.1 mg/dL (8.4-10.2); Creatinine 1 0.93 mg/dL (0.52-1.04); EST GLOMERULAR FILTRATION RATE 58.8 ML/MIN; MAGNESIUM 1.9 mg/dL (1.6-2.3); Potassium 3.2 mmol/L (3.5-5.1); Total Protein 6.3 g/dL (6.3-8.2)
[2023-10-18] MEDS ORDERED: MEDICATION INTERVENTION MC SCH (07:00)
[2023-10-18 07:02] VITALS: TEMP 97.3
[2023-10-18] MEDS: Sodium Chloride 0.9% 1000 ML 1,000 ML IV SCH (07:13)
[2023-10-18] MEDS ORDERED: Klor Con PO ONE (07:18)
--- NOTE | 2023-10-18 08:45 | PCM.DS ---
Discharge Summary Date of Admission: 10/17/23 18:30 Date of Discharge: 10/18/23 Admitting Physician: PHILLY BROOKS MD Primary Care Provider: MOE PRINCE Allergies Allergies cortisone [Cortisone] Allergy (Verified 10/17/23 16:22) "affected breathing and heart" latex Allergy (Verified 10/17/23 16:22) polyethylene glycol [From Golytely] Allergy (Verified 10/17/23 16:22) vomiting and nasuea polyethylene glycol 3350 [From Golytely] Allergy (Verified 10/17/23 16:22) vomiting and nasuea sodium [From Golytely] Allergy (Verified 10/17/23 16:22) vomiting and nasuea sodium bicarbonate [From Golytely] Allergy (Verified 10/17/23 16:22) vomiting and nasuea sodium chloride [From Golytely] Allergy (Verified 10/17/23 16:22) vomiting and nasuea sodium sulfate [From Golytely] Allergy (Verified 10/17/23 16:22) vomiting and nasuea sodium sulfate anhydrous [From Golytely] Allergy (Verified 10/17/23 16:22) vomiting and nasuea acetaminophen [From Vicodin] Adverse Reaction (Verified 10/17/23 16:22) hydrocodone bitartrate [From Vicodin] Adverse Reaction (Verified 10/17/23 16:22) Hospital Summary - Hospital Course Hospital Course: Ms. Brody is an 87 year-old female with COPD, HTN, HLD, CAD s/p CABG, CHF (unknown EF; unknown diastolic and/or systolic), hypothyroid, and a prior PE + DVT on dabigatran who presents with fatigue. She admits to ongoing fatigue for several days prompting labs to be drawn by her drosser on 10/16 - her potassium resulted at 2.0 which then prompted her to be sent to the [facility] ED. Upon arrival here, her laboratory data was remarkable for a K of 2.1. Patient received potassium supplementation during hospital course. She states she is now at her baseline, no longer feeling weak. She sees Dr. Greer (nephrology) and I have advised her to follow up next week for repeat labs. I will increase her home potassium to 40meq daily until f/u. She can resume her other scheduled home medications. Discharge Note New Diagnosis: Hypokalemia New Medications:Increase potassium dose to 40meq daily until follow up Follow Up: PCP/Nephrology Latest Assessment & Plan PLAN 1. Received 20 PO + 20 IV in ED; ordered 60/40 on the floor; repeat K pending 2. Hold torsemide; currently euvolemic 3. Continue antihypertensives except for aldactone - want to see what repeat K is first 4. Needs Linzess refilled upon discharge 5. Med Rec has both Gemtesa and Myrbetreq - holding both until we get clarity on which one she needs to be on 6. Will need higher dose of supplmental K upon discharge or a more staggered dosing of diuretic I spent 35 minutes [id number] with the patient on the day of discharge performing discharge exam, discussing hospital stay and discharge instructions with patient and caregivers, preparation of discharge records, prescriptions & referral forms and addressing any questions/concerns the patient had as d ocumented above. - Vitals & Intake/Output Vital Signs: Vital Signs Temperature 97.3 F 10/18/23 07:01 Pulse Rate 60 10/18/23 07:01 Respiratory Rate 17 10/18/23 07:52 Blood Pressure 106/53 10/18/23 07:01 O2 Sat by Pulse Oximetry 97 10/18/23 07:05 Intake & Output: Intake & Output 10/15/23 10/16/23 10/17/23 10/18/23 11:59 11:59 11:59 11:59 Intake Total 2121 Output Total 1200 Balance 921 Weight 51 kg - Lab Result Diagrams: 10/18/23 03:20 10/18/23 03:20 Lab Results-Last 24 Hrs: Lab Results-Last 24 Hours 10/17/23 10/17/23 10/17/23 Range/Units 17:00 17:00 19:09 WBC 5.4 (4.0-10.5) x10^3/uL RBC 4.19 (4.1-5.4) x10^6/uL Hgb 12.5 (12.0-16.0) g/dL Hct 38.7 (35-47) % MCV 92.4 (78-100) fL MCH 29.8 (26-32) pg MCHC 32.3 (32-36) g/dL RDW 14.1 H (11.5-14.0) % Plt Count 201 (150-450) x10^3/uL MPV 11.0 (7.5-11.0) fL Gran % 65.4 (36.0-66.0) % Immature Gran % (Auto) 0.6 H (0.00-0.4) % Nucleat RBC Rel Count 0.0 (0.00-0.1) % Eos # (Auto) 0.08 (0-0.5) x10^3/uL Immature Gran # (Auto) 0.03 (0.00-0.03) x10^3u/L Absolute Lymphs (auto) 0.89 L (1.0-4.6) x10^3/uL Absolute Monos (auto) 0.84 (0.0-1.3) x10^3/uL Absolute Nucleated RBC 0.00 (0.00-0.01) x10^3u/L Lymphocytes % 16.4 L (24.0-44.0) % Monocytes % 15.4 H (0.0-12.0) % Eosinophils % 1.5 (0.00-5.0) % Basophils % 0.7 (0.0-0.4) % Absolute Granulocytes 3.56 (1.4-6.9) x10^3/uL Basophils # 0.04 (0-0.4) x10^3/uL Sodium 137 (137-145) mmol/L Potassium 2.1 L* 2.1 L* (3.5-5.1) mmol/L Chloride 86 L (98-107) mmol/L Carbon Dioxide 38 H (22-30) mmol/L Anion Gap 14.3 (5-15) MEQ/L BUN 41 H (7-17) mg/dL Creatinine 0.95 (0.52-1.04) mg/dL Estimated GFR 57.3 ML/MIN Glucose 121 H (74-106) mg/dL Calcium 9.6 (8.4-10.2) mg/dL Magnesium 2.3 (1.6-2.3) mg/dL Total Bilirubin 0.90 (0.2-1.3) mg/dL AST 38 H (14-36) U/L ALT 23 (0-35) U/L Alkaline Phosphatase 96 (38-126) U/L Serum Total Protein 7.8 (6.3-8.2) g/dL Albumin 4.1 (3.5-5.0) g/dL 10/17/23 10/17/23 10/18/23 Range/Units 19:26 22:25 03:20 WBC 5.5 (4.0-10.5) x10^3/uL RBC 3.52 L (4.1-5.4) x10^6/uL Hgb 10.6 L (12.0-16.0) g/dL Hct 32.7 L (35-47) % MCV 92.9 (78-100) fL MCH 30.1 (26-32) pg MCHC 32.4 (32-36) g/dL RDW 14.6 H (11.5-14.0) % Plt Count 159 (150-450) x10^3/uL MPV 10.3 (7.5-11.0) fL Gran % 57.5 (36.0-66.0) % Immature Gran % (Auto) 0.5 H (0.00-0.4) % Nucleat RBC Rel Count 0.0 (0.00-0.1) % Eos # (Auto) 0.30 (0-0.5) x10^3/uL Immature Gran # (Auto) 0.03 (0.00-0.03) x10^3u/L Absolute Lymphs (auto) 1.20 (1.0-4.6) x10^3/uL Absolute Monos (auto) 0.78 (0.0-1.3) x10^3/uL Absolute Nucleated RBC 0.00 (0.00-0.01) x10^3u/L Lymphocytes % 21.8 L (24.0-44.0) % Monocytes % 14.2 H (0.0-12.0) % Eosinophils % 5.5 H (0.00-5.0) % Basophils % 0.5 (0.0-0.4) % Absolute Granulocytes 3.16 (1.4-6.9) x10^3/uL Basophils # 0.03 (0-0.4) x10^3/uL Sodium (137-145) mmol/L Potassium 3.1 L D (3.5-5.1) mmol/L Chloride (98-107) mmol/L Carbon Dioxide (22-30) mmol/L Anion Gap (5-15) MEQ/L BUN (7-17) mg/dL Creatinine (0.52-1.04) mg/dL Estimated GFR ML/MIN Glucose (74-106) mg/dL Calcium (8.4-10.2) mg/dL Magnesium 2.2 (1.6-2.3) mg/dL Total Bilirubin (0.2-1.3) mg/dL AST (14-36) U/L ALT (0-35) U/L Alkaline Phosphatase (38-126) U/L Serum Total Protein (6.3-8.2) g/dL Albumin (3.5-5.0) g/dL 10/18/23 Range/Units 03:20 WBC (4.0-10.5) x10^3/uL RBC (4.1-5.4) x10^6/uL Hgb (12.0-16.0) g/dL Hct (35-47) % MCV (78-100) fL MCH (26-32) pg MCHC (32-36) g/dL RDW (11.5-14.0) % Plt Count (150-450) x10^3/uL MPV (7.5-11.0) fL Gran % (36.0-66.0) % Immature Gran % (Auto) (0.00-0.4) % Nucleat RBC Rel Count (0.00-0.1) % Eos # (Auto) (0-0.5) x10^3/uL Immature Gran # (Auto) (0.00-0.03) x10^3u/L Absolute Lymphs (auto) (1.0-4.6) x10^3/uL Absolute Monos (auto) (0.0-1.3) x10^3/uL Absolute Nucleated RBC (0.00-0.01) x10^3u/L Lymphocytes % (24.0-44.0) % Monocytes % (0.0-12.0) % Eosinophils % (0.00-5.0) % Basophils % (0.0-0.4) % Absolute Granulocytes (1.4-6.9) x10^3/uL Basophils # (0-0.4) x10^3/uL Sodium 134 L (137-145) mmol/L Potassium 3.2 L (3.5-5.1) mmol/L Chloride 93 L (98-107) mmol/L Carbon Dioxide 36 H (22-30) mmol/L Anion Gap 7.8 (5-15) MEQ/L BUN 34 H (7-17) mg/dL Creatinine 0.93 (0.52-1.04) mg/dL Estimated GFR 58.8 ML/MIN Glucose 100 (74-106) mg/dL Calcium 8.1 L D (8.4-10.2) mg/dL Magnesium 1.9 (1.6-2.3) mg/dL Total Bilirubin 0.50 (0.2-1.3) mg/dL AST 32 (14-36) U/L ALT 17 (0-35) U/L Alkaline Phosphatase 83 (38-126) U/L Serum Total Protein 6.3 (6.3-8.2) g/dL Albumin 3.2 L (3.5-5.0) g/dL - Procedures and Test Procedures and Tests throughout Hospitalization: Therapy Orders & Screens 10/17/23 18:40 EKG REPEAT IN AM Comment: 10/17/23 20:58 Respiratory Therapy Assessment DAILY Comment: Diagnosis: Hypokalemia 10/17/23 21:42 Oxygen Nasal Cannula 3 lpm Comment: Diagnosis: Hypokalemia Discharge Exam General Appearance: no apparent distress Neurologic Exam: alert, oriented x 3, cooperative Eye Exam: PERRL Ears, Nose, Throat Exam: normal ENT inspection Neck Exam: normal inspection Respiratory Exam: normal breath sounds, lungs clear Cardiovascular Exam: regular rate/rhythm, normal heart sounds Gastrointestinal/Abdomen Exam: soft, normal bowel sounds Pelvic Exam: deferred Rectal Exam: deferred Back Exam: normal inspection Extremity Exam: normal inspection Skin Exam: normal color Final Diagnosis/Problem List - Final Discharge Diagnosis/Problem (1) Hypokalemia Current Visit: Yes Status: Resolved Code(s): E87.6 - HYPOKALEMIA (2) Acute on chronic renal failure Current Visit: No Status: Chronic Code(s): N17.9 - ACUTE KIDNEY FAILURE, UNSPECIFIED; N18.9 - CHRONIC KIDNEY DISEASE, UNSPECIFIED (3) Atrial fibrillation Current Visit: No Status: Chronic Code(s): I48.91 - UNSPECIFIED ATRIAL FIBRILLATION (4) DVT prophylaxis Current Visit: No Status: Chronic Code(s): Z29.9 - ENCOUNTER FOR PROPHYLACTIC MEASURES, UNSPECIFIED (5) CHF (congestive heart failure) Current Visit: No Status: Chronic Code(s): I50.9 - HEART FAILURE, U NSPECIFIED (6) Hx pulmonary embolism Current Visit: No Status: Chronic Code(s): Z86.711 - PERSONAL HISTORY OF PULMONARY EMBOLISM - Discharge Disposition: Home, Self-Care Condition: Stable Prescriptions: New Potassium Chloride 20 meq PO BID 7 Days #14 tablet Continue Dabigatran Etexilate Mesylate [Pradaxa] 75 mg PO BID Pramipexole Di-HCl [Pramipexole Dihydrochloride] 0.25 mg PO HS Magnesium Oxide 400 mg PO DAILY Ferrous Sulfate 325 mg PO BID Multivitamin/Iron/Folic Acid [Centrum Complete Multivit Tab] 1 each PO DAILY Simvastatin 10 mg [Zocor 10MG] 10 mg PO HS Sertraline HCl 50 mg [Zoloft 50 mg Tablet] 50 mg PO DAILY Levothyroxine Sodium 75 Mcg [Synthroid 75 Mcg] 75 mcg PO DAILY Metoprolol Succinate 25 mg PO DAILY Mirabegron [Myrbetriq] 50 mg PO DAILY Torsemide [Soaanz] 20 mg PO BID Spironolactone 25 mg [Aldactone 25 MG] 25 mg PO BID Sildenafil Citrate 20 mg PO TID Docusate Sodium 100 mg [Docusate Sodium 100 MG] 100 mg PO BID 30 Days #60 cap Ondansetron ODT 4 MG [Zofran Odt 4 mg] 4 mg PO Q6H PRN PRN #10 tablet PRN Reason: Nausea Vibegron [Gemtesa] 75 mg PO DAILY Omeprazole 20 mg PO DAILY Discontinued Potassium Chloride 20 meq PO DAILY Instructions: Hypokalemia (DC) Follow up with: MOE PRINCE [Primary Care Provider] -
[2023-10-18] MEDS ORDERED: NON-FORMULARY ITEM (Metoprolol Succinate 25 MG Tab.Er.24h) PO SCH (10:00)
[2023-10-18] MEDS ORDERED: THERAGRAN MULTIVITAMIN PO SCH (10:00)
[2023-10-18] MEDS ORDERED: ZOLOFT 50 MG TABLET PO SCH (10:00)
[2023-10-18] MEDS ORDERED: Klor Con PO SCH (10:00)
[2023-10-18] MEDS ORDERED: [UNRECOGNIZED DRUG - OTHER] PO SCH (10:00)
[2023-10-18] MEDS ORDERED: MULTIVITAMIN PO SCH (10:00)
[2023-10-18] MEDS ORDERED: Toprol-Xl 25MG Tablets PO SCH (10:00)
[2023-10-18] MEDS ORDERED: NON-FORMULARY ITEM (Potassium Chloride [Potassium Chloride] 20 MEQ Tab.Er.Prt) PO SCH (10:00)
[2023-10-18] MEDS ORDERED: SYNTHROID 75 MCG PO SCH (10:00)
[2023-10-18] MEDS ORDERED: IRON PO SCH (10:00)
[2023-10-18] MEDS ORDERED: MAG-OX 400 PO SCH (10:00)
[2023-10-18] MEDS ORDERED: NON-FORMULARY ITEM (Sildenafil Citrate [Sildenafil Citrate] 20 MG Tablet) PO SCH (10:00)
[2023-10-18] MEDS ORDERED: Protonix 40MG Tablet PO SCH (10:00)
[2023-10-18] MEDS ORDERED: NON-FORMULARY ITEM (Magnesium Oxide [Magnesium Oxide] 400 MG Tablet) PO SCH (10:00)
[2023-10-18] MEDS ORDERED: NON-FORMULARY ITEM (Omeprazole [Omeprazole] 20 MG Capsule.Dr) PO SCH (10:00)
[2023-10-18] MEDS ORDERED: FOLIC ACID PO SCH (10:00)
[2023-10-18] MEDS ORDERED: FEOSOL 325 MG PO SCH (10:00)
[2023-10-18] MEDS ORDERED: PRADAXA 75 MG PO SCH (10:00)
[2023-10-18] MEDS ORDERED: Docusate Sodium 100 MG PO SCH (10:00)
[2023-10-18] MEDS: Klor Con PO SCH ×2 (10:21→11:55)
[2023-10-18 11:22] VITALS: BP 116/55; PULSE 53; RESP 18; O2SAT 93
[2023-10-18] MEDS ORDERED: NON-FORMULARY ITEM (Pramipexole Di-Hcl [Pramipexole Dihydrochloride] 0.125 MG Tablet) PO SCH (22:00)
[2023-10-18] MEDS ORDERED: Mirapex 0.5 MG Tablet PO SCH (22:00)
[2023-10-18] MEDS ORDERED: Zocor 10MG PO SCH (22:00)
== END 2023-10-18 14:06 | disposition home health service (06) ==
LOC: ED 16:13 → MED SURG 18:30
PROVIDERS: ADMIT Internal Medicine; ATTEND Internal Medicine
DX: E87.6 Hypokalemia (principal); I13.0 Hypertensive heart and chronic kidney disease with heart failure and stage 1 through stage 4 chronic kidney disease, or unspecified chronic kidney disease; N18.9 Chronic kidney disease, unspecified; N17.9 Acute kidney failure, unspecified; I50.9 Heart failure, unspecified; E78.5 Hyperlipidemia, unspecified; I25.10 Atherosclerotic heart disease of native coronary artery without angina pectoris; E03.9 Hypothyroidism, unspecified; I48.91 Unspecified atrial fibrillation; J44.9 Chronic obstructive pulmonary disease, unspecified; Z29.9 Encounter for prophylactic measures, unspecified; Z95.0 Presence of cardiac pacemaker; Z86.711 Personal history of pulmonary embolism; Z79.899 Other long term (current) drug therapy; Z20.828 Contact with and (suspected) exposure to other viral communicable diseases
CPT/HCPCS: 36000; 36415; 80053; 83735; 84132; 85025; 93005; 94760; 99284; J3480; A9270-GY

== ENCOUNTER 2023-10-28 14:49 | Observation (INO) | payer MEDICARE ==
--- NOTE | 2023-10-28 15:41 | ERPHSYRPT ---
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 Pain is midsternal with radiation to her neck. She describes the pain as a dull ache and rates it 7 out of 10. She states that home oxygen makes the pain better. Patient states that she has been dyspneic but denies any nausea, vomiting, or diaphoresis. She had a recent admit for hypokalemia. Patient also has a mild cough for approximately 2 to 3 weeks. Timing/Duration: other (2 days) Activities at Onset: rest Quality: aching, dullness Location: substernal Chest Pain Radiation: neck Severity of Pain-Max: moderate Severity of Pain-Current: moderate Modifying Factors: Improves With: oxygen Associated Symptoms: shortness of breath, No nausea, No vomiting, No diaphoresis Nitro Today/Relief: no nitro taken today Allergies/Adverse Reactions: cortisone [Cortisone] Allergy (Verified 10/28/23 15:02) "affected breathing and heart" latex Allergy (Verified 10/28/23 15:02) polyethylene glycol [From Golytely] Allergy (Verified 10/28/23 15:02) vomiting and nasuea polyethylene glycol 3350 [From Golytely] Allergy (Verified 10/28/23 15:02) vomiting and nasuea sodium [From Golytely] Allergy (Verified 10/28/23 15:02) vomiting and nasuea sodium bicarbonate [From Golytely] Allergy (Verified 10/28/23 15:02) vomiting and nasuea sodium chloride [From Golytely] Allergy (Verified 10/28/23 15:02) vomiting and nasuea sodium sulfate [From Golytely] Allergy (Verified 10/28/23 15:02) vomiting and nasuea sodium sulfate anhydrous [From Golytely] Allergy (Verified 10/28/23 15:02) vomiting and nasuea acetaminophen [From Vicodin] Adverse Reaction (Verified 10/28/23 15:02) hydrocodone bitartrate [From Vicodin] Adverse Reaction (Verified 10/28/23 15:02) Home Medications: Dabigatran Etexilate Mesylate [Pradaxa] 75 mg PO BID 09/15/22 [History] Ferrous Sulfate 325 mg PO BID 09/15/22 [History] Levothyroxine Sodium 75 Mcg [Synthroid 75 Mcg] 75 mcg PO DAILY 09/15/22 [History] Magnesium Oxide 400 mg PO DAILY 09/15/22 [History] Multivitamin/Iron/Folic Acid [Centrum Complete Multivit Tab] 1 each PO DAILY [History] Pramipexole Di-HCl [Pramipexole Dihydrochloride] 0.25 mg PO HS 09/15/22 [History] Sertraline HCl 50 mg [Zoloft 50 mg Tablet] 50 mg PO DAILY 09/15/22 [History] Simvastatin 10 mg [Zocor 10MG] 10 mg PO HS 09/15/22 [History] Metoprolol Succinate 25 mg PO DAILY 10/24/22 [History] Mirabegron [Myrbetriq] 50 mg PO DAILY 10/24/22 [History] Sildenafil Citrate 20 mg PO TID 10/24/22 [History] Spironolactone 25 mg [Aldactone 25 MG] 25 mg PO BID 10/24/22 [History] Torsemide [Soaanz] 20 mg PO BID 10/24/22 [History] Omeprazole 20 mg PO DAILY 10/17/23 [History] Vibegron [Gemtesa] 75 mg PO DAILY 10/17/23 [History] Hx Tetanus, Diphtheria Vaccination/Date Given: Yes Hx Influenza Vaccination/Date Given: No Hx Pneumococcal Vaccination/Date Given: No Travel Risk - International Travel Have you traveled outside of the country in past 3 weeks: No - Coronavirus Screening Are you exhibiting any of the following symptoms?: No Close contact with a COVID-19 positive Pt in past 14-21 Days: No - Vaccine Status Have you recieved a Covid-19 vaccination: No - Review of Systems Constitutional: No Symptoms, Fatigue, Malaise Eyes: No Symptoms Ears, Nose, & Throat: No Symptoms Respiratory: No Symptoms, Cough, Dyspnea, Dyspnea on Exertion (OLIVEIRA) Cardiac: No Symptoms, Chest Pain Abdominal/Gastrointestinal: No Symptoms Genitourinary Symptoms: No Symptoms Musculoskeletal: No Symptoms Skin: No Symptoms Neurological: No Symptoms Psychological: No Symptoms Endocrine: No Symptoms Hematologic/Lymphatic: No Symptoms Immunological/Allergic: No Symptoms - Past Medical History Pertinent Past Medical History: Yes Neurological History: Migraines ENT History: Cataracts Cardiac History: Arrhythmia, Coronary Artery Disease, Deep Vein Thrombosis, High Cholesterol, Hypertension Respiratory History: Asthma, COPD, Pulmonary Embolism, Other Endocrine Medical History: Hypothyroidism Musculoskeletal History: Arthritis GI Medical History: GERD History: Renal Disease, Other Psycho-Social History: Depression Female Reproductive Disorders: No Pertinent History Other Medical History: 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) - Social History Smoking Status: Never smoker Exposure to second hand smoke: No Drug Use: none Patient Lives Alone: No - Nursing Vital Signs Nursing Vital Signs: Initial Vital Signs Temperature 97.4 F 10/28/23 14:52 Pulse Rate 60 10/28/23 14:52 Respiratory Rate 19 10/28/23 14:52 Blood Pressure 119/47 10/28/23 14:52 O2 Sat by Pulse Oximetry 98 10/28/23 14:52 Pain Scale Pain Intensity 0 Within normal limits - Physical Exam General Appearance: no apparent distress Eye Exam: PERRL/EOMI, eyes nml inspection Ears, Nose, Throat Exam: normal ENT inspection, TMs normal, pharynx normal, mois t mucous membranes Neck Exam: normal inspection, non-tender, supple, full range of motion, No meningismus, No mass, No Brudzinski, No Kernig's Respiratory Exam: crackles/rales Cardiovascular Exam: regular rate/rhythm, murmur (3/6 BINDU) Gastrointestinal/Abdomen Exam: soft, normal bowel sounds, No tenderness Back Exam: normal inspection, normal range of motion, No CVA tenderness, No vertebral tenderness Extremity Exam: pedal edema (1+ pre-tibial edema b) Neurologic Exam: alert, oriented x 3, cooperative, signal intelligence/electronic warfare II-XII nml as tested, normal mood/affect, nml cerebellar function, nml station & gait, sensation nml Skin Exam: normal color, warm, dry Lymphatic Exam: No adenopathy SpO2 Interpretation: normal SpO2: 98 O2 Delivery: Room Air - Course Nursing assessment & vital signs reviewed: Yes EKG Interpreted by Me: RATE (Paced rate of 60/prolonged QT-QTc/nonspecific ST wave changes/diffuse T wave inversion.) - Radiology Exams Chest X-ray Interpretation: Reviewed by me (Chronic findings), Teleradiologist Report Ordered Tests: Active Orders 24 hr Category Date Time Status EKG-ER Only STAT Care 10/28/23 15:27 Active CHEST 1 VIEW (PORTABLE) Stat Exams 10/28/23 15:27 Completed CHEST WITHOUT CONTRAST [CT] Stat Exams 10/28/23 17:16 Taken BLOOD CULTURE Stat Lab 10/28/23 Ordered CBC W DIFF Stat Lab 10/28/23 15:38 Completed CMP Stat Lab 10/28/23 15:38 Completed CULTURE,URINE Stat Lab 10/28/23 17:17 Received Lactic Acid Stat Lab 10/28/23 16:05 Completed Lactic Acid Stat Lab 10/28/23 18:15 Received NT PRO BNPII Stat Lab 10/28/23 15:38 Completed PROTIME WITH INR Stat Lab 10/28/23 15:38 Completed PTT Stat Lab 10/28/23 15:38 Completed TROPONIN Q4H Lab 10/28/23 15:38 Completed TROPONIN Q4H Lab 10/28/23 19:30 Ordered TROPONIN Q4H Lab 10/28/23 23:30 Ordered UA W/RFX UR CULTURE Stat Lab 10/28/23 17:17 Completed Medication Summary Generic Name Dose Route Start Last Admin Trade Name Freq PRN Reason Stop Dose Admin Ceftriaxone Sodium/Dextrose 1 g in 50 mls @ 100 mls/hr 10/28/23 18:43 Rocephin 1 Gm-D5w 50 Ml Bag IV 10/28/23 19:12 STAT STA Discontinued Medications Generic Name Dose Route Start Last Admin Trade Name Doroteo PRN Reason Stop Dose Admin Potassium Chloride 40 meq 10/28/23 17:39 10/28/23 17:55 Potassium Chloride Tab 10 Meq Tab PO 10/28/23 17:40 40 meq STAT ONE Administration Potassium Chloride Confirm 10/28/23 17:54 Potassium Chloride Tab 10 Meq Tab Administered 10/28/23 17:55 Dose 40 meq PO .STK-MED ONE Lab/Rad Data: Laboratory Result Diagrams 10/28/23 15:38 10/28/23 15:38 Laboratory Results 10/28/23 10/28/23 10/28/23 Range/Units 17:17 16:05 15:38 WBC (4.0-10.5) x10^3/uL RBC (4.1-5.4) x10^6/uL Hgb (12.0-16.0) g/dL Hct (35-47) % MCV (78-100) fL MCH (26-32) pg MCHC (32-36) g/dL RDW (11.5-14.0) % Plt Count (150-450) x10^3/uL MPV (7.5-11.0) fL Gran % (36.0-66.0) % Immature Gran % (Auto) (0.00-0.4) % Nucleat RBC Rel Count (0.00-0.1) % Eos # (Auto) (0-0.5) x10^3/uL Immature Gran # (Auto) (0.00-0.03) x10^3u/L Absolute Lymphs (auto) (1.0-4.6) x10^3/uL Absolute Monos (auto) (0.0-1.3) x10^3/uL Absolute Nucleated RBC (0.00-0.01) x10^3u/L Lymphocytes % (24.0-44.0) % Monocytes % (0.0-12.0) % Eosinophils % (0.00-5.0) % Basophils % (0.0-0.4) % Absolute Granulocytes (1.4-6.9) x10^3/uL Basophils # (0-0.4) x10^3/uL PT (9.4-12.5) SECONDS INR (0.8-3.0) APTT (25.1-36.5) SECONDS Sodium (137-145) mmol/L Potassium (3.5-5.1) mmol/L Chloride (98-107) mmol/L Carbon Dioxide (22-30) mmol/L Anion Gap (5-15) MEQ/L BUN (7-17) mg/dL Creatinine (0.52-1.04) mg/dL Estimated GFR ML/MIN Glucose (74-106) mg/dL Lactic Acid 4.2 H (0.4-2.0) Calcium (8.4-10.2) mg/dL Total Bilirubin (0.2-1.3) mg/dL AST (14-36) U/L ALT (0-35) U/L Alkaline Phosphatase (38-126) U/L Troponin I (0.000-0.034) ng/mL NT-Pro-B Natriuret Pep 3240 (<300) pg/mL Serum Total Protein (6.3-8.2) g/dL Albumin (3.5-5.0) g/dL Urine Color Yellow (Yellow) Urine Appearance Cloudy A (Clear) Urine pH 6.0 (4.6-8.0) Ur Specific [place] 1.015 (1.005-1.030) Urine Protein 30 (Negative) Urine Glucose (UA) Negative (Negative) mg/dL Urine Ketones Negative (Negative) Urine Blood Trace (Negative) Urine Nitrite Negative (Negative) Urine Bilirubin Negative (Negative) Urine Urobilinogen 1.0 A (0.2) mg/dL Ur Leukocyte Esterase Large A (Negative) U Hyaline Cast (Auto) 0-2 (0-2) /LPF Urine Microscopic RBC 0-2 (0-5) /HPF Urine Microscopic WBC >100 A (0-5) /HPF Ur Epithelial Cells None Seen (None Seen) /HPF Urine Bacteria Many A (None Seen) /HPF Urine Culture Reflexed YES (NO) Influenza Type A Ag (NEGATIVE) Influenza Type B Ag (NEGATIVE) RSV (PCR) (NEGATIVE) SARS-CoV-2 (PCR) (NEGATIVE) 10/28/23 10/28/23 10/28/23 Range/Units 15:38 15:38 15:38 WBC (4.0-10.5) x10^3/uL RBC (4.1-5.4) x10^6/uL Hgb (12.0-16.0) g/dL Hct (35-47) % MCV (78-100) fL MCH (26-32) pg MCHC (32-36) g/dL RDW (11.5-14.0) % Plt Count (150-450) x10^3/uL MPV (7.5-11.0) fL Gran % (36.0-66.0) % Immature Gran % (Auto) (0.00-0.4) % Nucleat RBC Rel Count (0.00-0.1) % Eos # (Auto) (0-0.5) x10^3/uL Immature Gran # (Auto) (0.00-0.03) x10^3u/L Absolute Lymphs (auto) (1.0-4.6) x10^3/uL Absolute Monos (auto) (0.0-1.3) x10^3/uL Absolute Nucleated RBC (0.00-0.01) x10^3u/L Lymphocytes % (24.0-44.0) % Monocytes % (0.0-12.0) % Eosinophils % (0.00-5.0) % Basophils % (0.0-0.4) % Absolute Granulocytes (1.4-6.9) x10^3/uL Basophils # (0-0.4) x10^3/uL PT 11.2 (9.4-12.5) SECONDS INR 1.03 (0.8-3.0) APTT 25.9 (25.1-36.5) SECONDS Sodium 137 (137-145) mmol/L Potassium 2.5 L* (3.5-5.1) mmol/L Chloride 96 L (98-107) mmol/L Carbon Dioxide 30 (22-30) mmol/L Anion Gap 13.2 (5-15) MEQ/L BUN 18 H (7-17) mg/dL Creatinine 1.03 (0.52-1.04) mg/dL Estimated GFR 52.0 ML/MIN Glucose 168 H (74-106) mg/dL Lactic Acid (0.4-2.0) Calcium 9.2 (8.4-10.2) mg/dL Total Bilirubin 0.70 (0.2-1.3) mg/dL AST 31 (14-36) U/L ALT 23 (0-35) U/L Alkaline Phosphatase 102 (38-126) U/L Troponin I < 0.012 (0.000-0.034) ng/mL NT-Pro-B Natriuret Pep (<300) pg/mL Serum Total Protein 7.6 (6.3-8.2) g/dL Albumin 4.0 (3.5-5.0) g/dL Urine Color (Yellow) Urine Appearance (Clear) Urine pH (4.6-8.0) Ur Specific [place] (1.005-1.030) Urine Protein (Negative) Urine Glucose (UA) (Negative) mg/dL Urine Ketones (Negative) Urine Blood (Negative) Urine Nitrite (Negative) Urine Bilirubin (Negative) Urine Urobilinogen (0.2) mg/dL Ur Leukocyte Esterase (Negative) U Hyaline Cast (Auto) (0-2) /LPF Urine Microscopic RBC (0-5) /HPF Urine Microscopic WBC (0-5) /HPF Ur Epithelial Cells (None Seen) /HPF Urine Bacteria (None Seen) /HPF Urine Culture Reflexed (NO) Influenza Type A Ag (NEGATIVE) Influenza Type B Ag (NEGATIVE) RSV (PCR) (NEGATIVE) SARS-CoV-2 (PCR) (NEGATIVE) 10/28/23 10/28/23 Range/Units 15:38 15:35 WBC 4.2 (4.0-10.5) x10^3/uL RBC 3.73 L (4.1-5.4) x10^6/uL Hgb 11.2 L (12.0-16.0) g/dL Hct 36.0 (35-47) % MCV 96.5 (78-100) fL MCH 30.0 (26-32) pg MCHC 31.1 L (32-36) g/dL RDW 15.2 H (11.5-14.0) % Plt Count 164 (150-450) x10^3/uL MPV 10.4 (7.5-11.0) fL Gran % 62.3 (36.0-66.0) % Immature Gran % (Auto) 0.5 H (0.00-0.4) % Nucleat RBC Rel Count 0.0 (0.00-0.1) % Eos # (Auto) 0.11 (0-0.5) x10^3/uL Immature Gran # (Auto) 0.02 (0.00-0.03) x10^3u/L Absolute Lymphs (auto) 0.78 L (1.0-4.6) x10^3/uL Absolute Monos (auto) 0.64 (0.0-1.3) x10^3/uL Absolute Nucleated RBC 0.00 (0.00-0.01) x10^3u/L Lymphocytes % 18.5 L (24.0-44.0) % Monocytes % 15.2 H (0.0-12.0) % Eosinophils % 2.6 (0.00-5.0) % Basophils % 0.9 (0.0-0.4) % Absolute Granulocytes 2.63 (1.4-6.9) x10^3/uL Basophils # 0.04 (0-0.4) x10^3/uL PT (9.4-12.5) SECONDS INR (0.8-3.0) APTT (25.1-36.5) SECONDS Sodium (137-145) mmol/L Potassium (3.5-5.1) mmol/L Chloride (98-107) mmol/L Carbon Dioxide (22-30) mmol/L Anion Gap (5-15) MEQ/L BUN (7-17) mg/dL Creatinine (0.52-1.04) mg/dL Estimated GFR ML/MIN Glucose (74-106) mg/dL Lactic Acid (0.4-2.0) Calcium (8.4-10.2) mg/dL Total Bilirubin (0.2-1.3) mg/dL AST (14-36) U/L ALT (0-35) U/L Alkaline Phosphatase (38-126) U/L Troponin I (0.000-0.034) ng/mL NT-Pro-B Natriuret Pep (<300) pg/mL Serum Total Protein (6.3-8.2) g/dL Albumin (3.5-5.0) g/dL Urine Color (Yellow) Urine Appearance (Clear) Urine pH (4.6-8.0) Ur Specific [place] (1.005-1.030) Urine Protein (Negative) Urine Glucose (UA) (Negative) mg/dL Urine Ketones (Negative) Urine Blood (Negative) Urine Nitrite (Negative) Urine Bilirubin (Negative) Urine Urobilinogen (0.2) mg/dL Ur Leukocyte Esterase (Negative) U Hyaline Cast (Auto) (0-2) /LPF Urine Microscopic RBC (0-5) /HPF Urine Microscopic WBC (0-5) /HPF Ur Epithelial Cells (None Seen) /HPF Urine Bacteria (None Seen) /HPF Urine Culture Reflexed (NO) Influenza Type A Ag NEGATIVE (NEGATIVE) Influenza Type B Ag NEGATIVE (NEGATIVE) RSV (PCR) NEGATIVE (NEGATIVE) SARS-CoV-2 (PCR) NEGATIVE (NEGATIVE) - Progress Progress Note: 10/28/23 18:52 Nursing note and vital signs reviewed. No food or housing insecurity is noted. All lab results reviewed and shared with patient. Chest x-ray results reviewed and shared with patient. Potassium 40 mEq p.o. given to patient. Blood cultures x 2. 1 g of IV Rocephin. Labs per Dr. Ames. Patient is a DNR. Blood Culture(s) Obtained: Yes Antibiotics given: Yes Counseled pt/family regarding: lab results, diagnosis, rad results Medical Desision Making - Discussion of managment Care discussed with:: hospitalist Reviewed:: Test results, Need for additional workup Agreed on:: place in obs Will see patient: in hospital - Diagnostic Testing Diagnostic test were ordered, analyzed, and reviewed by me: Yes Radiological Interpretation: Reviewed by me, Teleradiologist Report - Risk of complications The pt has a high risk of morbidity or mortality based on: Drug therapy requiring intensive monitoring for toxicity - Departure Departure Disposition: Observation Clinical Impression: UTI (urinary tract infection), Hypokalemia Condition: Stable Critical Care Time: No Referrals: MOE PRINCE [Primary Care Provider] - Follow up/PCP as directed
[2023-10-28 15:44] LABS: Absolute Neutrophil Ct (ANC) 2.63 x10^3/uL (1.4-6.9); BASOPHIL % 0.9 % (0.0-0.4); Basophil (Absolute #) 0.04 x10^3/uL (0-0.4); Eosinophil % 2.6 % (0.00-5.0); Eosinophil (Absolute #) 0.11 x10^3/uL (0-0.5); Hemoglobin 11.2 g/dL (12.0-16.0); IMMATURE GRAN # 0.02 x10^3u/L (0.00-0.03); IMMATURE GRAN % 0.5 % (0.00-0.4); Lymphocyte (Absolute #) 0.78 x10^3/uL (1.0-4.6); Lymphocytes % 18.5 % (24.0-44.0); Mean Cell Volume 96.5 fL (78-100); Mean Corpuscular Hgb Concent. 31.1 g/dL (32-36); Mean Platelet Volume 10.4 fL (7.5-11.0); Monocyte (Absolute #) 0.64 x10^3/uL (0.0-1.3); Monocytes % 15.2 % (0.0-12.0); Neutrophil % 62.3 % (36.0-66.0); Platelet Count 164 x10^3/uL (150-450); Red Blood Count 3.73 x10^6/uL (4.1-5.4); Red Cell Distribution Width 15.2 % (11.5-14.0); White Blood Count 4.2 x10^3/uL (4.0-10.5)
[2023-10-28 16:00] LABS: ANION GAP 13.2 MEQ/L (5-15); BILIRUBIN,TOTAL 0.7 mg/dL (0.2-1.3); Calcium 9.2 mg/dL (8.4-10.2); Creatinine 1 1.03 mg/dL (0.52-1.04); Total Protein 7.6 g/dL (6.3-8.2)
[2023-10-28 16:28] LABS: Potassium 2.5 mmol/L (3.5-5.1)
[2023-10-28 16:46] LABS: INFLUENZA A NEGATIVE (NEGATIVE); INFLUENZA B NEGATIVE (NEGATIVE); RESPIRATORY SYNCTIAL VIRUS NEGATIVE (NEGATIVE); SARS-CoV-2 Xpert Express NEGATIVE (NEGATIVE)
[2023-10-28 16:55] LABS: INR 1.03 (0.8-3.0); PROTIME 11.2 SECONDS (9.4-12.5); PTT 25.9 SECONDS (25.1-36.5)
--- NOTE | 2023-10-28 16:56 | XRAY ---
CLINICAL HISTORY:dyspnea COMPARISON:None. TECHNIQUE:X-ray of the chest AP upright portable view. FINDINGS: Both lungs are clear. No evidence of nodules, masses, or consolidation. A dual lead cardiac pacemaker is noted projecting over the left hemithorax. Midline sternotomy sutures are noted. Multiple right old rib fractures with deformity. Multilevel hyperdense vertebral body material consistent with vertebroplasty. Lower thoracic vertebral compression fractures with flattened appearance for further correlation with lateral radiograph. Diffuse osteopenia of the visualized bones. Normal configuration of the mediastinum. The shila are normal in size and position. The cardiac size is normal. Costophrenic and cardiophrenic angles are clear. IMPRESSION: 1. No definite pulmonary consolidation or masses. 2. Follow up and clinical correlation is advised. 3. Mutiple right old rib fractures with deformity. 4. Lower thoracic vertebral compression fractures with flattened appearance for further correlation with lateral radiograph. 5. Diffuse osteopenia of the visualized bones. Electronically Signed by: Salas Fleming MD. (10/28/2023 16:52:59 EST)
[2023-10-28] MEDS ORDERED: Klor Con PO ONE ×2 (17:39→17:54)
[2023-10-28 18:09] LABS: ADD URINE CULTURE? YES (NO); Appearance Cloudy (Clear); Bacteria Many /HPF (None Seen); Bilirubin Negative (Negative); Blood Trace (Negative); Epithelial Cells None Seen /HPF (None Seen); Glucose, Urine Negative (Negative); Hyaline Casts 0-2 /LPF (0-2); Ketones Negative (Negative); Leukocyte Esterase Large (Negative); Nitrite Negative (Negative); Protein,Urine Dip 30 (Negative); RBC 0-2 /HPF (0-5); Specific Gravity 1.015 (1.005-1.030); WBC >100 /HPF (0-5)
[2023-10-28] MEDS ORDERED: ROCEPHIN 1 Gm-D5w 50 ml Bag** 1 G/50 ML IVPB IV STA (18:43)
[2023-10-28] MEDS ORDERED: ROCEPHIN 1 Gm-D5w 50 ml Bag** 1 G/50 ML IVPB IV ONE (18:54)
--- NOTE | 2023-10-28 19:08 | XRAY ---
CLINICAL HISTORY:Dyspnea COMPARISON:10/28/2023 X-ray done two hours earlier was reviewed. TECHNIQUE:Contiguous 3.[address] images of the chest were acquired without administration of intravenous contrast. Coronal and sagittal reconstructions were obtained. FINDINGS: A dual lead cardiac pacemaker is noted at the left chest wall. Midline sternotomy sutures are noted. Within the lower esophagus and hiatus hernia rounded radiodense bodies are seen with proximal esophageal diastasis. The scanned pulmonary parenchyma shows no definite consolidative lesions. The right upper lung lobe calcified nodule is seen measuring 5 mm. Right middle lung lobe few nodules with the largest measuring less than 3 mm. Bilateral subpleural lines, fibroatelectatic bands, and peripheral reticulations. No free or encysted pleural effusion. Heart size is enlarged, and there is no pericardial effusion. No pathologically enlarged mediastinal, hilar, or axillary lymph node was identified. There is no definite mass lesion in the chest wall. Multilevel hyperdense vertebral body material consistent with vertebroplasty. Cement vascular intravasation is noted at the T3 level and suspected at the L2 at the lower margin of the images taken. Few levels show mild cement anterior extra vertebral leakage. T4, T7, T11, and T12 vertebral bodies structural collapse. Multilevel bilateral rib callus formation and cortical irregularity are likely the sequel of old healed fractures. The scanned upper abdomen shows splenic calcified foci likely a sequel of old granuloma. IMPRESSION: 1. No consolidative lesions. 2. Within the lower esophagus and hiatus hernia rounded radiodense bodies are seen with proximal esophageal diastasis, for clinical correlation of impacted ingested bodies. 3. Right upper lung lobe calcified nodule measuring 5 mm, most likely corresponding to granuloma. 4. Right middle lung lobe nodules up to 3 mm. No follow-up if low risk/ optional CT at 12 months if high risk, according to Fleischner Society 2017 Guidelines. 5. Bilateral subpleural fibroatelectatic bands and peripheral reticulations likely sequel of old infections. 6. Cardiomegaly. 7. Cement vascular intravasation is noted at the T3 level and suspected at the L2. 8. Other findings as described. Electronically Signed by: Salas Fleming MD. (10/28/2023 19:04:17 EST)
[2023-10-28] MEDS ORDERED: ZOFRAN ODT 4 MG PO PRN (22:24)
[2023-10-28] MEDS ORDERED: Lactated Ringers 1,000 ML IV SCH (22:30)
--- NOTE | 2023-10-28 22:47 | PCM.HP ---
History of Present Illness - Chief Complaint Chief Complaint: uti Date: 10/28/23 History of Present Illness: Ms. Brody is an 87 year-old with CAD s/p CABG, HTN, HLD, DVT/PE, Asthma/COPD, and an unspecified "arrhythmia" who presents with shortness of breath and chest pain. She experienced sharp chest pain and mild shortness of breath while at rest today, and her kick press setter recommended she pursue medical attention at [facility]. Upon arrival, her laboratory data revealed hypokalemia, an elevated Cr, and an elevated lactate, and a UTI, while imaging revealed no pulmonary abnormality and EKG revealed no ST or TW changes. Peculiarly, she did have potential foreign bodies in her proximal esophagus, and she does admit to choking on food. On my examination, she is resting comfortably on room air denying any current fevers, chills, nausea, vomiting, diarrhea, syncope, presyncope, visual changes, orthopnea, PND, odynophagia, dysphagia, chest pain, shortness of breath, belly pain, dysuria, hematuria, melena, hematochezia, or neurological changes. All other systems were reviewed and were negative. - Review of Systems Constitutional: No Fever, No Chills Eyes: No Symptoms Ears, Nose, & Throat: No Symptoms Respiratory: No Cough, No Short Of Breath Cardiac: No Chest Pain, No Edema, No Syncope Abdominal/Gastrointestinal: No Abdominal Pain, No Nausea, No Vomiting, No Diarrhea Genitourinary Symptoms: No Dysuria Musculoskeletal: No Back Pain, No Neck Pain Skin: No Rash Neurological: No Dizziness, No Focal Weakness, No Sensory Changes Psychological: No Symptoms Endocrine: No Symptoms Hematologic/Lymphatic: No Symptoms Immunological/Allergic: No Symptoms Medications & Allergies Home Medications: Home Medication List Dabigatran Etexilate Mesylate [Pradaxa] 75 mg PO BID 09/15/22 [History Confirmed 10/28/23] Ferrous Sulfate 325 mg PO BID 09/15/22 [History Confirmed 10/28/23] Levothyroxine Sodium 75 Mcg [Synthroid 75 Mcg] 75 mcg PO DAILY 09/15/22 [History Confirmed 10/28/23] Magnesium Oxide 400 mg PO DAILY 09/15/22 [History Confirmed 10/28/23] Multivitamin/Iron/Folic Acid [Centrum Complete Multivit Tab] 1 each PO DAILY 09/15/22 [History Confirmed 10/28/23] Pramipexole Di-HCl [Pramipexole Dihydrochloride] 0.25 mg PO HS 09/15/22 [History Confirmed 10/28/23] Sertraline HCl 50 mg [Zoloft 50 mg Tablet] 50 mg PO DAILY 09/15/22 [History Confirmed 10/28/23] Simvastatin 10 mg [Zocor 10MG] 10 mg PO HS 09/15/22 [History Confirmed 10/28/23] Metoprolol Succinate 25 mg PO DAILY 10/24/22 [History Confirmed 10/28/23] Mirabegron [Myrbetriq] 50 mg PO DAILY 10/24/22 [History Confirmed 10/28/23] Sildenafil Citrate 20 mg PO TID 10/24/22 [History Confirmed 10/28/23] Spironolactone 25 mg [Aldactone 25 MG] 25 mg PO BID 10/24/22 [History Confirmed 10/28/23] Torsemide [Soaanz] 20 mg PO BID 10/24/22 [History Confirmed 10/28/23] Docusate Sodium 100 mg [Docusate Sodium 100 MG] 100 mg PO BID 30 Days #60 cap 09/15/23 [Rx Confirmed 10/28/23] Ondansetron ODT 4 MG [Zofran Odt 4 mg] 4 mg PO Q6H PRN PRN #10 tablet 09/15/23 [Rx Confirmed 10/28/23] Omeprazole 20 mg PO DAILY 10/17/23 [History Confirmed 10/28/23] Vibegron [Gemtesa] 75 mg PO DAILY 10/17/23 [History Confirmed 10/28/23] Potassium Chloride 20 meq PO BID 7 Days #14 tablet 10/18/23 [Rx Confirmed 10/28/23] Allergies/Adverse Reactions: Allergies Allergy/AdvReac Type Severity Reaction Status Date / Time cortisone [Cortisone] Allergy "affected Verified 10/28/23 15:02 breathing and heart" latex Allergy Verified 10/28/23 15:02 polyethylene glycol Allergy vomiting Verified 10/28/23 15:02 [From Golytely] and nasuea polyethylene glycol 3350 Allergy vomiting Verified 10/28/23 15:02 [From Golytely] and nasuea sodium [From Golytely] Allergy vomiting Verified 10/28/23 15:02 and nasuea sodium bicarbonate Allergy vomiting Verified 10/28/23 15:02 [From Golytely] and nasuea sodium chloride Allergy vomiting Verified 10/28/23 15:02 [From Golytely] and nasuea sodium sulfate Allergy vomiting Verified 10/28/23 15:02 [From Golytely] and nasuea sodium sulfate anhydrous Allergy vomiting Verified 10/28/23 15:02 [From Golytely] and nasuea acetaminophen [From Vicodin] AdvReac Verified 10/28/23 15:02 hydrocodone bitartrate AdvReac Verified 10/28/23 15:02 [From Vicodin] - Past Medical History Past Medical History: Yes Neurological History: Migraines ENT History: Cataracts Cardiac History: Arrhythmia, Coronary Artery Disease, Deep Vein Thrombosis, High Cholesterol, Hypertension Respiratory History: Asthma, COPD, Pulmonary Embolism, Other Endocrine Medical History: Hypothyroidism Musculoskelatal History: Arthritis GI Medical History: GERD History: Renal Disease, Other Pyscho-Social History: Depression Reproductive Disorders: No Pertinent History Comment: 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) - Social History Smoking Status: Never smoker Exposure to second hand smoke: No Alcohol: None Drug Use: none - Physical Exam Vital Signs: Vital Signs - 24 hr Temp Pulse Resp BP BP Pulse Ox 10/28/23 20:21 97.6 F 65 16 142/65 94 L 10/28/23 19:00 98.3 F 60 13 133/61 98 10/28/23 18:56 98 10/28/23 18:50 60 18 139/55 97 10/28/23 17:30 110/50 10/28/23 17:18 59 L 21 126/51 97 10/28/23 17:10 60 13 126/51 98 10/28/23 17:05 98 10/28/23 16:30 104/41 10/28/23 16:00 60 16 151/61 94 L 10/28/23 15:30 60 20 119/36 93 L 10/28/23 14:52 97.4 F 60 19 119/47 98 General Appearance: no apparent distress, alert Neurologic Exam: alert, oriented x 3, cooperative, normal mood/affect, nml cerebellar function, nml station & gait, sensation nml, No motor deficits Eye Exam: PERRL/EOMI, eyes nml inspection Ears, Nose, Throat Exam: normal ENT inspection, TMs normal, pharynx normal, moist mucous membranes Neck Exam: normal inspection, non-tender, supple, full range of motion Respiratory Exam: normal breath sounds, lungs clear, No respiratory distress Cardiovascular Exam: regular rate/rhythm, normal heart sounds, normal peripheral pulses Gastrointestinal/Abdomen Exam: soft, normal bowel sounds, No tenderness, No mass Back Exam: normal inspection, normal range of motion, No CVA tenderness, No vertebral tenderness Extremity Exam: normal inspection, normal range of motion, pelvis stable Skin Exam: normal color, warm, dry, No rash Lymphatic Exam: No adenopathy Results - Labs Lab/Micro Results: Lab Results-Last 24 Hours 10/28/23 10/28/23 10/28/23 Range/Units 15:35 15:38 15:38 WBC 4.2 (4.0-10.5) x10^3/uL RBC 3.73 L (4.1-5.4) x10^6/uL Hgb 11.2 L (12.0-16.0) g/dL Hct 36.0 (35-47) % MCV 96.5 (78-100) fL MCH 30.0 (26-32) pg MCHC 31.1 L (32-36) g/dL RDW 15.2 H (11.5-14.0) % Plt Count 164 (150-450) x10^3/uL MPV 10.4 (7.5-11.0) fL Gran % 62.3 (36.0-66.0) % Immature Gran % (Auto) 0.5 H (0.00-0.4) % Nucleat RBC Rel Count 0.0 (0.00-0.1) % Eos # (Auto) 0.11 (0-0.5) x10^3/uL Immature Gran # (Auto) 0.02 (0.00-0.03) x10^3u/L Absolute Lymphs (auto) 0.78 L (1.0-4.6) x10^3/uL Absolute Monos (auto) 0.64 (0.0-1.3) x10^3/uL Absolute Nucleated RBC 0.00 (0.00-0.01) x10^3u/L Lymphocytes % 18.5 L (24.0-44.0) % Monocytes % 15.2 H (0.0-12.0) % Eosinophils % 2.6 (0.00-5.0) % Basophils % 0.9 (0.0-0.4) % Absolute Granulocytes 2.63 (1.4-6.9) x10^3/uL Basophils # 0.04 (0-0.4) x10^3/uL PT (9.4-12.5) SECONDS INR (0.8-3.0) APTT (25.1-36.5) SECONDS Sodium 137 (137-145) mmol/L Potassium 2.5 L* (3.5-5.1) mmol/L Chloride 96 L (98-107) mmol/L Carbon Dioxide 30 (22-30) mmol/L Anion Gap 13.2 (5-15) MEQ/L BUN 18 H (7-17) mg/dL Creatinine 1.03 (0.52-1.04) mg/dL Estimated GFR 52.0 ML/MIN Glucose 168 H (74-106) mg/dL Lactic Acid (0.4-2.0) Calcium 9.2 (8.4-10.2) mg/dL Total Bilirubin 0.70 (0.2-1.3) mg/dL AST 31 (14-36) U/L ALT 23 (0-35) U/L Alkaline Phosphatase 102 (38-126) U/L Troponin I (0.000-0.034) ng/mL NT-Pro-B Natriuret Pep (<300) pg/mL Serum Total Protein 7.6 (6.3-8.2) g/dL Albumin 4.0 (3.5-5.0) g/dL Urine Color (Yellow) Urine Appearance (Clear) Urine pH (4.6-8.0) Ur Specific [place] (1.005-1.030) Urine Protein (Negative) Urine Glucose (UA) (Negative) mg/dL Urine Ketones (Negative) Urine Blood (Negative) Urine Nitrite (Negative) Urine Bilirubin (Negative) Urine Urobilinogen (0.2) mg/dL Ur Leukocyte Esterase (Negative) U Hyaline Cast (Auto) (0-2) /LPF Urine Microscopic RBC (0-5) /HPF Urine Microscopic WBC (0-5) /HPF Ur Epithelial Cells (None Seen) /HPF Urine Bacteria (None Seen) /HPF Urine Culture Reflexed (NO) Influenza Type A Ag NEGATIVE (NEGATIVE) Influenza Type B Ag NEGATIVE (NEGATIVE) RSV (PCR) NEGATIVE (NEGATIVE) SARS-CoV-2 (PCR) NEGATIVE (NEGATIVE) 10/28/23 10/28/23 10/28/23 Range/Units 15:38 15:38 15:38 WBC (4.0-10.5) x10^3/uL RBC (4.1-5.4) x10^6/uL Hgb (12.0-16.0) g/dL Hct (35-47) % MCV (78-100) fL MCH (26-32) pg MCHC (32-36) g/dL RDW (11.5-14.0) % Plt Count (150-450) x10^3/uL MPV (7.5-11.0) fL Gran % (36.0-66.0) % Immature Gran % (Auto) (0.00-0.4) % Nucleat RBC Rel Count (0.00-0.1) % Eos # (Auto) (0-0.5) x10^3/uL Immature Gran # (Auto) (0.00-0.03) x10^3u/L Absolute Lymphs (auto) (1.0-4.6) x10^3/uL Absolute Monos (auto) (0.0-1.3) x10^3/uL Absolute Nucleated RBC (0.00-0.01) x10^3u/L Lymphocytes % (24.0-44.0) % Monocytes % (0.0-12.0) % Eosinophils % (0.00-5.0) % Basophils % (0.0-0.4) % Absolute Granulocytes (1.4-6.9) x10^3/uL Basophils # (0-0.4) x10^3/uL PT 11.2 (9.4-12.5) SECONDS INR 1.03 (0.8-3.0) APTT 25.9 (25.1-36.5) SECONDS Sodium (137-145) mmol/L Potassium (3.5-5.1) mmol/L Chloride (98-107) mmol/L Carbon Dioxide (22-30) mmol/L Anion Gap (5-15) MEQ/L BUN (7-17) mg/dL Creatinine (0.52-1.04) mg/dL Estimated GFR ML/MIN Glucose (74-106) mg/dL Lactic Acid (0.4-2.0) Calcium (8.4-10.2) mg/dL Total Bilirubin (0.2-1.3) mg/dL AST (14-36) U/L ALT (0-35) U/L Alkaline Phosphatase (38-126) U/L Troponin I < 0.012 (0.000-0.034) ng/mL NT-Pro-B Natriuret Pep 3240 (<300) pg/mL Serum Total Protein (6.3-8.2) g/dL Albumin (3.5-5.0) g/dL Urine Color (Yellow) Urine Appearance (Clear) Urine pH (4.6-8.0) Ur Specific [place] (1.005-1.030) Urine Protein (Negative) Urine Glucose (UA) (Negative) mg/dL Urine Ketones (Negative) Urine Blood (Negative) Urine Nitrite (Negative) Urine Bilirubin (Negative) Urine Urobilinogen (0.2) mg/dL Ur Leukocyte Esterase (Negative) U Hyaline Cast (Auto) (0-2) /LPF Urine Microscopic RBC (0-5) /HPF Urine Microscopic WBC (0-5) /HPF Ur Epithelial Cells (None Seen) /HPF Urine Bacteria (None Seen) /HPF Urine Culture Reflexed (NO) Influenza Type A Ag (NEGATIVE) Influenza Type B Ag (NEGATIVE) RSV (PCR) (NEGATIVE) SARS-CoV-2 (PCR) (NEGATIVE) 10/28/23 10/28/23 10/28/23 Range/Units 16:05 17:17 18:15 WBC (4.0-10.5) x10^3/uL RBC (4.1-5.4) x10^6/uL Hgb (12.0-16.0) g/dL Hct (35-47) % MCV (78-100) fL MCH (26-32) pg MCHC (32-36) g/dL RDW (11.5-14.0) % Plt Count (150-450) x10^3/uL MPV (7.5-11.0) fL Gran % (36.0-66.0) % Immature Gran % (Auto) (0.00-0.4) % Nucleat RBC Rel Count (0.00-0.1) % Eos # (Auto) (0-0.5) x10^3/uL Immature Gran # (Auto) (0.00-0.03) x10^3u/L Absolute Lymphs (auto) (1.0-4.6) x10^3/uL Absolute Monos (auto) (0.0-1.3) x10^3/uL Absolute Nucleated RBC (0.00-0.01) x10^3u/L Lymphocytes % (24.0-44.0) % Monocytes % (0.0-12.0) % Eosinophils % (0.00-5.0) % Basophils % (0.0-0.4) % Absolute Granulocytes (1.4-6.9) x10^3/uL Basophils # (0-0.4) x10^3/uL PT (9.4-12.5) SECONDS INR (0.8-3.0) APTT (25.1-36.5) SECONDS Sodium (137-145) mmol/L Potassium (3.5-5.1) mmol/L Chloride (98-107) mmol/L Carbon Dioxide (22-30) mmol/L Anion Gap (5-15) MEQ/L BUN (7-17) mg/dL Creatinine (0.52-1.04) mg/dL Estimated GFR ML/MIN Glucose (74-106) mg/dL Lactic Acid 4.2 H 1.4 (0.4-2.0) Calcium (8.4-10.2) mg/dL Total Bilirubin (0.2-1.3) mg/dL AST (14-36) U/L ALT (0-35) U/L Alkaline Phosphatase (38-126) U/L Troponin I (0.000-0.034) ng/mL NT-Pro-B Natriuret Pep (<300) pg/mL Serum Total Protein (6.3-8.2) g/dL Albumin (3.5-5.0) g/dL Urine Color Yellow (Yellow) Urine Appearance Cloudy A (Clear) Urine pH 6.0 (4.6-8.0) Ur Specific [place] 1.015 (1.005-1.030) Urine Protein 30 (Negative) Urine Glucose (UA) Negative (Negative) mg/dL Urine Ketones Negative (Negative) Urine Blood Trace (Negative) Urine Nitrite Negative (Negative) Urine Bilirubin Negative (Negative) Urine Urobilinogen 1.0 A (0.2) mg/dL Ur Leukocyte Esterase Large A (Negative) U Hyaline Cast (Auto) 0-2 (0-2) /LPF Urine Microscopic RBC 0-2 (0-5) /HPF Urine Microscopic WBC >100 A (0-5) /HPF Ur Epithelial Cells None Seen (None Seen) /HPF Urine Bacteria Many A (None Seen) /HPF Urine Culture Reflexed YES (NO) Influenza Type A Ag (NEGATIVE) Influenza Type B Ag (NEGATIVE) RSV (PCR) (NEGATIVE) SARS-CoV-2 (PCR) (NEGATIVE) 10/28/23 Range/Units 19:34 WBC (4.0-10.5) x10^3/uL RBC (4.1-5.4) x10^6/uL Hgb (12.0-16.0) g/dL Hct (35-47) % MCV (78-100) fL MCH (26-32) pg MCHC (32-36) g/dL RDW (11.5-14.0) % Plt Count (150-450) x10^3/uL MPV (7.5-11.0) fL Gran % (36.0-66.0) % Immature Gran % (Auto) (0.00-0.4) % Nucleat RBC Rel Count (0.00-0.1) % Eos # (Auto) (0-0.5) x10^3/uL Immature Gran # (Auto) (0.00-0.03) x10^3u/L Absolute Lymphs (auto) (1.0-4.6) x10^3/uL Absolute Monos (auto) (0.0-1.3) x10^3/uL Absolute Nucleated RBC (0.00-0.01) x10^3u/L Lymphocytes % (24.0-44.0) % Monocytes % (0.0-12.0) % Eosinophils % (0.00-5.0) % Basophils % (0.0-0.4) % Absolute Granulocytes (1.4-6.9) x10^3/uL Basophils # (0-0.4) x10^3/uL PT (9.4-12.5) SECONDS INR (0.8-3.0) APTT (25.1-36.5) SECONDS Sodium (137-145) mmol/L Potassium (3.5-5.1) mmol/L Chloride (98-107) mmol/L Carbon Dioxide (22-30) mmol/L Anion Gap (5-15) MEQ/L BUN (7-17) mg/dL Creatinine (0.52-1.04) mg/dL Estimated GFR ML/MIN Glucose (74-106) mg/dL Lactic Acid (0.4-2.0) Calcium (8.4-10.2) mg/dL Total Bilirubin (0.2-1.3) mg/dL AST (14-36) U/L ALT (0-35) U/L Alkaline Phosphatase (38-126) U/L Troponin I < 0.012 (0.000-0.034) ng/mL NT-Pro-B Natriuret Pep (<300) pg/mL Serum Total Protein (6.3-8.2) g/dL Albumin (3.5-5.0) g/dL Urine Color (Yellow) Urine Appearance (Clear) Urine pH (4.6-8.0) Ur Specific [place] (1.005-1.030) Urine Protein (Negative) Urine Glucose (UA) (Negative) mg/dL Urine Ketones (Negative) Urine Blood (Negative) Urine Nitrite (Negative) Urine Bilirubin (Negative) Urine Urobilinogen (0.2) mg/dL Ur Leukocyte Esterase (Negative) U Hyaline Cast (Auto) (0-2) /LPF Urine Microscopic RBC (0-5) /HPF Urine Microscopic WBC (0-5) /HPF Ur Epithelial Cells (None Seen) /HPF Urine Bacteria (None Seen) /HPF Urine Culture Reflexed (NO) Influenza Type A Ag (NEGATIVE) Influenza Type B Ag (NEGATIVE) RSV (PCR) (NEGATIVE) SARS-CoV-2 (PCR) (NEGATIVE) - Radiology Impressions Radiology Exams & Impressions: Radiology Procedures Category Date Time Status CHEST 1 VIEW (PORTABLE) Stat Exams 10/28/23 15:27 Completed CHEST WITHOUT CONTRAST [CT] Stat Exams 10/28/23 17:16 Completed - Other Procedures and Tests Respiratory Therapy 10/28/23 18:54 Oxygen Nasal Cannula 2 lpm Assessment/Plan (1) UTI (urinary tract infection) Current Visit: Yes Status: Acute Assessment & Plan: ASSESSMENT 1. Chest Pain 2. Shortness of Breath 3. Urinary Tract Infection 4. Acute Kidney Injury 5. Hypokalemia 6. Elevated Lactate 7. Coronary Artery Disease s/p CABG 8. 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 Hypertension 10. Hyperlipidemia 11. Chart Diagnosis of Asthma/COPD 12. Chart Diagnosis of "Arrhythmia" PLAN 1. Fluids + Abx 2. CT chest with clear lungs; does have opacities in proximal esophagus; recommend barium swallow prior to discharge 3. She is on torsemide for lower extremity edema - I feel this is too potent a diuretic for "cosmeresis" (cosmetic diuresis); would dose as PRN and decrease to lasix at lower dose 4. Troponin negative x 2; EKG unremarkable 5. Replete K + K supplements 6. Continue cardiac meds Dabigatran/PPI The entirety of this encounter was done via telemedicine Livan Gutierrez MD Pulmonary and Critical Care Medicine Code(s): N39.0 - URINARY TRACT INFECTION, SITE NOT SPECIFIED Telemedicine Encounter - Telemedicine Encounter Telemedicine Encounter: The entirety of this encounter was performed via Telemedicine"
[2023-10-28] MEDS: POTASSIUM CHLORIDE 20 mEq IN WATER 100ML 100 ML IV SCH (23:05)
[2023-10-29 02:57] LABS: Hematocrit 31.6 % (35-47); Hemoglobin 10.1 g/dL (12.0-16.0); Mean Cell Volume 94.6 fL (78-100); Mean Corpuscular Hemoglobin 30.2 pg (26-32); Mean Platelet Volume 10.6 fL (7.5-11.0); Platelet Count 160 x10^3/uL (150-450); Red Blood Count 3.34 x10^6/uL (4.1-5.4); White Blood Count 2.2 x10^3/uL (4.0-10.5)
[2023-10-29 03:09] LABS: ALBUMIN 3.5 g/dL (3.5-5.0); ANION GAP 10.6 MEQ/L (5-15); BILIRUBIN,TOTAL 0.6 mg/dL (0.2-1.3); Creatinine 1 1.04 mg/dL (0.52-1.04); EST GLOMERULAR FILTRATION RATE 51.4 ML/MIN; MAGNESIUM 1.9 mg/dL (1.6-2.3); Potassium 3.3 mmol/L (3.5-5.1); Total Protein 6.8 g/dL (6.3-8.2)
[2023-10-29] MEDS: POTASSIUM CHLORIDE 20 mEq IN WATER 100ML 100 ML IV SCH (03:18)
--- NOTE | 2023-10-29 05:26 | PCM.NOTE ---
Date and Time: 10/29/23 0519 Subjective Assessment: Ms. Brody is an 87 year-old with CAD s/p CABG, HTN, HLD, DVT/PE, Asthma/COPD, and an unspecified "arrhythmia" who presents with shortness of breath and chest pain.Upon arrival, her laboratory data revealed hypokalemia, an elevated Cr, and an elevated lactate, and a UTI, while imaging revealed no pulmonary abnormality and EKG revealed no ST or TW changes. CT chest with clear lungs, does have opacities in proximal esophagus, and she does admit to choking on food. Admitted for UTI, chest pain, and hypokalemia. Unable to obtain esophagram, speech to evaluate. Respiratory viral panel negative. 10/29: Met with patient bedside. Endorses burning, pain, and pressure with urination. No longer with chest pain. She is wheezing on exam. Discussed CT findings, patient states she does not have trouble swallowing. Will have speech evaluate patient bedside as we are unable to obtain an esophagram until . Electrolytes are now normal. Denies fever,cough, sob, cp, abdominal pain, ARANDA, dizziness, N/V/D. - Review of Systems Constitutional: No Symptoms Eyes: No Symptoms Ears, Nose, & Throat: No Symptoms Respiratory: No Symptoms Cardiac: No Symptoms Abdominal/Gastrointestinal: No Symptoms Genitourinary Symptoms: Dysuria, Frequency, Urgency Musculoskeletal: Back Pain (chronic) Skin: No Symptoms Neurological: No Symptoms Psychological: No Symptoms Endocrine: No Symptoms Hematologic/Lymphatic: No Symptoms Immunological/Allergic: No Symptoms Objective Exam General Appearance: no apparent distress Neurologic Exam: alert, oriented x 3, cooperative Skin Exam: normal color Eye Exam: PERRL Ears, Nose, Throat Exam: normal ENT inspection Neck Exam: normal inspection Respiratory Exam: wheezing Cardiovascular Exam: regular rate/rhythm, normal heart sounds Gastrointestinal/Abdomen Exam: soft, normal bowel sounds, tenderness Extremity Exam: normal inspection Back Exam: normal inspection OBJECTIVE DATA Vital Signs: Vital Signs - 24 hr Temp Pulse Resp BP BP Pulse Ox 10/29/23 04:00 97.9 F 69 15 133/59 97 10/29/23 00:00 98.0 F 59 L 21 136/62 94 L 10/28/23 20:21 97.6 F 65 16 142/65 94 L 10/28/23 19:00 98.3 F 60 13 133/61 98 10/28/23 18:56 98 10/28/23 18:50 60 18 139/55 97 10/28/23 17:30 110/50 10/28/23 17:18 59 L 21 126/51 97 10/28/23 17:10 60 13 126/51 98 10/28/23 17:05 98 10/28/23 16:30 104/41 10/28/23 16:00 60 16 151/61 94 L 10/28/23 15:30 60 20 119/36 93 L 10/28/23 14:52 97.4 F 60 19 119/47 98 Pain Assessment - Last Documented Pain Intensity 0 Intake and Output: Intake & Output 10/26/23 10/27/23 10/28/23 10/29/23 11:59 11:59 11:59 11:59 Intake Total 240 Balance 240 Weight 54.7 kg Lab Results: Lab Results-Last 24 Hours 10/28/23 10/28/23 10/28/23 Range/Units 15:35 15:38 15:38 WBC 4.2 (4.0-10.5) x10^3/uL RBC 3.73 L (4.1-5.4) x10^6/uL Hgb 11.2 L (12.0-16.0) g/dL Hct 36.0 (35-47) % MCV 96.5 (78-100) fL MCH 30.0 (26-32) pg MCHC 31.1 L (32-36) g/dL RDW 15.2 H (11.5-14.0) % Plt Count 164 (150-450) x10^3/uL MPV 10.4 (7.5-11.0) fL Gran % 62.3 (36.0-66.0) % Immature Gran % (Auto) 0.5 H (0.00-0.4) % Nucleat RBC Rel Count 0.0 (0.00-0.1) % Eos # (Auto) 0.11 (0-0.5) x10^3/uL Immature Gran # (Auto) 0.02 (0.00-0.03) x10^3u/L Absolute Lymphs (auto) 0.78 L (1.0-4.6) x10^3/uL Absolute Monos (auto) 0.64 (0.0-1.3) x10^3/uL Absolute Nucleated RBC 0.00 (0.00-0.01) x10^3u/L Lymphocytes % 18.5 L (24.0-44.0) % Monocytes % 15.2 H (0.0-12.0) % Eosinophils % 2.6 (0.00-5.0) % Basophils % 0.9 (0.0-0.4) % Absolute Granulocytes 2.63 (1.4-6.9) x10^3/uL Basophils # 0.04 (0-0.4) x10^3/uL PT (9.4-12.5) SECONDS INR (0.8-3.0) APTT (25.1-36.5) SECONDS Sodium 137 (137-145) mmol/L Potassium 2.5 L* (3.5-5.1) mmol/L Chloride 96 L (98-107) mmol/L Carbon Dioxide 30 (22-30) mmol/L Anion Gap 13.2 (5-15) MEQ/L BUN 18 H (7-17) mg/dL Creatinine 1.03 (0.52-1.04) mg/dL Estimated GFR 52.0 ML/MIN Glucose 168 H (74-106) mg/dL Lactic Acid (0.4-2.0) Calcium 9.2 (8.4-10.2) mg/dL Magnesium (1.6-2.3) mg/dL Total Bilirubin 0.70 (0.2-1.3) mg/dL AST 31 (14-36) U/L ALT 23 (0-35) U/L Alkaline Phosphatase 102 (38-126) U/L Troponin I (0.000-0.034) ng/mL NT-Pro-B Natriuret Pep (<300) pg/mL Serum Total Protein 7.6 (6.3-8.2) g/dL Albumin 4.0 (3.5-5.0) g/dL Urine Color (Yellow) Urine Appearance (Clear) Urine pH (4.6-8.0) Ur Specific [place] (1.005-1.030) Urine Protein (Negative) Urine Glucose (UA) (Negative) mg/dL Urine Ketones (Negative) Urine Blood (Negative) Urine Nitrite (Negative) Urine Bilirubin (Negative) Urine Urobilinogen (0.2) mg/dL Ur Leukocyte Esterase (Negative) U Hyaline Cast (Auto) (0-2) /LPF Urine Microscopic RBC (0-5) /HPF Urine Microscopic WBC (0-5) /HPF Ur Epithelial Cells (None Seen) /HPF Urine Bacteria (None Seen) /HPF Urine Culture Reflexed (NO) Influenza Type A Ag NEGATIVE (NEGATIVE) Influenza Type B Ag NEGATIVE (NEGATIVE) RSV (PCR) NEGATIVE (NEGATIVE) SARS-CoV-2 (PCR) NEGATIVE (NEGATIVE) 10/28/23 10/28/23 10/28/23 Range/Units 15:38 15:38 15:38 WBC (4.0-10.5) x10^3/uL RBC (4.1-5.4) x10^6/uL Hgb (12.0-16.0) g/dL Hct (35-47) % MCV (78-100) fL MCH (26-32) pg MCHC (32-36) g/dL RDW (11.5-14.0) % Plt Count (150-450) x10^3/uL MPV (7.5-11.0) fL Gran % (36.0-66.0) % Immature Gran % (Auto) (0.00-0.4) % Nucleat RBC Rel Count (0.00-0.1) % Eos # (Auto) (0-0.5) x10^3/uL Immature Gran # (Auto) (0.00-0.03) x10^3u/L Absolute Lymphs (auto) (1.0-4.6) x10^3/uL Absolute Monos (auto) (0.0-1.3) x10^3/uL Absolute Nucleated RBC (0.00-0.01) x10^3u/L Lymphocytes % (24.0-44.0) % Monocytes % (0.0-12.0) % Eosinophils % (0.00-5.0) % Basophils % (0.0-0.4) % Absolute Granulocytes (1.4-6.9) x10^3/uL Basophils # (0-0.4) x10^3/uL PT 11.2 (9.4-12.5) SECONDS INR 1.03 (0.8-3.0) APTT 25.9 (25.1-36.5) SECONDS Sodium (137-145) mmol/L Potassium (3.5-5.1) mmol/L Chloride (98-107) mmol/L Carbon Dioxide (22-30) mmol/L Anion Gap (5-15) MEQ/L BUN (7-17) mg/dL Creatinine (0.52-1.04) mg/dL Estimated GFR ML/MIN Glucose (74-106) mg/dL Lactic Acid (0.4-2.0) Calcium (8.4-10.2) mg/dL Magnesium (1.6-2.3) mg/dL Total Bilirubin (0.2-1.3) mg/dL AST (14-36) U/L ALT (0-35) U/L Alkaline Phosphatase (38-126) U/L Troponin I < 0.012 (0.000-0.034) ng/mL NT-Pro-B Natriuret Pep 3240 (<300) pg/mL Serum Total Protein (6.3-8.2) g/dL Albumin (3.5-5.0) g/dL Urine Color (Yellow) Urine Appearance (Clear) Urine pH (4.6-8.0) Ur Specific [place] (1.005-1.030) Urine Protein (Negative) Urine Glucose (UA) (Negative) mg/dL Urine Ketones (Negative) Urine Blood (Negative) Urine Nitrite (Negative) Urine Bilirubin (Negative) Urine Urobilinogen (0.2) mg/dL Ur Leukocyte Esterase (Negative) U Hyaline Cast (Auto) (0-2) /LPF Urine Microscopic RBC (0-5) /HPF Urine Microscopic WBC (0-5) /HPF Ur Epithelial Cells (None Seen) /HPF Urine Bacteria (None Seen) /HPF Urine Culture Reflexed (NO) Influenza Type A Ag (NEGATIVE) Influenza Type B Ag (NEGATIVE) RSV (PCR) (NEGATIVE) SARS-CoV-2 (PCR) (NEGATIVE) 10/28/23 10/28/23 10/28/23 Range/Units 16:05 17:17 18:15 WBC (4.0-10.5) x10^3/uL RBC (4.1-5.4) x10^6/uL Hgb (12.0-16.0) g/dL Hct (35-47) % MCV (78-100) fL MCH (26-32) pg MCHC (32-36) g/dL RDW (11.5-14.0) % Plt Count (150-450) x10^3/uL MPV (7.5-11.0) fL Gran % (36.0-66.0) % Immature Gran % (Auto) (0.00-0.4) % Nucleat RBC Rel Count (0.00-0.1) % Eos # (Auto) (0-0.5) x10^3/uL Immature Gran # (Auto) (0.00-0.03) x10^3u/L Absolute Lymphs (auto) (1.0-4.6) x10^3/uL Absolute Monos (auto) (0.0-1.3) x10^3/uL Absolute Nucleated RBC (0.00-0.01) x10^3u/L Lymphocytes % (24.0-44.0) % Monocytes % (0.0-12.0) % Eosinophils % (0.00-5.0) % Basophils % (0.0-0.4) % Absolute Granulocytes (1.4-6.9) x10^3/uL Basophils # (0-0.4) x10^3/uL PT (9.4-12.5) SECONDS INR (0.8-3.0) APTT (25.1-36.5) SECONDS Sodium (137-145) mmol/L Potassium (3.5-5.1) mmol/L Chloride (98-107) mmol/L Carbon Dioxide (22-30) mmol/L Anion Gap (5-15) MEQ/L BUN (7-17) mg/dL Creatinine (0.52-1.04) mg/dL Estimated GFR ML/MIN Glucose (74-106) mg/dL Lactic Acid 4.2 H 1.4 (0.4-2.0) Calcium (8.4-10.2) mg/dL Magnesium (1.6-2.3) mg/dL Total Bilirubin (0.2-1.3) mg/dL AST (14-36) U/L ALT (0-35) U/L Alkaline Phosphatase (38-126) U/L Troponin I (0.000-0.034) ng/mL NT-Pro-B Natriuret Pep (<300) pg/mL Serum Total Protein (6.3-8.2) g/dL Albumin (3.5-5.0) g/dL Urine Color Yellow (Yellow) Urine Appearance Cloudy A (Clear) Urine pH 6.0 (4.6-8.0) Ur Specific [place] 1.015 (1.005-1.030) Urine Protein 30 (Negative) Urine Glucose (UA) Negative (Negative) mg/dL Urine Ketones Negative (Negative) Urine Blood Trace (Negative) Urine Nitrite Negative (Negative) Urine Bilirubin Negative (Negative) Urine Urobilinogen 1.0 A (0.2) mg/dL Ur Leukocyte Esterase Large A (Negative) U Hyaline Cast (Auto) 0-2 (0-2) /LPF Urine Microscopic RBC 0-2 (0-5) /HPF Urine Microscopic WBC >100 A (0-5) /HPF Ur Epithelial Cells None Seen (None Seen) /HPF Urine Bacteria Many A (None Seen) /HPF Urine Culture Reflexed YES (NO) Influenza Type A Ag (NEGATIVE) Influenza Type B Ag (NEGATIVE) RSV (PCR) (NEGATIVE) SARS-CoV-2 (PCR) (NEGATIVE) 10/28/23 10/28/23 10/28/23 Range/Units 19:34 23:25 23:25 WBC (4.0-10.5) x10^3/uL RBC (4.1-5.4) x10^6/uL Hgb (12.0-16.0) g/dL Hct (35-47) % MCV (78-100) fL MCH (26-32) pg MCHC (32-36) g/dL RDW (11.5-14.0) % Plt Count (150-450) x10^3/uL MPV (7.5-11.0) fL Gran % (36.0-66.0) % Immature Gran % (Auto) (0.00-0.4) % Nucleat RBC Rel Count (0.00-0.1) % Eos # (Auto) (0-0.5) x10^3/uL Immature Gran # (Auto) (0.00-0.03) x10^3u/L Absolute Lymphs (auto) (1.0-4.6) x10^3/uL Absolute Monos (auto) (0.0-1.3) x10^3/uL Absolute Nucleated RBC (0.00-0.01) x10^3u/L Lymphocytes % (24.0-44.0) % Monocytes % (0.0-12.0) % Eosinophils % (0.00-5.0) % Basophils % (0.0-0.4) % Absolute Granulocytes (1.4-6.9) x10^3/uL Basophils # (0-0.4) x10^3/uL PT (9.4-12.5) SECONDS INR (0.8-3.0) APTT (25.1-36.5) SECONDS Sodium (137-145) mmol/L Potassium 3.3 L D (3.5-5.1) mmol/L Chloride (98-107) mmol/L Carbon Dioxide (22-30) mmol/L Anion Gap (5-15) MEQ/L BUN (7-17) mg/dL Creatinine (0.52-1.04) mg/dL Estimated GFR ML/MIN Glucose (74-106) mg/dL Lactic Acid (0.4-2.0) Calcium (8.4-10.2) mg/dL Magnesium (1.6-2.3) mg/dL Total Bilirubin (0.2-1.3) mg/dL AST (14-36) U/L ALT (0-35) U/L Alkaline Phosphatase (38-126) U/L Troponin I < 0.012 < 0.012 (0.000-0.034) ng/mL NT-Pro-B Natriuret Pep (<300) pg/mL Serum Total Protein (6.3-8.2) g/dL Albumin (3.5-5.0) g/dL Urine Color (Yellow) Urine Appearance (Clear) Urine pH (4.6-8.0) Ur Specific [place] (1.005-1.030) Urine Protein (Negative) Urine Glucose (UA) (Negative) mg/dL Urine Ketones (Negative) Urine Blood (Negative) Urine Nitrite (Negative) Urine Bilirubin (Negative) Urine Urobilinogen (0.2) mg/dL Ur Leukocyte Esterase (Negative) U Hyaline Cast (Auto) (0-2) /LPF Urine Microscopic RBC (0-5) /HPF Urine Microscopic WBC (0-5) /HPF Ur Epithelial Cells (None Seen) /HPF Urine Bacteria (None Seen) /HPF Urine Culture Reflexed (NO) Influenza Type A Ag (NEGATIVE) Influenza Type B Ag (NEGATIVE) RSV (PCR) (NEGATIVE) SARS-CoV-2 (PCR) (NEGATIVE) 10/29/23 10/29/23 Range/Units 02:50 02:50 WBC 2.2 L (4.0-10.5) x10^3/uL RBC 3.34 L (4.1-5.4) x10^6/uL Hgb 10.1 L (12.0-16.0) g/dL Hct 31.6 L (35-47) % MCV 94.6 (78-100) fL MCH 30.2 (26-32) pg MCHC 32.0 (32-36) g/dL RDW 15.0 H (11.5-14.0) % Plt Count 160 (150-450) x10^3/uL MPV 10.6 (7.5-11.0) fL Gran % (36.0-66.0) % Immature Gran % (Auto) (0.00-0.4) % Nucleat RBC Rel Count (0.00-0.1) % Eos # (Auto) (0-0.5) x10^3/uL Immature Gran # (Auto) (0.00-0.03) x10^3u/L Absolute Lymphs (auto) (1.0-4.6) x10^3/uL Absolute Monos (auto) (0.0-1.3) x10^3/uL Absolute Nucleated RBC (0.00-0.01) x10^3u/L Lymphocytes % (24.0-44.0) % Monocytes % (0.0-12.0) % Eosinophils % (0.00-5.0) % Basophils % (0.0-0.4) % Absolute Granulocytes (1.4-6.9) x10^3/uL Basophils # (0-0.4) x10^3/uL PT (9.4-12.5) SECONDS INR (0.8-3.0) APTT (25.1-36.5) SECONDS Sodium 137 (137-145) mmol/L Potassium 3.3 L (3.5-5.1) mmol/L Chloride 99 (98-107) mmol/L Carbon Dioxide 30 (22-30) mmol/L Anion Gap 10.6 (5-15) MEQ/L BUN 22 H (7-17) mg/dL Creatinine 1.04 (0.52-1.04) mg/dL Estimated GFR 51.4 ML/MIN Glucose 142 H (74-106) mg/dL Lactic Acid (0.4-2.0) Calcium 9.0 (8.4-10.2) mg/dL Magnesium 1.9 (1.6-2.3) mg/dL Total Bilirubin 0.60 (0.2-1.3) mg/dL AST 38 H (14-36) U/L ALT 26 (0-35) U/L Alkaline Phosphatase 98 (38-126) U/L Troponin I (0.000-0.034) ng/mL NT-Pro-B Natriuret Pep (<300) pg/mL Serum Total Protein 6.8 (6.3-8.2) g/dL Albumin 3.5 (3.5-5.0) g/dL Urine Color (Yellow) Urine Appearance (Clear) Urine pH (4.6-8.0) Ur Specific [place] (1.005-1.030) Urine Protein (Negative) Urine Glucose (UA) (Negative) mg/dL Urine Ketones (Negative) Urine Blood (Negative) Urine Nitrite (Negative) Urine Bilirubin (Negative) Urine Urobilinogen (0.2) mg/dL Ur Leukocyte Esterase (Negative) U Hyaline Cast (Auto) (0-2) /LPF Urine Microscopic RBC (0-5) /HPF Urine Microscopic WBC (0-5) /HPF Ur Epithelial Cells (None Seen) /HPF Urine Bacteria (None Seen) /HPF Urine Culture Reflexed (NO) Influenza Type A Ag (NEGATIVE) Influenza Type B Ag (NEGATIVE) RSV (PCR) (NEGATIVE) SARS-CoV-2 (PCR) (NEGATIVE) Radiology Exams: Radiology Procedures Category Date Time Status CHEST 1 VIEW (PORTABLE) Stat Exams 10/28/23 15:27 Completed CHEST WITHOUT CONTRAST [CT] Stat Exams 10/28/23 17:16 Completed Assessment/Plan (1) UTI (urinary tract infection) Current Visit: Yes Status: Acute Assessment & Plan: -UA suspicious for infection, CX pending, started empirically on ceftriaxone, will continue and follow cultures Code(s): N39.0 - URINARY TRACT INFECTION, SITE NOT SPECIFIED (2) Abnormal CT scan, esophagus Current Visit: Yes Status: Acute Assessment & Plan: CT chest with multiple lung nodules in RUL, RML recommending f/u in 12 months, cardiomegaly, lower esophagus and hiatus hernia rounded radiodense bodies seen with proximal esophageal diastasis (clinical coordination of impacted ingested bodies recommended) -Unable to obtain esophagram will have speech evaluate pt bedside for recs Code(s): R93.3 - ABNORMAL FINDINGS ON DX IMAGING OF PRT DIGESTIVE TRACT (3) Chest pain Current Visit: Yes Status: Acute Assessment & Plan: -Troponin negative x 2; EKG unremarkable 10/29: -No longer having CP, trops neg x 3, EKG unremarkable, will continue to monitor Code(s): R07.9 - CHEST PAIN, UNSPECIFIED (4) Shortness of breath Current Visit: Yes Status: Acute Assessment & Plan: -CT chest with multiple lung nodules in RUL, RML recommending f/u in 12 months, cardiomegaly, lower esophagus and hiatus hernia rounded radiodense bodies seen with proximal esophageal diastasis (clinical coordination of impacted ingested bodies recommended) -supplemental o2 to maintain spo2 >92% -RT consult -DuoNebs/in Code(s): R06.02 - SHORTNESS OF BREATH (5) KHUSHBOO (acute kidney injury) Current Visit: Yes Status: Acute Assessment & Plan: -at baseline -Monitor renal/lytes daily Code(s): N17.9 - ACUTE KIDNEY FAILURE, UNSPECIFIED (6) CAD (coronary artery disease) Current Visit: Yes Status: Acute Assessment & Plan: -S/P CABG, continue home meds Code(s): I25.10 - ATHSCL HEART DISEASE OF [place] CORONARY ARTERY W/O ANG PCTRS (7) HTN (hypertension) Current Visit: Yes Status: Acute Assessment & Plan: -stable will continue home meds and adjust as appropriate Code(s): I10 - ESSENTIAL (PRIMARY) HYPERTENSION (8) HLD (hyperlipidemia) Current Visit: Yes Status: Acute Assessment & Plan: -Continue statin Code(s): E78.5 - HYPERLIPIDEMIA, UNSPECIFIED (9) COPD (chronic obstructive pulmonary disease) Current Visit: Yes Status: Acute Assessment & Plan: -CT chest with multiple lung nodules in RUL, RML recommending f/u in 12 months, cardiomegaly, lower esophagus and hiatus hernia rounded radiodense bodies seen with proximal esophageal diastasis (clinical coordination of impacted ingested bodies recommended) -RT eval -PRN duonebs/in (10) Arrhythmia Current Visit: Yes Status: Acute Assessment & Plan: -Noted, continue home meds Code(s): I49.9 - CARDIAC ARRHYTHMIA, UNSPECIFIED (11) Hypokalemia Current Visit: Yes Status: Acute Assessment & Plan: -monitor renal/lytes daily, replace as appropriate 10/29: -resolved Code(s): E87.6 - HYPOKALEMIA (12) Bilateral lower extremity edema Current Visit: No Status: Acute Assessment & Plan: She is on torsemide for lower extremity edema - I feel this is too potent a diuretic for "cosmeresis" (cosmetic diuresis); would dose as PRN and decrease to lasix at lower dose 10/29: -Lasix prn Code(s): R60.0 - LOCALIZED EDEMA (13) CHF (congestive heart failure) Current Visit: No Status: Chronic Assessment & Plan: She is on torsemide for lower extremity edema - I feel this is too potent a diuretic for "cosmeresis" (cosmetic diuresis); would dose as PRN and decrease to lasix at lower dose -No recent ECHO, will order Code(s): I50.9 - HEART FAILURE, UNSPECIFIED (14) DVT prophylaxis Current Visit: No Status: Chronic Assessment & Plan: -Continue pradaxa Code(s): Z29.9 - ENCOUNTER FOR PROPHYLACTIC MEASURES, UNSPECIFIED (15) Hx pulmonary embolism Current Visit: No Status: Chronic Assessment & Plan: -Continue pradaxa Code(s): Z86.711 - PERSONAL HISTORY OF PULMONARY EMBOLISM
[2023-10-29] MEDS ORDERED: MEDICATION INTERVENTION MC SCH (07:15)
[2023-10-29] MEDS: Aldactone 25 MG PO SCH ×2 (09:54→22:28)
[2023-10-29] MEDS: PRADAXA 75 MG PO SCH ×2 (09:54→22:27)
[2023-10-29] MEDS: Klor Con PO SCH ×2 (09:55→22:27)
[2023-10-29] MEDS: Protonix 40MG Tablet PO SCH (09:55)
[2023-10-29] MEDS: Docusate Sodium 100 MG PO SCH ×2 (09:55→22:28)
[2023-10-29] MEDS: SYNTHROID 75 MCG PO SCH (09:55)
[2023-10-29] MEDS: Toprol-Xl 25MG Tablets PO SCH (09:55)
[2023-10-29] MEDS: ZOLOFT 50 MG TABLET PO SCH (09:55)
[2023-10-29] MEDS ORDERED: NON-FORMULARY ITEM (Potassium Chloride [Potassium Chloride] 20 MEQ Tab.Er.Prt) PO SCH (10:00)
[2023-10-29] MEDS ORDERED: NON-FORMULARY ITEM (Metoprolol Succinate 25 MG Tab.Er.24h) PO SCH (10:00)
[2023-10-29] MEDS ORDERED: NON-FORMULARY ITEM (Omeprazole [Omeprazole] 20 MG Capsule.Dr) PO SCH (10:00)
[2023-10-29] MEDS ORDERED: NON-FORMULARY ITEM (Sildenafil Citrate [Sildenafil Citrate] 20 MG Tablet) PO SCH (10:00)
[2023-10-29] MEDS ORDERED: NON-FORMULARY ITEM (Pramipexole Di-Hcl [Pramipexole Dihydrochloride] 0.125 MG Tablet) PO SCH (22:00)
[2023-10-29] MEDS ORDERED: Mirapex 0.5 MG Tablet PO SCH (22:00)
[2023-10-29] MEDS ORDERED: Zocor 10MG PO SCH (22:00)
[2023-10-29] MEDS ORDERED: ROCEPHIN 1 Gm-D5w 50 ml Bag** 1 G/50 ML IVPB IV SCH (22:00)
--- NOTE | 2023-10-30 05:17 | PCM.DS ---
Discharge Summary Date of Admission: 10/28/23 19:32 Date of Discharge: 10/30/23 Admitting Physician: PRINCESS GARRETT MD Primary Care Provider: MOE PRINCE Allergies Allergies cortisone [Cortisone] Allergy (Verified 10/28/23 15:02) "affected breathing and heart" latex Allergy (Verified 10/28/23 15:02) polyethylene glycol [From Golytely] Allergy (Verified 10/28/23 15:02) vomiting and nasuea polyethylene glycol 3350 [From Golytely] Allergy (Verified 10/28/23 15:02) vomiting and nasuea sodium [From Golytely] Allergy (Verified 10/28/23 15:02) vomiting and nasuea sodium bicarbonate [From Golytely] Allergy (Verified 10/28/23 15:02) vomiting and nasuea sodium chloride [From Golytely] Allergy (Verified 10/28/23 15:02) vomiting and nasuea sodium sulfate [From Golytely] Allergy (Verified 10/28/23 15:02) vomiting and nasuea sodium sulfate anhydrous [From Golytely] Allergy (Verified 10/28/23 15:02) vomiting and nasuea acetaminophen [From Vicodin] Adverse Reaction (Verified 10/28/23 15:02) hydrocodone bitartrate [From Vicodin] Adverse Reaction (Verified 10/28/23 15:02) Hospital Summary - Hospital Course Hospital Course: Ms. Brody is an 87 year-old with CAD s/p CABG, HTN, HLD, DVT/PE, Asthma/COPD, and an unspecified "arrhythmia" who presents with shortness of breath and chest pain.Upon arrival, her laboratory data revealed hypokalemia, an elevated Cr, and an elevated lactate, and a UTI, while imaging revealed no pulmonary abnormality and EKG revealed no ST or TW changes. CT chest with clear lungs, does have opaci ties in proximal esophagus, and she does admit to choking on food. Admitted for UTI, chest pain, and hypokalemia. Unable to obtain esophagram. Speech has evaluated patient, no issues noted at bedside swallow eval. Electrolytes have been replenished. Will discharge on Cefdinir with advisement for follow up on CT findings and UTI with PCP. New Diagnosis: UTI New Medications: Cefdinir Follow Up: PCP Latest Assessment & Plan -UA suspicious for infection, CX pending, started empirically on ceftriaxone, will continue and follow cultures Code(s): N39.0 - URINARY TRACT INFECTION, SITE NOT SPECIFIED (2) Abnormal CT scan, esophagus Current Visit: Yes Status: Acute Assessment & Plan: CT chest with multiple lung nodules in RUL, RML recommending f/u in 12 months, cardiomegaly, lower esophagus and hiatus hernia rounded radiodense bodies seen with proximal esophageal diastasis (clinical coordination of impacted ingested bodies recommended) -Unable to obtain esophagram will have speech evaluate pt bedside for recs Code(s): R93.3 - ABNORMAL FINDINGS ON DX IMAGING OF PRT DIGESTIVE TRACT (3) Chest pain Current Visit: Yes Status: Acute Assessment & Plan: -Troponin negative x 2; EKG unremarkable 10/29: -No longer having CP, trops neg x 3, EKG unremarkable, will continue to monitor Code(s): R07.9 - CHEST PAIN, UNSPECIFIED (4) Shortness of breath Current Visit: Yes Status: Acute Assessment & Plan: -CT chest with multiple lung nodules in RUL, RML recommending f/u in 12 months, cardiomegaly, lower esophagus and hiatus hernia rounded radiodense bodies seen with proximal esophageal diastasis (clinical coordination of impacted ingested bodies recommended) -supplemental o2 to maintain spo2 >92% -RT consult -DuoNebs/in Code(s): R06.02 - SHORTNESS OF BREATH (5) KHUSHBOO (acute kidney injury) Current Visit: Yes Status: Acute Assessment & Plan: -at baseline -Monitor renal/lytes daily Code(s): N17.9 - ACUTE KIDNEY FAILURE, UNSPECIFIED (6) CAD (coronary artery disease) Current Visit: Yes Status: Acute Assessment & Plan: -S/P CABG, continue home meds Code(s): I25.10 - ATHSCL HEART DISEASE OF [place] CORONARY ARTERY W/O ANG PCTRS (7) HTN (hypertension) Current Visit: Yes Status: Acute Assessment & Plan: -stable will continue home meds and adjust as appropriate Code(s): I10 - ESSENTIAL (PRIMARY) HYPERTENSION (8) HLD (hyperlipidemia) Current Visit: Yes Status: Acute Assessment & Plan: -Continue statin Code(s): E78.5 - HYPERLIPIDEMIA, UNSPECIFIED (9) COPD (chronic obstructive pulmonary disease) Current Visit: Yes Status: Acute Assessment & Plan: -CT chest with multiple lung nodules in RUL, RML recommending f/u in 12 months, cardiomegaly, lower esophagus and hiatus hernia rounded radiodense bodies seen with proximal esophageal diastasis (clinical coordination of impacted ingested bodies recommended) -RT eval -PRN duonebs/in (10) Arrhythmia Current Visit: Yes Status: Acute Assessment & Plan: -Noted, continue home meds Code(s): I49.9 - CARDIAC ARRHYTHMIA, UNSPECIFIED (11) Hypokalemia Current Visit: Yes Status: Acute Assessment & Plan: -monitor renal/lytes daily, replace as appropriate 10/29: -resolved Code(s): E87.6 - HYPOKALEMIA (12) Bilateral lower extremity edema Current Visit: No Status: Acute Assessment & Plan: She is on torsemide for lower extremity edema - I feel this is too potent a diuretic for "cosmeresis" (cosmetic diuresis); would dose as PRN and decrease to lasix at lower dose 10/29: -Lasix prn Code(s): R60.0 - LOCALIZED EDEMA (13) CHF (congestive heart failure) Current Visit: No Status: Chronic Assessment & Plan: She is on torsemide for lower extremity edema - I feel this is too potent a diuretic for "cosmeresis" (cosmetic diuresis); would dose as PRN and decrease to lasix at lower dose -No recent ECHO, will order Code(s): I50.9 - HEART FAILURE, UNSPECIFIED (14) DVT prophylaxis Current Visit: No Status: Chronic Assessment & Plan: -Continue pradaxa Code(s): Z29.9 - ENCOUNTER FOR PROPHYLACTIC MEASURES, UNSPECIFIED (15) Hx pulmonary embolism Current Visit: No Status: Chronic Assessment & Plan: -Continue pradaxa Code(s): Z86.711 - PERSONAL HISTORY OF PULMONARY EMBOLISM I spent 35 minutes [id number] with the patient on the day of discharge p erforming discharge exam, discussing hospital stay and discharge instructions with patient and caregivers, preparation of discharge records, prescriptions & referral forms and addressing any questions/concerns the patient had as documented above. - Vitals & Intake/Output Vital Signs: Vital Signs Temperature 97.5 F 10/30/23 04:00 Pulse Rate 109 H 10/30/23 04:00 Respiratory Rate 26 H 10/30/23 04:00 Blood Pressure 128/58 10/30/23 04:00 O2 Sat by Pulse Oximetry 94 L 10/30/23 04:00 Intake & Output: Intake & Output 10/27/23 10/28/23 10/29/23 10/30/23 11:59 11:59 11:59 11:59 Intake Total 480 300 Output Total 680 Balance 480 -380 Weight 54.7 kg - Lab Result Diagrams: 10/30/23 07:50 10/30/23 07:50 Lab Results-Last 24 Hrs: Lab Results-Last 24 Hours 10/29/23 Range/Units 07:20 Potassium 3.7 (3.5-5.1) mmol/L Micro Results-Entire Visit: Microbiology 10/28/23 17:17 Urine Culture - Preliminary Clean Catch Midstream GRAM NEGATIVE ID AND SENSITIVITY PENDING - Radiology Exams Ordered Rad Exams-Entire Visit: Radiology Procedures Category Date Time Status CHEST 1 VIEW (PORTABLE) Stat Exams 10/28/23 15:27 Completed CHEST WITHOUT CONTRAST [CT] Stat Exams 10/28/23 17:16 Completed - Procedures and Test Procedures and Tests throughout Hospitalization: Therapy Orders & Screens 10/28/23 18:54 Oxygen Nasal Cannula 2 lpm Comment: 10/29/23 14:28 Speech Therapy Eval & Treat [ Eval & Treat ( Order)] .as ordered Comment: na Physician Instructions: Swallow study Reason For Exam: foreign body in esophagus on ct Evaluate: Yes Treat: Yes Reason for Eval: Swallow study Diagnosis: uti Discharge Exam General Appearance: no apparent distress Neurologic Exam: alert, oriented x 3, cooperative Eye Exam: PERRL Ears, Nose, Throat Exam: normal ENT inspection Neck Exam: normal inspection Respiratory Exam: normal breath sounds, wheezing Cardiovascular Exam: regular rate/rhythm, normal heart sounds Gastrointestinal/Abdomen Exam: soft, normal bowel sounds Pelvic Exam: deferred Rectal Exam: deferred Back Exam: normal inspection Extremity Exam: normal inspection Skin Exam: normal color Final Diagnosis/Problem List - Final Discharge Diagnosis/Problem (1) UTI (urinary tract infection) Current Visit: Yes Status: Acute Code(s): N39.0 - URINARY TRACT INFECTION, SITE NOT SPECIFIED (2) Abnormal CT scan, esophagus Current Visit: Yes Status: Chronic Code(s): R93.3 - ABNORMAL FINDINGS ON DX IMAGING OF PRT DIGESTIVE TRACT (3) Chest pain Current Visit: Yes Status: Resolved Code(s): R07.9 - CHEST PAIN, UNSPECIFIED (4) Shortness of breath Current Visit: Yes Status: Chronic Code(s): R06.02 - SHORTNESS OF BREATH (5) KHUSHBOO (acute kidney injury) Current Visit: Yes Status: Acute Code(s): N17.9 - ACUTE KIDNEY FAILURE, UNSPECIFIED (6) CAD (coronary artery disease) Current Visit: Yes Status: Chronic Code(s): I25.10 - ATHSCL HEART DISEASE OF [place] CORONARY ARTERY W/O ANG PCTRS (7) HTN (hypertension) Current Visit: Yes Status: Chronic Code(s): I10 - ESSENTIAL (PRIMARY) HYPERTENSION (8) HLD (hyperlipidemia) Current Visit: Yes Status: Chronic Code(s): E78.5 - HYPERLIPIDEMIA, UNSPECIFIED (9) COPD (chronic obstructive pulmonary disease) Current Visit: Yes Status: Chronic (10) Arrhythmia Current Visit: Yes Status: Chronic Code(s): I49.9 - CARDIAC ARRHYTHMIA, UNSPECIFIED (11) Hypokalemia Current Visit: Yes Status: Resolved Code(s): E87.6 - HYPOKALEMIA (12) Bilateral lower extremity edema Current Visit: No Status: Acute Code(s): R60.0 - LOCALIZED EDEMA (13) CHF (congestive heart failure) Current Visit: No Status: Chronic Code(s): I50.9 - HEART FAILURE, UNSPECIFIED (14) DVT prophylaxis Current Visit: No Status: Chronic Code(s): Z29.9 - ENCOUNTER FOR PROPHYLACTIC MEASURES, UNSPECIFIED (15) Hx pulmonary embolism Current Visit: No Status: Chronic Code(s): Z86.711 - PERSONAL HISTORY OF PULMONARY EMBOLISM - Discharge Disposition: Home, Self-Care Condition: Stable Prescriptions: New Cefdinir 300 mg PO BID PRN 7 Days #14 cap Linaclotide [Linzess] 145 mcg PO DAILY PRN 30 Days #30 cap PRN Reason: Constipation Continue Dabigatran Etexilate Mesylate [Pradaxa] 75 mg PO BID Pramipexole Di-HCl [Pramipexole Dihydrochloride] 0.25 mg PO HS Magnesium Oxide 400 mg PO DAILY Ferrous Sulfate 325 mg PO BID Multivitamin/Iron/Folic Acid [Centrum Complete Multivit Tab] 1 each PO DAILY Simvastatin 10 mg [Zocor 10MG] 10 mg PO HS Sertraline HCl 50 mg [Zoloft 50 mg Tablet] 50 mg PO DAILY Levothyroxine Sodium 75 Mcg [Synthroid 75 Mcg] 75 mcg PO DAILY Metoprolol Succinate 25 mg PO DAILY Mirabegron [Myrbetriq] 50 mg PO DAILY Torsemide [Soaanz] 20 mg PO BID Spironolactone 25 mg [Aldactone 25 MG] 25 mg PO BID Sildenafil Citrate 20 mg PO TID Docusate Sodium 100 mg [Docusate Sodium 100 MG] 100 mg PO BID 30 Days #60 cap Ondansetron ODT 4 MG [Zofran Odt 4 mg] 4 mg PO Q6H PRN PRN #10 tablet PRN Reason: Nausea Vibegron [Gemtesa] 75 mg PO DAILY Omeprazole 20 mg PO DAILY Potassium Chloride 20 meq PO BID 7 Days #14 tablet Additional Instructions: [facility] THEY WILL CONTACT YOU TO ARRANGE A TIME TO COME SEE YOU. THEIR PHONE NUMBER IS [phone] IF YOU NEED ANYTHING BEFORE THEY CONTACT YOU. Follow up with: MOE PRINCE [Primary Care Provider] - 1 Week
[2023-10-30 07:39] VITALS: RESP 16; TEMP 97.7
[2023-10-30 08:12] LABS: Absolute Neutrophil Ct (ANC) 4.31 x10^3/uL (1.4-6.9); BASOPHIL % 0.3 % (0.0-0.4); Basophil (Absolute #) 0.02 x10^3/uL (0-0.4); Eosinophil (Absolute #) 0.19 x10^3/uL (0-0.5); Hematocrit 31.1 % (35-47); Hemoglobin 9.6 g/dL (12.0-16.0); IMMATURE GRAN # 0.03 x10^3u/L (0.00-0.03); IMMATURE GRAN % 0.5 % (0.00-0.4); Lymphocytes % 17.1 % (24.0-44.0); Mean Cell Volume 96.6 fL (78-100); Mean Corpuscular Hemoglobin 29.8 pg (26-32); Mean Corpuscular Hgb Concent. 30.9 g/dL (32-36); Mean Platelet Volume 10.9 fL (7.5-11.0); Monocyte (Absolute #) 0.77 x10^3/uL (0.0-1.3); Neutrophil % 67.1 % (36.0-66.0); Platelet Count 156 x10^3/uL (150-450); Red Blood Count 3.22 x10^6/uL (4.1-5.4); Red Cell Distribution Width 15.5 % (11.5-14.0); White Blood Count 6.4 x10^3/uL (4.0-10.5)
[2023-10-30 08:20] LABS: ALBUMIN 3.4 g/dL (3.5-5.0); BILIRUBIN,TOTAL 0.4 mg/dL (0.2-1.3); Calcium 8.8 mg/dL (8.4-10.2); Creatinine 1 1.17 mg/dL (0.52-1.04); EST GLOMERULAR FILTRATION RATE 44.6 ML/MIN; Potassium 4.1 mmol/L (3.5-5.1); Total Protein 6.6 g/dL (6.3-8.2)
[2023-10-30 08:21] LABS: ANION GAP 9.1 MEQ/L (5-15)
[2023-10-30] MEDS: Docusate Sodium 100 MG PO SCH (10:05)
[2023-10-30] MEDS: PRADAXA 75 MG PO SCH (10:06)
[2023-10-30] MEDS: Protonix 40MG Tablet PO SCH (10:06)
[2023-10-30] MEDS: SYNTHROID 75 MCG PO SCH (10:06)
[2023-10-30] MEDS: Toprol-Xl 25MG Tablets PO SCH (10:06)
[2023-10-30] MEDS: Klor Con PO SCH (10:06)
[2023-10-30] MEDS: Aldactone 25 MG PO SCH (10:06)
[2023-10-30] MEDS: ZOLOFT 50 MG TABLET PO SCH (10:06)
[2023-10-30 13:47] VITALS: BP 136/62; PULSE 69; O2SAT 97
== END 2023-10-30 14:48 | disposition home health service (06) ==
LOC: ED 14:49 → MED SURG 19:32
PROVIDERS: ADMIT Internal Medicine Critical Care Medicine; ATTEND Internal Medicine Critical Care Medicine
DX: N39.0 Urinary tract infection, site not specified (principal); R93.3 Abnormal findings on diagnostic imaging of other parts of digestive tract; R07.9 Chest pain, unspecified; I25.10 Atherosclerotic heart disease of native coronary artery without angina pectoris; I11.0 Hypertensive heart disease with heart failure; I50.9 Heart failure, unspecified; E78.5 Hyperlipidemia, unspecified; R06.02 Shortness of breath; N17.9 Acute kidney failure, unspecified; J44.9 Chronic obstructive pulmonary disease, unspecified; I49.9 Cardiac arrhythmia, unspecified; E87.6 Hypokalemia; R60.0 Localized edema; Z95.0 Presence of cardiac pacemaker; Z29.9 Encounter for prophylactic measures, unspecified; Z86.711 Personal history of pulmonary embolism; Z79.899 Other long term (current) drug therapy; Z20.828 Contact with and (suspected) exposure to other viral communicable diseases
CPT/HCPCS: 0241U; 36415; 71045; 71250; 80053; 81001; 83605; 83735; 83880; 84132; 84484; 85025; 85027; 85610; 85730; 87040; 87077; 87086; 87186; 92610; 93005; 96365; 99285; Q3014; 93268; J0696; J3480; A9270-GY; G0378